=== PATIENT | male | born 1940 | race Caucasian/White ===

== ENCOUNTER → 2016-05-04 | Outpatient (CLI) | payer MEDICARE, BC ==
[2016-05-04 11:59] LABS: Appearance,Urine Clear (Clear); Bilirubin,Urine Negative (Negative); Glucose,Urine (UA) Negative (Negative); Ketones,Urine Negative (Negative); Leukocyte Esterase,Urine Trace (Negative); Mucus,Urine Few /hpf; Nitrite,Urine Negative (Negative); Particle Count 7877; Protein,Urine 1+ (Negative); RBC,Urine 4 /hpf (0-5); Specific Gravity,Urine 1.017 (1.001-1.035); Squamous Epithelial Cell,Urine 1 /hpf (0-4); UA Billing (MACRO vs. MICRO) MICRO; Urobilinogen,Urine <2.0 mg/dL (<2.0); WBC,Urine 1 /hpf (0-5)
[2016-05-04 12:09] LABS: Calcium 9.5 mg/dL (8.4-10.2); Magnesium 2.1 mg/dL (1.6-2.3); Phosphorous 2.4 mg/dL (2.5-4.5); Potassium 4.4 mmol/L (3.5-5.1); Uric Acid 6.4 mg/dL (3.5-8.5)
[2016-05-04 12:18] LABS: % Iron Saturation 46.9 % (20-50)
[2016-05-04 14:40] LABS: Anisocytosis Slight; CH 28.9; CHCM 34.1; HDW 3.13; HGB 16.1 gm/dL (13.0-17.5); MCH 28.5 pg (25.0-35.0); MCHC 33.5 g/dL (31.0-37.0); Mean Platelet Volume 7.8; RBC 5.64 m/uL (4.30-5.90); RDW 19.2 % (11.5-15.5); WBC 3.2 k/uL (3.8-10.6)
[2016-05-05 15:37] LABS: Mis test requested (Non-blood) 24hr Ur Tot Protein
== END | disposition home or self-care (01) ==
LOC: LABWHC1 11:12
PROVIDERS: ATTEND Nurse Practitioner Family
DX: N18.3 Chronic kidney disease, stage 3 (moderate) (principal); D64.9 Anemia, unspecified; E83.39 Other disorders of phosphorus metabolism; M10.9 Gout, unspecified; N39.0 Urinary tract infection, site not specified; R80.9 Proteinuria, unspecified
CPT/HCPCS: 36415; 80048; 81001; 81050; 82306; 82570; 82728; 83540; 83550; 83735; 83970; 84100; 84156; 84550; 85027

== ENCOUNTER → 2016-06-06 | Outpatient (CLI) | payer MEDICARE, BC ==
--- NOTE | 2016-06-07 09:31 | PE ---
EXAMINATION TYPE: PET CT fusion skull to thigh DATE OF EXAM: 06/06/2016 2:54 PM COMPARISON: PET/CT 02/29/2016 HISTORY: Renal cancer TECHNIQUE: Following the intravenous administration of 14.76 mCi of F-18 FDG, whole body images are performed from the skull base to the midthigh. Images are reviewed on the computer in the coronal, a xial, and sagittal planes. Reconstructed rotating images are created on independent workstation and reviewed on the computer. A localization and attenuation correction CT is performed in conjunction with the PET scan. DLP: 479.6 mGycm SCAN: Subsequent Scan Blood glucose: 68 mg/dL Average Mediastinum SUV: 1.9 Average Liver SUV: 2.3 FINDINGS: NECK: No abnormal uptake THORAX: No abnormal uptake ABDOMEN AND PELVIS: No abnormal uptake OSSEOUS STRUCTURES: No abnormal uptake LOCALIZATION CT: Gallstones are present. There is a cyst superior pole right kidney. This measures 5. 1 cm in transverse dimension with Hounsfield unit measurement of 20. No suspicious adenopathy is evid ent. Aortic region level of the renal arteries. No abnormal adenopathy is evident. Diverticulosis is present. Right hip prosthesis is present. Left kidney is resected. Ascending thoracic aorta measures 3.4 cm the global the main pulmonary artery. Pulmonary artery measures 2.2 cm at the bifurcation. Cor onary artery calcification is present. COMPARISON: Marked intensity surrounding the right hip prosthesis is not apparent on the current exam ination. There may be some minimal residual directly adjacent to an SUV value of 3.70 as a comparison . PET image 252 IMPRESSION: 1. Suspicious uptake not identified. 2. Some increased uptake adjacent to the right hip prosthesis prior surgery site is diminishing from comparison intensity an SUV value. Postsurgical changes and resolving neoplasm could be considered.
== END | disposition home or self-care (01) ==
LOC: RADPETMAIN 11:23
PROVIDERS: ATTEND Internal Medicine Hematology & Oncology
DX: C64.2 Malignant neoplasm of left kidney, except renal pelvis (principal)
CPT/HCPCS: 78815; A9552

== ENCOUNTER → 2016-06-24 | Outpatient (CLI) | payer MEDICARE, BC | END | disposition home or self-care (01) | LOC: LABWHC1 11:09 | PROVIDERS: ATTEND Family Medicine | DX: C79.51 Secondary malignant neoplasm of bone (principal); M84.451A Pathological fracture, right femur, initial encounter for fracture | CPT/HCPCS: 36415; 82565; 84520 ==

== ENCOUNTER → 2016-06-29 | Outpatient (CLI) | payer MEDICARE, BC ==
--- NOTE | 2016-06-29 15:44 | MR ---
EXAMINATION TYPE: MR knee RT wo/w con DATE OF EXAM: 06/29/2016 12:57 PM COMPARISON: NONE HISTORY: malignant neoplasm of bone, FDG avid lesion medial femoral condyle, h/o renal cell ca TECHNIQUE: Multiplanar, multisequence images of the right knee is performed with 17 mL intravenous Mu ltiHance gadolinium contrast. FINDINGS: MEDIAL MENISCUS: Anterior and posterior horns are intact without tear. LATERAL MENISCUS: Anterior and posterior horns are intact without tear. CRUCIATE LIGAMENTS: The anterior and posterior cruciate ligaments are intact and unremarkable. COLLATERAL LIGAMENTS: The medial collateral ligament and lateral collateral ligament complex are inta ct and unremarkable. EXTENSOR MECHANISM: Visualized quadriceps and patellar tendons are intact. EFFUSION: No significant suprapatellar joint effusion. POPLITEAL CYST: No popliteal/siduh cyst. TRICOMPARTMENT SPACES: Intact CARTILAGE: Intact BONE MARROW SIGNAL: No focal abnormal marrow signal is appreciated. OTHER: Small nonenhancing cystic lesion is seen within the medial femoral condyle subcortical locati on and measures approximately 6.5 mm. Additional nonenhancing cystic lesion is seen within the latera l aspect of the lateral tibial plateau and measures 6.8 mm. No destructive lesion identified within t he nhbyd-sy-lihw of this time. Intramedullary cesilia is partially imaged. IMPRESSION: 1. Small nonenhancing cystic lesions are nonspecific. Correlate with bone scan to exclude the possibi lity of metastatic disease.
== END ==
LOC: RADMRIMAIN 11:39
PROVIDERS: ATTEND Orthopaedic Surgery
DX: M89.8X6 Other specified disorders of bone, lower leg (principal); C79.51 Secondary malignant neoplasm of bone; M84.451A Pathological fracture, right femur, initial encounter for fracture
CPT/HCPCS: 73723; A9577

== ENCOUNTER → 2016-08-28 | Outpatient (CLI) | payer MEDICARE, BC ==
--- NOTE | 2016-08-28 10:23 | CT ---
EXAMINATION TYPE: CT ChestAbdPelvis wo con DATE OF EXAM: 08/28/2016 9:51 AM COMPARISON: PET/CT dated 06/06/[address] chest dated 04/07/2016. HISTORY: Renal cell CA, wt loss CT DLP: 611.4 mGycm Automated exposure control for dose reduction was used. FINDINGS: CHEST: The right middle lobe pulmonary nodule has decreased in size now measuring 1.1 cm and previous ly measuring 1.7 cm the previously seen left superior segment lower lobe pulmonary nodule has also de creased in size that abuts the major fissure measuring 2 mm and previously measuring 5 mm. Within the left upper lobe anteriorly on image 30 the previously seen pulmonary nodule has also decreased in si ze now measuring 5 mm additionally the left lower lobe pulmonary nodule on image 40 has also decrease d in size now measuring 3 mm. The previously seen second right pulmonary nodule, subcentimeter is no longer visualized on this examination.. Otherwise the lungs are clear without evidence of pleural eff usion, or pulmonary mass. Minimal right basilar subsegmental atelectasis is present. Three-vessel coronary artery calcifications are noted. A prominent subcarinal lymph node is seen john uring 9 mm in short axis but maintains a fatty hilum. No gross evidence of hilar or mediastinal adeno teresa. No evidence of axillary adenopathy or supraclavicular adenopathy. The thyroid gland is unremar kable. Heart size is within normal limits. ABDOMEN AND PELVIS: The unenhanced liver, spleen, pancreas, and adrenal glands are of normal morpholo gy. Gallstones are evident. The right kidney is also of normal morphology with a right renal sinus cy st again measuring approximately 4.7 cm. The left kidney is surgically absent although the left adrenal gland remains. No residual soft tissue is seen within the surgical bed. No lymphadenopathy is seen within the abdomen or pelvis. The bowel is normal caliber. Diverticula are seen throughout the colon most pronounced within the sig moid colon without pericolonic fat stranding. Abdominal aorta is of normal course and caliber with at heromatous changes. No suspicious osseous lesion is present. Mild degenerative changes are appreciate d of the thoracolumbar spine. Right hip arthroplasty is unchanged. IMPRESSION: 1. LEFT NEPHRECTOMY WITH NO SOFT TISSUE DENSITY WITHIN THE POSTSURGICAL BED OR LYMPHADENOPATHY TO IND ICATE RECURRENT OR RESIDUAL TUMOR AT THIS TIME. 2. DECREASING SIZE OF THE BILATERAL PULMONARY NODULES INDICATING RESPONSE TO TREATMENT OR INFLAMMATOR Y/INFECTIOUS ETIOLOGY. 3. RIGHT PARAPELVIC RENAL CYST, SIMPLE IN NATURE. 4. NO SUSPICIOUS OSSEOUS LESION.
== END | disposition home or self-care (01) ==
LOC: RADCTMAIN 09:32
PROVIDERS: ATTEND Internal Medicine Hematology & Oncology
DX: N28.1 Cyst of kidney, acquired (principal); R91.8 Other nonspecific abnormal finding of lung field; C64.2 Malignant neoplasm of left kidney, except renal pelvis; Z90.5 Acquired absence of kidney
CPT/HCPCS: 71250; 74176

== ENCOUNTER → 2016-10-21 | Outpatient (CLI) | payer MEDICARE, BC ==
[2016-10-21 10:14] LABS: CH 35.1; CHCM 34.4; HCT 40.3 % (39.0-53.0); HDW 3.32; HGB 14.5 gm/dL (13.0-17.5); MCH 36.8 pg (25.0-35.0); MCHC 35.8 g/dL (31.0-37.0); MCV 102.8 fL (80.0-100.0); Macrocytosis Slight; Mean Platelet Volume 7.1; RBC 3.92 m/uL (4.30-5.90); RDW 14.5 % (11.5-15.5); WBC 3.1 k/uL (3.8-10.6)
[2016-10-21 10:37] LABS: Appearance,Urine Clear (Clear); Bilirubin,Urine Negative (Negative); Glucose,Urine (UA) Negative (Negative); Ketones,Urine Negative (Negative); Leukocyte Esterase,Urine Negative (Negative); Nitrite,Urine Negative (Negative); PH, Urine 5.5 (5.0-8.0); Protein,Urine Trace (Negative); Specific Gravity,Urine 1.011 (1.001-1.035); UA Billing (MACRO vs. MICRO) CHEM; Urobilinogen,Urine <2.0 mg/dL (<2.0)
[2016-10-21 10:50] LABS: Anion Gap 12 mmol/L; Blood Urea Nitrogen 27 mg/dL (9-20); Calcium 9.2 mg/dL (8.4-10.2); Carbon Dioxide 20 mmol/L (22-30); Chloride 111 mmol/L (98-107); Glucose 82 mg/dL (74-99); Iron 93 ug/dL (49-181); Magnesium 1.8 mg/dL (1.6-2.3); Non-African American GFR(MDRD) 54 (>60 ml/min/1.73 sqM); Phosphorous 2.5 mg/dL (2.5-4.5); Potassium 4.9 mmol/L (3.5-5.1); Sodium 143 mmol/L (137-145)
[2016-10-21 10:59] LABS: % Iron Saturation 32.9 % (20-50); Total Iron Binding Capacity 283 ug/dL (261-462)
[2016-10-21 11:09] LABS: Creatinine,Urine Random 48.6 mg/dL
== END | disposition home or self-care (01) ==
LOC: LABWHC1 09:25
PROVIDERS: ATTEND Nurse Practitioner Family
DX: E55.9 Vitamin D deficiency, unspecified (principal); M10.9 Gout, unspecified; N39.0 Urinary tract infection, site not specified; N18.3 Chronic kidney disease, stage 3 (moderate)
CPT/HCPCS: 36415; 80048; 81003; 82306; 82570; 82728; 83540; 83550; 83735; 83970; 84100; 84156; 84550; 85027

== ENCOUNTER → 2016-12-25 | Outpatient (CLI) | payer MEDICARE, BC ==
--- NOTE | 2016-12-25 13:08 | CT ---
EXAMINATION TYPE: CT ChestAbdPelvis wo con DATE OF EXAM: 12/25/2016 COMPARISON: Most recent CT chest abdomen and pelvis study August 28, 2016. PET CT June 06, 2016. Prio r PET/CT November 23, 2015. HISTORY: Left-sided renal cancer on chemotherapy progress study. CT DLP: 469.8 mGycm. Automated Exposure Control for Dose Reduction was Utilized. TECHNIQUE: CT scan of the thorax, abdomen and pelvis is performed with oral but without IV contrast. FINDINGS: LUNGS: A 1 cm nodular opacity right middle lobe near axial image 39 is unchanged from recent CT. This is perhaps slightly less prominent versus PET/CT November 23, 2015. No new parenchymal nodule or mass is present. Previously described small under 5 mm nodules on most recent CT study are not clearly seen on current study. Lungs are grossly clear. There is no pleural effusion or pneumothorax seen. The tr acheobronchial tree is patent. MEDIASTINUM: There are no new greater than 1 cm hilar or mediastinal lymph nodes. No cardiomegaly o r pericardial effusion is seen. There is prominent coronary artery calcification and/or stent in the LAD. OTHER: No additional significant abnormality is seen. LIVER/GB: Numerous dependent gallstones and gallbladder are redemonstrated. PANCREAS: No significant abnormality is seen. SPLEEN: No significant abnormality is seen. ADRENALS: No significant abnormality is seen. KIDNEYS: Left kidney is surgically absent. No suspicious new soft tissue density at level of left ry al bed is identified. There is redemonstration of 5 cm exophytic simple appearing cyst upper pole lev el right kidney that is stable. BOWEL: Sigmoid colonic diverticulosis is present. There is no CT evidence for acute diverticulitis. T here is no suspicious bowel dilatation. GENITAL ORGANS: No gross abnormality seen. LYMPH NODES: No greater than 1cm abdominal or pelvic lymph nodes are appreciated. OSSEOUS STRUCTURES: Streak artifact from metallic hardware right hip level is noted limiting evaluati on of pelvic structures. Osseous structures are somewhat demineralized. There is multilevel spurring in the thoracic spine. There is disc calcification L3-L4 level redemonstrated. No new suspicious foca l lytic or sclerotic lesion is clearly seen. OTHER: No significant additional abnormality is seen. IMPRESSION: Stable nonspecific 1 cm nodule right middle lobe. No new masses or adenopathy are evident to suggest neoplastic recurrence.
== END | disposition home or self-care (01) ==
LOC: RADCTMAIN 12:12
PROVIDERS: ATTEND Internal Medicine Hematology & Oncology
DX: R91.1 Solitary pulmonary nodule (principal); C64.2 Malignant neoplasm of left kidney, except renal pelvis
CPT/HCPCS: 71250; 74176

== ENCOUNTER → 2017-05-05 | Outpatient (CLI) | payer MEDICARE, BC ==
[2017-05-05 11:41] LABS: Calcium 9.8 mg/dL (8.4-10.2); Magnesium 1.9 mg/dL (1.6-2.3); Phosphorus 3.1 mg/dL (2.5-4.5); Total Bilirubin 0.6 mg/dL (0.2-1.3); Total Protein 6.6 g/dL (6.3-8.2); Uric Acid 5.5 mg/dL (3.5-8.5)
[2017-05-05 12:13] LABS: Appearance,Urine Clear (Clear); Bilirubin,Urine Negative (Negative); Blood,Urine Trace (Negative); Color,Urine Light Yellow; Glucose,Urine (UA) Negative (Negative); Ketones,Urine Negative (Negative); Leukocyte Esterase,Urine Negative (Negative); Mucus,Urine Rare /hpf; Nitrite,Urine Negative (Negative); PH, Urine 5.5 (5.0-8.0); Protein,Urine Trace (Negative); Squamous Epithelial Cell,Urine <1 /hpf (0-4); Urobilinogen,Urine <2.0 mg/dL (<2.0); WBC,Urine <1 /hpf (0-5)
[2017-05-05 12:31] LABS: Basophils % (A) 1 %; Eosinophils # (A) 0.2 k/uL (0-0.7); Eosinophils % (A) 7 %; HCT 42.3 % (39.0-53.0); Lymphocytes # (A) 0.4 k/uL (1.0-4.8); Lymphocytes % (A) 12 %; MCH 33.3 pg (25.0-35.0); MCV 101.1 fL (80.0-100.0); Macrocytosis Slight; Monocytes # (A) 0.2 k/uL (0-1.0); Monocytes % (A) 7 %; Neutrophils # (A) 2.2 k/uL (1.3-7.7); Neutrophils % (A) 71 %; Platelet Count 124 k/uL (150-450); Poikilocytosis Slight; RBC 4.19 m/uL (4.30-5.90); RDW 14.5 % (11.5-15.5); WBC 3.2 k/uL (3.8-10.6)
[2017-05-05 15:57] LABS: Iron Saturation 24.32 (15.00-50.00)
[2017-05-05 16:05] LABS: Vitamin D 25 Hydroxy 33.3 ng/mL (30.0-100.0)
[2017-05-05 17:55] LABS: Parathyroid Hormone Intact 46.8 pg/mL (14.0-72.0)
[2017-05-05 19:42] LABS: Hemoglobin A1C 4.5 % (4.0-6.0)
== END | disposition home or self-care (01) ==
LOC: LABWHC1 10:41
PROVIDERS: ATTEND Internal Medicine Nephrology
DX: N25.81 Secondary hyperparathyroidism of renal origin (principal); N18.3 Chronic kidney disease, stage 3 (moderate); E55.9 Vitamin D deficiency, unspecified; M10.9 Gout, unspecified; D50.9 Iron deficiency anemia, unspecified; N39.0 Urinary tract infection, site not specified
CPT/HCPCS: 36415; 80053; 80061; 81001; 82306; 82728; 83036; 83540; 83550; 83735; 83970; 84100; 84443; 84550; 85025

== ENCOUNTER → 2017-06-01 | Outpatient (CLI) | payer MEDICARE, BC ==
--- NOTE | 2017-06-01 10:14 | US ---
EXAMINATION TYPE: US kidneys/renal and bladder DATE OF EXAM: 06/01/2017 COMPARISON: US & CT CLINICAL HISTORY: Renal Cyst N28.1. EXAM MEASUREMENTS: Right Kidney: 10.7 x 4.9 x 5.5 cm Left Kidney: Surgically absent cm Right Kidney: complex cyst upper pole measures 6.2 x 4.9 x 5.9 cm Left Kidney: surgically absent Bladder: wnl Bilateral Jets seen: Yes There is no evidence for hydronephrosis at this point in time. No nephrolithiasis is seen. No alix s are identified. The urinary bladder is anechoic. Bilateral ureteral jets are seen. IMPRESSION: Complex cyst upper pole right kidney with internal echoes and septations. Consider MRI correlation.
== END | disposition home or self-care (01) ==
LOC: RADUSWWP 09:41
PROVIDERS: ATTEND Internal Medicine Nephrology
DX: N28.1 Cyst of kidney, acquired (principal)
CPT/HCPCS: 76770

== ENCOUNTER → 2017-06-30 | Outpatient (CLI) | payer MEDICARE, BC | END | disposition home or self-care (01) | LOC: LABWHC1 13:11 | PROVIDERS: ATTEND Urology | DX: N28.1 Cyst of kidney, acquired (principal) | CPT/HCPCS: 36415; 82565 ==

== ENCOUNTER → 2017-07-02 | Outpatient (CLI) | payer MEDICARE, BC ==
--- NOTE | 2017-07-02 15:58 | MR ---
EXAMINATION TYPE: MR kidney wo/w con DATE OF EXAM: 07/02/2017 COMPARISON: MRI bilateral kidney January 18, 2014. CT chest abdomen and pelvis April 09, 2017. K idney ultrasound June 01, 2017. HISTORY: Right Kidney pain, Left Kidney Removed 2014 per patient. Right renal cyst per order. CONTRAST: Standard multiplanar, multisequence MRI departmental protocol utilizing 10 mL intravenous Gadavist ga dolinium contrast. FINDINGS: KIDNEYS: Left kidney is now surgically absent. 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 No suspicious recurrent tissue is seen. Right kidney redemonstrates thin-walled cystic lesion are slowly exophytic upper pole level, and is e nlarged in size versus 2014 MRI measuring roughly 5.7 cm craniocaudal dimension coronal image 27 seri es 30 1 x 5.0 cm x 5.0 cm AP and transverse dimensions axial image 29 series 501. Similar to prior st udy there is a nonenhancing round component that is slightly hyperintense relative to fluid on T1-nayla ghted images and slightly hypointense relative to fluid involving the right lateral aspect of the les ion also which has progressed in size from 2014 MRI where it was visualized coronal image 32 series 5 01. This area is slightly hyperdense on CT. Most importantly postcontrast images show persistent mild curvilinear rim type enhancement along posterior margin of this lesion. More medial curvilinear enha ncing component on prior MRI is not as well seen. Suspect proteinaceous cyst within cyst. Solid lesio n not excluded though lack of enhancement makes almost certainly benign. There is no suspicious new n odular enhancement in this lesion or the majority of remainder thin-walled cystic lesion. No suspicio us new thickened septa are identified. No new suspicious renal lesions are present. OTHER: Dependent gallstones are redemonstrated and gallbladder. Spleen size is stable and perhaps mil dly enlarged measuring 14.2 cm long axis coronal image 28. There is stable subcentimeter cyst or cyst ic lesion pancreatic body inferior to pancreatic duct coronal image 14. Left adrenal gland is not see n with certainty. Prominent vessels just superior to pancreatic tail are now identified at this level . There is no suspicious bowel dilatation. There is no abdominal ascites. Osseous structures are inta ct. IMPRESSION: Nonsimple partially exophytic cyst or cystic lesion upper pole level right kidney has enlarged in the interval from 2014 MRI as suspected on recent ultrasound. Still felt Bosniak type II or II F lesion. No new suspicious nodularity, thickened septa, or enhancement seen to suggest Bosniak type III or IV lesion
== END ==
LOC: RADMRIMAIN 14:32
PROVIDERS: ATTEND Urology
DX: N28.1 Cyst of kidney, acquired (principal)
CPT/HCPCS: 74183; A9581

== ENCOUNTER → 2017-08-05 | Outpatient (CLI) | payer MEDICARE, BC ==
--- NOTE | 2017-08-05 14:55 | CT ---
EXAMINATION TYPE: CT ChestAbdPelvis wo con DATE OF EXAM: 08/05/2017 COMPARISON: 04/09/2017 and 12/25/2016. MRI 07/02/2017. HISTORY: 76-year-old male renal cell CA. Patient status post left nephrectomy, radiation in 2016 and currently taking oral chemotherapy. TECHNIQUE: Contiguous axial scanning of the chest, abdomen, and pelvis without IV contrast. Coronal a nd sagittal reconstructions performed. CT DLP: 1581 mGycm Automated exposure control for dose reduction was used. FINDINGS: Chest: The heart is normal size without pericardial effusion. Extensive coronary vessel calcifications are p resent and there are marker for coronary artery disease. Ascending aorta ectatic at 3.7 cm. Conventional arch vessel branching anatomy. Scattered mild atheros clerotic calcifications. No thoracic lymphadenopathy identified by noncontrast CT. Probably strandy areas of atelectasis or scarring in the lung bases. New 4 mm pulmonary nodule peripheral right base, axial image 39. Tiny 3 mm nodularity along the superior aspect of the left major fissure axial image 16 is unchanged, likely pulmonary lymph node. No consolidation or pleural effusion. ABDOMEN: Small hiatal hernia. Lack of IV contrast limits assessment of the solid abdominal viscera, lymph nodes, and vascular struc tures. Noncontrast appearance of the liver shows no obvious liver lesion. Also, noncontrast appearance of the adrenal glands, spleen, pancreas without gross abnormality. Cholelithiasis without abnormal gallbladder distention. Diverticulum of the second portion of the duo denum. Redemonstrated 5.3 cm Bosniak category 2 or 2F cyst upper pole right kidney as described on the MRI o f 07/02/2017. Multiple surgical clips in the left renal fossa. No abnormal soft tissue density seen in the left ry al fossa. No dilated small bowel, free fluid, or free air. No mesenteric or retroperitoneal lymphadenopathy. Moderate stool burden with sigmoid diverticulosis but no evidence for acute diverticulitis. Suggestio n of some wall thickening along the midsigmoid, for example, axial image 113 but limitation in assess ment due to artifact from the patient's right hip total arthroplasty. No significant surrounding infl ammatory change seen. Pelvis: Metal hardware artifact relating to the patient's right hip hemiarthroplasty limits assessment. Prost ate gland prominent measuring 5.3 cm wide. No pelvic lymphadenopathy seen. Bones: Degenerative changes mid to lower lumbar spine. No osseous destructive process seen. Stable bony def ormity along the patient's femoral stem prosthesis on the right. IMPRESSION: 1. STATUS POST LEFT NEPHRECTOMY. NO CT EVIDENCE FOR LOCOREGIONAL RECURRENCE. 2. HOWEVER, A SMALL 4 MM RIGHT BASILAR PULMONARY NODULE IS NEW AND A METASTATIC PULMONARY NODULE IS N OT EXCLUDED AT THIS TIME. 3. STABLE 5.3 CM BOSNIAK CATEGORY 2 OR 2F CYST UPPER POLE RIGHT KIDNEY. 4. SIGMOID DIVERTICULOSIS WITHOUT ACUTE DIVERTICULITIS. HOWEVER, THERE IS SUGGESTION OF SOME WALL THI CKENING ALONG THE MID SIGMOID. THIS COULD RELATE TO CHRONIC DIVERTICULITIS. CONSIDER COLONOSCOPY TO E XCLUDE NEOPLASM. 5. CHOLELITHIASIS.
== END | disposition home or self-care (01) ==
LOC: RADCTMAIN 12:20
PROVIDERS: ATTEND Internal Medicine Hematology & Oncology
DX: C64.2 Malignant neoplasm of left kidney, except renal pelvis (principal); K57.30 Diverticulosis of large intestine without perforation or abscess without bleeding; K80.20 Calculus of gallbladder without cholecystitis without obstruction; R91.1 Solitary pulmonary nodule; Z90.5 Acquired absence of kidney
CPT/HCPCS: 71250; 74176

== ENCOUNTER → 2017-08-13 | Outpatient (CLI) | payer MEDICARE, BC ==
--- NOTE | 2017-08-13 13:01 | US ---
EXAMINATION TYPE: US venous doppler duplex LE DATE OF EXAM: 08/13/2017 12:42 PM COMPARISON: NONE CLINICAL HISTORY: R002.2 palpitations M79.662 Left pain and swelling. Pt states in treatment for fred l cell CA, dizziness, light headed SIDE PERFORMED: Bilateral TECHNIQUE: The lower extremity deep venous system is examined utilizing real time linear array sonog marc with graded compression, doppler sonography and color-flow sonography. VESSELS IMAGED: External Iliac Vein (EIV) Common Femoral Vein Deep Femoral Vein Greater Saphenous Vein * Femoral Vein Popliteal Vein Small Saphenous Vein * Proximal Calf Veins (* superficial vessels) Grayscale, color doppler, spectral doppler imaging performed of the deep veins of the lower extremiti es. There is normal flow, compressibility, vascular waveforms. Attempted to call office, closed for lunch IMPRESSION: Right Leg: Negative for DVT Left Leg: Negative for DVT
--- NOTE | 2017-08-13 14:02 | XR ---
EXAMINATION TYPE: XR chest 2V DATE OF EXAM: 08/13/2017 COMPARISON: 02/16/2014 HISTORY: Shortness of breath TECHNIQUE: Frontal and lateral views of the chest are obtained. FINDINGS: Scattered senescent parenchymal changes noted. No evidence for infiltrate. No evidence for atelectasis. Heart size is stable. Mediastinal structures are stable and grossly unremarkable. No evidence for hilar prominence. Degenerative changes dorsal spine. IMPRESSION: 1. No evidence for acute pulmonary disease.
--- NOTE | 2017-08-13 14:04 | NM ---
EXAMINATION TYPE: NM pul vent and perfuse DATE OF EXAM: 08/13/2017 COMPARISON: NONE HISTORY: R002.2 palpitations M79.662 Left pain and swelling TECHNIQUE: Utilizing inhalation of 35.9 mCi Tc 99m DTPA aerosol and intravenous injection of 5.47 mC i of Tc 99m MAA, ventilation and perfusion images are acquired post injection in multiple projections . FINDINGS: Normal radiotracer distribution is noted in the lungs. There is no evidence of mismatched defects. IMPRESSION: Low probability for pulmonary embolism.
== END ==
LOC: RADUSMAIN 11:56
PROVIDERS: ATTEND Internal Medicine Hematology & Oncology
DX: M79.662 Pain in left lower leg (principal); C64.2 Malignant neoplasm of left kidney, except renal pelvis; G89.3 Neoplasm related pain (acute) (chronic); D50.9 Iron deficiency anemia, unspecified; R00.2 Palpitations; K12.39 Other oral mucositis (ulcerative)
CPT/HCPCS: 71046; 93970; 78582; A9540; A9567

== ENCOUNTER → 2017-11-08 | Outpatient (CLI) | payer MEDICARE, BC ==
[2017-11-08 10:35] LABS: Basophils % (A) 0 %; Eosinophils # (A) 0.4 k/uL (0-0.7); Eosinophils % (A) 11 %; HCT 43.1 % (39.0-53.0); HGB 14.2 gm/dL (13.0-17.5); Lymphocytes # (A) 0.5 k/uL (1.0-4.8); Lymphocytes % (A) 12 %; MCV 96.9 fL (80.0-100.0); Mean Platelet Volume 6.9; Monocytes # (A) 0.4 k/uL (0-1.0); Monocytes % (A) 10 %; Neutrophils # (A) 2.3 k/uL (1.3-7.7); Neutrophils % (A) 63 %; Platelet Count 122 k/uL (150-450); RBC 4.45 m/uL (4.30-5.90); RDW 15.2 % (11.5-15.5); WBC 3.7 k/uL (3.8-10.6)
[2017-11-08 10:43] LABS: Calcium 9.9 mg/dL (8.4-10.2); Magnesium 1.8 mg/dL (1.6-2.3); Phosphorus 3.8 mg/dL (2.5-4.5); Potassium 5.1 mmol/L (3.5-5.1); Uric Acid 7.1 mg/dL (3.5-8.5)
[2017-11-08 11:10] LABS: Appearance,Urine Clear (Clear); Bilirubin,Urine Negative (Negative); Blood,Urine Negative (Negative); Color,Urine Light Yellow; Glucose,Urine (UA) Negative (Negative); Ketones,Urine Negative (Negative); Leukocyte Esterase,Urine Negative (Negative); Nitrite,Urine Negative (Negative); PH, Urine 5.5 (5.0-8.0); Protein,Urine Trace (Negative); Urobilinogen,Urine <2.0 mg/dL (<2.0)
[2017-11-08 16:20] LABS: Iron Saturation 24.86 (15.00-50.00)
[2017-11-08 16:28] LABS: Vitamin D 25 Hydroxy 35.6 ng/mL (30.0-100.0)
[2017-11-08 16:46] LABS: Parathyroid Hormone Intact 29.1 pg/mL (14.0-72.0)
== END | disposition home or self-care (01) ==
LOC: LABWHC1 09:41
PROVIDERS: ATTEND Internal Medicine Nephrology
DX: N18.3 Chronic kidney disease, stage 3 (moderate) (principal); D64.9 Anemia, unspecified; E55.9 Vitamin D deficiency, unspecified; E21.3 Hyperparathyroidism, unspecified; M10.9 Gout, unspecified; N39.0 Urinary tract infection, site not specified
CPT/HCPCS: 36415; 80048; 81003; 82306; 82728; 83540; 83550; 83735; 83970; 84100; 84550; 85025

== ENCOUNTER → 2017-12-03 | Outpatient (CLI) | payer MEDICARE, BC ==
--- NOTE | 2017-12-03 13:36 | CT ---
EXAMINATION TYPE: CT ChestAbdPelvis wo con DATE OF EXAM: 12/03/2017 COMPARISON: 08/05/2017 and 04/09/2017 HISTORY: 76-year-old male follow-up to renal CA, history of left nephrectomy. Pt complaining of low b ack pain. TECHNIQUE: Contiguous axial scanning of the chest, abdomen, and pelvis without IV contrast. Coronal a nd sagittal reconstructions performed. CT DLP: 823.8 mGycm Automated exposure control for dose reduction was used. FINDINGS: Chest: Heart normal size without pericardial effusion. Coronary vessel calcifications are present. Ectatic ascending aorta and 3.7 cm, unchanged. Conventional branching anatomy with mild atherosclerot ic arch calcifications. Ectatic lower descending thoracic aorta at 2.7 cm. No thoracic lymphadenopathy by CT size criteria. Strandy atelectasis or scarring at the lung bases, unchanged. -3 mm pulmonary nodule along the superior left major fissure is stable suggesting a benign etiology, possible intrapulmonary lymph node. -A 4 mm anterior left midlung pulmonary nodule is stable in retrospect, axial image 31, benign. -A 6 mm left lower lobe pulmonary nodule is stable in retrospect, axial image 38. -A 4 mm peripheral right basilar pulmonary nodule, while new from 04/09/2017, is stable for 4 months. Axial image 42. ABDOMEN: Lack of IV contrast limits assessment of the solid abdominal viscera, lymph nodes, and vascular struc tures. Tiny hernia. Noncontrast appearance of the liver, adrenal glands, spleen, and pancreas show no gross abnormality. Redemonstrated diverticulum of the second/third portion of the duodenum projecting into the pancreati c head region. 5.3 cm cyst redemonstrated upper pole right kidney shows intermediate attenuation and is stable. Patient is status post left nephrectomy. The nephrectomy bed remains clear Layering gallstones within the nondistended gallbladder measuring up to 1 cm. No mesenteric or retroperitoneal lymphadenopathy. No dilated small bowel, free fluid, or free air. Some surgical material at the right lower quadrant probably from prior appendectomy. [id number]-ln-[id number] stool with oral contrast progressed to the rectum. Sigmoid diverticulosis with similar wall thickeni ng along the mid sigmoid colon probably representing chronic diverticulitis. Pelvis: Artifact from the patient's right hip total arthroplasty limits visualization. Mild circumferential b ladder wall thickening is noted. No abnormal fluid collection the pelvis or pelvic lymphadenopathy. Bones: Stable bony deformity along the patient's femoral stem prosthesis on the right, possible hardware loo sening. The entire femoral stem component is not included in the [id number]. No osseous destructiv e process seen. IMPRESSION: 1. STATUS POST LEFT NEPHRECTOMY. NO EVIDENCE FOR LOCOREGIONAL RECURRENCE. 2. THE 4 MM RIGHT BASILAR PULMONARY NODULE IS STABLE FOR 4 MONTHS. THIS WAS NOTED TO BE NEW FROM 03/26. CONTINUED FOLLOW-UP INDICATED. 3. STABLE 5.3 CM BOSNIAK CATEGORY 2 VERSUS 2F CYST UPPER POLE RIGHT KIDNEY. 4. STABLE SIGMOID DIVERTICULOSIS AND MID SIGMOID WALL THICKENING PROBABLY DUE TO CHRONIC DIVERTICULIT IS. 5. CHOLELITHIASIS. 6. STABLE BONY DEFORMITY TO THE PROXIMAL RIGHT FEMUR AROUND THE FEMORAL STEM COMPONENT OF THE HIP REP LACEMENT, POSSIBLE HARDWARE LOOSENING.
== END | disposition home or self-care (01) ==
LOC: RADCTMAIN 10:47
PROVIDERS: ATTEND Internal Medicine Hematology & Oncology
DX: C64.2 Malignant neoplasm of left kidney, except renal pelvis (principal); K57.30 Diverticulosis of large intestine without perforation or abscess without bleeding; K80.20 Calculus of gallbladder without cholecystitis without obstruction; K63.89 Other specified diseases of intestine; R91.1 Solitary pulmonary nodule; Z90.5 Acquired absence of kidney
CPT/HCPCS: 71250; 74176

== ENCOUNTER → 2017-12-22 | Outpatient (CLI) | payer MEDICARE, BC ==
--- NOTE | 2017-12-22 17:12 | MR ---
Brain MR without contrast HISTORY: Headaches with renal cell carcinoma Multiplanar multisequence imaging obtained through the brain. No comparisons There is no restricted diffusion. There is no hemorrhage or hydrocephalus. There are normal vascular flow voids. Cerebellopontine angles, corpus callosum, pituitary, cervical medullary junction are norm al. Scattered white matter hyperintensities are present on inversion recovery T2-weighted sequences w ithin the periventricular, subcortical, juxtacortical white matter. Approximately 20-30 lesions are p resent. Largest is in the right frontal subcortical white matter on axial image 20 measures 5 to 6 mm . The orbits show symmetric appearance. Inflammatory changes present ethmoid air cells and maxillary si nus, is opacification of the right maxillary sinus. Sphenoid sinus also shows inflammatory change. So me inflammatory change also present in the mastoid air cells. IMPRESSION: Nonspecific white matter demyelination may be due to chronic small vessel ischemia. Sinus disease, inflammatory change mastoid air cells. Correlate for acute right maxillary sinusitis.
== END | disposition home or self-care (01) ==
LOC: RADMRIMAIN 16:12
PROVIDERS: ATTEND Internal Medicine Hematology & Oncology
DX: G37.9 Demyelinating disease of central nervous system, unspecified (principal); C64.2 Malignant neoplasm of left kidney, except renal pelvis
CPT/HCPCS: 70551

== ENCOUNTER → 2018-03-14 | Outpatient (CLI) | payer MEDICARE, BC ==
[2018-03-14 11:54] LABS: Basophils % (A) 0 %; Eosinophils # (A) 0.5 k/uL (0-0.7); Eosinophils % (A) 13 %; HCT 45.3 % (39.0-53.0); HGB 14.8 gm/dL (13.0-17.5); Lymphocytes # (A) 0.4 k/uL (1.0-4.8); Lymphocytes % (A) 13 %; MCH 32.1 pg (25.0-35.0); MCHC 32.7 g/dL (31.0-37.0); MCV 98.2 fL (80.0-100.0); Macrocytosis Slight; Mean Platelet Volume 6.7; Monocytes # (A) 0.3 k/uL (0-1.0); Monocytes % (A) 9 %; Neutrophils # (A) 2.2 k/uL (1.3-7.7); Neutrophils % (A) 62 %; Platelet Count 129 k/uL (150-450); RBC 4.61 m/uL (4.30-5.90); RDW 15.6 % (11.5-15.5); WBC 3.5 k/uL (3.8-10.6)
[2018-03-14 12:06] LABS: Appearance,Urine Clear (Clear); Bilirubin,Urine Negative (Negative); Blood,Urine Trace (Negative); Color,Urine Yellow; Glucose,Urine (UA) Negative (Negative); Hyaline Casts,Urine 1 /lpf (0-2); Ketones,Urine Negative (Negative); Leukocyte Esterase,Urine Negative (Negative); Nitrite,Urine Negative (Negative); PH, Urine 5.5 (5.0-8.0); Protein,Urine 1+ (Negative); Specific Gravity,Urine 1.014 (1.001-1.035); Squamous Epithelial Cell,Urine <1 /hpf (0-4); Urobilinogen,Urine <2.0 mg/dL (<2.0)
[2018-03-14 16:21] LABS: Vitamin D 25 Hydroxy 33.2 ng/mL (30.0-100.0)
[2018-03-14 16:28] LABS: Anion Gap 7.1 mmol/L (4.00-12.00); Calcium 9.9 mg/dL (8.7-10.3); Carbon Dioxide 20.9 mmol/L (21.6-31.8); Magnesium 1.9 mg/dL (1.5-2.4); Parathyroid Hormone Intact 27.4 pg/mL (14.0-72.0); Phosphorus 3.2 mg/dL (2.4-5.1); Potassium 4.9 mmol/L (3.5-5.5); Uric Acid 6.5 mg/dL (3.7-8.7)
[2018-03-14 17:01] LABS: DNA Double-Stranded NEGATIVE (NEGATIVE)
[2018-03-14 17:38] LABS: Iron Saturation 26.67 (15.00-50.00)
[2018-03-14 19:00] LABS: Total Protein,Urine Random 43.3 mg/dL (0.0-13.5)
[2018-03-15 13:32] LABS: C-ANCA <1:20 Titer (<1:20); P-ANCA <1:20 Titer (<1:20)
== END | disposition home or self-care (01) ==
LOC: LABWHC1 10:38
PROVIDERS: ATTEND Nurse Practitioner Family
DX: E78.2 Mixed hyperlipidemia (principal); N18.3 Chronic kidney disease, stage 3 (moderate); D63.1 Anemia in chronic kidney disease; R80.9 Proteinuria, unspecified; E55.9 Vitamin D deficiency, unspecified; E21.3 Hyperparathyroidism, unspecified; M10.9 Gout, unspecified; N39.0 Urinary tract infection, site not specified
CPT/HCPCS: 36415; 80048; 81001; 82306; 82570; 82728; 83516; 83540; 83550; 83735; 83883; 83970; 84100; 84156; 84166; 84550; 85025; 86038; 86160; 86162; 86225; 86255; 86334

== ENCOUNTER → 2018-04-01 | Outpatient (CLI) | payer MEDICARE, BC ==
--- NOTE | 2018-04-01 18:14 | CT ---
EXAMINATION TYPE: CT ChestAbdPelvis wo con DATE OF EXAM: 04/01/2018 INDICATION: Renal cell cancer. COMPARISON: 12/03/2017 CT DLP: 859.5 mGycm CONTRAST: Performed with Oral Contrast. No IV contrast. TECHNIQUE: Axial images at 5 mm thick sections. Reconstructed images in the coronal plane. Delayed images through the kidneys. FINDINGS: CT CHEST: Portion of the thyroid visualized is normal. There is a left infrahilar nodule measuring 0.6 cm. This is stable from comparison. A small 0.4 cm no dules in the left upper lobe. Series 4 image this is stable from comparison. Punctate nodule in the p eriphery of the right lung, series 4 image 42 is stable. Some scarring or atelectasis posterior right lung base present previously. No enlarged mediastinal or hilar adenopathy is evident. The ascending aorta diameter at the level of the main pulmonary artery is 3.7 cm. The main pulmonary artery diameter at the bifurcation is 2.4 cm. Moderate coronary artery calcifications present. CT ABDOMEN: Liver: Normal Spleen: Normal Pancreas: Normal Adrenal glands: The adrenal glands are normal. Gallbladder: Cholelithiasis. Right Kidney: No masses are evident. No hydronephrosis is present. There is a 5.1 cm cyst on the po sterior superior pole right kidney measuring 19 Hounsfield units. Left kidney is surgically absent. No suspicious renal stone is evident. Aorta: Vascular calcification is within the aorta. Inferior vena cava: Normal. CT PELVIS: Loops of bowel within the abdomen and pelvis are normal. There are loops of bowel which are incom pletely distended or lack oral contrast limiting their evaluation. Diverticular changes are within th e sigmoid colon. Appendix: Not identified. Urinary bladder: Normal. Genitourinary structures: Prostate is prominent. Osseous structures: No suspicious lytic or sclerotic lesions. There is a right hip prosthesis. Facet degenerative changes are within the lumbar spine. No suspicious expansile lesions are evident. IMPRESSIONS: 1. Sigmoid diverticulosis. 2. Superior pole right renal cysts, stable. 3. No recurrent masses within the left renal bed. 4. Stable nodules within the bilateral lung tristan discussed above.
== END | disposition home or self-care (01) ==
LOC: RADCTMAIN 10:37
PROVIDERS: ATTEND Internal Medicine Hematology & Oncology
DX: Z03.89 Encounter for observation for other suspected diseases and conditions ruled out (principal); K57.30 Diverticulosis of large intestine without perforation or abscess without bleeding; N28.1 Cyst of kidney, acquired; R91.8 Other nonspecific abnormal finding of lung field; C64.2 Malignant neoplasm of left kidney, except renal pelvis
CPT/HCPCS: 71250; 74176

== ENCOUNTER → 2018-04-14 | Outpatient (CLI) | payer MEDICARE, BC ==
--- NOTE | 2018-04-14 11:15 | US ---
EXAMINATION TYPE: US kidneys/renal and bladder DATE OF EXAM: 04/14/2018 COMPARISON: CT CLINICAL HISTORY: N18.3 CKD stage 3. EXAM MEASUREMENTS: Right Kidney: 10.8 x 5.8 x 4.7 cm Left Kidney: Surgically absent Post Void Residual Volume: mL Right Kidney: No hydronephrosis, cyst seen measuring 7.4 x 4.6 x 5.8cm Left Kidney: Surgically absent Bladder: wnl Right Jet seen ?splenule There is no evidence for hydronephrosis at this point in time. No nephrolithiasis is seen. No solid masses are identified. The urinary bladder is anechoic. IMPRESSION: Large cyst upper pole right kidney.
== END | disposition home or self-care (01) ==
LOC: RADUSWWP 10:33
PROVIDERS: ATTEND Internal Medicine Nephrology
DX: N28.1 Cyst of kidney, acquired (principal); N18.3 Chronic kidney disease, stage 3 (moderate)
CPT/HCPCS: 76770

== ENCOUNTER → 2018-05-10 | Outpatient (CLI) | payer MEDICARE, BC | END | disposition home or self-care (01) | LOC: LABWHC1 11:15 | PROVIDERS: ATTEND Internal Medicine Interventional Cardiology | DX: E78.2 Mixed hyperlipidemia (principal) | CPT/HCPCS: 36415; 80061; 82550; 84450; 84460 ==

== ENCOUNTER → 2018-07-08 | Outpatient (CLI) | payer MEDICARE, BC ==
[2018-07-08 11:04] LABS: Appearance,Urine Clear (Clear); Bilirubin,Urine Negative (Negative); Blood,Urine Negative (Negative); Color,Urine Yellow; Glucose,Urine (UA) Negative (Negative); Ketones,Urine Negative (Negative); Leukocyte Esterase,Urine Negative (Negative); Nitrite,Urine Negative (Negative); Protein,Urine Trace (Negative); Specific Gravity,Urine 1.011 (1.001-1.035); Urobilinogen,Urine <2.0 mg/dL (<2.0)
[2018-07-08 11:30] LABS: Basophils % (A) 1 %; Eosinophils # (A) 0.4 k/uL (0-0.7); Eosinophils % (A) 12 %; HCT 46.7 % (39.0-53.0); HGB 14.4 gm/dL (13.0-17.5); Lymphocytes # (A) 0.5 k/uL (1.0-4.8); Lymphocytes % (A) 13 %; MCH 31.2 pg (25.0-35.0); MCHC 30.8 g/dL (31.0-37.0); MCV 101.1 fL (80.0-100.0); Macrocytosis Slight; Mean Platelet Volume 7.4; Monocytes # (A) 0.3 k/uL (0-1.0); Monocytes % (A) 10 %; Neutrophils # (A) 2.1 k/uL (1.3-7.7); Neutrophils % (A) 61 %; Platelet Count 125 k/uL (150-450); RBC 4.62 m/uL (4.30-5.90); RDW 14.6 % (11.5-15.5); WBC 3.5 k/uL (3.8-10.6)
[2018-07-08 16:49] LABS: Anion Gap 4.8 mmol/L (4.00-12.00); Calcium 9.3 mg/dL (8.7-10.3); Carbon Dioxide 25.2 mmol/L (21.6-31.8); Magnesium 1.8 mg/dL (1.5-2.4); Phosphorus 3.1 mg/dL (2.4-5.1); Potassium 4.7 mmol/L (3.5-5.5); Uric Acid 6.5 mg/dL (3.7-8.7)
[2018-07-08 17:06] LABS: DNA Double-Stranded NEGATIVE (NEGATIVE)
[2018-07-08 17:46] LABS: Iron Saturation 31.38 (15.00-50.00)
[2018-07-08 17:57] LABS: Parathyroid Hormone Intact 85.9 pg/mL (14.0-72.0)
[2018-07-08 18:12] LABS: Creatinine,Urine Random 95.1 mg/dL
[2018-07-08 18:36] LABS: Total Protein,Urine Random 27.5 mg/dL (0.0-13.5)
[2018-07-11 14:41] LABS: C-ANCA <1:20 Titer (<1:20); P-ANCA <1:20 Titer (<1:20)
== END | disposition home or self-care (01) ==
LOC: LABWHC1 10:36
PROVIDERS: ATTEND Nurse Practitioner Family
DX: R80.9 Proteinuria, unspecified (principal); N18.3 Chronic kidney disease, stage 3 (moderate); D63.1 Anemia in chronic kidney disease; E21.3 Hyperparathyroidism, unspecified; M10.9 Gout, unspecified; N39.0 Urinary tract infection, site not specified
CPT/HCPCS: 36415; 80048; 81003; 82570; 82728; 83516; 83540; 83550; 83735; 83883; 83970; 84100; 84156; 84166; 84550; 85025; 86038; 86160; 86162; 86225; 86255; 86334

== ENCOUNTER → 2018-07-29 | Outpatient (CLI) | payer MEDICARE, BC ==
--- NOTE | 2018-07-31 17:45 | CT ---
EXAMINATION TYPE: CT ChestAbdPelvis wo con DATE OF EXAM: 07/29/2018 INDICATION: Follow up renal cancer. COMPARISON: 04/01/2018 CT DLP: 1524 mGycm CONTRAST: Performed with Oral Contrast TECHNIQUE: Axial images at 5 mm thick sections. Reconstructed images in the coronal plane. Delayed images through the kidneys. FINDINGS: CT CHEST: Portion of the thyroid visualized is normal. No suspicious lung nodules or focal infiltrates are present. There is some compressive atelectasis wi thin the posterior right lung base. No enlarged mediastinal or hilar adenopathy is evident. The ascending aorta diameter at the level of the main pulmonary artery is 3.7 cm. The main pulmonary artery diameter at the bifurcation is 2.7 cm. Moderate coronary artery calcification is present. CT ABDOMEN: Liver: Hepatomegaly is present. Spleen: Normal Pancreas: Normal Adrenal glands: The adrenal glands are normal. Gallbladder: Multiple gallstones are present. Kidneys: There is been a prior left nephrectomy surgical clips are in the renal bed. No recurrent mas ses within the renal bed are evident. There is a cyst at superior pole right kidney measuring 8 Hounsfield units and 5.4 cm in diameter. No discrete masses or hydronephrosis are identified. Aorta: Vascular calcification is within the aorta. Inferior vena cava: Normal. CT PELVIS: Loops of bowel within the abdomen and pelvis are normal. There are loops of bowel which are incom pletely distended or lack oral contrast limiting their evaluation. Multiple diverticuli without acute diverticulitis are within the sigmoid colon. Appendix: Not visualized. No suspicious tubular structures or inflammatory changes are evident. Urinary bladder: Some limitation due to beam hardening artifact from right hip prosthesis. Genitourinary structures: Prostate appears unremarkable Osseous structures: No suspicious lytic or sclerotic lesions. IMPRESSIONS: 1. No suspicious changes to suggest recurrent renal cell carcinoma. No suspicious areas for metastati c disease. 2. Diverticulosis. 3. Superior pole right renal cyst 4. Multiple gallstones
== END | disposition home or self-care (01) ==
LOC: RADCTMAIN 09:57
PROVIDERS: ATTEND Internal Medicine Hematology & Oncology
DX: N28.1 Cyst of kidney, acquired (principal); K80.20 Calculus of gallbladder without cholecystitis without obstruction; K57.30 Diverticulosis of large intestine without perforation or abscess without bleeding
CPT/HCPCS: 71250; 74176

== ENCOUNTER → 2018-11-25 | Outpatient (CLI) | payer MEDICARE, BC ==
--- NOTE | 2018-11-25 12:22 | CT ---
EXAMINATION TYPE: CT ChestAbdPelvis wo con DATE OF EXAM: 11/25/2018 COMPARISON: Prior CT 07/29/2018 ultrasound kidneys 04/14/2018 HISTORY: Follow up study for known renal CA. CT DLP: 1133 mGycm. Automated Exposure Control for Dose Reduction was Utilized. TECHNIQUE: CT scan of the thorax, abdomen and pelvis is performed without IV contrast. FINDINGS: Lack of contrast could compromise sensitivity. LUNGS: The lungs are grossly clear, there is no concerning parenchymal mass or nodule identified, the re is minimal dependent atelectatic change There is no pleural effusion or pneumothorax seen. The tr acheobronchial tree is patent. MEDIASTINUM: There are no greater than 1 cm hilar or mediastinal lymph nodes. No pericardial effusi on is seen. There are coronary artery calcifications. OTHER: No additional significant abnormality is seen. LIVER/GB: No significant abnormality is appreciated. PANCREAS: No significant abnormality is seen. SPLEEN: No significant abnormality is seen. ADRENALS: No significant abnormality is seen. KIDNEYS: Stable mass at the upper pole the right kidney now measures approximately 4.9 x.8 cm x 8.2 c m and increased slightly in the interval. Left kidney has been removed. BOWEL: Stable, there is extensive diverticular change in the sigmoid colon GENITAL ORGANS: No gross a bnormality seen. LYMPH NODES: No greater than 1cm abdominal or pelvic lymph nodes are appreciated. OSSEOUS STRUCTURES: Stable abnormal appearance of the right hip prosthesis as described on prior repo rt. OTHER: No significant additional abnormality is seen. IMPRESSION: Cystic mass right upper pole of the kidney has grown slightly in the interval. No other s ignificant interval change.
== END | disposition home or self-care (01) ==
LOC: RADCTMAIN 10:00
PROVIDERS: ATTEND Internal Medicine Hematology & Oncology
DX: N28.1 Cyst of kidney, acquired (principal); C64.2 Malignant neoplasm of left kidney, except renal pelvis; Z90.5 Acquired absence of kidney
CPT/HCPCS: 71250; 74176

== ENCOUNTER → 2019-01-09 | Outpatient (CLI) | payer MEDICARE, BC ==
[2019-01-09 12:12] LABS: Appearance,Urine Clear (Clear); Bilirubin,Urine Negative (Negative); Blood,Urine Trace (Negative); Color,Urine Light Yellow; Glucose,Urine (UA) Negative (Negative); Ketones,Urine Negative (Negative); Leukocyte Esterase,Urine Negative (Negative); Nitrite,Urine Negative (Negative); PH, Urine 5.5 (5.0-8.0); Protein,Urine Trace (Negative); RBC,Urine 1 /hpf (0-5); Specific Gravity,Urine 1.009 (1.001-1.035); Urobilinogen,Urine <2.0 mg/dL (<2.0); WBC,Urine <1 /hpf (0-5)
[2019-01-09 12:14] LABS: Anisocytosis Slight; Basophils % (A) 0 %; Eosinophils # (A) 0.4 k/uL (0-0.7); Eosinophils % (A) 10 %; HCT 42.7 % (39.0-53.0); HGB 14.2 gm/dL (13.0-17.5); Lymphocytes # (A) 0.5 k/uL (1.0-4.8); Lymphocytes % (A) 13 %; MCH 32.5 pg (25.0-35.0); MCHC 33.3 g/dL (31.0-37.0); MCV 97.5 fL (80.0-100.0); Mean Platelet Volume 7.2; Monocytes # (A) 0.3 k/uL (0-1.0); Monocytes % (A) 8 %; Neutrophils # (A) 2.6 k/uL (1.3-7.7); Neutrophils % (A) 65 %; Platelet Count 134 k/uL (150-450); RBC 4.38 m/uL (4.30-5.90); RDW 16.1 % (11.5-15.5)
[2019-01-09 16:30] LABS: Iron Saturation 33.03 (15.00-50.00)
[2019-01-09 16:32] LABS: African American GFR (CKD) 44.4 (60.0-200.0); Albumin 3.9 g/dL (3.80-4.90); Anion Gap 7.3 mmol/L (4.00-12.00); BUN/Creat Ratio 14.71 Ratio (12.00-20.00); Calcium 9.4 mg/dL (8.7-10.3); Carbon Dioxide 20.7 mmol/L (21.6-31.8); Magnesium 1.7 mg/dL (1.5-2.4); Phosphorus 3.5 mg/dL (2.4-5.1); Potassium 4.8 mmol/L (3.5-5.5); Uric Acid 6.9 mg/dL (3.7-8.7)
[2019-01-09 16:34] LABS: Vitamin D 25 Hydroxy 33.7 ng/mL (30.0-100.0)
[2019-01-09 18:57] LABS: Total Protein,Urine Random 23.9 mg/dL (0.0-13.5)
== END | disposition home or self-care (01) ==
LOC: LABWHC1 10:57
PROVIDERS: ATTEND Internal Medicine Nephrology
DX: N18.3 Chronic kidney disease, stage 3 (moderate) (principal); D63.1 Anemia in chronic kidney disease; E55.9 Vitamin D deficiency, unspecified; M10.9 Gout, unspecified; N39.0 Urinary tract infection, site not specified; R80.9 Proteinuria, unspecified
CPT/HCPCS: 36415; 80048; 81001; 82040; 82306; 82570; 82728; 83540; 83550; 83735; 83970; 84100; 84156; 84550; 85025

== ENCOUNTER → 2019-01-20 | Outpatient (CLI) | payer MEDICARE, BC ==
--- NOTE | 2019-01-20 13:29 | CT ---
EXAMINATION TYPE: CT ChestAbdPelvis wo con DATE OF EXAM: 01/20/2019 COMPARISON: Prior CT 11/25/2018, CT 04/01/2018, 04/09/2017, 04/07/[address] chest 04/07/2016 HISTORY: Follow up scan per patient. CT DLP: 983 mGycm. Automated Exposure Control for Dose Reduction was Utilized. TECHNIQUE: CT scan of the thorax, abdomen and pelvis is performed without IV contrast. FINDINGS: Lack of intravenous contrast could compromise sensitivity. LUNGS: The lungs are stable compared to most recent, there is stable left lower lobe pulmonary nodule subcentimeter size with smooth margins on axial image 36. Nodules in the right middle lobe and right upper lobe seen on previous exam are not identified. There is no pleural effusion or pneumothorax s een. The tracheobronchial tree is patent. Volume loss present in left hemithorax. MEDIASTINUM: There are no greater than 1 cm hilar or mediastinal lymph nodes. No pericardial effusi on is seen. OTHER: There is some coronary artery calcification. LIVER/GB: No significant interval change is appre ciated. Dependent high density foci within the gallbladder compatible with stones. PANCREAS: No significant abnormality is seen. SPLEEN: No significant abnormality is seen. ADRENALS: No significant abnormality is seen. KIDNEYS: No significant interval change is seen. Cystic focus at the upper pole in exophytic location the right kidney measures 6 x 7cm and extends to the renal collecting system level of the left kidne y is absent, surgical clips are noted. BOWEL: No significant abnormality is seen. There is a large duodenal diverticulum present posterior to the head of the pancreas. Extensive diverticular change noted in sigmoid colon. Patient is post ap pendectomy. GENITAL ORGANS: No gross abnormality seen. LYMPH NODES: No greater than 1cm abdominal or pelvic lymph nodes are appreciated. OSSEOUS STRUCTURES: No significant interval change is seen. There is lucency about the patient's righ t femoral stem of the prosthesis as on prior. A fragmented appearance seen on prior exam IMPRESSION: Postop and posttreatment changes. There is a left lower lobe pulmonary nodule which is harkins bcentimeter in size, improvement in the additional pulmonary nodules compared to multiple prior exams .
== END | disposition home or self-care (01) ==
LOC: RADCTMAIN 10:50
PROVIDERS: ATTEND Internal Medicine Hematology & Oncology
DX: R91.1 Solitary pulmonary nodule (principal); Z98.890 Other specified postprocedural states
CPT/HCPCS: 71250; 74176; Q9967

== ENCOUNTER → 2019-05-26 | Outpatient (CLI) | payer MEDICARE, BC ==
--- NOTE | 2019-05-26 13:43 | CT ---
EXAMINATION TYPE: CT ChestAbdPelvis wo con DATE OF EXAM: 05/26/2019 COMPARISON: 01/20/2019 HISTORY: follow up renal cancer CT DLP: 817.3mGycm Unenhanced CT of the Chest, Abdomen and Pelvis Unenhanced CT of the chest ,abdomen and pelvis is performed. The lack of intravenous contrast limits evaluation of the solid and hollow viscera. Oral contrast: Yes CT Chest: LUNGS: The lungs are clear and free of infiltrate or atelectasis. 7 mm left lower lobe pulmonary nodu le is unchanged in size. No new pulmonary nodules identified. No pleural effusion or CT evidence of i nterstitial lung disease. MEDIASTINUM: Thoracic aorta is of normal caliber. The heart is not enlarged. No evidence for media stinal mass or adenopathy. HILAR STRUCTURES: No evidence for mass. No hilar adenopathy is appreciated. OTHER: No significant abnormality. CONTRAST CT ABDOMEN AND PELVIS: LIVER/GB: No calcified gallstones. No space occupying hepatic lesion. Biliary tree is of normal ca liber. PANCREAS: No inflammation. No distinct mass. SPLEEN: No splenic enlargement. No lesion seen. ADRENALS: No nodule. No thickening. KIDNEYS/BLADDER: No hydronephrosis. No nephrolithiasis. Stable hypoattenuating lesion upper pole ri ght kidney could reflect a cyst although the lack of contrast limits evaluation. No additional right renal lesions are seen. There has been left-sided nephrectomy. No evidence for recurrent or residual mass. BOWEL: Normal appendix. Normal bowel caliber. No inflammation. GENITAL ORGANS: No gross abnormality. LYMPH NODES: No greater than 1cm abdominal or pelvic lymph nodes areappreciated. AORTA: No significant abnormality. OSSEOUS STRUCTURES: Right hip prosthesis with streak artifact limiting the evaluation of the pelvis. OTHER: No significant additional abnormality is seen. IMPRESSION: 1. Stable left lower lobe pulmonary nodule. No new nodules seen. 2. Left-sided nephrectomy changes without recurrent or residual mass.
== END | disposition home or self-care (01) ==
LOC: RADCTMAIN 09:54
PROVIDERS: ATTEND Internal Medicine Hematology & Oncology
DX: R91.1 Solitary pulmonary nodule (principal); Z90.5 Acquired absence of kidney
CPT/HCPCS: 71250; 74176

== ENCOUNTER → 2019-06-12 | Outpatient (CLI) | payer MEDICARE, BC ==
[2019-06-12 14:01] LABS: Basophils % (A) 0 %; Eosinophils # (A) 0.3 k/uL (0-0.7); Eosinophils % (A) 11 %; HCT 43.8 % (39.0-53.0); HGB 14.4 gm/dL (13.0-17.5); Lymphocytes # (A) 0.4 k/uL (1.0-4.8); Lymphocytes % (A) 14 %; MCH 32.2 pg (25.0-35.0); MCHC 32.9 g/dL (31.0-37.0); MCV 97.8 fL (80.0-100.0); Mean Platelet Volume 7.6; Monocytes # (A) 0.2 k/uL (0-1.0); Monocytes % (A) 6 %; Neutrophils # (A) 1.9 k/uL (1.3-7.7); Neutrophils % (A) 65 %; Platelet Count 118 k/uL (150-450); RBC 4.48 m/uL (4.30-5.90); RDW 14.3 % (11.5-15.5)
[2019-06-12 16:53] LABS: Amorphous Sediment,Urine Rare /hpf; Mucus,Urine Rare /hpf; RBC,Urine <1 /hpf (0-5); WBC,Urine <1 /hpf (0-5)
[2019-06-12 16:56] LABS: Appearance,Urine Clear (Clear); Bilirubin,Urine Negative (Negative); Color,Urine Yellow; Glucose,Urine (UA) Negative (Negative); Ketones,Urine Negative (Negative); Protein,Urine 1+ (Negative)
[2019-06-12 16:57] LABS: Blood,Urine Negative (Negative); Leukocyte Esterase,Urine Negative (Negative); Nitrite,Urine Negative (Negative); Urobilinogen,Urine 0.2 mg/dL (<2.0)
[2019-06-12 20:40] LABS: % Iron Saturation 25.96 (15.00-50.00); African American GFR (CKD) 44.4 (60.0-200.0); Anion Gap 7.5 mmol/L (4.00-12.00); BUN/Creat Ratio 14.71 Ratio (12.00-20.00); Calcium 8.3 mg/dL (8.7-10.3); Carbon Dioxide 20.5 mmol/L (21.6-31.8); Magnesium 2.1 mg/dL (1.5-2.4); Non-African American GFR(CKD) 38.3 (60.0-200.0); Phosphorus 2.6 mg/dL (2.4-5.1); Uric Acid 6.4 mg/dL (3.7-8.7)
[2019-06-12 20:48] LABS: Ferritin 113.8 ng/mL (22.0-322.0)
[2019-06-13 06:31] LABS: Creatinine,Urine Random 55.9 mg/dL
[2019-06-13 09:01] LABS: Total Protein,Urine Random 27.6 mg/dL (0.0-13.5)
== END | disposition home or self-care (01) ==
LOC: LABWHC1 12:28
PROVIDERS: ATTEND Nurse Practitioner Family
DX: N18.3 Chronic kidney disease, stage 3 (moderate) (principal); D63.1 Anemia in chronic kidney disease; E55.9 Vitamin D deficiency, unspecified; N25.81 Secondary hyperparathyroidism of renal origin; M10.9 Gout, unspecified; N39.0 Urinary tract infection, site not specified; Z80.9 Family history of malignant neoplasm, unspecified
CPT/HCPCS: 36415; 80048; 81001; 82040; 82306; 82570; 82728; 83540; 83550; 83735; 83970; 84100; 84156; 84550; 85025

== ENCOUNTER → 2019-09-21 | Outpatient (CLI) | payer MEDICARE, BC ==
--- NOTE | 2019-09-21 12:12 | CT ---
EXAMINATION TYPE: CT ChestAbdPelvis wo con DATE OF EXAM: 09/21/2019 COMPARISON: 05/26/2019, 01/20/2019, 11/25/2018, 04/01/2018 HISTORY: 78-year-old male C64.2, Malignant neoplasm of left kidney except renal pelvis TECHNIQUE: Contiguous axial scanning of the chest, abdomen, and pelvis without IV contrast. Coronal a nd sagittal reconstructions performed. CT DLP: 1420 mGycm Automated exposure control for dose reduction was used. FINDINGS: CHEST: Heart normal size without pericardial effusion. Coronary artery calcifications are present. Scattered mild atherosclerotic calcifications within the thoracic aorta with bovine configuration to the aortic arch. No thoracic lymphadenopathy. Stable patchy and nodular scarring at the right base. 5 mm left upper lobe pulmonary nodule, axial image 16, not clearly seen previously. 4 mm pulmonary nodule along the superior aspect of the left major fissure, axial image 17 is unchange d. 4 mm anterior left midlung pulmonary nodule, axial image 27 is unchanged. A 1.2 cm left lower lobe pulmonary nodule previously measured 1.1 cm on 05/26/2019, 10 mm on 01/20/2019 , and 8 mm on 04/01/2018. No consolidation or pleural effusion. ABDOMEN: Limited noncontrast assessment of the liver, adrenal glands, spleen, and pancreas shows no gross abdo men body. 3.5 cm diverticulum of the third portion of the duodenum projecting into the pancreatic hea d region. Approximately 3 layering gallstones measuring up to 1.0 cm. A cystic lesion involving the posterior upper pole of the right kidney measures 6.0 cm versus 5.9 cm on 05/26/2019 and 5.5 cm on 04/01/2018. Status post left nephrectomy. No suspicious soft tissue within the nephrectomy bed. No mesenteric or retroperitoneal lymphadenopathy. No dilated small bowel, free fluid, or free air. Surgical clips noted along the bilateral flanks. Sigmoid diverticulosis. No significant stool burden. No pericolonic inflammatory change. PELVIS: Prostate gland is enlarged at 5.0 cm wide. Bladder appears distended. No abnormal fluid collection in the pelvis and pelvic lymphadenopathy seen. Limitations assessment due to streak and beam hardening artifact related to the patient's right total arthroplasty. BONES: There is similar fragmentation and some separation along the bone prosthesis interface along the prox imal femur. No osseous destructive process seen. IMPRESSION: 1. STATUS POST LEFT NEPHRECTOMY. NO FINDINGS TO SUGGEST LOCAL RECURRENCE. 2. HOWEVER, A 5 MM LEFT UPPER LOBE PULMONARY NODULE IS NEW. CLOSE FOLLOW-UP RECOMMENDED TO EXCLUDE A METASTATIC PULMONARY NODULE. 3. INDOLENT BEHAVIOR OF THE LEFT LOWER LOBE PULMONARY NODULE CURRENTLY MEASURING 1.2 CM. IT MEASURED 8 MM BACK ON 04/01/2018 AND 1.1 CM ON THE PATIENT'S RECENT PRIOR 05/26/2019 EXAM. ONGOING FOLLOW-UP REC OMMENDED. 4. CHOLELITHIASIS. CAD. STABLE PATCHY SCARRING AT THE RIGHT BASE.
== END | disposition home or self-care (01) ==
LOC: RADCTMAIN 10:37
PROVIDERS: ATTEND Internal Medicine Hematology & Oncology
DX: Z90.5 Acquired absence of kidney (principal); R91.1 Solitary pulmonary nodule; K80.20 Calculus of gallbladder without cholecystitis without obstruction; I25.10 Atherosclerotic heart disease of native coronary artery without angina pectoris; C64.2 Malignant neoplasm of left kidney, except renal pelvis
CPT/HCPCS: 71250; 74176

== ENCOUNTER → 2019-11-06 | Outpatient (CLI) | payer MEDICARE, BC ==
[2019-11-06 11:24] LABS: Appearance,Urine Clear (Clear); Bilirubin,Urine Negative (Negative); Blood,Urine Trace (Negative); Color,Urine Light Yellow; Glucose,Urine (UA) Negative (Negative); Ketones,Urine Negative (Negative); Leukocyte Esterase,Urine Negative (Negative); Mucus,Urine Rare /hpf; Nitrite,Urine Negative (Negative); PH, Urine 5.5 (5.0-8.0); Protein,Urine Trace (Negative); RBC,Urine 1 /hpf (0-5); Specific Gravity,Urine 1.008 (1.001-1.035); Urobilinogen,Urine <2.0 mg/dL (<2.0); WBC,Urine <1 /hpf (0-5)
[2019-11-06 11:26] LABS: Basophils % (A) 1 %; Eosinophils # (A) 0.4 k/uL (0-0.7); Eosinophils % (A) 8 %; HCT 45.7 % (39.0-53.0); HGB 14.7 gm/dL (13.0-17.5); Lymphocytes # (A) 0.5 k/uL (1.0-4.8); Lymphocytes % (A) 11 %; MCH 31.7 pg (25.0-35.0); MCHC 32.2 g/dL (31.0-37.0); MCV 98.6 fL (80.0-100.0); Macrocytosis Slight; Mean Platelet Volume 7.3; Monocytes # (A) 0.4 k/uL (0-1.0); Monocytes % (A) 8 %; Neutrophils # (A) 3.1 k/uL (1.3-7.7); Neutrophils % (A) 70 %; Platelet Count 121 k/uL (150-450); RBC 4.64 m/uL (4.30-5.90); WBC 4.5 k/uL (3.8-10.6)
[2019-11-06 11:44] LABS: Protein/Creatinine Ratio,Urine 0.789
[2019-11-06 15:35] LABS: % Iron Saturation 25.47 (15.00-50.00); African American GFR (CKD) 41.4 (60.0-200.0); Albumin 4.2 g/dL (3.80-4.90); Anion Gap 6.5 mmol/L (4.00-12.00); BUN/Creat Ratio 19.44 Ratio (12.00-20.00); Calcium 9.6 mg/dL (8.7-10.3); Carbon Dioxide 21.5 mmol/L (21.6-31.8); Non-African American GFR(CKD) 35.8 (60.0-200.0); Phosphorus 3.3 mg/dL (2.4-5.1); Potassium 5.1 mmol/L (3.5-5.5); Uric Acid 6.6 mg/dL (3.7-8.7)
[2019-11-06 15:43] LABS: Ferritin 84.4 ng/mL (22.0-322.0)
== END | disposition home or self-care (01) ==
LOC: LABWHC1 10:33
PROVIDERS: ATTEND Nurse Practitioner Family
DX: E55.9 Vitamin D deficiency, unspecified (principal); M10.9 Gout, unspecified; N39.0 Urinary tract infection, site not specified; R80.9 Proteinuria, unspecified; N25.81 Secondary hyperparathyroidism of renal origin; N18.3 Chronic kidney disease, stage 3 (moderate); D63.1 Anemia in chronic kidney disease
CPT/HCPCS: 36415; 80048; 81001; 82040; 82306; 82570; 82728; 83540; 83550; 83735; 83970; 84100; 84156; 84550; 85025

== ENCOUNTER → 2019-12-21 | Outpatient (CLI) | payer MEDICARE, BC ==
--- NOTE | 2019-12-21 12:52 | CT ---
EXAMINATION TYPE: CT ChestAbdPelvis wo con DATE OF EXAM: 12/21/2019 COMPARISON: Most recent CT of September 21, 2019 and older studies. HISTORY: Follow up renal cancer. CT DLP: 904.2 mGycm. Automated Exposure Control for Dose Reduction was Utilized. TECHNIQUE: CT scan of the thorax, abdomen and pelvis is performed with oral but without IV contrast. FINDINGS: LUNGS: Stable 4 mm superior left lower lobe nodule abutting fissure axial image [address] The 5 mm nodular opacity left upper lobe just superior to this shows minimal residual groundgla ss opacity cord study axial image 17 consistent with resolving inflammation. Stable 5 mm anterior lef t mid lung nodule axial image 28. The left lower lobe nodule now measures 13 x 9 mm image 40 and cont inues to show slight interval growth from older studies. No new greater than 5 mm pulmonary nodules o r masses bilaterally. Some left-sided volume loss remains present. Mild upward in the right bibasilar linear scarring is again seen. There is no new pleural effusion or pneumothorax seen. Slightly eleva essie left hemidiaphragm remains present. MEDIASTINUM: There are no greater than 1 cm hilar or mediastinal lymph nodes. No cardiomegaly or pe ricardial effusion is seen. Redemonstration of coronary artery calcifications. LIVER/GB: Dependent calcified gallstones again seen. PANCREAS: No significant abnormality is seen. SPLEEN: No significant abnormality is seen. ADRENALS: Stable slight thickening to the remnant left adrenal gland consistent with benign hyperplas ia. KIDNEYS: Left kidney is once again shown surgically absent. No suspicious new soft tissue at the left nephrectomy bed. A roughly 6.2 x 5.8 cm exophytic thin-walled cyst upper pole of the left kidney con tinues to show slight interval growth from prior studies. BOWEL: Oral contrast reaches level of the hepatic flexure. No suspicious small large bowel dilatation . Diverticula involving the left and sigmoid colon redemonstrated. GENITAL ORGANS: Persistent enlarged prostate gland consistent with BPH. LYMPH NODES: No greater than 1cm abdominal or pelvic lymph nodes are appreciated. OSSEOUS STRUCTURES: Metallic artifact from right hip and proximal femur surgery redemonstrated causin g streak artifact limiting evaluation of pelvic structures. Persistent fragmentation and separation a long the bone prosthesis interface visualized portion of the right proximal femur. This was at site o f prior metastatic deposit. No new suspicious osseous lesions clearly seen. OTHER: No significant additional abnormality is seen. IMPRESSION: Continued slight interval increase in size of the 1.3 cm left lower lobe nodule from mult iple prior studies. Interval near complete resolution of the 5 mm new left upper lobe nodule or nodu lar consolidation. No additional new or enlarging nodules.
== END | disposition home or self-care (01) ==
LOC: RADCTMAIN 11:04
PROVIDERS: ATTEND Internal Medicine Hematology & Oncology
DX: R91.1 Solitary pulmonary nodule (principal); C64.2 Malignant neoplasm of left kidney, except renal pelvis
CPT/HCPCS: 71250; 74176

== ENCOUNTER → 2020-03-19 | Outpatient (CLI) | payer MEDICARE, BC ==
--- NOTE | 2020-03-19 14:05 | CT ---
EXAMINATION TYPE: CT ChestAbdPelvis wo con DATE OF EXAM: 03/19/2020 COMPARISON: December 21, 2019 HISTORY: follow up to renal cell CA CT DLP: 948.4mGycm Unenhanced CT of the Chest, Abdomen and Pelvis Unenhanced CT of the chest ,abdomen and pelvis is performed. The lack of intravenous contrast limits evaluation of the solid and hollow viscera. Oral contrast: Yes CT Chest: LUNGS: The lungs are clear and free of infiltrate or atelectasis. Left lower lobe pulmonary nodule me asures 1.2 cm versus 1.3 cm previously. There is parenchymal scarring right lower lobe posteriorly un changed from prior study. Additional nodule at the lateral sulcus right lower lobe is stable at 7 mm versus 7 mm previously. No pleural effusion or CT evidence of interstitial lung disease. MEDIASTINUM: Thoracic aorta is of normal caliber. The heart is not enlarged. No evidence for media stinal mass or adenopathy. HILAR STRUCTURES: No evidence for mass. No hilar adenopathy is appreciated. OTHER: No significant abnormality. CONTRAST CT ABDOMEN AND PELVIS: LIVER/GB: Calcified gallstones noted. No space occupying hepatic lesion. Biliary tree is of normal ca liber. PANCREAS: No inflammation. No distinct mass. SPLEEN: No splenic enlargement. No lesion seen. ADRENALS: No nodule. No thickening. KIDNEYS/BLADDER: Left-sided nephrectomy changes identified. No evidence for recurrent or residual ma ss. No hydronephrosis. No nephrolithiasis. Large exophytic hypoattenuating lesion upper pole right k idney may reflect a cyst. BOWEL: Normal appendix. Normal bowel caliber. No inflammation. Moderate sigmoid diverticulosis wit hout diverticulitis. GENITAL ORGANS: No gross abnormality. LYMPH NODES: No greater than 1cm abdominal or pelvic lymph nodes are appreciated. AORTA: No significant abnormality. OSSEOUS STRUCTURES: No significant abnormality is seen. OTHER: No significant additional abnormality is seen. IMPRESSION: 1. Left-sided nephrectomy change without evidence for recurrent or residual mass. 2. Stable probable large cyst upper pole right kidney. 3 stable pulmonary nodularity.
== END | disposition home or self-care (01) ==
LOC: RADCTMAIN 11:47
PROVIDERS: ATTEND Internal Medicine Hematology & Oncology
DX: C64.2 Malignant neoplasm of left kidney, except renal pelvis (principal); R91.1 Solitary pulmonary nodule; Z90.5 Acquired absence of kidney
CPT/HCPCS: 71250; 74176

== ENCOUNTER → 2020-04-22 | Outpatient (CLI) | payer MEDICARE, BC ==
--- NOTE | 2020-04-22 20:10 | MR ---
EXAMINATION TYPE: MR lumbar spine wo/w con DATE OF EXAM: 04/22/2020 COMPARISON: CT 03/19/2020 PET/CT 06/06/2016, CT 12/24/2014 HISTORY: Chronic low back pain, observation for suspected mets. TECHNIQUE: Multiplanar, multisequence images of the lumbar spine were acquired utilizing 9.5 mL intravenous Gada vist gadolinium contrast. L1-L2: Normal disc appearance without desiccation. No herniation, protrusion or disc bulging. No ca nal stenosis is present. Foramina are patent bilaterally. L2-L3: Mild spinal stenosis. Facet arthropathy with hypertrophy of the ligamentum flavum causes poste rior lateral mass effect on the thecal sac, mild to moderate spinal stenosis. No definite foraminal e ncroachment. L3-L4: Facet arthropathy with hypertrophy of the ligamentum flavum contributes to cause posterior lat eral mass effect on the thecal sac, circumferential posterior disc bulge and short pedicles contribut e to cause spinal stenosis. Foraminal encroachment is greater on the right contributed by circumferen tial extension endplate disc complex. L4-L5: Posterior disc bulge is present, circumferential extension causes bilateral foraminal encroach ment greater on the right than left. There is facet arthropathy with hypertrophy ligamentum flavum, m oderate spinal stenosis. L5-S1: Posterior disc bulge is mild. There is facet arthropathy with hypertrophy ligamentum flavum. S hort pedicles contribute to cause foraminal encroachment circumferential extension endplate disc comp geraldo. L2 vertebral body shows a focus of mixed signal on T1, T2-weighted sequences with some enhancement fo llowing contrast administration, the lesion measures 18 mm in cephalad to caudal dimension by 19 mm i n anterior posterior dimension by 18 mm in transverse dimension. No paraspinal masses are identified . Conus medullaris has a normal appearance. Lumbar vertebral bodies show preserved height. Near-shakira omic alignment. Calcification present intervertebral disc space L3-4. Large cystic focus is associate d with the upper pole the right kidney. Left kidney is not seen. IMPRESSION: Metastatic focus to L2 is suspected. Degenerative disc disease, multilevel spinal stenosis, foraminal encroachment. Postop change.
== END | disposition home or self-care (01) ==
LOC: RADMRIMAIN 17:02
PROVIDERS: ATTEND Internal Medicine Hematology & Oncology
DX: M48.061 Spinal stenosis, lumbar region without neurogenic claudication (principal); M51.36 Other intervertebral disc degeneration, lumbar region; G89.29 Other chronic pain; Z98.890 Other specified postprocedural states
CPT/HCPCS: 72158; A9585

== ENCOUNTER → 2020-05-20 | Outpatient (CLI) | payer MEDICARE, BC ==
[2020-05-20 12:46] LABS: Appearance,Urine Clear (Clear); Bilirubin,Urine Negative (Negative); Blood,Urine Trace (Negative); Color,Urine Yellow; Glucose,Urine (UA) Negative (Negative); Ketones,Urine Negative (Negative); Leukocyte Esterase,Urine Negative (Negative); Mucus,Urine Rare /hpf; Nitrite,Urine Negative (Negative); PH, Urine 5.5 (5.0-8.0); Protein,Urine 1+ (Negative); RBC,Urine <1 /hpf (0-5); Specific Gravity,Urine 1.022 (1.001-1.035); Squamous Epithelial Cell,Urine <1 /hpf (0-4); Urobilinogen,Urine <2.0 mg/dL (<2.0); WBC,Urine 1 /hpf (0-5)
[2020-05-20 12:58] LABS: Basophils % (A) 0 %; Eosinophils # (A) 0.3 k/uL (0-0.7); Eosinophils % (A) 7 %; HCT 39.9 % (39.0-53.0); HGB 12.6 gm/dL (13.0-17.5); Hypochromasia Slight; Lymphocytes # (A) 0.6 k/uL (1.0-4.8); Lymphocytes % (A) 16 %; MCH 31.9 pg (25.0-35.0); MCHC 31.7 g/dL (31.0-37.0); MCV 100.7 fL (80.0-100.0); Macrocytosis Slight; Mean Platelet Volume 7.9; Monocytes # (A) 0.3 k/uL (0-1.0); Monocytes % (A) 7 %; Neutrophils # (A) 2.6 k/uL (1.3-7.7); Neutrophils % (A) 66 %; Platelet Count 113 k/uL (150-450); RBC 3.96 m/uL (4.30-5.90); RDW 15.8 % (11.5-15.5); WBC 3.9 k/uL (3.8-10.6)
[2020-05-20 13:00] LABS: Creatinine,Urine Random 148.1 mg/dL; Protein/Creatinine Ratio,Urine 0.236
[2020-05-20 20:59] LABS: % Iron Saturation 24.54 (15.00-50.00); African American GFR (CKD) 38.6 (60.0-200.0); Albumin 3.9 g/dL (3.80-4.90); Anion Gap 3.9 mmol/L (4.00-12.00); Calcium 8.5 mg/dL (8.7-10.3); Carbon Dioxide 22.1 mmol/L (21.6-31.8); Magnesium 1.9 mg/dL (1.5-2.4); Non-African American GFR(CKD) 33.3 (60.0-200.0); Potassium 4.9 mmol/L (3.5-5.5); Uric Acid 5.9 mg/dL (3.7-8.7)
[2020-05-20 21:11] LABS: Ferritin 26.4 ng/mL (22.0-322.0)
== END | disposition home or self-care (01) ==
LOC: LABWHC1 10:46
PROVIDERS: ATTEND Nurse Practitioner Family
DX: N39.0 Urinary tract infection, site not specified (principal); N18.30 Chronic kidney disease, stage 3 unspecified; D63.1 Anemia in chronic kidney disease; M10.9 Gout, unspecified; N25.81 Secondary hyperparathyroidism of renal origin; E55.9 Vitamin D deficiency, unspecified; R80.9 Proteinuria, unspecified
CPT/HCPCS: 36415; 80048; 81001; 82040; 82306; 82570; 82728; 83540; 83550; 83735; 83970; 84100; 84156; 84550; 85025

== ENCOUNTER → 2020-06-14 | Outpatient (CLI) | payer MEDICARE, BC ==
--- NOTE | 2020-06-18 06:36 | PE ---
EXAMINATION TYPE: PET CT fusion skull to thigh DATE OF EXAM: 06/14/2020 COMPARISON: Most recent CT March 19, 2020 and older CTs. MRI lumbar spine April 22, 2020 HISTORY: Left-sided renal neoplasm originally diagnosed 2013 , recent abnormal CT February 2020 TECHNIQUE: Following the intravenous administration of 11.06 mCi of F-18 FDG, whole body images are performed from the skull base to the midthigh. Images are reviewed on the computer in the coronal, a xial, and sagittal planes. Reconstructed rotating images are created on independent workstation and reviewed on the computer. A localization and attenuation correction CT is performed in conjunction with the PET scan. Blood glucose level equals 69. SCAN: Subsequent Scan FINDINGS: SKULL BASE AND NECK: No new areas of abnormal hypermetabolic uptake. CHEST, MEDIASTINUM, AND HILAR REGION: Fairly stable 10 x 6 mm left lower lobe nodule axial image 123 is ametabolic. No new areas of abnormal hypermetabolic uptake. ABDOMEN AND PELVIS: Left kidney surgically absent. Normal excretion right kidney. Nonspecific bowel u ptake most prominent in the right colon appears to correspond to fecal debris. Additional involvement proximal sigmoid colon axial image 230 should be correlated with most recent colonoscopy if it has b een performed in last 3 years. Additional more prominent focus in small bowel loop lower abdomen just right of midline axial image 203. Consider enterography or small bowel follow-up. OSSEOUS STRUCTURES: Subtle sclerotic lesion posterior lateral left fourth rib axial image 90 has hype rmetabolic uptake, max SUV is 4.19. Suspicious lytic lesion upper sternum axial image 81 extending le ft of midline, Max SUV is 3.49. No definitive abnormal hypermetabolic uptake L2 vertebra. There is however subtle lytic lesion left u pper sacrum axial image 212 with abnormal hypermetabolic uptake, max SUV is 3.01. OTHER CT: [id number] calcified plaque bilateral carotid bulb level. Completely opacified right maxillary sinus. Persistent cardiomegaly. Persistent moderate to severe three-vessel coronary artery calcification. Dependent calcified gallstones redemonstrated. Exophytic thin-walled cyst with thin septa posteriorly upper pole right kidney redemonstrated. Prominent duodenal diverticulum redemonstrated. Diverticula in left and sigmoid colon again seen. Enlarged prostate redemonstrated. Metallic hardware right hip level causes streak artifact limiting evaluation. Persistent bony fragmen tation and separation along bone prosthesis interface. Prominent facet arthropathy lumbar spine. IMPRESSION: Osseous metastatic disease is confirmed as detailed above.
== END | disposition home or self-care (01) ==
LOC: RADPETMAIN 12:27
PROVIDERS: ATTEND Radiology Radiation Oncology
DX: C64.2 Malignant neoplasm of left kidney, except renal pelvis (principal); C79.51 Secondary malignant neoplasm of bone; Z92.3 Personal history of irradiation
CPT/HCPCS: 78815; A9552

== ENCOUNTER → 2020-08-26 | Outpatient (CLI) | payer MEDICARE, BC ==
--- NOTE | 2020-08-26 14:20 | CT ---
EXAMINATION TYPE: CT ChestAbdPelvis wo con DATE OF EXAM: 08/26/2020 COMPARISON: Prior PET/CT of June 14, 2020 and older studies HISTORY: Renal cell cancer left kidney CT DLP: 976.8 mGycm. Automated Exposure Control for Dose Reduction was Utilized. TECHNIQUE: CT scan of the thorax, abdomen and pelvis is performed with oral but without IV contrast. FINDINGS: FINDINGS: LUNGS: Punctate 2 mm superior left lower lobe nodule axial image 19 less likely stable from most rece nt CT CT. Stable or slightly less prominent 5 x 2 mm anterior left mid lung nodule axial image 29. Th e left lower lobe nodule now measures 10 x 7 mm image 41 and is slightly less prominent from most rec ent older studies. No new greater than 5 mm pulmonary nodules or masses bilaterally. Some left-sided volume loss remains present. Mild anterior right bibasilar linear scarring is again seen. There is no new pleural effusion or pneumothorax seen. MEDIASTINUM: There are no new greater than 1 cm hilar or mediastinal lymph nodes. No cardiomegaly o r pericardial effusion is seen. Coronary artery calcifications are redemonstrated. Slight ectasia to ascending aorta at 3.6 cm. Lipomatous hypertrophy of the interarterial septum. LIVER/GB: Dependent calcified gallstones again seen. PANCREAS: No significant abnormality is seen. SPLEEN: No significant abnormality is seen. ADRENALS: Stable slight thickening to the remnant left adrenal gland consistent with benign hyperplas ia. KIDNEYS: Left kidney is once again shown surgically absent. No suspicious new soft tissue at the left nephrectomy bed. A roughly 6. 6.0 8 cm exophytic thin-walled cyst upper pole of the left kidney cont inues to show slight interval growth from prior studies. BOWEL: Oral contrast reaches level of the hepatic flexure. No suspicious small or large bowel dilatat ion. Appendix is surgically absent. Diverticula involving the left and sigmoid colon redemonstrated. No CT evidence for acute diverticulitis. GENITAL ORGANS: Persistent enlarged prostate gland consistent with BPH. LYMPH NODES: No greater than 1cm abdominal or pelvic lymph nodes are appreciated. OSSEOUS STRUCTURES: Metallic artifact from right hip and proximal femur surgery redemonstrated causin g streak artifact limiting evaluation of pelvic structures. Persistent fragmentation and separation a long the bone prosthesis interface visualized portion of the right proximal femur. This was at site o f prior metastatic deposit. Persistent lytic lesion with sclerotic margins involving superior sternum coronal image 37 corresponds to the hypermetabolic lesion. Vague sclerotic left posterior lateral fo urth rib lesion near image 22 is stable. No definitive lesion in left upper sacrum at area of hyperme tabolic uptake PET CT fusion image 214. OTHER: No significant additional abnormality is seen. IMPRESSION: Scattered left-sided nodules stable or less prominent. Known osseous metastatic disease o n recent PET/CT less well-seen on this CT study. No new or enlarging masses or nodules.
--- NOTE | 2020-08-27 05:09 | NM ---
EXAMINATION TYPE: NM bone scan whole body DATE OF EXAM: 08/26/2020 COMPARISON: Same day CT and older studies. PET/CT June 14, 2020 HISTORY: Renal cell cancer. Delayed whole-body scanning was performed following the injection of 24.1 mCi Tc 99m MDP. Images acq uired 3 hours post injection. FINDINGS: Focus of increased radiotracer uptake superior sternum corresponds to hypermetabolic lytic lesion wit h sclerotic margins on PET/CT and CT. No suspicious increased radiotracer uptake in the posterolateral left fourth rib at site of prior hyp ermetabolic lytic lesion. Mild increased radiotracer uptake left sacrum corresponds to the hypermetabolic lesion on PET/CT. No new areas of abnormal hypermetabolic uptake. Lucency from prosthesis noted at level of the right hip IMPRESSION: Known osseous metastatic disease. No new increased radiotracer uptake lesions identified.
== END | disposition home or self-care (01) ==
LOC: RADNMMAIN 11:19
PROVIDERS: ATTEND Internal Medicine Hematology & Oncology
DX: C64.9 Malignant neoplasm of unspecified kidney, except renal pelvis (principal); C79.51 Secondary malignant neoplasm of bone
CPT/HCPCS: 71250; 74176; 78306; A9503

== ENCOUNTER → 2020-09-13 | Outpatient (CLI) | payer MEDICARE, BC ==
[2020-09-13 13:53] LABS: Appearance,Urine Clear (Clear); Bilirubin,Urine Negative (Negative); Blood,Urine Trace (Negative); Color,Urine Light Yellow; Glucose,Urine (UA) Negative (Negative); Ketones,Urine Negative (Negative); Leukocyte Esterase,Urine Negative (Negative); Nitrite,Urine Negative (Negative); PH, Urine 5.5 (5.0-8.0); Protein,Urine Trace (Negative); RBC,Urine <1 /hpf (0-5); Specific Gravity,Urine 1.013 (1.001-1.035); Urobilinogen,Urine <2.0 mg/dL (<2.0); WBC,Urine 1 /hpf (0-5)
[2020-09-13 14:32] LABS: Creatinine,Urine Random 78.6 mg/dL; Protein/Creatinine Ratio,Urine 0.331
[2020-09-13 14:59] LABS: Basophils # (A) 0.01 X 10*3/uL (0.00-0.10); Basophils % (A) 0.3 %; Eosinophils # (A) 0.35 X 10*3/uL (0.04-0.35); HCT 39.5 % (39.6-50.0); HGB 12.4 g/dL (13.0-17.0); Lymphocytes # (A) 0.45 X 10*3/uL (0.90-5.00); Lymphocytes % (A) 12.8 %; MCH 32.4 pg (27.0-32.0); MCHC 31.4 g/dL (32.0-37.0); MCV 103.1 fL (80.0-97.0); Mean Platelet Volume 10.1 fL (9.5-12.2); Monocytes # (A) 0.41 X 10*3/uL (0.20-1.00); Monocytes % (A) 11.7 %; Neutrophils # (A) 2.28 X 10*3/uL (1.80-7.70); Neutrophils % (A) 64.9 %; Platelet Count 124 X 10*3/uL (140-440); RBC 3.83 X 10*6/uL (4.40-5.60); RDW 15.9 % (11.5-14.5); WBC 3.51 X 10*3/uL (4.50-10.00)
[2020-09-13 15:39] LABS: Albumin 3.9 g/dL (3.80-4.90); Magnesium 1.9 mg/dL (1.5-2.4); Phosphorus 3.5 mg/dL (2.4-5.1); Uric Acid 6.2 mg/dL (3.7-8.7)
[2020-09-13 15:40] LABS: % Iron Saturation 25.78 (15.00-50.00); African American GFR (CKD) 38.6 (60.0-200.0); Anion Gap 6.3 mmol/L (4.00-12.00); BUN/Creat Ratio 21.05 Ratio (12.00-20.00); Calcium 9.2 mg/dL (8.7-10.3); Carbon Dioxide 21.7 mmol/L (21.6-31.8); Non-African American GFR(CKD) 33.3 (60.0-200.0); Potassium 4.9 mmol/L (3.5-5.5)
[2020-09-13 15:48] LABS: Ferritin 33.1 ng/mL (22.0-322.0)
== END | disposition home or self-care (01) ==
LOC: LABWHC1 10:42
PROVIDERS: ATTEND Internal Medicine Nephrology
DX: N18.32 Chronic kidney disease, stage 3b (principal); E21.3 Hyperparathyroidism, unspecified; M10.9 Gout, unspecified; N39.0 Urinary tract infection, site not specified; D64.9 Anemia, unspecified; R80.9 Proteinuria, unspecified
CPT/HCPCS: 36415; 80048; 81001; 82040; 82306; 82570; 82728; 83540; 83550; 83735; 83970; 84100; 84156; 84550; 85025

== ENCOUNTER → 2020-10-24 | Outpatient (CLI) | payer MEDICARE, BC ==
--- NOTE | 2020-10-24 12:49 | US ---
EXAMINATION TYPE: US venous doppler duplex LE DATE OF EXAM: 10/24/2020 12:33 PM COMPARISON: US 08/13/2017 CLINICAL HISTORY: M79.89 SWELLING LOWER EXTREMITIES. Right ankle swelling x 1 month. Patient stated h ad left renal cancer 2013; right femur cancerous lesion that was removed 2015. SIDE PERFORMED: Bilateral TECHNIQUE: The lower extremity deep venous system is examined utilizing real time linear array sonog marc with graded compression, doppler sonography and color-flow sonography. VESSELS IMAGED: Common Femoral Vein Deep Femoral Vein Greater Saphenous Vein * Femoral Vein Popliteal Vein Small Saphenous Vein * Proximal Calf Veins (* superficial vessels) Right Leg: This study is positive for non occluding DVT in one of 2 Femoral Veins. Tech findings nevaeh led to Dr Rasmussen at exam's end. Right ankle edema channels are also seen. Left Leg: Negative for DVT IMPRESSION: 1. Nonocclusive thrombus within the 2 femoral veins of the right lower extremity. These are consisten t with deep venous thrombosis. 2. No evidence of left lower extremity deep venous thrombosis.
== END | disposition home or self-care (01) ==
LOC: RADUSWWP 11:42
PROVIDERS: ATTEND Internal Medicine Hematology & Oncology
DX: I82.411 Acute embolism and thrombosis of right femoral vein (principal); Z85.53 Personal history of malignant neoplasm of renal pelvis; Z85.830 Personal history of malignant neoplasm of bone
CPT/HCPCS: 93970

== ENCOUNTER → 2020-11-27 | Outpatient (CLI) | payer MEDICARE, BC ==
--- NOTE | 2020-11-27 14:15 | CT ---
EXAMINATION TYPE: CT ChestAbdPelvis wo con DATE OF EXAM: 11/27/2020 COMPARISON: 08/26/2020, 06/14/2020, 03/19/2020 HISTORY: 79-year-old male Renal Cell CA TECHNIQUE: Contiguous axial scanning of the chest, abdomen, and pelvis without IV contrast. Coronal a nd sagittal reconstructions performed. CT DLP: 1262 mGycm Automated exposure control for dose reduction was used. FINDINGS: CHEST: Heart upper limits of normal in size without pericardial effusion. Scattered three-vessel coronary ar evangelina calcifications are present. Ectatic ascending aorta 3.7 cm. Mild atherosclerotic arch calcifications. Conventional vessel branchi ng anatomy. Borderline to mildly enlarged caliber to the main right and left pulmonary arteries measuring up to 2 .7 and 2.5 cm, respectively, suggesting underlying pulmonary hypertension. No thoracic lymphadenopathy by CT size criteria. 1.1 cm left lower lobe pulmonary nodule, axial and 41 measuring 9 mm, previously. Stable strandy and patchy bibasilar opacities, probably atelectasis or scarring. ABDOMEN: Lack of IV contrast limits assessment of the solid abdominal viscera, lymph nodes, vascular structure s. Allowing for this limitation, noncontrast appearance of the liver, right adrenal gland, spleen, pancr eas within normal limits. Mild thickening of the left adrenal gland is unchanged. Status post left nephrectomy. No abnormal mas s within the nephrectomy bed. Mild fluid along the left lateral perirenal fascia appears needle, axial image 73. Complex cystic lesion of the right kidney measuring 6.7 x 5.7 cm, versus 6.2 x 5.8 cm on 03/19/2020, not significantly changed. There may be some underlying mural based nodularity over the medial calcif ied septation, axial image 63 which we note did not show any hypermetabolism on the 06/14/2020 PET/CT. 3.9 cm diverticulum of the second portion of the duodenum projecting into the pancreatic head region. No dilated small bowel, free fluid, free air. Trace interloop ascites. No mesenteric or retroperitone al lymphadenopathy. Oral contrast progressed into the cecum. No significant stool burden. Left-sided colonic diverticulos is, greatest in the sigmoid colon. No pericolonic inflammatory change. Mild wall thickening at the mi d sigmoid colon is unchanged, possible area of chronic diverticulitis. PELVIS: Bladder urine distended. Prostate gland mildly enlarged at 5.2 cm wide. There appears to be a small amount of ascites fluid along the left inguinal canal. No pelvic lymphadenopathy seen. BONES: Redemonstrated right hip total arthroplasty with fragmentation and widening of the middle bone interf love along the proximal stent Vague sclerosis superior left iliac wing, mixed sclerosis and lucency sternal manubrium, and subtle l ucency left posterolateral fourth rib are all relatively similar. No new osseous destructive process identified. IMPRESSION: 1. The previous osseous involvement of the sternal manubrium, left posterior rib, and superior left i liac wing identified by PET scan remains largely occult by CT. No progressive osseous disease identif ied by CT. 2. Status post left nephrectomy. Left lower lobe pulmonary nodule currently measures 1.1 cm versus 9 mm, previously. This is minimal change that may not be significant. Continued follow-up recommended. 3. Otherwise, no evidence for disease progression. 4. Minimal scattered ascites fluid appears new. Etiology unclear. Correlate for any signs/symptoms of fluid overload state. 5. Relatively stable 6.7 cm complex cyst of the right kidney. 6. Stable right hip arthroplasty changes and chronic bony fragmentation along the proximal stem compo nent. 7. Left-sided colonic diverticulosis greatest in the sigmoid colon.
== END | disposition home or self-care (01) ==
LOC: RADCTMAIN 09:57
PROVIDERS: ATTEND Internal Medicine Hematology & Oncology
DX: R18.8 Other ascites (principal); N28.1 Cyst of kidney, acquired; K57.30 Diverticulosis of large intestine without perforation or abscess without bleeding; Z85.528 Personal history of other malignant neoplasm of kidney
CPT/HCPCS: 71250; 74176; Q9967

== ENCOUNTER → 2021-01-21 | Outpatient (CLI) | payer MEDICARE, BC ==
[2021-01-21 11:46] LABS: Appearance,Urine Clear (Clear); Bilirubin,Urine Negative (Negative); Blood,Urine Negative (Negative); Color,Urine Yellow; Glucose,Urine (UA) Negative (Negative); Ketones,Urine Negative (Negative); Leukocyte Esterase,Urine Negative (Negative); Mucus,Urine Occasional /hpf; Nitrite,Urine Negative (Negative); PH, Urine 5.5 (5.0-8.0); Protein,Urine 1+ (Negative); RBC,Urine 1 /hpf (0-5); Specific Gravity,Urine 1.026 (1.001-1.035); Squamous Epithelial Cell,Urine <1 /hpf (0-4); Urobilinogen,Urine <2.0 mg/dL (<2.0); WBC,Urine <1 /hpf (0-5)
[2021-01-21 16:40] LABS: HCT 27.7 % (39.6-50.0); HGB 8.2 g/dL (13.0-17.0); MCH 33.6 pg (27.0-32.0); MCHC 29.6 g/dL (32.0-37.0); MCV 113.5 fL (80.0-97.0); Mean Platelet Volume 10.5 fL (9.5-12.2); Platelet Count 132 X 10*3/uL (140-440); RBC 2.44 X 10*6/uL (4.40-5.60); WBC 3.19 X 10*3/uL (4.50-10.00)
[2021-01-21 17:40] LABS: Basophils # (A) 0.01 X 10*3/uL (0.00-0.10); Basophils % (A) 0.3 %; Eosinophils # (A) 0.24 X 10*3/uL (0.04-0.35); Eosinophils % (A) 7.5 %; Lymphocytes # (A) 0.45 X 10*3/uL (0.90-5.00); Lymphocytes % (A) 14.1 %; Monocytes # (A) 0.33 X 10*3/uL (0.20-1.00); Monocytes % (A) 10.3 %; Neutrophils # (A) 2.15 X 10*3/uL (1.80-7.70); Neutrophils % (A) 67.5 %
[2021-01-23 00:35] LABS: Ferritin 75.7 ng/mL (22.0-322.0)
[2021-01-23 02:26] LABS: Total Protein,Urine Random 48.5 mg/dL (0.0-13.5)
[2021-01-23 03:45] LABS: % Iron Saturation 81.5 (15.00-50.00); Magnesium 2.1 mg/dL (1.5-2.4); Phosphorus 2.9 mg/dL (2.4-5.1); Uric Acid 6.2 mg/dL (3.7-8.7)
[2021-01-23 05:27] LABS: African American GFR (CKD) 43.2 (60.0-200.0); Albumin 3.4 g/dL (3.8-4.9); BUN/Creat Ratio 22.15 Ratio (12.00-20.00); Blood Urea Nitrogen 38.1 mg/dL (9.0-27.0); Calcium 8.6 mg/dL (8.7-10.3); Carbon Dioxide 15.2 mmol/L (21.6-31.8); Non-African American GFR(CKD) 37.3 (60.0-200.0); Potassium 4.3 mmol/L (3.5-5.5)
== END | disposition home or self-care (01) ==
LOC: LABWHC1 10:24
PROVIDERS: ATTEND Nurse Practitioner Family
DX: D64.9 Anemia, unspecified (principal); M10.9 Gout, unspecified; N39.0 Urinary tract infection, site not specified; R80.9 Proteinuria, unspecified
CPT/HCPCS: 36415; 80048; 81001; 82040; 82306; 82570; 82728; 83540; 83550; 83735; 83970; 84100; 84156; 84550; 85025

== ENCOUNTER → 2021-03-12 | Outpatient (CLI) | payer MEDICARE, BC ==
--- NOTE | 2021-03-12 16:34 | US ---
EXAMINATION TYPE: US venous doppler duplex LE RT DATE OF EXAM: 03/12/2021 2:36 PM COMPARISON: 10/24/20 CLINICAL HISTORY: 80-year-old male R22.41 Swelling of rt lower limb. Blood thinners on and off SIDE PERFORMED: Right TECHNIQUE: The lower extremity deep venous system is examined utilizing real time linear array sonog marc with graded compression, doppler sonography and color-flow sonography. FINDINGS: VESSELS IMAGED: Common Femoral Vein Deep Femoral Vein Greater Saphenous Vein * Femoral Vein Popliteal Vein Small Saphenous Vein * Proximal Calf Veins (* superficial vessels) FV splits at the mid thigh Right Leg: Negative for DVT IMPRESSION: No evidence for DVT within the right lower extremity imaged from the groin to the upper calf.
== END | disposition home or self-care (01) ==
LOC: RADUSWWP 14:07
PROVIDERS: ATTEND Internal Medicine Hematology & Oncology
DX: R22.41 Localized swelling, mass and lump, right lower limb (principal)

== ENCOUNTER → 2021-04-11 | Outpatient (CLI) | payer MEDICARE, BC ==
--- NOTE | 2021-04-11 14:58 | NM ---
EXAMINATION TYPE: NM bone scan whole body DATE OF EXAM: 04/11/2021 COMPARISON: Prior bone scan August 26, 2020. Prior whole body CT scan November 27, 2020 HISTORY: Renal cancer. Delayed whole-body scanning was performed following the injection of 24.5 mCi Tc 99m MDP. Images acq uired 4 hours post injection. Whole body images in the anterior and posterior projection. Additional spot images of the lower thorax abdomen and pelvis are acquired. FINDINGS: No suspicious hypermetabolic uptake in the superior sternal lytic lesion current study. No suspicious hypermetabolic uptake in the left upper to mid rib on current study. No new areas of abnormal radiot racer uptake to suggest new metastatic disease to the bone. Lucency from prosthesis in the right hip and proximal femur are redemonstrated. Absent left kidney redemonstrated. IMPRESSION: As above.
== END | disposition home or self-care (01) ==
LOC: RADNMMAIN 10:06
PROVIDERS: ATTEND Internal Medicine Hematology & Oncology
DX: Z85.528 Personal history of other malignant neoplasm of kidney (principal)
CPT/HCPCS: 78306; A9503

== ENCOUNTER 2021-04-23 07:19 | Day surgery (SDC) | payer MEDICARE, BC ==
[2021-04-17 10:55] VITALS: BMI 26.8
[~2021-04-23 07:19] MED LIST: LACTATED RINGERS 1,000 ML IV SCH; LIDOCAINE 1% (10MG/ML) FOR IV START INTRADERMA PRN
[2021-04-23 07:50] VITALS: RESP 16; TEMP 96.2
[2021-04-23] MEDS ORDERED: GLYCOPYRROLATE 0.2 MG/ML 2 ML VIAL ONE (08:52)
[2021-04-23] MEDS ORDERED: PROPOFOL 10 MG/ML 20 ML VIAL IV ONE (08:52)
[2021-04-23] MEDS ORDERED: LIDOCAINE 1% INJ 10MG/ML (20 ML MDV) ONE (08:52)
--- NOTE | 2021-04-23 09:17 | P.PCN ---
Date of Procedure: 04/23/21 Procedure(s) Performed: Brief history: Patient is a pleasant 80-year-old white male scheduled for an elective upper endoscopy as well as colonoscopy as a part of evaluation of I deficiency anemia. He has history of renal cell carcinoma diagnosed in 2016 and presently on chemotherapy. He has history of DVT the past has been Eliquis which has been on hold since November of this year because of severe iron deficiency anemia Procedure performed: Esophagogastroduodenoscopy with biopsy and argon plasma coagulation Colonoscopy Preoperative diagnosis: Iron deficiency anemia Anesthesia: MAC Procedure: After informed consent was obtained from the patient was brought into the endoscopy unit and IV sedation was administered by anesthesia under continuous monitoring. Initially upper endoscopy was done. The Olympus GF 160 video endoscope was inserted inserted into the mouth and esophagus intubated without any difficulty and was gradually advanced into the stomach and duodenum and carefully examined. The bulb and second part of the duodenum appeared normal biopsies were done from the duodenum to rule out celiac disease.. The scope was then withdrawn into the stomach adequately insufflated with air and upon careful examination the antrum there were multiple linear telangiectasia as consistent with gastric antral vascular ectasia and argon plasma coagulation was performed and complete obliteration. No active bleeding noted. The and body, cardia and fundus appeared normal. The scope was then withdrawn into the esophagus. The GE junction was located at 40 cm to the incisors. Moderate sliding type hiatal hernia noted. It appeared regular with no erythema erosions or ulcerations. Re st of the esophagus appeared normal. Patient tolerated the procedure well. At this time the patient continued to remain sedation. Initial digital rectal examination was normal. Olympus CF 160 video colonoscope was then inserted into the rectum and gradually advanced to the cecum without any difficulty. Careful examination was performed as the scope was gradually being withdrawn. The prep was excellent. The cecum, ascending colon, transverse colon, descending colon, sigmoid colon and rectum appeared normal. Scattered sigmoid diverticulosis. Retroflexion was performed in the rectum and internal hemorrhoids were noted. Patient tolerated the procedure well. Impression: 1. 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 Colonoscopy revealed scattered sigmoid diverticulosis and small internal hemorrhoids Recommendations: Findings of this examination were discussed with the patient as well as his family. He was advised to follow with the biopsy results. Continue iron supplements. Monitor CBC closely. Follow-up in the office as needed.
[2021-04-23 09:39] VITALS: BP 111/69; PULSE 70
== END 2021-04-23 10:11 | disposition home or self-care (01) ==
LOC: ORWHC2ENDO 07:19
PROVIDERS: ATTEND Internal Medicine Gastroenterology
DX: K31.819 Angiodysplasia of stomach and duodenum without bleeding (principal); K44.9 Diaphragmatic hernia without obstruction or gangrene; K57.30 Diverticulosis of large intestine without perforation or abscess without bleeding; K64.8 Other hemorrhoids; Z86.010 Personal history of colon polyps
CPT/HCPCS: 45378; 43239; 43255; J2001; J2704; 88305

== ENCOUNTER → 2021-04-28 | Outpatient (CLI) | payer MEDICARE, BC ==
--- NOTE | 2021-04-28 13:45 | CT ---
EXAMINATION TYPE: CT ChestAbdPelvis wo con DATE OF EXAM: 04/28/2021 COMPARISON: 11/27/2020, 08/26/2020 HISTORY: 80-year-old male C64.2, Renal Cancer TECHNIQUE: Contiguous axial scanning of the chest, abdomen, and pelvis without IV contrast. Coronal a nd sagittal reconstructions performed. CT DLP: 1142 mGycm Automated exposure control for dose reduction was used. FINDINGS: CHEST: Heart normal size without pericardial effusion. Three-vessel coronary artery calcifications are prese nt. Borderline ectasia ascending aorta 3.5 cm. Mild atherosclerotic arch calcifications with conventional vessel branching anatomy. No thoracic lymphadenopathy by CT size criteria. Left basilar pulmonary nodule measures 8 mm versus 1.1 cm, previously. No enlarging nodule is seen. S trandy bibasilar areas of atelectasis. No pleural effusion. ABDOMEN: Noncontrast appearance of the liver, right adrenal gland, spleen, and pancreas show no gross abnormal body. 3.9 cm diverticulum of the second portion of the duodenum projecting into the pancreatic head region. History no gallstones measuring up to 1.1 cm. No abnormal gallbladder distention. Redemonstrated complex cyst of the medial upper pole right kidney measuring up to 6.9 x 6.0 cm versus 6.7 x 5.7 cm, previously, not significant changed. Calcified internal septation is again noted. Poss ible new or increasing 1.2 cm intralesional nodularity along the septation, axial image 65. Unchanged thickening left adrenal gland up to 1.1 cm thick. Surgical clips again noted along the left nephrectomy bed. The previous fluid along the left pararenal fascia has resolved. No dilated small bowel, free fluid, or free air. No mesenteric or retroperitoneal lymphadenopathy. Some surgical material along the right flank. Mild stool burden. Left-sided clonic diverticulosis. Si gmoid diverticulosis. No pericolonic inflammatory change. PELVIS: Similar postsurgical change right hip total arthroplasty with fragmented bone along the proximal femu r. Prostate gland enlargement 5.1 cm wide. Bladder not distended. Limited visualization due to promin ent metal artifact from the patient's right hip arthroplasty. No abnormal fluid collection identified in the pelvis or pelvic lymphadenopathy seen. BONES: Right hip total arthroplasty. Fragmented proximal right femur similar back to 08/26/2020 at least. Newly apparent lytic lesion left sacral ala measuring up to 3.4 cm with some destruction of the adjac ent articular surface of the SI joint, axial image 100. Subtle lucency also now noted medial left iliac bone, axial image 97. Subtle rounded lucency sternal manubrium measuring 1.4 cm now more apparent, axial image 12. IMPRESSION: 1. STATUS POST LEFT NEPHRECTOMY. STABLE THICKENING OF 1.1 CM INVOLVING THE ADJACENT LEFT ADRENAL GLAN D. 2. COMPARED TO 11/27/2020, FINDINGS SUGGEST PROGRESSION IN OSSEOUS METASTATIC DISEASE. THERE IS A NE W 3.4 CM LYTIC LESION OF THE LEFT SACRAL ALA. A SUBTLE LYTIC LESION OF THE POSTERIOR LEFT ILIAC BONE IS NOW VISUALIZED. STERNAL MANUBRIAL LESION IS NOW APPARENT ON CT. 3. KNOWN COMPLEX CYST OF THE UPPER POLE RIGHT KIDNEY RELATIVELY STABLE SIZE AT 6.9 CM. HOWEVER, UNABL E TO EXCLUDE AN ENLARGING INTRALESIONAL NODULE MEASURING 1.2 CM. IF THE PATIENT CANNOT RECEIVE CT CON TRAST, CONSIDER KIDNEY MRI TO BETTER ASSESS THE DEGREE OF INTERNAL COMPLEXITY. 4. LEFT BASILAR PULMONARY NODULE IS SLIGHTLY SMALLER AT 8 MM VERSUS 1.1 CM, PREVIOUSLY. 5. INCIDENTAL: CHOLELITHIASIS AND LEFT-SIDED COLONIC DIVERTICULOSIS.
== END | disposition home or self-care (01) ==
LOC: RADCTMAIN 10:00
PROVIDERS: ATTEND Internal Medicine Hematology & Oncology
DX: C64.2 Malignant neoplasm of left kidney, except renal pelvis (principal); N28.1 Cyst of kidney, acquired; E27.8 Other specified disorders of adrenal gland; M89.8X0 Other specified disorders of bone, multiple sites
CPT/HCPCS: 36415; 71250; 74176; 82565; 84520

== ENCOUNTER → 2021-05-21 | Outpatient (CLI) | payer MEDICARE, BC ==
[2021-05-21 14:18] LABS: Appearance,Urine Clear (Clear); Bilirubin,Urine Negative (Negative); Blood,Urine Trace (Negative); Color,Urine Yellow; Glucose,Urine (UA) Negative (Negative); Ketones,Urine Negative (Negative); Leukocyte Esterase,Urine Negative (Negative); Mucus,Urine Rare /hpf; Nitrite,Urine Negative (Negative); Protein,Urine 1+ (Negative); RBC,Urine <1 /hpf (0-5); Specific Gravity,Urine 1.023 (1.001-1.035); Squamous Epithelial Cell,Urine 1 /hpf (0-4); Urobilinogen,Urine <2.0 mg/dL (<2.0); WBC,Urine 1 /hpf (0-5)
[2021-05-21 14:45] LABS: Creatinine,Urine Random 148.8 mg/dL; Protein/Creatinine Ratio,Urine 0.383
[2021-05-21 18:33] LABS: Basophils # (A) 0.02 X 10*3/uL (0.00-0.10); Basophils % (A) 0.6 %; Eosinophils # (A) 0.34 X 10*3/uL (0.04-0.35); Eosinophils % (A) 9.5 %; HCT 39.9 % (39.6-50.0); HGB 12.5 g/dL (13.0-17.0); Lymphocytes # (A) 0.44 X 10*3/uL (0.90-5.00); Lymphocytes % (A) 12.3 %; MCH 33.3 pg (27.0-32.0); MCHC 31.3 g/dL (32.0-37.0); MCV 106.4 fL (80.0-97.0); Mean Platelet Volume 10.1 fL (9.5-12.2); Monocytes # (A) 0.43 X 10*3/uL (0.20-1.00); Neutrophils # (A) 2.35 X 10*3/uL (1.80-7.70); Neutrophils % (A) 65.3 %; Platelet Count 108 X 10*3/uL (140-440); RBC 3.75 X 10*6/uL (4.40-5.60); RDW 14.7 % (11.5-14.5); WBC 3.59 X 10*3/uL (4.50-10.00)
[2021-05-21 18:43] LABS: % Iron Saturation 26.59 (15.00-50.00); African American GFR (CKD) 38.5 (60.0-200.0); Anion Gap 9.8 mmol/L (10.00-18.00); BUN/Creat Ratio 16.4 Ratio (12.00-20.00); Calcium 9.3 mg/dL (8.7-10.3); Carbon Dioxide 18.7 mmol/L (20.0-27.5); Magnesium 1.9 mg/dL (1.5-2.4); Non-African American GFR(CKD) 33.2 (60.0-200.0); Phosphorus 3.5 mg/dL (2.4-5.1); Potassium 4.7 mmol/L (3.5-5.5); Uric Acid 5.4 mg/dL (3.7-8.7)
[2021-05-21 19:31] LABS: Albumin 3.6 g/dL (3.8-4.9)
== END | disposition home or self-care (01) ==
LOC: LABWHC1 12:08
PROVIDERS: ATTEND Nurse Practitioner Family
DX: E55.9 Vitamin D deficiency, unspecified (principal); E21.3 Hyperparathyroidism, unspecified; D64.9 Anemia, unspecified; M10.9 Gout, unspecified; N25.81 Secondary hyperparathyroidism of renal origin; N39.0 Urinary tract infection, site not specified; N18.32 Chronic kidney disease, stage 3b; R80.9 Proteinuria, unspecified
CPT/HCPCS: 36415; 80048; 81001; 82040; 82306; 82570; 82728; 83540; 83550; 83735; 83970; 84100; 84156; 84550; 85025

== ENCOUNTER → 2021-06-20 | Outpatient (CLI) | payer MEDICARE, BC ==
--- NOTE | 2021-06-24 13:53 | PE ---
Nuclear medicine PET/CT HISTORY: Left Kidney cancer, subsequent, C 64.2 Patient received 9.7 mCi F-18 FDG intravenously and delayed scanning was performed from the skull bas e to the mid thighs. Localization and attenuation correction CT scan was performed. Correlation to prior chest abdomen pelvis CT dated 04/28/2021 Average mediastinal uptake SUV 1.4, average uptake within the liver 2.5 Chest and neck: Inflammatory change present within the right maxillary sinus. There is no cervical or supraclavicular adenopathy. No mediastinal, axillary, or hilar adenopathy. Coronary artery calcifica tion is present, the heart is enlarged. No suspicious uptake. Patchy density at the right lung base l ikely reflects atelectasis or scarring. No pleural pericardial effusion. No evident lung mass. ABDOMEN: There is a large exophytic cyst at the upper pole the right kidney with some linear calcific ation and probable septation, no suspicious uptake. Patient is status post left nephrectomy. Mild pro minence of the adrenal gland noted on the left greater than right. There is cholelithiasis noted with in the gallbladder. No retroperitoneal adenopathy or suspicious uptake. Uptake along the bowel is fel t likely to be physiologic. There is extensive diverticular change, uptake along the sigmoid colon is noted. There is abnormal uptake corresponding to a lytic lesion involving the left sacrum SUV 3.0, left iliu m SUV 3.9. Degenerative changes, facet arthropathy noted in the lower lumbar spine. There is some upt amanda associated with posterior left fourth rib, SUV 3.5, 4.2. IMPRESSION: Findings suggest metastatic disease to the skeleton.
== END | disposition home or self-care (01) ==
LOC: RADPETMAIN 10:53
PROVIDERS: ATTEND Internal Medicine Hematology & Oncology
DX: C64.2 Malignant neoplasm of left kidney, except renal pelvis (principal)
CPT/HCPCS: 78815; A9552

== ENCOUNTER → 2021-09-01 | Outpatient (CLI) | payer MEDICARE, BC ==
--- NOTE | 2021-09-01 20:50 | CT ---
EXAMINATION TYPE: CT ChestAbdPelvis wo con DATE OF EXAM: 09/01/2021 COMPARISON: CT dated 04/28/2021 and 06/20/2021 HISTORY: Follow up for left renal cell cancer. CT DLP: 960.7 mGycm Automated exposure control for dose reduction was used. CONTRAST: CT scan of the chest, abdomen and pelvis is performed with Oral Contrast and without IV contrast admi nistration. FINDINGS: LUNGS: More prominent left lower lobe nodule measuring 9 mm compared to 8mm previously. Stable 9 mm r ight-sided lateral basal pulmonary nodule. Persistent bilateral lower lung zone atelectasis. No other definite new or progressive lung lesion. MEDIASTINUM: There are no greater than 1 cm hilar or mediastinal lymph nodes. No gross cardiomegaly. Coronary and arterial atherosclerotic calcifications. No pericardial effusion is seen. OTHER: Known osseous metastasis, not significantly changed compared to the previous CT scan. LIVER/GB: No definite hepatic focal lesion by this nonenhanced CT scan. Cholelithiasis without eviden ce of acute cholecystitis. PANCREAS: No significant abnormality is seen. SPLEEN: No significant abnormality is seen. ADRENALS: Stable focal thickening of the adrenal glands measuring up to 15 mm on the left side. KIDNEYS: Previous left nephrectomy. Fibrotic changes/scarring seen at the nephrectomy bed. Persistent complex cyst at the upper pole of right kidney measuring up to 6.9 cm with partially calcified inter nal septation within. BOWEL: Grossly unremarkable stomach. Duodenal diverticulum. No evidence of bowel obstruction. Divert iculosis most evident involving the descending colon and sigmoid colon. REPRODUCTIVE ORGANS: Grossly unremarkable prostate and seminal vesicles. The urinary bladder is not d istended. LYMPH NODES: No greater than 1 cm abdominal or pelvic lymph nodes are appreciated. OSSEOUS STRUCTURES: known osseous metastasis, not significantly changed compared to the previous CT s can. Right hip arthroplasty with surrounding exuberant soft tissue calcification/myositis ossificans as well as stable fragmentation/remodeling of the right proximal femur. OTHER: Arterial atherosclerotic calcification. Suspected minimal free pelvic fluid. Fluid seen along the spermatic cords IMPRESSION: Slightly more prominent left lower lung lobe nodule measuring 9 mm compared to 8mm previously, attent ion on follow-up. Alternatively, PET scan assessment can be considered. Grossly stable known osseous metastasis, please correlate with bone scan results. Unchanged thickened adrenal glands. Grossly stable complex right renal cyst. Other incidental findings as described abojaydon e.
== END | disposition home or self-care (01) ==
LOC: RADCTMAIN 12:48
PROVIDERS: ATTEND Internal Medicine Hematology & Oncology
DX: C64.2 Malignant neoplasm of left kidney, except renal pelvis (principal); C79.51 Secondary malignant neoplasm of bone; N28.1 Cyst of kidney, acquired; R91.1 Solitary pulmonary nodule
CPT/HCPCS: 71250; 74176

== ENCOUNTER → 2021-09-19 | Outpatient (CLI) | payer MEDICARE, BC ==
[2021-09-19 12:55] LABS: Creatinine,Urine Random 176.2 mg/dL; Protein/Creatinine Ratio,Urine 0.573
[2021-09-19 18:39] LABS: HCT 39.3 % (39.6-50.0); MCH 32.6 pg (27.0-32.0); MCHC 30.5 g/dL (32.0-37.0); MCV 106.8 fL (80.0-97.0); Mean Platelet Volume 10.3 fL (9.5-12.2); NRBC Per 100 WBC 0 /100 WBCS (0.0-0.0); Platelet Count 122 X 10*3/uL (140-440); RBC 3.68 X 10*6/uL (4.40-5.60); RDW 14.3 % (11.5-14.5); WBC 3.18 X 10*3/uL (4.50-10.00)
[2021-09-19 19:14] LABS: % Iron Saturation 15.17 (15.00-50.00); African American GFR (CKD) 40.9 (60.0-200.0); Anion Gap 10.1 mmol/L (10.00-18.00); BUN/Creat Ratio 17.67 Ratio (12.00-20.00); Blood Urea Nitrogen 31.8 mg/dL (9.0-27.0); Calcium 9.2 mg/dL (8.7-10.3); Carbon Dioxide 17.9 mmol/L (20.0-27.5); Magnesium 2.1 mg/dL (1.5-2.4); Non-African American GFR(CKD) 35.3 (60.0-200.0); Phosphorus 3.5 mg/dL (2.4-5.1); Potassium 4.7 mmol/L (3.5-5.5); Uric Acid 5.6 mg/dL (3.7-8.7)
[2021-09-19 19:35] LABS: Albumin 3.9 g/dL (3.8-4.9)
[2021-09-19 20:16] LABS: Basophils # (A) 0.01 X 10*3/uL (0.00-0.10); Basophils % (A) 0.3 %; Eosinophils # (A) 0.34 X 10*3/uL (0.04-0.35); Eosinophils % (A) 10.7 %; Immature Grans, Automated 0.3 %; Lymphocytes # (A) 0.35 X 10*3/uL (0.90-5.00); Monocytes # (A) 0.33 X 10*3/uL (0.20-1.00); Monocytes % (A) 10.4 %; Neutrophils # (A) 2.14 X 10*3/uL (1.80-7.70); Neutrophils % (A) 67.3 %
[2021-09-19 20:35] LABS: Appearance,Urine Clear (Clear); Bilirubin,Urine Negative (Negative); Blood,Urine Negative (Negative); Color,Urine Yellow (Yellow); Ketones,Urine Negative (Negative); Nitrite,Urine Negative (Negative); PH, Urine 5.5 (5.0-8.0); Specific Gravity,Urine 1.025 (1.001-1.030); Urobilinogen,Urine 0.2 (0.2,1.0)
[2021-09-19 20:47] LABS: Bacteria,Urine None Seen /HPF (None Seen)
== END | disposition home or self-care (01) ==
LOC: LABWHC1 11:51
PROVIDERS: ATTEND Internal Medicine Nephrology
DX: N18.32 Chronic kidney disease, stage 3b (principal)
CPT/HCPCS: 36415; 80048; 81001; 82040; 82306; 82570; 82728; 83540; 83550; 83735; 83970; 84100; 84156; 84550; 85025

== ENCOUNTER → 2021-10-23 | Outpatient (CLI) | payer MEDICARE, BC ==
--- NOTE | 2021-10-24 03:24 | MR ---
EXAMINATION TYPE: MR lumbar spine wo con DATE OF EXAM: 10/23/2021 COMPARISON: 04/22/2020 HISTORY: Mohamud cell cancer, low back pain. Multiplanar multiecho imaging of the lumbar spine with no contrast. There is abnormal decreased signal on the T1 images in the L3 and L4 vertebral bodies in a patchy dis tribution. There are similar changes at L1 and T12. There is large area of abnormal decreased signal in the left side body of the sacrum and the sacral S1 and S2 vertebral bodies. There is a 3.5 cm low signal lesion in the left iliac bone next to the sacroiliac joint. There is hypertrophic facet arthropathy with lateral recess stenosis at L4-5 and L3-4. No paraspinal mass. IMPRESSION: Multiple areas of abnormal decreased signal on the T1 images in the lumbar spine and the left side of the sacrum and the left iliac bone consistent with metastatic disease and appear new compared to old exam. There is L3-4 and L4-5 spinal stenosis and lateral recess stenosis.
== END | disposition home or self-care (01) ==
LOC: RADMRIMAIN 13:59
PROVIDERS: ATTEND Internal Medicine Hematology & Oncology
DX: C64.2 Malignant neoplasm of left kidney, except renal pelvis (principal); M48.061 Spinal stenosis, lumbar region without neurogenic claudication; M99.73 Connective tissue and disc stenosis of intervertebral foramina of lumbar region
CPT/HCPCS: 72148

== ENCOUNTER → 2021-11-20 | Outpatient (CLI) | payer MEDICARE, BC ==
--- NOTE | 2021-11-20 18:05 | CT ---
EXAMINATION TYPE: CT ChestAbdPelvis wo con DATE OF EXAM: 11/20/2021 INDICATION: f/u renal ca COMPARISON: 09/01/2021 CT DLP: 700.4 mGycm CONTRAST: Performed with Oral Contrast TECHNIQUE: Axial images at 5 mm thick sections. Reconstructed images in the coronal plane. Delayed images through the kidneys. FINDINGS: CT CHEST: Portion of the thyroid visualized is normal. There is a 0.8 cm nodule in the lateral right costophrenic angle. This is present previously and stab le. A posterior 0.8 cm nodule at the left lung base is again evident. This is stable No enlarged mediastinal or hilar adenopathy is evident. The ascending aorta diameter at the level of the main pulmonary artery is 4.3 cm. The main pulmonary artery diameter at the bifurcation is 2.5 cm. Mild coronary artery calcification is present. CT ABDOMEN: Liver: Normal Spleen: Normal Pancreas: Normal Adrenal glands: There is thickening of the left adrenal gland measuring 1.4 cm. Gallbladder: Cholelithiasis is present. Kidneys: Left kidney not identified. Right kidney: No masses are evident. No hydronephrosis is presen t. There is a calcified septum within a 5.8 cm cyst within the superior pole right kidney. No fred l stones are identified. Aorta: Vascular calcification is within the aorta. Inferior vena cava: Normal. CT PELVIS: Loops of bowel within the abdomen and pelvis are normal. There are a number of loops of bowel lac rupa oral contrast limiting their evaluation. Diverticulosis without acute diverticulitis is within t he sigmoid colon. Appendix: Not identified. No dilated tubular structure or inflammatory changes evident. Urinary bladder: Normal. Genitourinary structures: Prostate is prominent. Small amount of fluid is within the pelvis which is abnormal in a male. Osseous structures: There is a right hip prosthesis. Hypertrophy is present within the lumbar spine. IMPRESSIONS: 1. No suspicious changes to suggest new metastatic disease. 2. Small nodules remain stable within the lung bases. No new osseous changes are evident.
== END | disposition home or self-care (01) ==
LOC: RADCTMAIN 11:48
PROVIDERS: ATTEND Internal Medicine Hematology & Oncology
DX: C64.2 Malignant neoplasm of left kidney, except renal pelvis (principal); R91.8 Other nonspecific abnormal finding of lung field
CPT/HCPCS: 71250; 74176

== ENCOUNTER → 2022-01-05 | Outpatient (CLI) | payer MEDICARE, BC ==
[2022-01-05 14:29] LABS: Appearance,Urine Clear (Clear); Bilirubin,Urine Negative (Negative); Blood,Urine Negative (Negative); Color,Urine Yellow (Yellow); Ketones,Urine Negative (Negative); Nitrite,Urine Negative (Negative); PH, Urine 5.5 (5.0-8.0); Specific Gravity,Urine 1.016 (1.001-1.030); Urobilinogen,Urine 0.2 (0.2,1.0)
[2022-01-05 14:46] LABS: Basophils # (A) 0.01 X 10*3/uL (0.00-0.10); Basophils % (A) 0.3 %; Eosinophils # (A) 0.25 X 10*3/uL (0.04-0.35); Eosinophils % (A) 8.4 %; HCT 38.6 % (39.6-50.0); HGB 12.5 g/dL (13.0-17.0); Immature Grans, Automated 0.3 %; Lymphocytes # (A) 0.36 X 10*3/uL (0.90-5.00); Lymphocytes % (A) 12.2 %; MCH 34.2 pg (27.0-32.0); MCHC 32.4 g/dL (32.0-37.0); MCV 105.5 fL (80.0-97.0); Mean Platelet Volume 9.8 fL (9.5-12.2); Monocytes # (A) 0.25 X 10*3/uL (0.20-1.00); Monocytes % (A) 8.4 %; NRBC Per 100 WBC 0 /100 WBCS (0.0-0.0); Neutrophils # (A) 2.08 X 10*3/uL (1.80-7.70); Neutrophils % (A) 70.4 %; Platelet Count 103 X 10*3/uL (140-440); RBC 3.66 X 10*6/uL (4.40-5.60); RDW 15.4 % (11.5-14.5); WBC 2.96 X 10*3/uL (4.50-10.00)
[2022-01-05 14:50] LABS: % Iron Saturation 50.67 (15.00-50.00); African American GFR (CKD) 45.8 (60.0-200.0); BUN/Creat Ratio 17.24 Ratio (12.00-20.00); Blood Urea Nitrogen 28.1 mg/dL (9.0-27.0); Calcium 9.3 mg/dL (8.7-10.3); Carbon Dioxide 20.7 mmol/L (20.0-27.5); Non-African American GFR(CKD) 39.5 (60.0-200.0); Potassium 4.5 mmol/L (3.5-5.5); Uric Acid 5.3 mg/dL (3.7-8.7)
[2022-01-05 15:08] LABS: Albumin 3.7 g/dL (3.8-4.9)
== END | disposition home or self-care (01) ==
LOC: LABWHC1 08:28
PROVIDERS: ATTEND Nurse Practitioner Family
DX: N25.81 Secondary hyperparathyroidism of renal origin (principal); E55.9 Vitamin D deficiency, unspecified; N18.32 Chronic kidney disease, stage 3b; M10.9 Gout, unspecified; N39.0 Urinary tract infection, site not specified; R80.9 Proteinuria, unspecified; D63.1 Anemia in chronic kidney disease
CPT/HCPCS: 36415; 80048; 81001; 82040; 82043; 82306; 82570; 82728; 83540; 83550; 83735; 83970; 84100; 84550; 85025

== ENCOUNTER → 2022-02-12 | Outpatient (CLI) | payer MEDICARE, BC ==
--- NOTE | 2022-02-12 11:41 | CT ---
EXAMINATION TYPE: CT ChestAbdPelvis wo con CT DLP: 700.8 mGycm, Automated exposure control for dose reduction was used. DATE OF EXAM: 02/12/2022 10:52 AM COMPARISON: CT chest abdomen and pelvis 11/20/2021. CLINICAL INDICATION:Male, 81 years old with history of C64.2 MALIGNANT NEOPLASM OF LEFT KIDNEY, Technique: Multiple axial images of the chest, abdomen, and pelvis was obtained without the administr ation of intravenous contrast. Oral contrast was administered. Two-dimensional coronal and sagittal r econstructions were obtained. Findings: Evaluation is limited due to lack of intravenous contrast. CHEST: LUNGS/ PLEURA: No pneumothorax, pleural effusion, focal consolidation. Bilateral lower lobe atelectas is. Stable 8 mm right lower lobe lateral nodular density of (series 5, image 44). Stable 8 mm left lo wer lobe nodular density (series 5, image 35). No new or enlarging pulmonary nodules. AIRWAY: Patent and unremarkable.. HEART: Mildly enlarged heart. No pericardial effusion. Coronary arterial calcifications. MEDIASTINUM: No gross evidence of adenopathy. VASCULATURE: No aortic aneurysm. Atherosclerotic calcification of the aorta and its branches. SOFT TISSUES/LYMPH NODES: Unremarkable. LOWER NECK: No significant findings. ABDOMEN: ABDOMEN LIVER: Unremarkable noncontrast appearance. GALLBLADDER AND BILE DUCTS: Cholelithiasis present. No biliary duct dilatation. PANCREAS: Unremarkable noncontrast appearance. SPLEEN: Unremarkable noncontrast appearance ADRENAL GLANDS: Stable thickening of the bilateral adrenal glands with left greater than right. The l eft adrenal gland measures up to 1.7 cm in thickness. KIDNEYS AND URETERS: Left kidney surgically absent. No suspicious mass within the left nephrectomy be d. Right kidney demonstrates no hydronephrosis. Similar cyst within the superior pole measuring up t o 6.1 cm with calcified thin septum. PELVIS BLADDER: Limited evaluation due to streak artifact from right hip prosthesis. No gross abnormal. REPRODUCTIVE: Prostate is enlarged in size measuring 5.2 cm in transverse dimension. ABDOMEN & PELVIS STOMACH AND BOWEL: Small hiatal hernia. Diverticulum containing contrast involving the second/third p ortion the duodenum. Distal colonic diverticulosis without definitive evidence for acute diverticulit is. No evidence of bowel obstruction. Enteric contrast reaches the distal small bowel. PERITONEUM: No evidence of pneumoperitoneum. Trace perisplenic and pelvic ascites. No definitive jeri toneal nodularity. VASCULATURE: Mild atherosclerotic calcifications are present throughout the abdominal aorta and its b ranches. No abdominal aneurysm. MUSCULOSKELETAL: No acute osseous abnormalities. No significant change in known osseous metastasis. P ostsurgical changes from right total hip arthroplasty with surrounding heterotopic ossification. Dege nerative changes of visualized spine. LYMPH NODES: No gross evidence for lymphadenopathy. SOFT TISSUE/ABDOMINAL WALL: Bilateral inguinal hernias with left greater the right containing ascites . IMPRESSION: 1. Stable pulmonary nodules from prior examination. No new or enlarging pulmonary nodules. 2. Postsurgical changes from left nephrectomy without definitive evidence for local recurrence. 3. Stable right superior renal pole septated cyst. 4. Slight increase in small volume ascites in the pelvis and perisplenic locations. 5. Bilateral inguinal hernias containing ascites. 6. Colon diverticulosis without evidence for acute diverticulitis. 7. Cholelithiasis.
== END | disposition home or self-care (01) ==
LOC: RADCTMAIN 09:09
PROVIDERS: ATTEND Internal Medicine Hematology & Oncology
DX: C64.2 Malignant neoplasm of left kidney, except renal pelvis (principal); K40.20 Bilateral inguinal hernia, without obstruction or gangrene, not specified as recurrent; K57.30 Diverticulosis of large intestine without perforation or abscess without bleeding; K80.20 Calculus of gallbladder without cholecystitis without obstruction; R18.8 Other ascites; R91.8 Other nonspecific abnormal finding of lung field; Z90.5 Acquired absence of kidney
CPT/HCPCS: 71250; 74176

== ENCOUNTER → 2022-04-28 | Outpatient (CLI) | payer MEDICARE, BC | END | disposition home or self-care (01) | LOC: LABWHC1 10:58 | PROVIDERS: ATTEND Nurse Practitioner Family | DX: Z53.9 Procedure and treatment not carried out, unspecified reason (principal) ==

== ENCOUNTER → 2022-04-28 | Outpatient (CLI) | payer MEDICARE, BC ==
[2022-04-28 13:13] LABS: Creatinine,Urine Random 74.8 mg/dL; Protein/Creatinine Ratio,Urine 0.521
[2022-04-28 15:56] LABS: ALT 39 U/L (10-49); AST 32 U/L (14-35); African American GFR (CKD) 47.2 (60.0-200.0); Albumin 3.6 g/dL (3.8-4.9); Albumin/Globulin Ratio 2.11 (1.60-3.17); Alkaline Phosphatase 78 U/L (41-126); BUN/Creat Ratio 19.25 Ratio (12.00-20.00); Blood Urea Nitrogen 30.6 mg/dL (9.0-27.0); Calcium 9.2 mg/dL (8.7-10.3); Carbon Dioxide 18.3 mmol/L (20.0-27.5); Chloride 110 mmol/L (96-109); Globulin 1.7 g/dL (1.6-3.3); Glucose 88 mg/dL (70-110); Iron 61 ug/dL (65-175); Magnesium 1.8 mg/dL (1.5-2.4); Non-African American GFR(CKD) 40.7 (60.0-200.0); Phosphorus 3.6 mg/dL (2.4-5.1); Potassium 4.5 mmol/L (3.5-5.5); Sodium 140 mmol/L (135-145); Total Iron Binding Capacity 284 ug/dL (228-460); Total Protein 5.3 g/dL (6.2-8.2); Uric Acid 4.8 mg/dL (3.7-8.7)
[2022-04-28 16:16] LABS: Chol/HDL Ratio 2.74 Ratio; LDL Cholesterol,Calculated 44.6 mg/dL (0.0-131.0)
[2022-04-28 17:10] LABS: Basophils # (A) 0.01 X 10*3/uL (0.00-0.10); Basophils % (A) 0.4 %; Eosinophils # (A) 0.21 X 10*3/uL (0.04-0.35); Eosinophils % (A) 8.9 %; HCT 39.7 % (39.6-50.0); HGB 12.9 g/dL (13.0-17.0); Immature Grans, Automated 0.4 %; Lymphocytes # (A) 0.36 X 10*3/uL (0.90-5.00); Lymphocytes % (A) 15.3 %; MCH 34.3 pg (27.0-32.0); MCHC 32.5 g/dL (32.0-37.0); MCV 105.6 fL (80.0-97.0); Mean Platelet Volume 9.9 fL (9.5-12.2); Monocytes # (A) 0.23 X 10*3/uL (0.20-1.00); Monocytes % (A) 9.7 %; NRBC Per 100 WBC 0 /100 WBCS (0.0-0.0); Neutrophils # (A) 1.54 X 10*3/uL (1.80-7.70); Neutrophils % (A) 65.3 %; Platelet Count 95 X 10*3/uL (140-440); RBC 3.76 X 10*6/uL (4.40-5.60); RDW 14.4 % (11.5-14.5); WBC 2.36 X 10*3/uL (4.50-10.00)
[2022-04-28 19:49] LABS: Appearance,Urine Clear (Clear); Bilirubin,Urine Negative (Negative); Blood,Urine Negative (Negative); Color,Urine Yellow (Yellow); Ketones,Urine Negative (Negative); Nitrite,Urine Negative (Negative); PH, Urine 5.5 (5.0-8.0); Specific Gravity,Urine 1.015 (1.001-1.030); Urobilinogen,Urine 0.2 (0.2,1.0)
== END | disposition home or self-care (01) ==
LOC: LABWHC1 11:00
PROVIDERS: ATTEND Family Medicine
DX: Z00.00 Encounter for general adult medical examination without abnormal findings (principal); Z12.5 Encounter for screening for malignant neoplasm of prostate; C79.00 Secondary malignant neoplasm of unspecified kidney and renal pelvis; I12.9 Hypertensive chronic kidney disease with stage 1 through stage 4 chronic kidney disease, or unspecified chronic kidney disease; I48.20 Chronic atrial fibrillation, unspecified; N18.30 Chronic kidney disease, stage 3 unspecified
CPT/HCPCS: 36415; 80053; 80061; 81001; 82306; 82570; 82728; 83036; 83540; 83550; 83735; 83970; 84100; 84153; 84156; 84443; 84550; 85025

== ENCOUNTER → 2022-05-04 | Outpatient (CLI) | payer MEDICARE, BC ==
--- NOTE | 2022-05-04 12:00 | CT ---
EXAMINATION TYPE: CT ChestAbdPelvis wo con CT DLP: 654 mGycm, Automated exposure control for dose reduction was used. DATE OF EXAM: 05/04/2022 11:50 AM COMPARISON: Multiple CTs most recent 02/12/2022 CLINICAL INDICATION:Male, 81 years old with history of C64.2 Left kidney cancer; LT kidney ca. Routin e follow-up. Oral contrast only Technique: Multiple axial images of the chest, abdomen, and pelvis were obtained. Two-dimensional cor onal and sagittal reconstructions were obtained. Contrast used: No contrast Oral contrast used: with Oral Contrast Findings: Evaluation is limited due to lack of intravenous contrast. CHEST: LUNGS/ PLEURA: No pneumothorax, pleural effusion, focal consolidation. Bilateral lower lobe atelectas is. * Stable 8 mm right lower lobe lateral nodular density of (series 4, image 49). * Stable 8 mm left lower lobe nodular density (series 4, image 42). * No new or enlarging pulmonary nodules. AIRWAY: Patent and unremarkable.. HEART: Mildly enlarged heart. No pericardial effusion. Coronary arterial calcifications which are at least moderate in severity MEDIASTINUM: No gross evidence of adenopathy. VASCULATURE: No aortic aneurysm. Atherosclerotic calcification of the aorta and its branches. SOFT TISSUES/LYMPH NODES: Unremarkable. LOWER NECK: No significant findings. ABDOMEN: ABDOMEN LIVER: Unremarkable noncontrast appearance. GALLBLADDER AND BILE DUCTS: Cholelithiasis present. No biliary duct dilatation. PANCREAS: Unremarkable noncontrast appearance. SPLEEN: Unremarkable noncontrast appearance ADRENAL GLANDS: Similar thickening of the bilateral adrenal glands with left greater than right. The left adrenal gland measures up to 1.7 cm in thickness. KIDNEYS AND URETERS: Left kidney surgically absent. No suspicious mass within the left nephrectomy be d. Similar right kidney demonstrates no hydronephrosis. Similar cyst within the superior pole measuri ng up to 6.1 cm with calcified thin septum. PELVIS BLADDER: Limited evaluation due to streak artifact from right hip prosthesis. No gross abnormal. REPRODUCTIVE: Prostate remains enlarged in size measuring 5.2 cm in transverse dimension. ABDOMEN & PELVIS STOMACH AND BOWEL: Small hiatal hernia. Diverticulum containing contrast involving the second/third p ortion the duodenum. Distal colonic diverticulosis without definitive evidence for acute diverticulit is. No evidence of bowel obstruction. Enteric contrast reaches the distal small bowel. PERITONEUM: No evidence of pneumoperitoneum. Trace perisplenic and pelvic ascites. No definitive jeri toneal nodularity. VASCULATURE: Mild atherosclerotic calcifications are present throughout the abdominal aorta and its b ranches. No abdominal aneurysm. MUSCULOSKELETAL: No acute osseous abnormalities. No significant change in known osseous metastasis. P ostsurgical changes from right total hip arthroplasty with surrounding heterotopic ossification. Dege nerative changes of visualized spine. LYMPH NODES: No gross evidence for lymphadenopathy. SOFT TISSUE/ABDOMINAL WALL: Bilateral inguinal hernias with left greater the right containing ascites . IMPRESSION: 1. Similar pulmonary nodules from prior examination. No new or enlarging pulmonary nodules. 2. Postsurgical changes from left nephrectomy without definitive evidence for local recurrence. 3. Similar right superior renal pole septated cyst. 4. Colon diverticulosis without evidence for acute diverticulitis. 5. Cholelithiasis.
== END | disposition home or self-care (01) ==
LOC: RADCTMAIN 09:16
PROVIDERS: ATTEND Internal Medicine Hematology & Oncology
DX: C64.2 Malignant neoplasm of left kidney, except renal pelvis (principal); K57.30 Diverticulosis of large intestine without perforation or abscess without bleeding; K80.20 Calculus of gallbladder without cholecystitis without obstruction; R91.8 Other nonspecific abnormal finding of lung field; Z90.5 Acquired absence of kidney; Z98.890 Other specified postprocedural states
CPT/HCPCS: 71250; 74176; Q9967

== ENCOUNTER → 2022-08-05 | Outpatient (CLI) | payer MEDICARE, BC ==
--- NOTE | 2022-08-06 07:56 | CT ---
EXAMINATION TYPE: CT ChestAbdPelvis wo con CT DLP: 1215 mGycm, Automated exposure control for dose reduction was used. DATE OF EXAM: 08/05/2022 11:04 AM COMPARISON: 05/04/2022, 02/12/2022, PET/CT 06/20/2021 CLINICAL INDICATION:Male, 81 years old with history of C64.2, Kidney cancer Technique: Multiple axial images of the chest, abdomen, and pelvis were obtained. Two-dimensional cor onal and sagittal reconstructions were obtained. Contrast used: None Oral contrast used: with Oral Contrast Findings: Evaluation is limited due to lack of intravenous contrast. CHEST: LUNGS/ PLEURA: No pneumothorax, pleural effusion, focal consolidation. Bilateral lower lobe atelectas is. Stable nodular densities predominantly involving the right lower lobe near the diaphragm. Finding s could represent atelectasis changes. Stable left lower lobe pulmonary nodule series 3 image 42 AIRWAY: Patent and unremarkable.. HEART: Mildly enlarged heart. No pericardial effusion. Coronary arterial calcifications which are at least moderate in severity MEDIASTINUM: No gross evidence of adenopathy. VASCULATURE: No aortic aneurysm. Atherosclerotic calcification of the aorta and its branches. SOFT TISSUES/LYMPH NODES: Unremarkable. LOWER NECK: No significant findings. ABDOMEN: ABDOMEN LIVER: Unremarkable noncontrast appearance. GALLBLADDER AND BILE DUCTS: Cholelithiasis present. No biliary duct dilatation. PANCREAS: Unremarkable noncontrast appearance. SPLEEN: Unremarkable noncontrast appearance ADRENAL GLANDS: Mild increase in left adrenal thickening measuring up to 3.7 x 2.0 cm, previously 3.1 x 1.9 cm on 05/04/2022 and on 02/12/2022. KIDNEYS AND URETERS: * Left kidney is surgically absent. No suspicious mass within the left nephrectomy bed. * Similar right kidney demonstrates no hydronephrosis. Similar cyst within the superior pole measuri ng up to 6.1 cm with calcified thin septum. PELVIS BLADDER: Limited evaluation due to streak artifact from right hip prosthesis. No gross abnormal. REPRODUCTIVE: Prostate remains enlarged in size measuring 5.2 cm in transverse dimension. ABDOMEN & PELVIS STOMACH AND BOWEL: Small hiatal hernia. Duodenal diverticulum involving the second/third portion the duodenum. Distal colonic diverticulosis without definitive evidence for acute diverticulitis. No evid ence of bowel obstruction. PERITONEUM: No evidence of pneumoperitoneum. Trace perisplenic and pelvic ascites. No definitive jeri toneal nodularity. VASCULATURE: Mild atherosclerotic calcifications are present throughout the abdominal aorta and its b ranches. No abdominal aneurysm. MUSCULOSKELETAL: * No acute osseous abnormalities. No significant change in known osseous metastasis. * Postsurgical changes from right total hip arthroplasty with surrounding heterotopic ossification. * Degenerative changes of the visualized spine. LYMPH NODES: No gross evidence for lymphadenopathy. SOFT TISSUE/ABDOMINAL WALL: Bilateral inguinal hernias with left greater the right containing ascites . IMPRESSION: 1. Postsurgical changes from left nephrectomy without evidence for local recurrence. 2. Mildly increased left adrenal thickening compared to multiple priors. 3. Stable pulmonary nodules from prior examination. 4. Similar right superior renal pole septated cyst. 5. Colon diverticulosis. 6. Cholelithiasis.
== END | disposition home or self-care (01) ==
LOC: RADCTMAIN 09:09
PROVIDERS: ATTEND Internal Medicine Hematology & Oncology
DX: C64.2 Malignant neoplasm of left kidney, except renal pelvis (principal); K80.20 Calculus of gallbladder without cholecystitis without obstruction; G89.3 Neoplasm related pain (acute) (chronic); D50.9 Iron deficiency anemia, unspecified; K12.39 Other oral mucositis (ulcerative); K57.30 Diverticulosis of large intestine without perforation or abscess without bleeding; E27.8 Other specified disorders of adrenal gland; R91.8 Other nonspecific abnormal finding of lung field; Z90.5 Acquired absence of kidney
CPT/HCPCS: 71250; 74176

== ENCOUNTER → 2022-08-11 | Outpatient (CLI) | payer MEDICARE, BC ==
[2022-08-11 16:09] LABS: Basophils # (A) 0.02 X 10*3/uL (0.00-0.10); Basophils % (A) 0.6 %; Eosinophils # (A) 0.25 X 10*3/uL (0.04-0.35); Eosinophils % (A) 7.9 %; HCT 40.7 % (39.6-50.0); Immature Grans, Automated 0 %; Lymphocytes # (A) 0.36 X 10*3/uL (0.90-5.00); Lymphocytes % (A) 11.3 %; MCH 34.4 pg (27.0-32.0); MCHC 31.9 g/dL (32.0-37.0); MCV 107.7 fL (80.0-97.0); Mean Platelet Volume 9.7 fL (9.5-12.2); Monocytes # (A) 0.25 X 10*3/uL (0.20-1.00); Monocytes % (A) 7.9 %; NRBC Per 100 WBC 0 /100 WBCS (0.0-0.0); Neutrophils % (A) 72.3 %; Platelet Count 129 X 10*3/uL (140-440); RBC 3.78 X 10*6/uL (4.40-5.60); RDW 14.3 % (11.5-14.5); WBC 3.18 X 10*3/uL (4.50-10.00)
[2022-08-11 16:28] LABS: % Iron Saturation 62.01 (15.00-50.00); African American GFR (CKD) 50.6 (60.0-200.0); BUN/Creat Ratio 22.67 Ratio (12.00-20.00); Calcium 8.7 mg/dL (8.7-10.3); Magnesium 1.9 mg/dL (1.5-2.4); Non-African American GFR(CKD) 43.7 (60.0-200.0); Phosphorus 2.5 mg/dL (2.4-5.1); Potassium 4.6 mmol/L (3.5-5.5); Uric Acid 4.6 mg/dL (3.7-8.7)
[2022-08-11 18:26] LABS: Albumin 3.4 g/dL (3.8-4.9)
[2022-08-11 23:19] LABS: Appearance,Urine Clear (Clear); Bilirubin,Urine Negative (Negative); Blood,Urine Negative (Negative); Color,Urine Yellow (Yellow); Ketones,Urine Trace mg/dL (Negative); Nitrite,Urine Negative (Negative); Specific Gravity,Urine 1.028 (1.001-1.030)
[2022-08-11 23:40] LABS: Bacteria,Urine None Seen /HPF (None Seen)
== END | disposition home or self-care (01) ==
LOC: LABWHC1 11:32
PROVIDERS: ATTEND Internal Medicine Nephrology
DX: E55.9 Vitamin D deficiency, unspecified (principal); E21.3 Hyperparathyroidism, unspecified; M10.9 Gout, unspecified; N39.0 Urinary tract infection, site not specified; D64.9 Anemia, unspecified; N18.32 Chronic kidney disease, stage 3b
CPT/HCPCS: 36415; 80048; 81001; 82040; 82043; 82306; 82570; 82728; 83540; 83550; 83735; 83970; 84100; 84550; 85025

== ENCOUNTER → 2022-10-28 | Outpatient (CLI) | payer MEDICARE, BC ==
--- NOTE | 2022-10-28 13:34 | CT ---
EXAMINATION TYPE: CT ChestAbdPelvis wo con CT DLP: 717.2 mGycm, Automated exposure control for dose reduction was used. DATE OF EXAM: 10/28/2022 1:23 PM COMPARISON: . Chest radiograph from same day. Multiple CTs of the chest with most recent on . CLINICAL INDICATION:Male, 81 years old with history of C64.2, G89.3,D50.9,K12.39; PHH, f/u renal ca Technique: Multiple axial images of the chest, abdomen, and pelvis were obtained. Two-dimensional cor onal and sagittal reconstructions were obtained. Contrast used: None Oral contrast used: with Oral Contrast Findings: Evaluation is limited due to lack of intravenous contrast. CHEST: LUNGS/ PLEURA: No pneumothorax, pleural effusion, focal consolidation. Bilateral lower lobe atelectas is. Stable nodular densities predominantly involving the right lower lobe near the diaphragm. . Stabl e left lower lobe pulmonary nodule series 3 image 40. AIRWAY: Patent and unremarkable.. HEART: Mildly enlarged heart. No pericardial effusion. Coronary arterial calcifications which are at least moderate in severity MEDIASTINUM: No gross evidence of adenopathy. VASCULATURE: No aortic aneurysm. Atherosclerotic calcification of the aorta and its branches. SOFT TISSUES/LYMPH NODES: Unremarkable. LOWER NECK: No significant findings. ABDOMEN: ABDOMEN LIVER: Unremarkable noncontrast appearance. GALLBLADDER AND BILE DUCTS: Cholelithiasis present. No biliary duct dilatation. PANCREAS: Unremarkable noncontrast appearance. SPLEEN: Unremarkable noncontrast appearance ADRENAL GLANDS: Stable left adrenal thickening measuring 3.9 x 2.1 cm when measuring with similar te chnique. KIDNEYS AND URETERS: * Left kidney is surgically absent. No suspicious mass within the left nephrectomy bed. * Similar right kidney demonstrates no hydronephrosis. Similar cyst within the superior pole measuri ng up to 6.1 cm with calcified thin septum. PELVIS BLADDER: Limited evaluation due to streak artifact from right hip prosthesis. No gross abnormal. REPRODUCTIVE: Prostate remains enlarged in size measuring 5.3 cm in transverse dimension. ABDOMEN & PELVIS STOMACH AND BOWEL: Small hiatal hernia. Duodenal diverticulum involving the second portion of the duo denum. Distal colonic diverticulosis without definitive evidence for acute diverticulitis. No evidenc e of bowel obstruction. Enteric contrast reaches the mid small bowel. PERITONEUM: No evidence of pneumoperitoneum. Trace perisplenic and pelvic ascites. No definitive jeri toneal nodularity. Surgical clips in the right mid abdomen. VASCULATURE: Mild atherosclerotic calcifications are present throughout the abdominal aorta and its b ranches. No abdominal aneurysm. MUSCULOSKELETAL: * No acute osseous abnormalities. No significant change in known osseous metastasis. * Postsurgical changes from right total hip arthroplasty with surrounding heterotopic ossification. * Degenerative changes of the visualized spine. LYMPH NODES: No gross evidence for lymphadenopathy. SOFT TISSUE/ABDOMINAL WALL: Bilateral inguinal hernias with left greater the right containing ascites . Mild anasarca. IMPRESSION: 1. Postsurgical changes from left nephrectomy without evidence for local recurrence. 2. Stable left adrenal thickening compared to most recent prior. 3. Stable pulmonary nodules from prior examination. 4. Similar right superior renal pole septated cyst. 5. Colon diverticulosis. 6. Cholelithiasis.
== END | disposition home or self-care (01) ==
LOC: RADCTMAIN 11:21
PROVIDERS: ATTEND Internal Medicine Hematology & Oncology
DX: C64.2 Malignant neoplasm of left kidney, except renal pelvis (principal); G89.3 Neoplasm related pain (acute) (chronic); D50.9 Iron deficiency anemia, unspecified; R91.8 Other nonspecific abnormal finding of lung field; K57.30 Diverticulosis of large intestine without perforation or abscess without bleeding; K80.20 Calculus of gallbladder without cholecystitis without obstruction; N28.1 Cyst of kidney, acquired; E27.8 Other specified disorders of adrenal gland; Z90.5 Acquired absence of kidney
CPT/HCPCS: 71250; 74176

== ENCOUNTER → 2022-12-08 | Outpatient (CLI) | payer MEDICARE, BC ==
[2022-12-08 20:14] LABS: Appearance,Urine Clear (Clear); Bilirubin,Urine Negative (Negative); Blood,Urine Negative (Negative); Color,Urine Yellow (Yellow); Ketones,Urine Trace (Negative); Nitrite,Urine Negative (Negative); PH, Urine 5.5; Specific Gravity,Urine 1.022 (1.001-1.030)
[2022-12-08 21:24] LABS: HCT 39.7 % (39.6-50.0); HGB 12.5 d/dL (13.0-17.0); MCH 34.3 pg (27.0-32.0); MCHC 31.5 d/dL (32.0-37.0); MCV 109.1 FL (80.0-97.0); Mean Platelet Volume 9.8 FL (9.5-12.2); NRBC Per 100 WBC 0 X 10*3/uL (0.00-0.01); Platelet Count 127 X 10*3/uL (140-440); RBC 3.64 X 10*6/uL (4.40-5.60); RDW 14.1 % (11.5-14.5)
[2022-12-08 21:40] LABS: % Iron Saturation 58.98 (15.00-50.00); Albumin 3.6 d/dL (3.8-4.9); BUN/Creat Ratio 18.35 Ratio (12.00-20.00); Blood Urea Nitrogen 31.2 mg/dL (9.0-27.0); Calcium 8.8 mg/dL (8.7-10.3); Carbon Dioxide 20.8 mmol/L (21.6-31.8); Chloride 111 mmol/L (96-109); Glucose 78 mg/dL (70-110); Iron 174 UG/DL (65-175); Phosphorus 3.2 mg/dL (2.4-5.1); Potassium 5.1 mmol/L (3.5-5.5); Sodium 141 mmol/L (135-145); Total Iron Binding Capacity 295 UG/DL (228-460)
[2022-12-08 21:55] LABS: Basophils # (A) 0.01 X 10*3/uL (0.00-0.10); Basophils % (A) 0.3 %; Eosinophils # (A) 0.26 X 10*3/uL (0.04-0.35); Eosinophils % (A) 7.9 %; Lymphocytes # (A) 0.44 X 10*3/uL (0.90-5.00); Lymphocytes % (A) 13.3 %; Monocytes # (A) 0.31 X 10*3/uL (0.20-1.00); Monocytes % (A) 9.4 %; Neutrophils # (A) 2.27 X 10*3/uL (1.80-7.70); Neutrophils % (A) 68.8 %; RBC Morphology Normal (Normal)
== END | disposition home or self-care (01) ==
LOC: LABWHC1 11:24
PROVIDERS: ATTEND Internal Medicine Nephrology
DX: E55.9 Vitamin D deficiency, unspecified (principal); D63.1 Anemia in chronic kidney disease; N25.81 Secondary hyperparathyroidism of renal origin; M10.9 Gout, unspecified; N39.0 Urinary tract infection, site not specified; N18.32 Chronic kidney disease, stage 3b; R80.9 Proteinuria, unspecified
CPT/HCPCS: 36415; 80048; 81001; 82040; 82043; 82306; 82570; 82728; 83540; 83550; 83735; 83970; 84100; 84550; 85025

== ENCOUNTER → 2023-03-11 | Outpatient (CLI) | payer MEDICARE, BC ==
[2023-03-11 16:23] LABS: Appearance,Urine Clear (Clear); Bilirubin,Urine Negative (Negative); Blood,Urine Negative (Negative); Color,Urine Yellow (Yellow); Ketones,Urine Negative (Negative); Nitrite,Urine Negative (Negative); PH, Urine 5.5; Specific Gravity,Urine 1.025 (1.001-1.030)
[2023-03-11 16:36] LABS: HCT 39.1 % (39.6-50.0); HGB 12.5 g/dL (13.0-17.0); MCH 33.4 pg (27.0-32.0); MCV 104.5 FL (80.0-97.0); Mean Platelet Volume 9.3 FL (9.5-12.2); NRBC Per 100 WBC 0 X 10*3/uL (0.00-0.01); Platelet Count 150 X 10*3/uL (140-440); RBC 3.74 X 10*6/uL (4.40-5.60); RDW 14.8 % (11.5-14.5)
[2023-03-11 16:37] LABS: Basophils # (A) 0.01 X 10*3/uL (0.00-0.10); Basophils % (A) 0.3 %; Eosinophils # (A) 0.26 X 10*3/uL (0.04-0.35); Eosinophils % (A) 6.7 %; Lymphocytes # (A) 0.47 X 10*3/uL (0.90-5.00); Lymphocytes % (A) 12.1 %; Monocytes # (A) 0.32 X 10*3/uL (0.20-1.00); Monocytes % (A) 8.2 %; Neutrophils # (A) 2.83 X 10*3/uL (1.80-7.70); Neutrophils % (A) 72.4 %
[2023-03-11 16:46] LABS: % Iron Saturation 17.53 (15.00-50.00); Albumin 3.6 g/dL (3.8-4.9); Blood Urea Nitrogen 35.7 mg/dL (9.0-27.0); Calcium 9.3 mg/dL (8.7-10.3); Carbon Dioxide 21.1 mmol/L (21.6-31.8); Chloride 112 mmol/L (96-109); Glucose 87 mg/dL (70-110); Iron 51 UG/DL (65-175); Phosphorus 3.5 mg/dL (2.4-5.1); Potassium 4.6 mmol/L (3.5-5.5); Sodium 143 mmol/L (135-145); Total Iron Binding Capacity 291 UG/DL (228-460); Uric Acid 5.5 mg/dL (3.7-8.7)
== END | disposition home or self-care (01) ==
LOC: LABWHC1 11:33
PROVIDERS: ATTEND Nurse Practitioner Family
DX: N18.32 Chronic kidney disease, stage 3b (principal); D63.1 Anemia in chronic kidney disease; E55.9 Vitamin D deficiency, unspecified; N25.81 Secondary hyperparathyroidism of renal origin; M10.9 Gout, unspecified; N39.0 Urinary tract infection, site not specified; R80.9 Proteinuria, unspecified
CPT/HCPCS: 36415; 80048; 81003; 82040; 82043; 82306; 82570; 82728; 83540; 83550; 83735; 83970; 84100; 84550; 85025

== ENCOUNTER → 2023-04-08 | Outpatient (CLI) | payer MEDICARE, BC ==
--- NOTE | 2023-04-08 15:04 | CT ---
EXAMINATION TYPE: CT abdomen pelvis wo con CT DLP: 550.10 mGycm, Automated exposure control for dose reduction was used. DATE OF EXAM: 04/08/2023 1:31 PM COMPARISON: 01/20/2023. CLINICAL INDICATION:Male, 82 years old with history of Z03.89 suspected mets, C64.2 renal cancer; hx of renal cell ca. obs for mets. oral only TECHNIQUE: Axial CT of the ;CT abdomen pelvis wo con;Sagittal and coronal reformats were created on a separate workstation. Contrast used: mL of , (none if empty) Oral contrast used: without Oral Contrast (none if empty) FINDINGS: LOWER CHEST: Unremarkable ABDOMEN LIVER: Unremarkable GALLBLADDER AND BILE DUCTS: Unremarkable. PANCREAS: Unremarkable. SPLEEN: Unremarkable. ADRENAL GLANDS: Thickening of the left adrenal gland possibly related to postsurgical changes measuri ng 4.1 x 2.4 cm 4.1 x 1.8 cm on 01/20/2023. KIDNEYS AND URETERS: No evidence for right hydronephrosis. Right renal cyst with thin constipation. L eft kidney is surgically absent. PELVIS BLADDER: Unremarkable REPRODUCTIVE: Small bilateral hydroceles. ABDOMEN & PELVIS STOMACH AND BOWEL: No evidence of bowel obstruction. Scattered colonic diverticula. PERITONEUM/RETROPERITONEUM: No evidence of pneumoperitoneum. Small free fluid in the abdomen and pelv is.. VASCULATURE: No evidence of aortic aneurysm. MUSCULOSKELETAL: No acute osseous abnormalities. Right hip arthroplasty with hardware with streak art ifact. There are scattered colonic diverticula. LYMPH NODES: No gross evidence for lymphadenopathy. SOFT TISSUE/ABDOMINAL WALL: Unremarkable IMPRESSION: 1. Stable thickening of the left adrenal gland no additional evidence for recurrence. 2. Small ascites and small bilateral hydrocele.
== END | disposition home or self-care (01) ==
LOC: RADCTMAIN 11:30
PROVIDERS: ATTEND Internal Medicine Hematology & Oncology
DX: Z03.89 Encounter for observation for other suspected diseases and conditions ruled out (principal); C64.2 Malignant neoplasm of left kidney, except renal pelvis; N43.3 Hydrocele, unspecified; K12.39 Other oral mucositis (ulcerative); G89.3 Neoplasm related pain (acute) (chronic); D50.9 Iron deficiency anemia, unspecified; R18.8 Other ascites
CPT/HCPCS: 74176

== ENCOUNTER → 2023-07-09 | Outpatient (CLI) | payer MEDICARE, BC ==
--- NOTE | 2023-07-09 12:26 | CT ---
EXAMINATION TYPE: CT ChestAbdPelvis wo con DATE OF EXAM: 07/09/2023 COMPARISON: 01/20/2023. CT abdomen and pelvis on 04/08/2023. HISTORY: Renal cell carcinoma follow-up. CT DLP: 648.60 mGycm. Automated Exposure Control for Dose Reduction was Utilized. TECHNIQUE: CT scan of the thorax, abdomen and pelvis is performed without IV contrast. FINDINGS: Chest: There is an unchanged 3 mm left upper lobe pulmonary nodule on series 4 image 23. No new or en larging nodules are seen. There is mild vascular calcification within the thoracic aorta without evid ence of aneurysmal dilation. Moderate diffuse coronary calcifications are seen. The pulmonary arterie s are normal in size.. MEDIASTINUM: There are no greater than 1 cm hilar or mediastinal lymph nodes. No pericardial effusi on is seen. OTHER: No additional significant abnormality is seen. LIVER/GB: No focal liver lesions are see on this limited noncontrast evaluation. Multiple calcified g allstones are seen within the gallbladder PANCREAS: No significant abnormality is seen. SPLEEN: No significant abnormality is seen. ADRENALS: Left adrenal nodule measuring 4.1 x 2.0 cm is not significantly changed. Right adrenal nodu le measures up to 2.3 cm and is not significantly changed. KIDNEYS: Cystic structure with calcific internal septation in the upper pole of the right kidney is u nchanged. Prior left nephrectomy appears unchanged. BOWEL: Unchanged diverticulosis without evidence of diverticulitis. There is a large duodenal diverti culum. LYMPH NODES: No greater than 1cm abdominal or pelvic lymph nodes are appreciated. OSSEOUS STRUCTURES: There is a right total hip arthroplasty. There are no osseous destructive lesions . OTHER: Unchanged fluid within the right inguinal canal. Left hydrocele is noted in the increase in si ze, however not entirely included on the previous examination. Small amount of ascites around the spl een. IMPRESSION: 1. Unchanged bilateral adrenal nodules. 2. Prior left nephrectomy with otherwise no significant change and no clear additional evidence of me tastatic disease. 3. Cholelithiasis. 4. Diverticulosis without evidence of diverticulitis. 5. Additional findings as above.
== END | disposition home or self-care (01) ==
LOC: RADCTMAIN 10:02
PROVIDERS: ATTEND Internal Medicine Hematology & Oncology
DX: C64.2 Malignant neoplasm of left kidney, except renal pelvis (principal); K80.20 Calculus of gallbladder without cholecystitis without obstruction; K57.90 Diverticulosis of intestine, part unspecified, without perforation or abscess without bleeding; Z90.5 Acquired absence of kidney; G89.3 Neoplasm related pain (acute) (chronic); D50.9 Iron deficiency anemia, unspecified; K12.39 Other oral mucositis (ulcerative)
CPT/HCPCS: 71250; 74176

== ENCOUNTER → 2023-09-30 | Outpatient (CLI) | payer MEDICARE, BC ==
--- NOTE | 2023-10-01 08:52 | CT ---
EXAMINATION TYPE: CT ChestAbdPelvis wo con DATE OF EXAM: 09/30/2023 COMPARISON: EXAMINATION TYPE: CT ChestAbdPelvis wo con DATE OF EXAM: 09/30/2023 COMPARISON: 07/09/2023 HISTORY: f/u renal CA CT DLP: 1190 mGycm Automated exposure control for dose reduction was used. CONTRAST: CT scan of the chest, abdomen and pelvis is performed without the use of IV contrast. FINDINGS: CT chest: The left upper lobe pulmonary nodule is stable measuring approximately 6 mm. No new or suspicious sherry g mass or nodule is seen. There is no abnormal airspace/consolidative density or abnormal interstitial density. There is no pleural effusion, pleural thickening or pneumothorax. The great vessels and chest are normal there is no mediastinal, hilar or axillary adenopathy. There are multiple bone metastasis including the lytic lesion involving T10 with mild pathologic comp ression fracture but no retropulsion, a lytic lesion involving the sternum, and a questionable small lytic lesion involving the left fourth rib. CT abdomen and pelvis: There are stable multiple gallstones. There is stable moderate hepatomegaly. The pancreas and spleen are unremarkable. The bilateral adrenal masses have increased in the interval. The right adrenal mass is increased from 2.3 cm to approximately 3 cm and the left adrenal mass is increased from 4 cm to approximate 4.5 cm. These masses are suspicious for metastatic disease. There has been a left nephrectomy. There are no right renal calcifications or hydronephrosis. There is a stable large right renal cyst w ith septation. There is no retroperitoneal adenopathy or hemorrhage in the caliber of the abdominal aorta is normal. The bowel loops are normal in caliber and there is no dilatation or obstruction. No inflammatory al ges identified in the bowel wall and mesentery. There is a small amount of free intraperitoneal fluid but no free intraperitoneal air. There is no pelvic mass or adenopathy. There is no free fluid within the pelvis. There is mild/moder ate prostatic hypertrophy. There is a stable small right hydrocele and a stable large left hydrocele. There are multiple lytic metastasis including bilateral lytic lesions within the sacrum, left greater than right, bilateral lytic lesions in the iliac wings, left greater than, and lytic lesions in the left femoral head without pathologic fracture. There is a right hip prosthesis but the proximal shaft of the right femur is markedly fragmented and sclerotic consistent with metastatic destruction. The possibility of prosthetic loosening of the shaf t is not excluded. IMPRESSION: 1. Stable 6 mm left upper lobe pulmonary nodule with no suspicious lung masses or nodules. 2. 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 3. Bilateral enlarging adrenal masses suspicious for metastatic disease. 4. 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 Bone scan susan ht be useful for further evaluation given the presence of the scattered lytic lesions in the bony tho rax, pelvis and hips. 5. Stable marked cholelithiasis. 6. Stable moderate hepatomegaly. 7. Mild ascites. 8. Stable bilateral hydroceles, left much greater than right.
== END | disposition home or self-care (01) ==
LOC: RADCTMAIN 10:15
PROVIDERS: ATTEND Internal Medicine Hematology & Oncology
DX: K80.20 Calculus of gallbladder without cholecystitis without obstruction (principal); C79.51 Secondary malignant neoplasm of bone; C64.2 Malignant neoplasm of left kidney, except renal pelvis; E27.8 Other specified disorders of adrenal gland; G89.3 Neoplasm related pain (acute) (chronic); D50.9 Iron deficiency anemia, unspecified; M48.54XA Collapsed vertebra, not elsewhere classified, thoracic region, initial encounter for fracture; K12.39 Other oral mucositis (ulcerative); R91.1 Solitary pulmonary nodule; R16.0 Hepatomegaly, not elsewhere classified; R18.8 Other ascites; N43.3 Hydrocele, unspecified
CPT/HCPCS: 71250; 74176

== ENCOUNTER 2023-10-26 10:31 | Emergency (ER) | payer MEDICARE, BC ==
[2023-10-26 10:48] VITALS: RESP 18; TEMP 97.4
--- NOTE | 2023-10-26 10:51 | ED ---
Recheck HPI - General Chief Complaint: Recheck/Abnormal Lab/Rx Stated Complaint: not able to poop Time Seen by Provider: 10/26/23 10:50 Source: patient, RN notes reviewed Mode of arrival: wheelchair Limitations: no limitations - History of Present Illness Initial Comments: This is an 82-year-old male with a past medical history of renal cell carcinoma on oral chemotherapy and a left inguinal hernia who presents emergency department chief complaint of aminal pain and constipation for 1 day. Patient states that over the past day he notes the inguinal hernia has been more expressed than previous and he has been experiencing pain in this area as well. States that his last bowel movement was yesterday morning. Patient had an appointment with Dr. Aguilar, believed to be in the beginning of August, and evaluation of the hernia. Patient states that he has been putting off knee surgery due to potential complications. He denies hematochezia, dark or tarry stools, nausea, vomiting, fevers. - Related Data Home Medications Medication Instructions Recorded Confirmed Omeprazole 20 mg PO BID 02/19/14 10/26/23 allopurinoL [Allopurinol] 100 mg PO DAILY 02/19/14 10/26/23 Acetaminophen [Tylenol Arthritis] 650 mg PO Q8H PRN 04/17/21 10/26/23 Acetaminophen [Tylenol Extra 500 mg PO Q6H PRN 04/17/21 10/26/23 Strength] Atorvastatin [Lipitor] 20 mg PO HS 04/17/21 10/26/23 Fexofenadine HCl [Geneav Allergy] 180 mg PO DAILY PRN 04/17/21 10/26/23 Folic Acid 0.4 mg PO DAILY 04/17/21 10/26/23 Furosemide [Lasix] 20 mg PO DIRECTED 04/17/21 10/26/23 Iprat[address] [place] 0.06%Nasal 1 - 2 spray EA NOSTRIL DAILY PRN 04/17/21 10/26/23 [Atrovent Nasal 0.06%] Levothyroxine Sodium 25 mcg PO SUMOTUTHFRSA 04/17/21 10/26/23 Loperamide [Imodium] 2 mg PO QID PRN 04/17/21 10/26/23 Tamsulosin HCl [Flomax] 0.8 mg PO HS 04/17/21 10/26/23 Apixaban [Eliquis] 2.5 mg PO BID 10/26/23 10/26/23 Aspirin EC [Ecotrin Low Dose] 81 mg PO DAILY 10/26/23 10/26/23 Chlorhexidine Gluconate [Peridex] 15 ml PO BID 10/26/23 10/26/23 Cholecalciferol (Vitamin D3) 50 mcg PO DAILY 10/26/23 10/26/23 [Vitamin D3 (50 Mcg = 2000 Iu)] Diclofenac Sodium [Voltaren 1 applic TOPICAL DAILY PRN 10/26/23 10/26/23 Arthritis Pain 1% Gel] Diphenoxylate HCl/Atropine 2 tab PO QID PRN 10/26/23 10/26/23 [Lomotil 2.5-0.025 mg Tablet] Ferrous Sulfate [Feosol] 325 mg PO Q48H 10/26/23 10/26/23 Lenvatinib Mesylate [Lenvima] 20 mg PO DAILY 10/26/23 10/26/23 Levothyroxine Sodium 50 mcg PO WE 10/26/23 10/26/23 Lidocaine 5% Patch [Lidoderm] 1 patch TOPICAL DAILY PRN 10/26/23 10/26/23 Oxybutynin Chloride [oxyBUTYnin 15 mg PO DAILY 10/26/23 10/26/23 chloride ER] Pembrolizumab [Keytruda] 200 mg IV DIRECTED 10/26/23 10/26/23 Triamcinolone Acetonide [Nasacort] 1 spray EA NOSTRIL DAILY PRN 10/26/23 10/26/23 Xgeva Injection 1 dose SQ Q56D 10/26/23 10/26/23 Allergies Allergy/AdvReac Type Severity Reaction Status Date / Time weed pollen Allergy runny Verified 10/26/23 13:21 nose, red eyes dust mites Allergy rash, Uncoded 10/26/23 13:21 swelling MOLD Allergy RASH, Uncoded 10/26/23 13:21 SWELLING. Review of Systems ROS Statement: Those systems with pertinent positive or pertinent negative responses have been documented in the HPI. ROS Other: All systems not noted in ROS Statement are negative. Past Medical History Past Medical History: GERD/Reflux, GI Bleed, Hyperlipidemia, Hypertension, Renal Disease, Sleep Apnea/CPAP/BIPAP Additional Past Medical History / Comment(s): HTN & GI BLEED RESOVLED. RECENT DX OF MASS ON LT KIDNEY. HX OF DIVERTICULITIS History of Any Multi-Drug Resistant Organisms: None Reported Past Surgical History: Appendectomy Additional Past Surgical History / Comment(s): EGD. COLONOSCOPY. ESOPHAGEAL OBSTRUCTION REMOVED. HEMORRHOIDECTOMY. SURGERY FOR BLEEDING ULCER. SEVERAL PROCEDURES FOR PERITONITIS R/T RUPTURED APPENDIX Past Anesthesia/Blood Transfusion Reactions: No Reported Reaction Past Psychological History: No Psychological Hx Reported Past Alcohol Use History: Rare - Past Family History Mother Family Medical History: Diabetes Mellitus, Hypertension Additional Family Medical History / Comment(s): ANEURYSM Father Family Medical History: Cancer, Coronary Artery Disease (CAD), CVA/TIA, Hyperlipidemia Additional Family Medical History / Comment(s): Ca: bladder; cabg General Exam Limitations: no limitations General appearance: alert, in no apparent distress Head exam: Present: atraumatic, normocephalic, normal inspection Eye exam: Present: normal appearance, PERRL, EOMI. Absent: scleral icterus, conjunctival injection, periorbital swelling ENT exam: Present: normal exam, mucous membranes moist Neck exam: Present: normal inspection. Absent: tenderness, meningismus, lymphadenopathy Respiratory exam: Present: normal lung sounds bilaterally. Absent: respiratory distress, wheezes, rales, rhonchi, stridor Cardiovascular Exam: Present: regular rate, normal rhythm, normal heart sounds. Absent: systolic murmur, diastolic murmur, rubs, gallop, clicks GI/Abdominal exam: Present: soft, tenderness (left lower), hernia (left inguinal, no erythema or). Absent: guarding, rebound Extremities exam: Present: normal inspection, full ROM, normal capillary refill. Absent: tenderness, pedal edema, joint swelling, calf tenderness Back exam: Present: normal inspection Neurological exam: Present: alert, oriented X3, CN II-XII intact Course Vital Signs 10/26/23 10/26/23 10/26/23 10:42 10:47 13:22 Temperature 97.4 F L Pulse Rate 49 L 48 L 59 L Respiratory 18 18 18 Rate Blood Pressure 153/76 170/87 166/85 O2 Sat by Pulse 99 98 97 Oximetry Medical Decision Making - Medical Decision Making was pt. sent in by a medical professional or institution (, PA, DIGESTION OPERATOR, urgent care, hospital, or residential...) When possible be specific @ -No Did you speak to anyone other than the patient for history (EMS, parent, family, police, friend...)? What history was obtained from this source @ -To the patient's at bedside states that the patient has followed with Dr. Aguilar previously was evaluated the inguinal hernia. Did you review nursing and triage notes (agree or disagree)? Why? @ -I reviewed and agree with nursing and triage notes Were old charts reviewed (outside hosp., previous admission, EMS record, old EKG, old radiological studies, urgent care reports/EKG's, residential records)? Report findings @ -No old charts were reviewed Differential Diagnosis (chest pain, altered mental status, abdominal pain women, abdominal pain men, vaginal bleeding, weakness, fever, dyspnea, syncope, headache, dizziness, GI bleed, back pain, seizure, CVA, palpatations, mental health, musculoskeletal)? @ -Differential Abdominal Pain Men: Appendicitis, cholecystitis, diverticulosis, ischemic bowel, pancreatitis, hepatitis, UTI, gastroenteritis, AAA, incarcerated hernia, bowel obstruction, constipation, inflammatory bowel, hepatitis, peptic ulcer disease, splenic infarction, perforated viscus, testicular torsion, this is not meant to be an all-inclusive list EKG interpreted by me (3pts min.). @ -None X-rays interpreted by me (1pt min.). @ -None done CT interpreted by me (1pt min.). @ -CT of the abdomen pelvis without contrast reveals bilateral inguinal hernias containing small bowel on the left and fluid bilaterally that extends into the scrotum, left surgically absent kidney with persistent soft tissue in the surgical bed, distended stomach fluid within the chest and contents. U/S interpreted by me (1pt. min.). @ -US of the groin revelas peristalsing bowel with extension to a left scrotal hydrocele, bowel demonstrates good blood flow. What testing was considered but not performed or refused? (CT, X-rays, U/S, labs)? Why? @ -None What meds were considered but not given or refused? Why? @ -None Did you discuss the management of the patient with other professionals (professionals i.e. , PA, DIGESTION OPERATOR, lab, RT, psych nurse, psychosocial rehabilitation counselor, pediatric sports medicine specialist, teacher, geological technical officer, caseworker intake)? Give summary @ -To my attending, Dr. Wright, in regard to the patient's case and he recommends the patient receive a CT of the abdomen for further evaluation to rule out acute intra-abdominal process due to patient complaining of abdominal pain. Was smoking cessation discussed for >3mins.? @ -No Was critical care preformed (if so, how long)? @ -No Were there social determinants of health that impacted care today? How? (Homelessness, low income, unemployed, alcoholism, drug addiction, transportation, low edu. Level, literacy, decrease access to med. care, senior care, rehab)? @ -No Was there de-escalation of care discussed even if they declined (Discuss DNR or withdrawal of care, Hospice)? DNR status @ -No What co-morbidities impacted this encounter? (DM, HTN, Smoking, COPD, CAD, Cancer, CVA, ARF, Chemo, Hep., AIDS, mental health diagnosis, sleep apnea, morbid obesity)? @ -None Was patient admitted / discharged? Hospital course, mention meds given and route, prescriptions, significant lab abnormalities, going to OR and other pertinent info. @ -82 year-old male with worsening left inguinal abdominal pain. On examination area of the left groin has a palpable mass that is reducible with pressure, no signs of erythema or discoloration overlying the skin. Patient is nontoxic- appearing and vitals are within normal limits. He will be evaluated via laboratory studies in addition to ultrasound. Ultrasound no acute findings, hernia represents good blood flow. CBC and coagulation profile unremarkable. CMP reveals elevated BUN and creatinine improved as compared to previous, consistent with diagnosis of renal cell carcinoma. Lactate 1.0. Evaluation, patient states that he is experiencing diffuse abdominal pain which he did not note on initial discussion. Patient will be evaluated for a CT of the abdomen and pelvis for further evaluation to ensure there is no acute intra-abdominal process occurring. Patient was also provided with a additional dose of pain medication. He unremarkable for acute findings. At bedside I have requested patient leave a urinalysis, he states that he is unable to urinate and would like to follow-up outpatient with Dr. Horta tomorrow as scheduled. He states that the urologist completes a urine sample when he visits for his appointments. Additionally minimal clinical concern for urinary tract infection due to patient not experiencing symptoms of dysuria, hematuria, increased frequency or urgency. All questions answered at bedside and strict return parameters discussed with the patient which she has verbalized understanding. Patient was provided with a starter pack of Tylenol 3 to aid in pain and recommends that he takes alongside to limit chance of constipation. Case discussed with Dr. Wright. Undiagnosed new problem with uncertain prognosis? @ -No Drug Therapy requiring intensive monitoring for toxicity (Heparin, Nitro, Insulin, Cardizem)? @ -No Were any procedures done? @ -No Diagnosis/symptom? @ -inguinal hernia, abdominal pain, metastatic renal cell carcinoma Acute, or Chronic, or Acute on Chronic? @ -acute Uncomplicated (without systemic symptoms) or Complicated (systemic symptoms)? @ -uncomplicated Side effects of treatment? @ -No Exacerbation, Progression, or Severe Exacerbation? @ -No Poses a threat to life or bodily function? How? (Chest pain, [place], [place], pneumonia, PE, COPD, DKA, ARF, appy, cholecystitis, CVA, Diverticulitis, Homicidal, Suicidal, threat to staff... and all critical care pts) @ -No - Lab Data Result diagrams: 10/26/23 11:19 10/26/23 11:19 Lab Results 10/26/23 10/26/23 10/26/23 Range/Units 11:19 11:19 11:19 WBC 3.4 L (3.8-10.6) k/uL RBC 3.55 L (4.30-5.90) m/uL Hgb 12.2 L (13.0-17.5) gm/dL Hct 38.1 L (39.0-53.0) % MCV 107.4 H (80.0-100.0) fL MCH 34.5 (25.0-35.0) pg MCHC 32.1 (31.0-37.0) g/dL RDW 14.1 (11.5-15.5) % Plt Count 108 L (150-450) k/uL MPV 8.0 Neutrophils % 82 % Lymphocytes % 8 % Monocytes % 6 % Eosinophils % 2 % Basophils % 0 % Neutrophils # 2.8 (1.3-7.7) k/uL Lymphocytes # 0.3 L (1.0-4.8) k/uL Monocytes # 0.2 (0-1.0) k/uL Eosinophils # 0.1 (0-0.7) k/uL Basophils # 0.0 (0-0.2) k/uL Macrocytosis Moderate PT 10.5 (10.0-12.5) sec INR 0.9 (<1.2) APTT 22.1 (22.0-30.0) sec Sodium 140 (137-145) mmol/L Potassium 4.0 (3.5-5.1) mmol/L Chloride 114 H (98-107) mmol/L Carbon Dioxide 19 L (22-30) mmol/L Anion Gap 7 mmol/L BUN 36 H (9-20) mg/dL Creatinine 1.33 H (0.66-1.25) mg/dL Est GFR (CKD-EPI)AfAm 58 (>60 ml/min/1.73 sqM) Est GFR (CKD-EPI)NonAf 50 (>60 ml/min/1.73 sqM) Glucose 110 H (74-99) mg/dL Plasma Lactic Acid Sean (0.7-2.0) mmol/L Calcium 9.5 (8.4-10.2) mg/dL Total Bilirubin 0.7 (0.2-1.3) mg/dL ALT 27 (4-49) U/L Alkaline Phosphatase 104 (38-126) U/L Total Protein 5.6 L (6.3-8.2) g/dL Albumin 3.5 (3.5-5.0) g/dL 10/26/23 Range/Units 11:19 WBC (3.8-10.6) k/uL RBC (4.30-5.90) m/uL Hgb (13.0-17.5) gm/dL Hct (39.0-53.0) % MCV (80.0-100.0) fL MCH (25.0-35.0) pg MCHC (31.0-37.0) g/dL RDW (11.5-15.5) % Plt Count (150-450) k/uL MPV Neutrophils % % Lymphocytes % % Monocytes % % Eosinophils % % Basophils % % Neutrophils # (1.3-7.7) k/uL Lymphocytes # (1.0-4.8) k/uL Monocytes # (0-1.0) k/uL Eosinophils # (0-0.7) k/uL Basophils # (0-0.2) k/uL Macrocytosis PT (10.0-12.5) sec INR (<1.2) APTT (22.0-30.0) sec Sodium (137-145) mmol/L Potassium (3.5-5.1) mmol/L Chloride (98-107) mmol/L Carbon Dioxide (22-30) mmol/L Anion Gap mmol/L BUN (9-20) mg/dL Creatinine (0.66-1.25) mg/dL Est GFR (CKD-EPI)AfAm (>60 ml/min/1.73 sqM) Est GFR (CKD-EPI)NonAf (>60 ml/min/1.73 sqM) Glucose (74-99) mg/dL Plasma Lactic Acid Sean 1.0 (0.7-2.0) mmol/L Calcium (8.4-10.2) mg/dL Total Bilirubin (0.2-1.3) mg/dL ALT (4-49) U/L Alkaline Phosphatase (38-126) U/L Total Protein (6.3-8.2) g/dL Albumin (3.5-5.0) g/dL Disposition Clinical Impression: Inguinal hernia, Abdominal pain Disposition: HOME SELF-CARE Condition: Good Instructions (If sedation given, give patient instructions): Inguinal Hernia (ED) Additional Instructions: Return to the emergency department if symptoms worsen improved. Recommend a follow-up tomorrow with Dr. Todd as scheduled. Take pain medication as needed. Is patient prescribed a controlled substance at d/c from ED?: No Referrals: Ritu Kramer MD [Primary Care Provider] - 1-2 days Time of Disposition: 13:43
[2023-10-26] MEDS: HYDROmorphone 0.5 MG/0.5 ML SYRINGE IVP STA (11:21)
[2023-10-26 11:24] LABS: Basophils % (A) 0 %; Eosinophils # (A) 0.1 k/uL (0-0.7); Eosinophils % (A) 2 %; HCT 38.1 % (39.0-53.0); HGB 12.2 gm/dL (13.0-17.5); Lymphocytes # (A) 0.3 k/uL (1.0-4.8); Lymphocytes % (A) 8 %; MCH 34.5 pg (25.0-35.0); MCHC 32.1 g/dL (31.0-37.0); MCV 107.4 fL (80.0-100.0); Macrocytosis Moderate; Monocytes # (A) 0.2 k/uL (0-1.0); Monocytes % (A) 6 %; Neutrophils # (A) 2.8 k/uL (1.3-7.7); Neutrophils % (A) 82 %; Platelet Count 108 k/uL (150-450); RBC 3.55 m/uL (4.30-5.90); RDW 14.1 % (11.5-15.5); WBC 3.4 k/uL (3.8-10.6)
[2023-10-26 11:32] LABS: INR 0.9 (<1.2); Partial Thromboplastin Time 22.1 sec (22.0-30.0); Prothrombin Time 10.5 sec (10.0-12.5)
[2023-10-26 11:38] LABS: ALT 27 U/L (4-49); African American GFR (CKD) 58 (>60 ml/min/1.73 sqM); Albumin 3.5 g/dL (3.5-5.0); Alkaline Phosphatase 104 U/L (38-126); Anion Gap 7 mmol/L; Blood Urea Nitrogen 36 mg/dL (9-20); Calcium 9.5 mg/dL (8.4-10.2); Carbon Dioxide 19 mmol/L (22-30); Chloride 114 mmol/L (98-107); Glucose 110 mg/dL (74-99); Non-African American GFR(CKD) 50 (>60 ml/min/1.73 sqM); Sodium 140 mmol/L (137-145); Total Bilirubin 0.7 mg/dL (0.2-1.3); Total Protein 5.6 g/dL (6.3-8.2)
--- NOTE | 2023-10-26 12:00 | US ---
EXAMINATION TYPE: US groin LT DATE OF EXAM: 10/26/2023 COMPARISON: CT chest abdomen and pelvis 09/30/2023 CLINICAL INDICATION: Male, 82 years old with history of L inguinal hernia pain, increase size, const. X1 D; Pt states palpable lump left groin that has increased in size and pain since CT last month, pt has known left inguinal hernia and large left hydrocele TECHNIQUE: Left groin was evaluated with multiple grayscale and color Doppler ultrasound images. FINDINGS/IMPRESSION: Within the left groin area of patient's abnormality demonstrates peristalsing raghavendra wel with extension to a left scrotal hydrocele. The bowel demonstrates blood flow. The scrotal hydroc veronica measures 12.9 x 4.9 x 5.8 cm. Findings are most consistent with large left inguinal hernia contai del bowel and a large scrotal hydrocele.
--- NOTE | 2023-10-26 13:17 | CT ---
EXAMINATION TYPE: CT abdomen pelvis wo con CT DLP: 520 mGycm, Automated exposure control for dose reduction was used. DATE OF EXAM: 10/26/2023 1:00 PM COMPARISON: Multiple CTs most recent 09/30/2023. And 07/09/2023. CLINICAL INDICATION:Male, 82 years old with history of ab and inguinal pain; TECHNIQUE: Axial CT abdomen pelvis wo con;Sagittal and coronal reformats were created on a separate workstation. Contrast used: mL of , (none if empty) Oral contrast used: (none if empty) FINDINGS: LOWER CHEST: Unremarkable ABDOMEN LIVER: Unremarkable GALLBLADDER AND BILE DUCTS: Multiple gallstones in the gallbladder lumen. PANCREAS: Unremarkable. SPLEEN: Unremarkable. ADRENAL GLANDS: Nodular thickening of the right adrenal gland similar to 07/09/2023. KIDNEYS AND URETERS: Mild dilation of the right renal collecting system new from prior. Findings could be physiologic due to distended urinary bladder. Complex right renal cyst with wall calcifications and possibly adjacent cysts and/or septation measur ing 65 x 54 cm. Not significantly changed from prior. Left kidney is surgically absent. Fecal bed soft tissue measuring 41 x 21 as described below PELVIS BLADDER: Distended. REPRODUCTIVE: Prostate is enlarged in size measuring 4.9 cm in transverse dimension. ABDOMEN & PELVIS STOMACH AND BOWEL: No evidence of bowel obstruction. Gastric lumen with high density material. Scatte red colonic diverticula. PERITONEUM/RETROPERITONEUM: No pneumoperitoneum. Trace free fluid in the abdomen. Left fossa soft tis frank redemonstrated measuring 41 x 21 mm which is similar in size given differences in technique to . VASCULATURE: Mild atherosclerotic calcifications are present throughout the abdominal aorta and its b ranches. No evidence of aortic aneurysm. MUSCULOSKELETAL: No acute osseous abnormalities, right hip arthroplasty changes with revision. Stable appearance of the sacrum from immediate prior and dating back to at least 01/20/2023 underlying patho logic fracture in this region not excluded. T10 vertebral body possible pathologic compression fractu re similar to 09/30/2023 and 07/09/2023 LYMPH NODES: No gross evidence for lymphadenopathy. SOFT TISSUE/ABDOMINAL WALL: Bilateral inguinal hernias containing small bowel on the left and there i s fluid tracking scrotum bilaterally. IMPRESSION: 1. Bilateral inguinal hernias containing small bowel on the left and fluid bilaterally that extends into the scrotum. Mildly dilated right renal collecting system possibly due to overdistention of the urinary bladder. 2. Distention of the right renal collecting system new from prior no obvious obstructing stone. Devonte elate with urinalysis for other signs and symptoms of obstructive uropathy. Possibly due to overdiste ntion the urinary bladder. Consider Olvera catheter placement and follow-up ultrasound scan. 3. Pathologic fracture of the left sacrum. Findings present for multiple priors dating back to at [facility] 04/08/2023. 4. Left surgically absent kidney with persistent soft tissue in the surgical bed. 5. Thickened right adrenal gland similar to prior. 6. Cholelithiasis. 7. Distended stomach lumen with ingested contents 8. Complex right renal cyst with calcification and thin septation similar to prior. 9. Colonic diverticulosis. 10. Prostatomegaly correlate with serum PSA.
[2023-10-26] MEDS: MORPHINE SULFATE 4 MG/ML SYRINGE IVP STA (13:19)
[2023-10-26] MEDS: ACET/COD 300 MG/30 MG STARTER PACK 6 TAB BTL PO STA (14:08)
[2023-10-26 14:14] VITALS: BP 172/87; PULSE 82
[2023-10-26 17:16] LABS: AST 35 U/L (17-59)
== END 2023-10-26 14:22 | disposition home or self-care (01) ==
LOC: EC 10:31
DX: K40.20 Bilateral inguinal hernia, without obstruction or gangrene, not specified as recurrent (principal); K57.30 Diverticulosis of large intestine without perforation or abscess without bleeding; Z88.8 Allergy status to other drugs, medicaments and biological substances
CPT/HCPCS: 36415; 80053; 83605; 85025; 85610; 85730; 76882; 74176; 99284; 96374; 96375; J2270; J1170

== ENCOUNTER 2023-10-31 17:16 | Inpatient (IN) | payer MEDICARE, BC ==
--- NOTE | 2023-10-31 17:44 | ED ---
Recheck HPI - General Chief Complaint: Abdominal Pain Stated Complaint: Abd Pain, Pneumonia Time Seen by Provider: 10/31/23 17:39 Source: patient, EMS, RN notes reviewed, old records reviewed Mode of arrival: EMS Limitations: no limitations - History of Present Illness Initial Comments: This is an 82-year-old male to ER for evaluation as excepted in transfer for evaluation of pneumonia patient also has small bowel obstruction secondary to hernia MD Complaint: abnormal lab ( need for treatment of hernia with small bowel obstr uction), needs IV antibiotics (For treatment of pneumonia) -: days(s) Returns Today for: needs IV antibiotics, persistent/worsening pain related to in itial visit Symptoms Since Prior Visit: worsening pain Context: planned re-check Associated Symptoms: chills, abdominal pain Treatments Prior to Arrival: Given Antibiotics on, Given Pain Meds on - Related Data Home Medications Medication Instructions Recorded Confirmed Omeprazole 20 mg PO BID 02/19/14 11/04/23 allopurinoL [Allopurinol] 100 mg PO DAILY 02/19/14 11/04/23 Acetaminophen [Tylenol Arthritis] 650 mg PO Q8H PRN 04/17/21 11/04/23 Acetaminophen [Tylenol Extra 500 mg PO Q6H PRN 04/17/21 11/04/23 Strength] Atorvastatin [Lipitor] 20 mg PO HS 04/17/21 11/04/23 Fexofenadine HCl [[place] Allergy] 180 mg PO DAILY PRN 04/17/21 11/04/23 Folic Acid 0.4 mg PO DAILY 04/17/21 11/04/23 Furosemide [Lasix] 20 mg PO DIRECTED 04/17/21 11/04/23 Ipratropium [place] 0.06%Nasal 1 - 2 spray EA NOSTRIL DAILY PRN 04/17/21 11/04/23 [Atrovent Nasal 0.06%] Levothyroxine Sodium 25 mcg PO SUMOTUTHFRSA 04/17/21 11/04/23 Loperamide [Imodium] 2 mg PO QID PRN 04/17/21 11/04/23 Tamsulosin HCl [Flomax] 0.8 mg PO HS 04/17/21 11/04/23 Apixaban [Eliquis] 2.5 mg PO BID 10/26/23 11/04/23 Aspirin EC [Ecotrin Low Dose] 81 mg PO DAILY 10/26/23 11/04/23 Chlorhexidine Gluconate [Peridex] 15 ml PO BID 10/26/23 11/04/23 Cholecalciferol (Vitamin D3) 50 mcg PO DAILY 10/26/23 11/04/23 [Vitamin D3 (50 Mcg = 2000 Iu)] Diclofenac Sodium [Voltaren 1 applic TOPICAL DAILY PRN 10/26/23 11/04/23 Arthritis Pain 1% Gel] Diphenoxylate HCl/Atropine 2 tab PO QID PRN 10/26/23 11/04/23 [Lomotil 2.5-0.025 mg Tablet] Levothyroxine Sodium 50 mcg PO WE 10/26/23 11/04/23 Lidocaine 5% Patch [Lidoderm 5% 1 patch TOPICAL DAILY PRN 10/26/23 11/04/23 Patch] Oxybutynin Chloride [oxyBUTYnin 15 mg PO DAILY 10/26/23 11/04/23 chloride ER] Pembrolizumab [Keytruda] 200 mg IV DIRECTED 10/26/23 11/04/23 Triamcinolone Acetonide [Nasacort] 1 spray EA NOSTRIL DAILY PRN 10/26/23 11/04/23 Xgeva Injection 1 dose SQ Q56D 10/26/23 11/04/23 Previous Rx's Medication Instructions Recorded Amoxic-Pot Clav 875-125Mg 1 tab PO Q12HR 7 Days #14 tab 11/09/23 [Augmentin 875-125] Allergies Allergy/AdvReac Type Severity Reaction Status Date / Time weed pollen Allergy runny Verified 10/31/23 18:20 nose, red eyes dust mites Allergy rash, Uncoded 10/31/23 18:20 swelling MOLD Allergy RASH, Uncoded 10/31/23 18:20 SWELLING. Review of Systems ROS Statement: Those systems with pertinent positive or pertinent negative responses have been documented in the HPI. ROS Other: All systems not noted in ROS Statement are negative. Past Medical History Past Medical History: GERD/Reflux, GI Bleed, Hyperlipidemia, Hypertension, Renal Disease, Sleep Apnea/CPAP/BIPAP Additional Past Medical History / Comment(s): HTN & GI BLEED RESOVLED. RECENT DX OF MASS ON LT KIDNEY. HX OF DIVERTICULITIS History of Any Multi-Drug Resistant Organisms: None Reported Past Surgical History: Appendectomy Additional Past Surgical History / Comment(s): EGD. COLONOSCOPY. ESOPHAGEAL OBSTRUCTION REMOVED. HEMORRHOIDECTOMY. SURGERY FOR BLEEDING ULCER. SEVERAL PROCEDURES FOR PERITONITIS R/T RUPTURED APPENDIX Past Anesthesia/Blood Transfusion Reactions: No Reported Reaction Past Psychological History: No Psychological Hx Reported Past Alcohol Use History: Rare - Past Family History Mother Family Medical History: Diabetes Mellitus, Hypertension Additional Family Medical History / Comment(s): ANEURYSM Father Family Medical History: Cancer, Coronary Artery Disease (CAD), CVA/TIA, Hyperlipidemia Additional Family Medical History / Comment(s): Ca: bladder; cabg General Exam General appearance: alert, in no apparent distress Head exam: Present: atraumatic, normocephalic, normal inspection Eye exam: Present: normal appearance, PERRL, EOMI. Absent: scleral icterus, conjunctival injection, periorbital swelling ENT exam: Present: normal exam, mucous membranes moist Neck exam: Present: normal inspection. Absent: tenderness, meningismus, lymphadenopathy Respiratory exam: Present: normal lung sounds bilaterally. Absent: respiratory distress, wheezes, rales, rhonchi, stridor Cardiovascular Exam: Present: regular rate, normal rhythm, normal heart sounds. Absent: systolic murmur, diastolic murmur, rubs, gallop, clicks GI/Abdominal exam: Present: soft, normal bowel sounds. Absent: distended, tenderness, guarding, rebound, rigid Extremities exam: Present: normal inspection, full ROM, normal capillary refill. Absent: tenderness, pedal edema, joint swelling, calf tenderness Back exam: Present: normal inspection Neurological exam: Present: alert, oriented X3, CN II-XII intact Psychiatric exam: Present: normal affect, normal mood Skin exam: Present: warm, dry, intact, normal color. Absent: rash Course Vital Signs 10/31/23 10/31/23 10/31/23 17:24 18:42 19:56 Temperature 97.6 F 97.4 F L Pulse Rate 70 69 72 Respiratory 16 16 16 Rate Blood Pressure 124/73 107/71 113/71 O2 Sat by Pulse 99 98 98 Oximetry 10/31/23 10/31/23 10/31/23 21:41 22:00 23:00 Temperature 97.9 F Pulse Rate 71 75 64 Respiratory 19 16 16 Rate Blood Pressure 126/65 111/67 128/72 O2 Sat by Pulse 98 94 L 93 L Oximetry 11/01/23 11/01/23 11/01/23 00:00 01:00 02:00 Temperature Pulse Rate 69 76 70 Respiratory 16 16 16 Rate Blood Pressure 124/75 121/75 134/78 O2 Sat by Pulse 94 L 95 94 L Oximetry 11/01/23 11/01/23 11/01/23 03:00 04:00 05:00 Temperature Pulse Rate 69 71 71 Respiratory 16 16 16 Rate Blood Pressure 113/76 134/76 122/72 O2 Sat by Pulse 96 97 97 Oximetry 11/01/23 11/01/23 11/01/23 06:00 07:00 08:05 Temperature 97.7 F Pulse Rate 70 68 66 Respiratory 16 16 18 Rate Blood Pressure 121/66 111/72 149/80 O2 Sat by Pulse 97 96 96 Oximetry 11/01/23 11/01/23 11/01/23 08:34 09:03 10:05 Temperature 97.8 F Pulse Rate 70 67 Respiratory 17 16 Rate Blood Pressure 110/65 133/73 O2 Sat by Pulse 96 99 100 Oximetry 11/01/23 11/01/23 11/01/23 11:03 12:00 13:03 Temperature 98.4 F Pulse Rate 70 68 69 Respiratory 17 17 16 Rate Blood Pressure 123/69 122/74 109/72 O2 Sat by Pulse 98 98 97 Oximetry 11/01/23 11/01/23 11/01/23 14:21 15:20 16:06 Temperature Pulse Rate 71 71 68 Respiratory 18 16 17 Rate Blood Pressure 120/76 117/73 126/78 O2 Sat by Pulse 98 99 98 Oximetry 11/01/23 11/01/23 11/01/23 17:17 18:05 19:03 Temperature 97.9 F 97.6 F Pulse Rate 72 69 75 Respiratory 18 20 18 Rate Blood Pressure 124/79 112/69 118/70 O2 Sat by Pulse 96 95 95 Oximetry 11/01/23 20:03 Temperature Pulse Rate 72 Respiratory 16 Rate Blood Pressure 123/73 O2 Sat by Pulse 97 Oximetry - Reevaluation(s) Reevaluation #1: 10/31/23 20:07 Medical records reviewed Reevaluation #2: 10/31/23 20:07 Patient symptoms improved Reevaluation #3: 10/31/23 20:07 Patient informed of results and questions answered Reevaluation #4: Was pt. sent in by a medical professional or institution (MARY Coles, PHOTO CARTOGRAPHER, urgent care, hospital, or group home...) When possible be specific @ -no Did you speak to anyone other than the patient for history (EMS, parent, family, police, friend...)? What history was obtained from this source @ -no Did you review nursing and triage notes (agree or disagree)? Why? @ -agree Are old charts reviewed (outside hosp., previous admission, EMS record, old EKG, old radiological studies, urgent care reports/EKG's, group home records)? Report findings @ -yes Differential Diagnosis (chest pain, altered mental status, abdominal pain women, abdominal pain men, vaginal bleeding, weakness, fever, dyspnea, syncope, headache, dizziness, GI bleed, back pain, seizure, CVA, palpatations, mental health, musculoskeletal)? @ -prior EKG interpreted by me (3pts min.). @ -no X-rays interpreted by me (1pt min.). @ -no CT interpreted by me (1pt min.). @ -no U/S interpreted by me (1pt. min.). @ -no What testing was considered but not performed or refused? (CT, X-rays, U/S, labs)? Why? @ -none What meds were considered but not given or refused? Why? @ -none Did you discuss the management of the patient with other professionals (professionals i.e. MARY Coles, PHOTO CARTOGRAPHER, lab, RT, psych nurse, oncology social work, coal trimmer, teacher, commanding officer garage, major case detective)? Give summary @ -no Was smoking cessation discussed for >3mins.? @ -no Was critical care preformed (if so, how long)? @ -no Were there social determinants of health that impacted care today? How? (Homelessness, low income, unemployed, alcoholism, drug addiction, transportation, low edu. Level, literacy, decrease access to med. care, half-way, rehab)? @ -none Was there de-escalation of care discussed even if they declined (Discuss DNR or withdrawal of care, Hospice)? DNR status @ -no What co-morbidities impacted this encounter? (DM, HTN, Smoking, COPD, CAD, Cancer, CVA, ARF, Chemo, Hep., AIDS, mental health diagnosis, sleep apnea, morbid obesity)? @ -none Was patient admitted / discharged? Hospital course, mention meds given and route, prescriptions, significant lab abnormalities, going to OR and other per tinent info. @ - 82 male will be admitted for pneumonia small bowel obstruction need for surgical consultation and IV antibiotics Admitted Undiagnosed new problem with uncertain prognosis? @ -no Drug Therapy requiring intensive monitoring for toxicity (Heparin, Nitro, Insulin, Cardizem)? @ -no Were any procedures done? @ -no Diagnosis/symptom? @ -Weakness small bowel obstruction Acute, or Chronic, or Acute on Chronic? @ -Acute Uncomplicated (without systemic symptoms) or Complicated (systemic symptoms)? @ -Complicated Side effects of treatment? @ -no Exacerbation, Progression, or Severe Exacerbation? @ -exacerbation Poses a threat to life or bodily function? How? (Chest pain, [place], PR, pneumonia, PE, COPD, DKA, ARF, appy, cholecystitis, CVA, Diverticulitis, Homicidal, Suicidal, threat to staff... and all critical care pts) @ -yes extremes of age weakness small bowel obstruction Reevaluation #5: Differential Abdominal Pain Men: Appendicitis, cholecystitis, diverticulosis, ischemic bowel, pancreatitis, hepatitis, UTI, gastroenteritis, AAA, incarcerated hernia, bowel obstruction, constipation, inflammatory bowel, hepatitis, peptic ulcer disease, splenic infarction, perforated viscus, testicular torsion, this is not meant to be an all-inclusive list - Consultations Consultation #1: PMH who agrees to admit this patient Medical Decision Making - Medical Decision Making 82 male will be admitted for pneumonia small bowel obstruction need for surgical consultation and IV antibiotics - Lab Data Result diagrams: 11/07/23 05:36 11/08/23 02:25 Disposition Clinical Impression: Abdominal pain, Inguinal hernia, Small bowel obstruction Disposition: ADMITTED IP TO THIS [facility] Condition: Stable Is patient prescribed a controlled substance at d/c from ED?: No Time of Disposition: 20:00
[2023-10-31] MEDS: HYDROmorphone 0.5 MG/0.5 ML SYRINGE IVP STA (19:53)
[2023-10-31] MEDS ORDERED: PNEUMONIA PROTOCOL UTILIZED 1 EACH MISC PO PRN (20:03)
[2023-10-31] MEDS ORDERED: NALOXONE 0.4 MG/ML 1 ML VIAL IV PRN (20:03)
[2023-10-31] MEDS: SODIUM CHLORIDE 0.9% 1,000 ML IV SCH (21:39)
[2023-10-31] MEDS: HYDROmorphone 1 MG/ML 1 ML SYRINGE IVP STA (21:43)
[2023-10-31] MEDS: AZITHROMYCIN 500 MG in SODIUM CHLORIDE 0.9% 250 ML IVPB STA (23:06)
[2023-11-01] MEDS: HYDROmorphone 1 MG/ML 1 ML SYRINGE IVP PRN (06:53)
[2023-11-01] MEDS: AZITHROMYCIN 500 MG TAB PO SCH (08:08)
[2023-11-01 10:46] LABS: Basophils # (A) 0.01 X 10*3/uL (0.00-0.10); Basophils % (A) 0.2 %; Eosinophils # (A) 0.02 X 10*3/uL (0.04-0.35); Eosinophils % (A) 0.4 %; HCT 40.4 % (39.6-50.0); HGB 13.3 g/dL (13.0-17.0); Lymphocytes # (A) 0.28 X 10*3/uL (0.90-5.00); MCH 34.2 pg (27.0-32.0); MCHC 32.9 g/dL (32.0-37.0); MCV 103.9 FL (80.0-97.0); Monocytes % (A) 8.9 %; NRBC Per 100 WBC 0 X 10*3/uL (0.00-0.01); Neutrophils # (A) 4.77 X 10*3/uL (1.80-7.70); Neutrophils % (A) 85.1 %; Platelet Count 131 X 10*3/uL (140-440); RBC 3.89 X 10*6/uL (4.40-5.60); RDW 13.8 % (11.5-14.5)
--- NOTE | 2023-11-01 10:53 | XR ---
EXAMINATION TYPE: XR chest 1V portable DATE OF EXAM: 11/01/2023 COMPARISON: 08/13/2017 INDICATION: Pneumonia TECHNIQUE: Single frontal view of the chest is obtained. FINDINGS: The heart size is normal. The pulmonary vasculature is normal. Minimal left lower lobe infiltrate may be present. Nasogastric tube is been placed with the tip in the distal esophagus just above the gastroesophageal junction. This could be advanced approximately 12 cm for better positioning. IMPRESSION: 1. Minimal left lower lobe infiltrate is not entirely excluded. 2. Nasogastric tube with tip in the distal esophagus, consider advancement 12 cm for better positioni ng.
[2023-11-01 10:55] LABS: Magnesium 2.5 mg/dL (1.5-2.4)
[2023-11-01 11:23] LABS: ALT 28 U/L (10-49); AST 40 U/L (14-35); Albumin 3.7 g/dL (3.8-4.9); Albumin/Globulin Ratio 2.06 Ratio (1.60-3.17); Alkaline Phosphatase 91 U/L (41-126); BUN/Creat Ratio 45.65 Ratio (12.00-20.00); Calcium 8.8 mg/dL (8.7-10.3); Carbon Dioxide 21.3 mmol/L (21.6-31.8); Chloride 107 mmol/L (96-109); Globulin 1.8 g/dL (1.6-3.3); Glucose 98 mg/dL (70-110); Potassium 4.2 mmol/L (3.5-5.5); Sodium 144 mmol/L (135-145); Total Bilirubin 0.5 mg/dL (0.3-1.2); Total Protein 5.5 g/dL (6.2-8.2)
--- NOTE | 2023-11-01 12:15 | P.HPIM ---
History of Present Illness H&P Date: 11/01/23 Isidoro Prado, is an 82-year-old male who presented to [facility] emergency room with a chief complaint of Abdominal pain and hernia. Patient was a transfer from [facility]. Per patient he was started on a new medication for treatment of renal cell carcinomaPer oncology services and reports that he started having issues after second dose with abdominal pain nausea and vomiting He was evaluated in the emergency room vital examination on presentation revealedTemp 97.8, heart rate 67, respiratory rate 16, blood pressure 123/69 with pulse ox 90% on room air Laboratory data revealsCreatinine 2.3 bun 105, white blood cell 5.6, hemoglobin 13.3, AST 40, ALT 28 and alkaline phosphatase 91 Testing in the emergency room revealed Imaging in paper chart [facility]. Chest x-ray completed showing minimal left lower lobe infiltrate Patient was admitted to medical floor for further evaluation and treatment. At this time NG tube was placed, Surgical service is consulted. Patient started on treatment for pneumonia with IV antibiotics Rocephin and Zithromax repeat 2 view chest x-ray ordered. Nephrology service is consulted for acute kidney injury patient maintained normal saline at 100 and oncology service is consulted Past medical history is significant for Renal cell carcinoma follows with oncology, Diverticulitis, previous GI bleed, hyperlipidemia, hypertension, sleep apnea On review of systemsPatient is resting comfortably in bed. Patient reports imp rovement with abdominal pain. Patient denies any chest pain or shortness of breath. At this time patient denies nausea vomiting or diarrhea.Patient denies any urinary burning or frequency Review of Systems Please refer to HPI otherwise unremarkable Past Medical History Past Medical History: GERD/Reflux, GI Bleed, Hyperlipidemia, Hypertension, Renal Disease, Sleep Apnea/CPAP/BIPAP Additional Past Medical History / Comment(s): HTN & GI BLEED RESOVLED. RECENT DX OF MASS ON LT KIDNEY. HX OF DIVERTICULITIS History of Any Multi-Drug Resistant Organisms: None Reported Past Surgical History: Appendectomy Additional Past Surgical History / Comment(s): EGD. COLONOSCOPY. ESOPHAGEAL OBSTRUCTION REMOVED. HEMORRHOIDECTOMY. SURGERY FOR BLEEDING ULCER. SEVERAL PROCEDURES FOR PERITONITIS R/T RUPTURED APPENDIX Past Anesthesia/Blood Transfusion Reactions: No Reported Reaction Past Psychological History: No Psychological Hx Reported Past Alcohol Use History: Rare - Past Family History Mother Family Medical History: Diabetes Mellitus, Hypertension Additional Family Medical History / Comment(s): ANEURYSM Father Family Medical History: Cancer, Coronary Artery Disease (CAD), CVA/TIA, Hyperlipidemia Additional Family Medical History / Comment(s): Ca: bladder; cabg Medications and Allergies Home Medications Medication Instructions Recorded Confirmed Type Omeprazole 20 mg PO BID 02/19/14 10/26/23 History allopurinoL [Allopurinol] 100 mg PO DAILY 02/19/14 10/26/23 History Acetaminophen [Tylenol Arthritis] 650 mg PO Q8H PRN 04/17/21 10/26/23 History Acetaminophen [Tylenol Extra 500 mg PO Q6H PRN 04/17/21 10/26/23 History Strength] Atorvastatin [Lipitor] 20 mg PO HS 04/17/21 10/26/23 History Fexofenadine HCl [[place] Allergy] 180 mg PO DAILY PRN 04/17/21 10/26/23 History Folic Acid 0.4 mg PO DAILY 04/17/21 10/26/23 History Furosemide [Lasix] 20 mg PO DIRECTED 04/17/21 10/26/23 History Ipratropium [place] 0.06%Nasal 1 - 2 spray EA NOSTRIL DAILY PRN 04/17/21 10/26/23 History [Atrovent Nasal 0.06%] Levothyroxine Sodium 25 mcg PO SUMOTUTHFRSA 04/17/21 10/26/23 History Loperamide [Imodium] 2 mg PO QID PRN 04/17/21 10/26/23 History Tamsulosin HCl [Flomax] 0.8 mg PO HS 04/17/21 10/26/23 History Apixaban [Eliquis] 2.5 mg PO BID 10/26/23 10/26/23 History Aspirin EC [Ecotrin Low Dose] 81 mg PO DAILY 10/26/23 10/26/23 History Chlorhexidine Gluconate [Peridex] 15 ml PO BID 10/26/23 10/26/23 History Cholecalciferol (Vitamin D3) 50 mcg PO DAILY 10/26/23 10/26/23 History [Vitamin D3 (50 Mcg = 2000 Iu)] Diclofenac Sodium [Voltaren 1 applic TOPICAL DAILY PRN 10/26/23 10/26/23 History Arthritis Pain 1% Gel] Diphenoxylate HCl/Atropine 2 tab PO QID PRN 10/26/23 10/26/23 History [Lomotil 2.5-0.025 mg Tablet] Ferrous Sulfate [Feosol] 325 mg PO Q48H 10/26/23 10/26/23 History Levothyroxine Sodium 50 mcg PO WE 10/26/23 10/26/23 History Lidocaine 5% Patch [Lidoderm] 1 patch TOPICAL DAILY PRN 10/26/23 10/26/23 History Oxybutynin Chloride [oxyBUTYnin 15 mg PO DAILY 10/26/23 10/26/23 History chloride ER] Pembrolizumab [Keytruda] 200 mg IV DIRECTED 10/26/23 10/26/23 History Triamcinolone Acetonide [Nasacort] 1 spray EA NOSTRIL DAILY PRN 10/26/23 10/26/23 History Xgeva Injection 1 dose SQ Q56D 10/26/23 10/26/23 History Allergies Allergy/AdvReac Type Severity Reaction Status Date / Time weed pollen Allergy runny Verified 10/31/23 18:20 nose, red eyes dust mites Allergy rash, Uncoded 10/31/23 18:20 swelling MOLD Allergy RASH, Uncoded 10/31/23 18:20 SWELLING. Physical Exam Vitals: Vital Signs Temp Pulse Resp BP Pulse Ox 11/01/23 08:34 96 11/01/23 08:05 97.7 F 66 18 149/80 96 11/01/23 07:00 68 16 111/72 96 11/01/23 06:00 70 16 121/66 97 11/01/23 05:00 71 16 122/72 97 11/01/23 04:00 71 16 134/76 97 11/01/23 03:00 69 16 113/76 96 11/01/23 02:00 70 16 134/78 94 L 11/01/23 01:00 76 16 121/75 95 11/01/23 00:00 69 16 124/75 94 L 10/31/23 23:00 64 16 128/72 93 L 10/31/23 22:00 97.9 F 75 16 111/67 94 L 10/31/23 21:41 71 19 126/65 98 10/31/23 19:56 97.4 F L 72 16 113/71 98 10/31/23 18:42 69 16 107/71 98 10/31/23 17:24 97.6 F 70 16 124/73 99 Intake and Output 10/31/23 11/01/23 11/01/23 22:59 06:59 14:59 Other: Weight 68.946 kg In general patient is alert and oriented x 3 in no distress HEENT head normocephalic and atraumatic Neck is supple no JVD no goiter no lymphadenopathy no carotid bruit Chest examination is clear to auscultation no crackles no wheezing Cardiac exam reveals regular heart sounds S1 and S2 no gallops no murmurs Abdomen is soft nontender no organomegaly with normal bowel sounds Extremity exam reveals no edema no cyanosis or clubbing Neurological examination reveals no gross focal deficits Results CBC & Chem 7: 11/01/23 06:45 11/01/23 06:45 Assessment and Plan Assessment: 1.Abdominal pain secondary to hernia and small bowel obstruction. NG tube placed surgical service is consulted 2. Pneumonia. Patient started on IV antibiotics repeat two-view chest x-ray ordered 3. Acute kidney injury patient started normal saline at 100. Nephrology services consulted 4. Recent diagnosis of renal cell carcinoma. Oncology service is consulted 5. History of diverticulitis with GI bleed 6. History of essential hypertension 7. History of hyperlipidemia DVT prophylaxis Lovenox. GI prophylaxis Protonix Surgical services, oncology and nephrology service is consulted Patient started on IV antibiotics Continue normal saline NG tube in place Repeat labs ordered Repeat chest x-ray ordered Time with Patient: Greater than 30 (Greater than 60% of the total time spent in counseling and coordination of care)
[2023-11-01] MEDS: LEVOTHYROXINE 25 MCG TAB PO SCH (12:24)
--- NOTE | 2023-11-01 12:56 | XR ---
EXAMINATION TYPE: XR chest 2V DATE OF EXAM: 11/01/2023 COMPARISON: Earlier today HISTORY: 82-year-old male follow-up pneumonia, cough TECHNIQUE: AP and lateral views FINDINGS: Heart upper limits of normal in size. NG tube tip not well seen. NG tube courses at least to the diap hragm. Patchy retrocardiac opacity similar. There no pleural effusion. IMPRESSION: Similar patchy retrocardiac opacity.
--- NOTE | 2023-11-01 13:57 | P.GSCN ---
History of Present Illness Consult date: 11/01/23 Reason for Consult: hernia History of present illness: 82-year-old male known to our service. He was seen last in the office in June. At the time it was thought he had a communicating hydrocele. Recently the patient has had a change in his chemotherapy for metastatic renal cancer. He thought his new medication was causing abdominal nausea and vomiting. A CAT scan was obtained here on 10/25 which showed small bowel within a left inguinal hernia. Mild small bowel distention proximal to that is seen without definite obstruction observed. He was discharged and went back to his local hospital yesterday and was subsequently transferred here. Nasogastric tube was placed with 2 L output. Patient says over the last 1 to 2 weeks he has had significant problems with nausea and intermittent vomiting. [place] he was getting more dehydrated. CAT scan reportedly showed obstruction and pneumonia. Films are being loaded onto the system for me to visualize currently. Patient is comfortable now. The abdominal pressure he had went away after the gastric decompression. Nasogastric tube remains in place. Last bowel movement Wednesday. Some flatus. Mild soreness left groin. Patient with history of ascites in the past. Patient also has a history of numerous abdominal surgeries including peritonitis. Review of Systems The patient denies any acute changes in vision or hearing, no dysphagia or odynophagia, no chest pain, no dysuria or hematuria, no headache, no runny nose, no rectal bleeding or melena, no unexplained weight loss Past Medical History Past Medical History: GERD/Reflux, GI Bleed, Hyperlipidemia, Hypertension, Renal Disease, Sleep Apnea/CPAP/BIPAP Additional Past Medical History / Comment(s): HTN & GI BLEED RESOVLED. RECENT DX OF MASS ON LT KIDNEY. HX OF DIVERTICULITIS History of Any Multi-Drug Resistant Organisms: None Reported Past Surgical History: Appendectomy Additional Past Surgical History / Comment(s): EGD. COLONOSCOPY. ESOPHAGEAL OBSTRUCTION REMOVED. HEMORRHOIDECTOMY. SURGERY FOR BLEEDING ULCER. SEVERAL PROCEDURES FOR PERITONITIS R/T RUPTURED APPENDIX Past Anesthesia/Blood Transfusion Reactions: No Reported Reaction Past Psychological History: No Psychological Hx Reported Past Alcohol Use History: Rare - Past Family History Mother Family Medical History: Diabetes Mellitus, Hypertension Additional Family Medical History / Comment(s): ANEURYSM Father Family Medical History: Cancer, Coronary Artery Disease (CAD), CVA/TIA, Hyperlipidemia Additional Family Medical History / Comment(s): Ca: bladder; cabg Medications and Allergies Home Medications Medication Instructions Recorded Confirmed Type Omeprazole 20 mg PO BID 02/19/14 10/26/23 History allopurinoL [Allopurinol] 100 mg PO DAILY 02/19/14 10/26/23 History Acetaminophen [Tylenol Arthritis] 650 mg PO Q8H PRN 04/17/21 10/26/23 History Acetaminophen [Tylenol Extra 500 mg PO Q6H PRN 04/17/21 10/26/23 History Strength] Atorvastatin [Lipitor] 20 mg PO HS 04/17/21 10/26/23 History Fexofenadine HCl [[place] Allergy] 180 mg PO DAILY PRN 04/17/21 10/26/23 History Folic Acid 0.4 mg PO DAILY 04/17/21 10/26/23 History Furosemide [Lasix] 20 mg PO DIRECTED 04/17/21 10/26/23 History Ipratropium [place] 0.06%Nasal 1 - 2 spray EA NOSTRIL DAILY PRN 04/17/21 10/26/23 History [Atrovent Nasal 0.06%] Levothyroxine Sodium 25 mcg PO SUMOTUTHFRSA 04/17/21 10/26/23 History Loperamide [Imodium] 2 mg PO QID PRN 04/17/21 10/26/23 History Tamsulosin HCl [Flomax] 0.8 mg PO HS 04/17/21 10/26/23 History Apixaban [Eliquis] 2.5 mg PO BID 10/26/23 10/26/23 History Aspirin EC [Ecotrin Low Dose] 81 mg PO DAILY 10/26/23 10/26/23 History Chlorhexidine Gluconate [Peridex] 15 ml PO BID 10/26/23 10/26/23 History Cholecalciferol (Vitamin D3) 50 mcg PO DAILY 10/26/23 10/26/23 History [Vitamin D3 (50 Mcg = 2000 Iu)] Diclofenac Sodium [Voltaren 1 applic TOPICAL DAILY PRN 10/26/23 10/26/23 History Arthritis Pain 1% Gel] Diphenoxylate HCl/Atropine 2 tab PO QID PRN 10/26/23 10/26/23 History [Lomotil 2.5-0.025 mg Tablet] Ferrous Sulfate [Feosol] 325 mg PO Q48H 10/26/23 10/26/23 History Levothyroxine Sodium 50 mcg PO WE 10/26/23 10/26/23 History Lidocaine 5% Patch [Lidoderm] 1 patch TOPICAL DAILY PRN 10/26/23 10/26/23 History Oxybutynin Chloride [oxyBUTYnin 15 mg PO DAILY 10/26/23 10/26/23 History chloride ER] Pembrolizumab [Keytruda] 200 mg IV DIRECTED 10/26/23 10/26/23 History Triamcinolone Acetonide [Nasacort] 1 spray EA NOSTRIL DAILY PRN 10/26/23 10/26/23 History Xgeva Injection 1 dose SQ Q56D 10/26/23 10/26/23 History Allergies Allergy/AdvReac Type Severity Reaction Status Date / Time weed pollen Allergy runny Verified 10/31/23 18:20 nose, red eyes dust mites Allergy rash, Uncoded 10/31/23 18:20 swelling MOLD Allergy RASH, Uncoded 10/31/23 18:20 SWELLING. Surgical - Exam Vital Signs Temp Pulse Resp BP Pulse Ox 97.6 F 70 16 124/73 99 10/31/23 17:24 10/31/23 17:24 10/31/23 17:24 10/31/23 17:24 10/31/23 17:24 Physical exam: General: Well-developed, malnourished appearing elderly male in no distress HEENT: Normocephalic, sclerae nonicteric Abdomen: Incarcerated left inguinal hernia, hydrocele still present left hemiscrotum, no visible hydrocele on right, mild tenderness at hernia site without overlying skin changes, nondistended Extremities: No edema Neuro: Alert and oriented Results - Labs 11/01/23 06:45 11/01/23 06:45 Abnormal Lab Results - Last 24 Hours (Table) 11/01/23 11/01/23 Range/Units 06:45 06:45 RBC 3.89 L (4.40-5.60) X 10*6/uL MCV 103.9 H (80.0-97.0) FL MCH 34.2 H (27.0-32.0) pg Plt Count 131 L (140-440) X 10*3/uL Lymphocytes # 0.28 L (0.90-5.00) X 10*3/uL Eosinophils # 0.02 L (0.04-0.35) X 10*3/uL Carbon Dioxide 21.3 L (21.6-31.8) mmol/L Anion Gap 15.70 H (4.00-12.00) mmol/L BUN 105.0 A* (9.0-27.0) mg/dL Creatinine 2.3 H (0.6-1.5) mg/dL Est GFR (CKD-EPI) 28 L (>=60) BUN/Creatinine Ratio 45.65 H (12.00-20.00) Ratio Magnesium 2.5 H (1.5-2.4) mg/dL AST 40 H (14-35) U/L Total Protein 5.5 L (6.2-8.2) g/dL Albumin 3.7 L (3.8-4.9) g/dL Diabetes panel 11/01/23 Range/Units 06:45 Sodium 144 (135-145) mmol/L Potassium 4.2 (3.5-5.5) mmol/L Chloride 107 (96-109) mmol/L Carbon Dioxide 21.3 L (21.6-31.8) mmol/L BUN 105.0 A* (9.0-27.0) mg/dL Creatinine 2.3 H (0.6-1.5) mg/dL Glucose 98 (70-110) mg/dL Calcium 8.8 (8.7-10.3) mg/dL AST 40 H (14-35) U/L ALT 28 (10-49) U/L Alkaline Phosphatase 91 (41-126) U/L Total Protein 5.5 L (6.2-8.2) g/dL Albumin 3.7 L (3.8-4.9) g/dL Calcium panel 11/01/23 Range/Units 06:45 Calcium 8.8 (8.7-10.3) mg/dL Phosphorus 5.0 (2.4-5.1) mg/dL Albumin 3.7 L (3.8-4.9) g/dL Pituitary panel 11/01/23 Range/Units 06:45 Sodium 144 (135-145) mmol/L Potassium 4.2 (3.5-5.5) mmol/L Chloride 107 (96-109) mmol/L Carbon Dioxide 21.3 L (21.6-31.8) mmol/L BUN 105.0 A* (9.0-27.0) mg/dL Creatinine 2.3 H (0.6-1.5) mg/dL Glucose 98 (70-110) mg/dL Calcium 8.8 (8.7-10.3) mg/dL Adrenal panel 11/01/23 Range/Units 06:45 Sodium 144 (135-145) mmol/L Potassium 4.2 (3.5-5.5) mmol/L Chloride 107 (96-109) mmol/L Carbon Dioxide 21.3 L (21.6-31.8) mmol/L BUN 105.0 A* (9.0-27.0) mg/dL Creatinine 2.3 H (0.6-1.5) mg/dL Glucose 98 (70-110) mg/dL Calcium 8.8 (8.7-10.3) mg/dL Total Bilirubin 0.5 (0.3-1.2) mg/dL AST 40 H (14-35) U/L ALT 28 (10-49) U/L Alkaline Phosphatase 91 (41-126) U/L Total Protein 5.5 L (6.2-8.2) g/dL Albumin 3.7 L (3.8-4.9) g/dL Assessment and Plan (1) Small bowel obstruction Narrative/Plan: 82-year-old male with suspected small bowel obstruction related to left inguinal hernia. Films are being loaded onto the system. This does not appear to be strangulated currently. Patient high risk for surgery however do not believe that we have any other option given the patient's presentation and physical exam findings. Options reviewed with patient and his family in detail. Will schedule for open repair incarcerated left inguinal hernia with mesh. Discussed case with the OR staff. Likely would not be able to begin the surgery until late this evening because of numerous add-on surgeries. This will be scheduled to be performed tomorrow. Timing unknown at this time. Will review the patient's films in the meanwhile. Risks of bleeding, infection, possible need for laparotomy and/or bowel resection, possible orchiectomy/hydrocelectomy, numbness, nerve injury, chronic pain, persistent nausea and vomiting, respiratory and cardiac complications all reviewed. He understands and wishes to proceed. Current Visit: Yes Status: Acute Code(s): K56.609 - UNSP INTESTNL OBST, UNSP TO PARTIAL VERSUS COMPLETE OBST SNOMED Code(s): 110779501
[2023-11-01 19:15] LABS: Glucose,Whole Blood 70 mg/dL (70-110)
[2023-11-01 20:47] LABS: Glucose,Whole Blood 63 mg/dL (70-110)
[2023-11-02 00:23] LABS: Glucose,Whole Blood 76 mg/dL (70-110)
[2023-11-02] MEDS ORDERED: ZINC OXIDE PASTE (Z-GUARD) 1 APPLIC TOPICAL PRN (02:55)
[2023-11-02 06:27] LABS: Glucose,Whole Blood 75 mg/dL (70-110)
[2023-11-02 07:13] LABS: Glucose,Whole Blood 67 mg/dL (70-110)
[2023-11-02] MEDS: DEXTROSE 50% SYRINGE 50 ML IVP STA (07:35)
--- NOTE | 2023-11-02 08:08 | P.CONS ---
History of Present Illness - Reason for Consult Consult date: 11/01/23 hx RCC Requesting physician: Horacio Gray - Chief Complaint n/v, abdominal pain - History of Present Illness Patient is a 82 year old male with a significant history of renal cell carcinoma. He is a patient of Dr. Rasmussen. He initially presented with lower back and left sided LE pain in early 2015. Initial imaging indicated degenerative disease, causing radiculopathy. He was being treated for the same with some improvement. Since mid 09/08, he developed pain in the right buttock area, radiating down the RLE, which was progressive. This was worsened by weight be aring. It progressed to where he started needing crutches to ambulate. XR of the rt hip on 11/18/15 revealed a 6.7 cm lytic lesion in the subtrochanteric proximal rt femur. He has a h/o left nephrectomy for cancer in late 02/06. He is not sure of the exact type of malignancy. He was seen by Orthopedic Oncology, Dr Goyal , at [facility], and admitted due to severity of his symptoms. He had excision with partial hip replacement in 12/09, with pathology showing renal cell cancer. He then started RT, completing that on 02/03/16. His PET in 11/08 had shown no other sites of disease. Repeat in 03/11 showed recurrence in the RML, CHRISTO, distal femur, and possibly the surgical site. He was started on Votrient and Xgeva in 04/10 and has contnued on the same until recently. His CT scans appeared to show progression, with new osseous lesions noted, including a T10, and in the pelvic bones. There appears to be some destruction at T10 although the patient does not have any specific symptoms. There also appears to be progression of bilateral adrenal masses. He was recommended to start Lenvima and keytruda. He began Lenvima on 10/25/23, and only took two doses, at which time he began to have n/v and progressing abdominal pain and stopped medication. He has not started Keytruda yet Patient presented to the emergency room at [facility] for progressive abdominal pain and nausea vomiting. Patient was then transferred to [facility] due to concerns for small bowel obstruction noted on imaging as well as possible pneumonia. General surgery has been consulted and NG tube has been placed. Patient is reporting improvement in nausea vomiting and abdominal pain/distention since admission. Labs reviewed, WBC 5.6, WBC hemoglobin 13.3, platelets 131,000. Creatinine 2.3, GFR 28. Patient is afebrile, hemodynamically stable. Chest x-ray today showed minimal left lower lobe infiltrate. IV abx have been started. Review of Systems 10 point ROS is negative except as stated in the HPI Past Medical History Past Medical History: GERD/Reflux, GI Bleed, Hyperlipidemia, Hypertension, Renal Disease, Sleep Apnea/CPAP/BIPAP Additional Past Medical History / Comment(s): HTN & GI BLEED RESOVLED. RECENT DX OF MASS ON LT KIDNEY. HX OF DIVERTICULITIS History of Any Multi-Drug Resistant Organisms: None Reported Past Surgical History: Appendectomy Additional Past Surgical History / Comment(s): EGD. COLONOSCOPY. ESOPHAGEAL OBSTRUCTION REMOVED. HEMORRHOIDECTOMY. SURGERY FOR BLEEDING ULCER. SEVERAL PROCEDURES FOR PERITONITIS R/T RUPTURED APPENDIX Past Anesthesia/Blood Transfusion Reactions: No Reported Reaction Past Psychological History: No Psychological Hx Reported Past Alcohol Use History: Rare - Past Family History Mother Family Medical History: Diabetes Mellitus, Hypertension Additional Family Medical History / Comment(s): ANEURYSM Father Family Medical History: Cancer, Coronary Artery Disease (CAD), CVA/TIA, Hyperlipidemia Additional Family Medical History / Comment(s): Ca: bladder; cabg Medications and Allergies Home Medications Medication Instructions Recorded Confirmed Type Omeprazole 20 mg PO BID 02/19/14 10/26/23 History allopurinoL [Allopurinol] 100 mg PO DAILY 02/19/14 10/26/23 History Acetaminophen [Tylenol Arthritis] 650 mg PO Q8H PRN 04/17/21 10/26/23 History Acetaminophen [Tylenol Extra 500 mg PO Q6H PRN 04/17/21 10/26/23 History Strength] Atorvastatin [Lipitor] 20 mg PO HS 04/17/21 10/26/23 History Fexofenadine HCl [[place] Allergy] 180 mg PO DAILY PRN 04/17/21 10/26/23 History Folic Acid 0.4 mg PO DAILY 04/17/21 10/26/23 History Furosemide [Lasix] 20 mg PO DIRECTED 04/17/21 10/26/23 History Ipratropium [place] 0.06%Nasal 1 - 2 spray EA NOSTRIL DAILY PRN 04/17/21 10/26/23 History [Atrovent Nasal 0.06%] Levothyroxine Sodium 25 mcg PO SUMOTUTHFRSA 04/17/21 10/26/23 History Loperamide [Imodium] 2 mg PO QID PRN 04/17/21 10/26/23 History Tamsulosin HCl [Flomax] 0.8 mg PO HS 04/17/21 10/26/23 History Apixaban [Eliquis] 2.5 mg PO BID 10/26/23 10/26/23 History Aspirin EC [Ecotrin Low Dose] 81 mg PO DAILY 10/26/23 10/26/23 History Chlorhexidine Gluconate [Peridex] 15 ml PO BID 10/26/23 10/26/23 History Cholecalciferol (Vitamin D3) 50 mcg PO DAILY 10/26/23 10/26/23 History [Vitamin D3 (50 Mcg = 2000 Iu)] Diclofenac Sodium [Voltaren 1 applic TOPICAL DAILY PRN 10/26/23 10/26/23 History Arthritis Pain 1% Gel] Diphenoxylate HCl/Atropine 2 tab PO QID PRN 10/26/23 10/26/23 History [Lomotil 2.5-0.025 mg Tablet] Ferrous Sulfate [Feosol] 325 mg PO Q48H 10/26/23 10/26/23 History Levothyroxine Sodium 50 mcg PO WE 10/26/23 10/26/23 History Lidocaine 5% Patch [Lidoderm] 1 patch TOPICAL DAILY PRN 10/26/23 10/26/23 History Oxybutynin Chloride [oxyBUTYnin 15 mg PO DAILY 10/26/23 10/26/23 History chloride ER] Pembrolizumab [Keytruda] 200 mg IV DIRECTED 10/26/23 10/26/23 History Triamcinolone Acetonide [Nasacort] 1 spray EA NOSTRIL DAILY PRN 10/26/23 10/26/23 History Xgeva Injection 1 dose SQ Q56D 10/26/23 10/26/23 History Allergies Allergy/AdvReac Type Severity Reaction Status Date / Time weed pollen Allergy runny Verified 10/31/23 18:20 nose, red eyes dust mites Allergy rash, Uncoded 10/31/23 18:20 swelling MOLD Allergy RASH, Uncoded 10/31/23 18:20 SWELLING. Physical Exam Vitals: Vital Signs Temp Pulse Resp BP Pulse Ox 11/01/23 15:20 71 16 117/73 99 11/01/23 14:21 71 18 120/76 98 11/01/23 13:03 69 16 109/72 97 11/01/23 12:00 98.4 F 68 17 122/74 98 11/01/23 11:03 70 17 123/69 98 11/01/23 10:05 97.8 F 67 16 133/73 100 11/01/23 09:03 70 17 110/65 99 11/01/23 08:34 96 11/01/23 08:05 97.7 F 66 18 149/80 96 11/01/23 07:00 68 16 111/72 96 11/01/23 06:00 70 16 121/66 97 11/01/23 05:00 71 16 122/72 97 11/01/23 04:00 71 16 134/76 97 11/01/23 03:00 69 16 113/76 96 11/01/23 02:00 70 16 134/78 94 L 11/01/23 01:00 76 16 121/75 95 11/01/23 00:00 69 16 124/75 94 L 10/31/23 23:00 64 16 128/72 93 L 10/31/23 22:00 97.9 F 75 16 111/67 94 L 10/31/23 21:41 71 19 126/65 98 10/31/23 19:56 97.4 F L 72 16 113/71 98 10/31/23 18:42 69 16 107/71 98 10/31/23 17:24 97.6 F 70 16 124/73 99 - Constitutional General appearance: average body habitus, no acute distress - EENT Eyes: anicteric sclerae, EOMI ENT: hearing grossly normal - Respiratory Respiratory: bilateral: CTA - Cardiovascular Rhythm: regular - Gastrointestinal mild distention, hyperactive BS. Palpable left inguinal hernia with mild tenderness to palpation - Integumentary Integumentary: no cyanotic, no jaundiced - Musculoskeletal Musculoskeletal: strength equal bilaterally - Psychiatric Psychiatric: A&O x's 3 Results CBC & Chem 7: 11/01/23 06:45 11/01/23 06:45 Labs: Abnormal Lab Results - Last 24 Hours (Table) 11/01/23 11/01/23 Range/Units 06:45 06:45 RBC 3.89 L (4.40-5.60) X 10*6/uL MCV 103.9 H (80.0-97.0) FL MCH 34.2 H (27.0-32.0) pg Plt Count 131 L (140-440) X 10*3/uL Lymphocytes # 0.28 L (0.90-5.00) X 10*3/uL Eosinophils # 0.02 L (0.04-0.35) X 10*3/uL Carbon Dioxide 21.3 L (21.6-31.8) mmol/L Anion Gap 15.70 H (4.00-12.00) mmol/L BUN 105.0 A* (9.0-27.0) mg/dL Creatinine 2.3 H (0.6-1.5) mg/dL Est GFR (CKD-EPI) 28 L (>=60) BUN/Creatinine Ratio 45.65 H (12.00-20.00) Ratio Magnesium 2.5 H (1.5-2.4) mg/dL AST 40 H (14-35) U/L Total Protein 5.5 L (6.2-8.2) g/dL Albumin 3.7 L (3.8-4.9) g/dL Chest x-ray: report reviewed Assessment and Plan (1) Renal cell carcinoma Current Visit: Yes Status: Acute Priority: Medium Code(s): C64.9 - MALIGNANT NEOPLASM OF UNSP KIDNEY, EXCEPT RENAL PELVIS SNOMED Code(s): 675359412 (2) Abdominal pain Current Visit: Yes Status: Acute Priority: High Code(s): R10.9 - UNSPECIFIED ABDOMINAL PAIN SNOMED Code(s): 65714164 (3) Inguinal hernia Current Visit: Yes Status: Acute Priority: High Code(s): K40.90 - UNIL INGUINAL HERNIA, W/O OBST OR GANGR, NOT SPCF RECUR SNOMED Code(s): 922858147 (4) Small bowel obstruction Current Visit: Yes Status: Acute Priority: High Code(s): K56.609 - UNSP INTESTNL OBST, UNSP TO PARTIAL VERSUS COMPLETE OBST SNOMED Code(s): 629411570 Plan: SBO, inguinal hernia: -Presented c/o progressive abdominal pain and nausea vomiting. He was transferred from [facility] due to concerns for small bowel obstruction noted on imaging as well as possible pneumonia. -General surgery has been consulted and NG tube has been placed. -Patient is reporting improvement in nausea vomiting and abdominal pain/distention -Plan is for surgery tomorrow with Dr. Aguilar Metastatic renal cell carcinoma: -Full oncological history in HPI -Recent CT scans appeared to show progression, with new osseous lesions noted, including a T10, and in the pelvic bones. There appears to be some destruction at T10 although the patient does not have any specific symptoms. There also appears to be progression of bilateral adrenal masses. -He was recommended to start Lenvima and keytruda. He began Lenvima on 10/25/23, and only took two doses, at which time he began to have n/v and progressing abdominal pain and stopped medication. He has not yet started Keytruda -Will hold Lenvima. Treatment will be on hold until patient recovers from surg nida -May need to consider dose reduction of Lenvima due to GI side effects -Will schedule clinic f/u upon discharge Dr attests: I have performed H&P and developed impression and plan of care for p atient, discussed with dictator. I agree with dictated note, documented as a scribe
[2023-11-02] MEDS: ENOXAPARIN 30 MG/0.3 ML SYRINGE SQ SCH (08:34)
[2023-11-02] MEDS: PANTOPRAZOLE 40 MG TABLET PO SCH (08:35)
[2023-11-02 08:43] LABS: Glucose,Whole Blood 119 mg/dL (70-110)
--- NOTE | 2023-11-02 10:22 | P.PN ---
Subjective Progress Note Date: 11/02/23 Isidoro Prado, is an 82-year-old male who presented to [facility] emergency room with a chief complaint of Abdominal pain and hernia. Patient was a transfer from [facility]. Per patient he was started on a new medication for treatment of renal cell carcinomaPer oncology services and reports that he started having issues after second dose with abdominal pain nausea and vomiting He was evaluated in the emergency room vital examination on presentation revealedTemp 97.8, heart rate 67, respiratory rate 16, blood pressure 123/69 with pulse ox 90% on room air Laboratory data revealsCreatinine 2.3 bun 105, white blood cell 5.6, hemoglobin 13.3, AST 40, ALT 28 and alkaline phosphatase 91 Testing in the emergency room revealed Imaging in [facility]. Chest x-ray completed showing minimal left lower lobe infiltrate Patient was admitted to medical floor for further evaluation and treatment. At this time NG tube was placed, Surgical service is consulted. Patient started on treatment for pneumonia with IV antibiotics Rocephin and Zithromax repeat 2 view chest x-ray ordered. Nephrology service is consulted for acute kidney injury patient maintained normal saline at 100 and oncology service is consulted Past medical history is significant for Renal cell carcinoma follows with oncology, Diverticulitis, previous GI bleed, hyperlipidemia, hypertension, sleep apnea On review of systems : Patient is resting comfortably in bed. Patient reports improvement with abdominal pain. Patient denies any chest pain or shortness of breath. At this time patient denies nausea vomiting or diarrhea.Patient denies any urinary burning or frequency On 11/02/2023 patient's alert and oriented 3. Patient was evaluated by surgical services recommending surgical intervention for hernia small bowel obstruction. Patient remains with NG tube reports improvement. Hematology services also following for metastatic renal cell carcinoma. At this time patient denies chest pain or shortness of breath. Patient denies nausea vomiting or diarrhea. Patient denies any urinary burning or frequency. Current vital signs temp 97.7, heart rate 73, respiratory rate 16, blood pressure 119/69 with pulse ox 97% Objective - Vital Signs Vital signs: Vital Signs Temp 97.7 F 11/02/23 07:08 Pulse 73 11/02/23 07:08 Resp 16 11/02/23 07:08 BP 119/69 11/02/23 07:08 Pulse Ox 97 11/02/23 07:08 FiO2 Intake & Output 11/01/23 11/02/23 11/02/23 18:59 06:59 18:59 Output Total 600 600 Balance -600 -600 Weight 68.946 kg Output: Drainage 400 Face 400 Urine 600 200 Other: Voiding Method Bedside Commode Urinal Incontinent # Voids 1 # Bowel Movements 1 - Exam In general patient is alert and oriented x 3 in no distress HEENT head normocephalic and atraumatic Neck is supple no JVD no goiter no lymphadenopathy no carotid bruit Chest examination is clear to auscultation no crackles no wheezing Cardiac exam reveals regular heart sounds S1 and S2 no gallops no murmurs Abdomen is soft nontender no organomegaly with normal bowel sounds Extremity exam reveals no edema no cyanosis or clubbing Neurological examination reveals no gross focal deficits - Labs CBC & Chem 7: 11/01/23 06:45 11/01/23 06:45 Labs: Abnormal Lab Results - Last 24 Hours (Table) 11/01/23 11/01/23 11/01/23 Range/Units 06:45 06:45 20:46 RBC 3.89 L (4.40-5.60) X 10*6/uL MCV 103.9 H (80.0-97.0) FL MCH 34.2 H (27.0-32.0) pg Plt Count 131 L (140-440) X 10*3/uL Lymphocytes # 0.28 L (0.90-5.00) X 10*3/uL Eosinophils # 0.02 L (0.04-0.35) X 10*3/uL Carbon Dioxide 21.3 L (21.6-31.8) mmol/L Anion Gap 15.70 H (4.00-12.00) mmol/L BUN 105.0 A* (9.0-27.0) mg/dL Creatinine 2.3 H (0.6-1.5) mg/dL Est GFR (CKD-EPI) 28 L (>=60) BUN/Creatinine Ratio 45.65 H (12.00-20.00) Ratio POC Glucose (mg/dL) 63 L (70-110) mg/dL Magnesium 2.5 H (1.5-2.4) mg/dL AST 40 H (14-35) U/L Total Protein 5.5 L (6.2-8.2) g/dL Albumin 3.7 L (3.8-4.9) g/dL 11/02/23 11/02/23 Range/Units 07:11 08:41 RBC (4.40-5.60) X 10*6/uL MCV (80.0-97.0) FL MCH (27.0-32.0) pg Plt Count (140-440) X 10*3/uL Lymphocytes # (0.90-5.00) X 10*3/uL Eosinophils # (0.04-0.35) X 10*3/uL Carbon Dioxide (21.6-31.8) mmol/L Anion Gap (4.00-12.00) mmol/L BUN (9.0-27.0) mg/dL Creatinine (0.6-1.5) mg/dL Est GFR (CKD-EPI) (>=60) BUN/Creatinine Ratio (12.00-20.00) Ratio POC Glucose (mg/dL) 67 L 119 H (70-110) mg/dL Magnesium (1.5-2.4) mg/dL AST (14-35) U/L Total Protein (6.2-8.2) g/dL Albumin (3.8-4.9) g/dL Assessment and Plan Assessment: 1.Abdominal pain secondary to hernia and small bowel obstruction. NG tube placed surgical service is consulted 2. Pneumonia. Patient started on IV antibiotics repeat two-view chest x-ray ordered 3. Acute kidney injury patient started normal saline at 100. Nephrology services consulted 4. Recent diagnosis of metastic renal cell carcinoma. Oncology service is consulted 5. History of diverticulitis with GI bleed 6. History of essential hypertension 7. History of hyperlipidemia DVT prophylaxis Lovenox. GI prophylaxis Protonix Surgical services, oncology and nephrology service is consulted Patient started on IV antibiotics Continue normal saline NG tube in place Repeat labs ordered Repeat chest x-ray ordered
[2023-11-02 10:34] LABS: Basophils # (A) 0.01 X 10*3/uL (0.00-0.10); Basophils % (A) 0.2 %; Eosinophils % (A) 1.9 %; HCT 39.5 % (39.6-50.0); HGB 12.7 g/dL (13.0-17.0); Lymphocytes # (A) 0.34 X 10*3/uL (0.90-5.00); Lymphocytes % (A) 6.5 %; MCHC 32.2 g/dL (32.0-37.0); MCV 105.6 FL (80.0-97.0); Mean Platelet Volume 10.7 FL (9.5-12.2); Monocytes # (A) 0.51 X 10*3/uL (0.20-1.00); Monocytes % (A) 9.7 %; NRBC Per 100 WBC 0 X 10*3/uL (0.00-0.01); Neutrophils # (A) 4.28 X 10*3/uL (1.80-7.70); Neutrophils % (A) 81.1 %; Platelet Count 132 X 10*3/uL (140-440); RBC 3.74 X 10*6/uL (4.40-5.60); RDW 13.7 % (11.5-14.5); WBC 5.27 X 10*3/uL (4.50-10.00)
[2023-11-02 10:50] LABS: ALT 31 U/L (10-49); AST 54 U/L (14-35); Albumin 3.4 g/dL (3.8-4.9); Alkaline Phosphatase 87 U/L (41-126); BUN/Creat Ratio 46.68 Ratio (12.00-20.00); Blood Urea Nitrogen 88.7 mg/dL (9.0-27.0); Calcium 8.8 mg/dL (8.7-10.3); Carbon Dioxide 19.6 mmol/L (21.6-31.8); Chloride 111 mmol/L (96-109); Globulin 1.7 g/dL (1.6-3.3); Glucose 68 mg/dL (70-110); Potassium 3.7 mmol/L (3.5-5.5); Sodium 149 mmol/L (135-145); Total Bilirubin 0.3 mg/dL (0.3-1.2); Total Protein 5.1 g/dL (6.2-8.2)
[2023-11-02 12:21] LABS: Glucose,Whole Blood 75 mg/dL (70-110)
--- NOTE | 2023-11-02 12:42 | P.NPCON ---
History of Present Illness - Reason for Consult Consult date: 11/02/23 - History of Present Illness Patient is an 82-year-old male who is being consulted for increasing creatinine and BUN during his stay. On admission, his creatinine was 2.3 yesterday, today it is 1.9. During his last stay on 06/29/2023, his creatinine was 1.5. His BUN on admission was 105.0, today it is 88.7. During his last stay on 06/29/2023, his BUN was 38.8. His past medical history significant for chronic kidney disease and Stage III with baseline creatinine around 1.5 to 1.7 mg/dL. Underlying history of renal cell carcinoma and left nephrectomy with bony metastasisfollowing with oncology, diverticulitis, previous GI bleed, hyperlipidemia, hypertension. He states that he has been dehydrated more than normal, urine is very dark and stools are dark and hard. He is hemodynamically stable. He is able to make urine. Currently maintained on IV fluids. Blood pressure has not been significantly low. Patient is admitted with complaint of abdominal pain and is found to have small bowel obstruction. He is being followed by general surgery and has an NG tube in place. Vital signs are stable. General: No acute distress. Heart: Regular rate and rhythm present. Lungs: Bilateral breath sounds are heard; no rhonchi, wheezes, or rales audible. Abdomen: Bladder not distended; abdomen is tender and distended. Extremities: No edema present. Review of Systems As per HPI. Past Medical History Past Medical History: GERD/Reflux, GI Bleed, Hyperlipidemia, Hypertension, Renal Disease, Sleep Apnea/CPAP/BIPAP Additional Past Medical History / Comment(s): HTN & GI BLEED RESOVLED. RECENT DX OF MASS ON LT KIDNEY. HX OF DIVERTICULITIS History of Any Multi-Drug Resistant Organisms: None Reported Past Surgical History: Appendectomy Additional Past Surgical History / Comment(s): EGD. COLONOSCOPY. ESOPHAGEAL OBSTRUCTION REMOVED. HEMORRHOIDECTOMY. SURGERY FOR BLEEDING ULCER. SEVERAL PROCEDURES FOR PERITONITIS R/T RUPTURED APPENDIX Past Anesthesia/Blood Transfusion Reactions: No Reported Reaction Past Psychological History: No Psychological Hx Reported Past Alcohol Use History: Rare - Past Family History Mother Family Medical History: Diabetes Mellitus, Hypertension Additional Family Medical History / Comment(s): ANEURYSM Father Family Medical History: Cancer, Coronary Artery Disease (CAD), CVA/TIA, Hyperlipidemia Additional Family Medical History / Comment(s): Ca: bladder; cabg Medications and Allergies Home Medications Medication Instructions Recorded Confirmed Type Omeprazole 20 mg PO BID 02/19/14 10/26/23 History allopurinoL [Allopurinol] 100 mg PO DAILY 02/19/14 10/26/23 History Acetaminophen [Tylenol Arthritis] 650 mg PO Q8H PRN 04/17/21 10/26/23 History Acetaminophen [Tylenol Extra 500 mg PO Q6H PRN 04/17/21 10/26/23 History Strength] Atorvastatin [Lipitor] 20 mg PO HS 04/17/21 10/26/23 History Fexofenadine HCl [[place] Allergy] 180 mg PO DAILY PRN 04/17/21 10/26/23 History Folic Acid 0.4 mg PO DAILY 04/17/21 10/26/23 History Furosemide [Lasix] 20 mg PO DIRECTED 04/17/21 10/26/23 History Ipratropium [place] 0.06%Nasal 1 - 2 spray EA NOSTRIL DAILY PRN 04/17/21 10/26/23 History [Atrovent Nasal 0.06%] Levothyroxine Sodium 25 mcg PO SUMOTUTHFRSA 04/17/21 10/26/23 History Loperamide [Imodium] 2 mg PO QID PRN 04/17/21 10/26/23 History Tamsulosin HCl [Flomax] 0.8 mg PO HS 04/17/21 10/26/23 History Apixaban [Eliquis] 2.5 mg PO BID 10/26/23 10/26/23 History Aspirin EC [Ecotrin Low Dose] 81 mg PO DAILY 10/26/23 10/26/23 History Chlorhexidine Gluconate [Peridex] 15 ml PO BID 10/26/23 10/26/23 History Cholecalciferol (Vitamin D3) 50 mcg PO DAILY 10/26/23 10/26/23 History [Vitamin D3 (50 Mcg = 2000 Iu)] Diclofenac Sodium [Voltaren 1 applic TOPICAL DAILY PRN 10/26/23 10/26/23 History Arthritis Pain 1% Gel] Diphenoxylate HCl/Atropine 2 tab PO QID PRN 10/26/23 10/26/23 History [Lomotil 2.5-0.025 mg Tablet] Ferrous Sulfate [Feosol] 325 mg PO Q48H 10/26/23 10/26/23 History Levothyroxine Sodium 50 mcg PO WE 10/26/23 10/26/23 History Lidocaine 5% Patch [Lidoderm] 1 patch TOPICAL DAILY PRN 10/26/23 10/26/23 History Oxybutynin Chloride [oxyBUTYnin 15 mg PO DAILY 10/26/23 10/26/23 History chloride ER] Pembrolizumab [Keytruda] 200 mg IV DIRECTED 10/26/23 10/26/23 History Triamcinolone Acetonide [Nasacort] 1 spray EA NOSTRIL DAILY PRN 10/26/23 10/26/23 History Xgeva Injection 1 dose SQ Q56D 10/26/23 10/26/23 History Allergies Allergy/AdvReac Type Severity Reaction Status Date / Time weed pollen Allergy runny Verified 10/31/23 18:20 nose, red eyes dust mites Allergy rash, Uncoded 10/31/23 18:20 swelling MOLD Allergy RASH, Uncoded 10/31/23 18:20 SWELLING. Physical Exam Vitals: Vital Signs Temp Pulse Pulse Resp BP BP Pulse Ox 11/02/23 07:08 97.7 F 73 16 119/69 97 11/02/23 02:22 72 16 11/02/23 01:27 97.8 F 72 16 121/71 96 11/01/23 20:40 97.4 F L 71 16 137/80 94 L 11/01/23 20:03 72 16 123/73 97 11/01/23 19:03 75 18 118/70 95 11/01/23 18:05 97.6 F 69 20 112/69 95 11/01/23 17:17 97.9 F 72 18 124/79 96 11/01/23 16:06 68 17 126/78 98 11/01/23 15:20 71 16 117/73 99 11/01/23 14:21 71 18 120/76 98 11/01/23 13:03 69 16 109/72 97 11/01/23 12:00 98.4 F 68 17 122/74 98 11/01/23 11:03 70 17 123/69 98 Intake and Output 11/01/23 11/02/23 11/02/23 22:59 06:59 14:59 Output Total 800 400 Balance -800 -400 Output: Drainage 400 Face 400 Urine 800 Other: Voiding Method Bedside Commode Urinal Incontinent # Voids 1 # Bowel Movements 1 Weight 68.946 kg Results - Lab Results Most recent lab results Calcium 8.8 mg/dL (8.7-10.3) 11/01/23 06:45 Phosphorus 5.0 mg/dL (2.4-5.1) 11/01/23 06:45 Magnesium 2.5 mg/dL (1.5-2.4) H 11/01/23 06:45 11/02/23 06:16 11/02/23 06:16 Assessment and Plan Assessment: 1. Acute kidney injury on chronic kidney disease stage III. Acute kidney injury, prerenal from decreased oral intake and borderline low blood pressure, improving with IV hydration. 2. Left nephrectomy for renal cell cancer. 3. 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 Baseline creatinine 1.5-1.7. Etiology: nephroscerloris and solitary kidney. 4. Hypertension with chronic kidney disease stage III 5. Hypernatremia associated with free water deficit. 6. Small bowel obstruction-being followed by surgery, currently with NG tube. 7. History of BPH-maintained on Flomax. 8. 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 9. Left lower lobe pneumonia-maintained on antibiotics. 10. Anion gap metabolic acidosis associated with acute kidney injury and saline. Plan: Continue with IV hydration. Switch to half-normal saline due to hypernatremia. Continue on IV antibiotics, as per primary. Avoid nephrotoxic agents. Repeat labs in the morning. Check UA. Thank you for the consultation. We will continue to monitor him during his hospital stay. Patient is seen and examined with the resident. Agree with findings along with assessment and plan.
[2023-11-02] MEDS: SODIUM CHLORIDE 0.45% 1,000 ML IV SCH (13:37)
[2023-11-02] MEDS: ONDANSETRON 4 MG/2 ML VIAL IVP PRN (13:37)
[2023-11-02] MEDS: IV FLUID CONTINUATION 1,000 ML IV ONE (15:02)
[2023-11-02 15:10] LABS: Glucose,Whole Blood 79 mg/dL (70-110)
[2023-11-02] MEDS: HEPARIN SODIUM,PORCINE 5,000 UNIT/ML 1 ML VIAL SQ STA (16:15)
[2023-11-02] MEDS ORDERED: ePHEDrine 50 MG/ML 1 ML VIAL ONE (16:41)
[2023-11-02] MEDS ORDERED: PROPOFOL 10 MG/ML 20 ML VIAL IV ONE (16:41)
[2023-11-02] MEDS ORDERED: KETAMINE HCL IN 0.9 % NACL 50 MG/5 ML SYRINGE ONE (16:41)
[2023-11-02] MEDS ORDERED: LIDOCAINE 1% INJ 10MG/ML (20 ML MDV) ONE (16:41)
[2023-11-02] MEDS ORDERED: SUCCINYLCHOLINE CHLORIDE 200 MG/10 ML VIAL IV ONE (16:41)
[2023-11-02] MEDS ORDERED: PHENYLEPHRINE 10 MG/ML VIAL ONE (16:41)
[2023-11-02] MEDS ORDERED: GLYCOPYRROLATE 0.2 MG/ML 2 ML VIAL ONE (16:41)
[2023-11-02] MEDS ORDERED: ROCURONIUM 10 MG/ML (5 ML VIAL) IV ONE (16:41)
[2023-11-02] MEDS ORDERED: PHENYLEPHRINE-0.9% NACL SYG 1,000 MCG/10 ML SYRINGE ONE (16:41)
[2023-11-02] MEDS ORDERED: NEOSTIGMINE 1 MG/ML 10 ML VIAL ONE (16:41)
--- NOTE | 2023-11-02 17:09 | P.PN ---
Subjective Progress Note Date: 11/02/23 Principal diagnosis: Metastatic RCC, intolerance to oral therapy. Admit for intractable N,V, dehydration In follow-up today patient has an NG tube, n.p.o., pending plans for hernia repair. He has been off the oral oncologic agent for a week now, he did not receive any immunotherapy. His symptoms persist despite cessation of treatment. No documented fevers, he is reporting left groin pain. Objective - Vital Signs Vital signs: Vital Signs Temp 97 F L 11/02/23 15:03 Pulse 53 L 11/02/23 15:03 Resp 16 11/02/23 15:03 BP 138/65 11/02/23 15:03 Pulse Ox 97 11/02/23 15:03 FiO2 Intake & Output 11/01/23 11/02/23 11/02/23 18:59 06:59 18:59 Intake Total 100 Output Total 600 600 300 Balance -600 -600 -200 Weight 68.946 kg Intake: IV 100 Output: Drainage 400 Face 400 Urine 600 200 300 Other: Voiding Method Bedside Commode Urinal Incontinent # Voids 1 # Bowel Movements 1 1 - Constitutional General appearance: Present: cooperative, mild distress, thin - EENT Eyes: Present: anicteric sclerae, EOMI ENT: Present: hearing grossly normal - Respiratory Details: resp even and unlabored - Gastrointestinal General gastrointestinal: Present: soft - Integumentary Integumentary: Present: pale - Neurologic Neurologic: Present: CNII-XII intact - Musculoskeletal Musculoskeletal: Present: generalized weakness - Psychiatric Psychiatric: Present: A&O x's 3, appropriate affect, intact judgment & insight - Labs CBC & Chem 7: 11/02/23 06:16 11/02/23 06:16 Labs: Abnormal Lab Results - Last 24 Hours (Table) 11/01/23 11/02/23 11/02/23 Range/Units 20:46 06:16 06:16 RBC 3.74 L (4.40-5.60) X 10*6/uL Hgb 12.7 L (13.0-17.0) g/dL Hct 39.5 L (39.6-50.0) % MCV 105.6 H (80.0-97.0) FL MCH 34.0 H (27.0-32.0) pg Plt Count 132 L (140-440) X 10*3/uL Lymphocytes # 0.34 L (0.90-5.00) X 10*3/uL Sodium 149 H (135-145) mmol/L Chloride 111 H (96-109) mmol/L Carbon Dioxide 19.6 L (21.6-31.8) mmol/L Anion Gap 18.40 H (4.00-12.00) mmol/L BUN 88.7 H (9.0-27.0) mg/dL Creatinine 1.9 H (0.6-1.5) mg/dL Est GFR (CKD-EPI) 35 L (>=60) BUN/Creatinine Ratio 46.68 H (12.00-20.00) Ratio Glucose 68 L (70-110) mg/dL POC Glucose (mg/dL) 63 L (70-110) mg/dL AST 54 H (14-35) U/L Total Protein 5.1 L (6.2-8.2) g/dL Albumin 3.4 L (3.8-4.9) g/dL 11/02/23 11/02/23 Range/Units 07:11 08:41 RBC (4.40-5.60) X 10*6/uL Hgb (13.0-17.0) g/dL Hct (39.6-50.0) % MCV (80.0-97.0) FL MCH (27.0-32.0) pg Plt Count (140-440) X 10*3/uL Lymphocytes # (0.90-5.00) X 10*3/uL Sodium (135-145) mmol/L Chloride (96-109) mmol/L Carbon Dioxide (21.6-31.8) mmol/L Anion Gap (4.00-12.00) mmol/L BUN (9.0-27.0) mg/dL Creatinine (0.6-1.5) mg/dL Est GFR (CKD-EPI) (>=60) BUN/Creatinine Ratio (12.00-20.00) Ratio Glucose (70-110) mg/dL POC Glucose (mg/dL) 67 L 119 H (70-110) mg/dL AST (14-35) U/L Total Protein (6.2-8.2) g/dL Albumin (3.8-4.9) g/dL Assessment and Plan (1) Abdominal pain Current Visit: Yes Status: Acute Priority: High Code(s): R10.9 - UNSPECIFIED ABDOMINAL PAIN SNOMED Code(s): 14941552 (2) Inguinal hernia Current Visit: Yes Status: Acute Priority: High Code(s): K40.90 - UNIL INGUINAL HERNIA, W/O OBST OR GANGR, NOT SPCF RECUR SNOMED Code(s): 664712203 (3) Renal cell carcinoma Current Visit: Yes Status: Acute Priority: High Code(s): C64.9 - MALIGNANT NEOPLASM OF UNSP KIDNEY, EXCEPT RENAL PELVIS SNOMED Code(s): 845869163 Plan: SBO, inguinal hernia -abdominal pain, nausea and vomiting. Transferred from [facility] due to concerns for small bowel obstruction as well as possible pneumonia. -General surgery has been consulted and NG tube has been placed. Pt reports some improvement in nausea. Abdominal pain/distention stable. Lt inguinal pain persists. -Hernia repain planned Metastatic renal cell carcinoma -CT 10/01/23 showed disease progression, with new osseous lesions, thankfully, pt does not have any specific symptoms. 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 -Recommended to start oral Lenvima and keytruda. He started Lenvima 10/25/23, took two doses when he experienced intractable N,V, "nothing would stay down". Subsequently he became dehydrated, now inpt. Has not yet had a dose of Keytruda -Hold Lenvima. Treatment will be on hold until patient recovers -Will require dose reduction of Lenvima due to GI side effects -Will schedule clinic f/u upon discharge to reevaluate pt to see if he is ready to resume any treatment
[2023-11-02] MEDS: SODIUM CHLORIDE 0.9% 100 ML with ceFAZolin 2,000 MG IV ONE (17:12)
[2023-11-02] MEDS: SODIUM CHLORIDE 0.9% 1,000 ML IV ONE (17:12)
[2023-11-02] MEDS: BUPIVACAINE (PF) 0.25% 30 ML VIAL SQ ONE (17:19)
--- NOTE | 2023-11-02 18:52 | P.OP ---
Date of Procedure: 11/02/23 Procedure(s) Performed: PREOPERATIVE DIAGNOSIS: Incarcerated left inguinal hernia, small bowel obstruction, ascites POSTOPERATIVE DIAGNOSIS: Same, abdominal adhesions PROCEDURE: Open repair incarcerated left inguinal hernia, culture of cloudy ascitic fluid, left orchiectomy, laparotomy with lysis of adhesions, small bowel resection SURGEON: Dr. Aguilar ANESTHESIA: General OPERATIVE PROCEDURE DETAILS: Patient placed on the operating table in the supine position per the patient was placed under general anesthesia. Abdomen prepped and draped sterilely. Oblique incision made in the left groin. Dissection through the subcutaneous tissues took place using electrocautery. Small vessel ligated using 3-0 silk tie. External oblique opened sharply. Hernia sac encircled with a Caney drain. Hernia contents able to be reduced fairly easily. Testicle was still swollen with hydrocele. Per discussion with patient preoperatively we decided to proceed with orchiectomy. Hernia sac was incised prior to ligation. Cloudy fluid was encountered. Cultures taken. Hernia sac ligated at the internal inguinal ring using 0 silk stick ties and suture x 3. Spermatic cord structures ligated using 0 silk stick tie sutures as well. Area irrigated with saline. External bleak reapproximated with 2-0 Vicryl suture. Subcutaneous tissues closed using with 3-0 Vicryl sutures. Skin with christopher. Given the cloudy fluid and the inability to visualize the bowel through our internal inguinal ring I decided to create a small laparotomy incision at the umbilical region. A small incision was made extending above and below the umbilical region using scalpel. The subcutaneous tissues and fascia were then divided using electrocautery. Additional cloudy ascitic fluid was identified. The proximal small bowel was dilated. As I was running the bowel we surprisingly encountered a very tight adhesive band between the mesentery and the pericolonic fat. This was creating a high-grade obstruction. This was able to be lysed sharply. The bowel was then run from that point distally. The bowel distal to the obstruction site was free of abnormalities. The bowel at the adhesion site however had a circumferential area of ischemic change. I decided to resect at this time. The bowel was divided proximal and distal using a linear 75 stapler. The mesentery was divided using LigaSure. The antimesenteric portion of the staple line was excised. The linear 75 stapler was fired along the antimesenteric staple line. The remaining defect was closed using a TX 60 device. The TX 60 staple line was imbricated using interrupted 3- 0 GI silk Lembert sutures. The mesenteric defect was closed using a 3-0 Vicryl running stitch. The bowel was reduced. The stomach was surprisingly still quite distended. The previous gastric tube was changed to a appropriately sized gastric tube. 1.2 L of additional succus was evacuated. The left lobe of the liver had a large mass. The abdomen was irrigated thoroughly with saline. No additional cloudiness to the fluid was encountered. The midline fascia was then reapproximated using a double-stranded #1 PDS suture. The skin was closed using christopher. Sterile dressings applied. DISPOSITION: Stable to recovery room
[2023-11-02] MEDS: HYDROmorphone 0.5 MG/0.5 ML SYRINGE IVP PRN (20:14)
[2023-11-02 20:20] LABS: Glucose,Whole Blood 67 mg/dL (70-110)
[2023-11-02] MEDS: ACETAMINOPHEN IV (For NPO) 1,000 MG in EMPTY BAG 1 BAG IVPB SCH (21:10)
[2023-11-03 01:43] LABS: Glucose,Whole Blood 76 mg/dL (70-110)
[2023-11-03 06:31] LABS: Amorphous Sediment,Urine Rare /hpf; Appearance,Urine Clear (Clear); Bacteria,Urine Rare /hpf; Bilirubin,Urine Negative (Negative); Blood,Urine Moderate (Negative); Color,Urine Yellow; Glucose,Urine (UA) Negative (Negative); Hyaline Casts,Urine 8 /lpf (0-2); Ketones,Urine 2+ (Negative); Leukocyte Esterase,Urine Trace (Negative); Mucus,Urine Rare /hpf; Nitrite,Urine Negative (Negative); PH, Urine 5.5 (5.0-8.0); Protein,Urine 1+ (Negative); RBC,Urine 23 /hpf (0-5); Specific Gravity,Urine 1.031 (1.001-1.035); Squamous Epithelial Cell,Urine 2 /hpf (0-4); Urobilinogen,Urine <2.0 mg/dL (<2.0); WBC,Urine 34 /hpf (0-5)
[2023-11-03] MEDS: LEVOTHYROXINE 50 MCG TAB PO SCH (06:31)
[2023-11-03 07:34] LABS: Glucose,Whole Blood 76 mg/dL (70-110)
[2023-11-03 08:48] LABS: ALT 19 U/L (4-49); AST 32 U/L (17-59); African American GFR (CKD) 47 (>60 ml/min/1.73 sqM); Albumin 2.5 g/dL (3.5-5.0); Albumin/Globulin Ratio 1.3; Alkaline Phosphatase 64 U/L (38-126); Anion Gap 8 mmol/L; Blood Urea Nitrogen 73 mg/dL (9-20); Calcium 8.5 mg/dL (8.4-10.2); Carbon Dioxide 19 mmol/L (22-30); Chloride 118 mmol/L (98-107); Globulin 1.9 g/dL; Glucose 67 mg/dL (74-99); Non-African American GFR(CKD) 40 (>60 ml/min/1.73 sqM); Potassium 3.8 mmol/L (3.5-5.1); Sodium 145 mmol/L (137-145); Total Bilirubin 0.5 mg/dL (0.2-1.3); Total Protein 4.4 g/dL (6.3-8.2)
--- NOTE | 2023-11-03 09:09 | P.PN ---
Subjective Progress Note Date: 11/03/23 Isidoro Prado, is an 82-year-old male who presented to [facility] emergency room with a chief complaint of Abdominal pain and hernia. Patient was a transfer from [facility]. Per patient he was started on a new medication for treatment of renal cell carcinomaPer oncology services and reports that he started having issues after second dose with abdominal pain nausea and vomiting He was evaluated in the emergency room vital examination on presentation revealedTemp 97.8, heart rate 67, respiratory rate 16, blood pressure 123/69 with pulse ox 90% on room air Laboratory data revealsCreatinine 2.3 bun 105, white blood cell 5.6, hemoglobin 13.3, AST 40, ALT 28 and alkaline phosphatase 91 Testing in the emergency room revealed Imaging in [facility]. Chest x-ray completed showing minimal left lower lobe infiltrate Patient was admitted to medical floor for further evaluation and treatment. At this time NG tube was placed, Surgical service is consulted. Patient started on treatment for pneumonia with IV antibiotics Rocephin and Zithromax repeat 2 view chest x-ray ordered. Nephrology service is consulted for acute kidney injury patient maintained normal saline at 100 and oncology service is consulted Past medical history is significant for Renal cell carcinoma follows with oncology, Diverticulitis, previous GI bleed, hyperlipidemia, hypertension, sleep apnea On review of systems : Patient is resting comfortably in bed. Patient reports improvement with abdominal pain. Patient denies any chest pain or shortness of breath. At this time patient denies nausea vomiting or diarrhea.Patient denies any urinary burning or frequency On 11/02/2023 patient's alert and oriented 3. Patient was evaluated by surgical services recommending surgical intervention for hernia small bowel obstruction. Patient remains with NG tube reports improvement. Hematology services also following for metastatic renal cell carcinoma. At this time patient denies chest pain or shortness of breath. Patient denies nausea vomiting or diarrhea. Patient denies any urinary burning or frequency. Current vital signs temp 97.7, heart rate 73, respiratory rate 16, blood pressure 119/69 with pulse ox 97% 11/03/2023 patient is alert and oriented 3. Patient is status post open repair incarcerated left inguinal hernia with left orchiectomy with lysis of adhesions and small bowel resection. Patient reports he feels well. Patient denies any chest pain or shortness of breath. Patient denies nausea vomiting or diarrhea. Patient denies any urinary burning or frequency patient remains nothing by mouth at this time. Current vital signs temp 98.0, heart rate 78, respiratory rate 17, blood pressure 94/60 with a pulse ox 96% Objective - Vital Signs Vital signs: Vital Signs Temp 98.0 F 11/03/23 07:29 Pulse 78 11/03/23 07:29 Resp 17 11/03/23 07:29 BP 94/60 11/03/23 07:29 Pulse Ox 96 11/03/23 07:29 FiO2 Intake & Output 11/02/23 11/03/23 11/03/23 18:59 06:59 18:59 Intake Total 800 Output Total 520 700 Balance 280 -700 Intake: IV 800 Output: Drainage 400 Face 400 Urine 500 300 Stool 0 Estimated Blood Loss 20 Other: Voiding Method Bedside Commode Indwelling Catheter # Voids 0 # Bowel Movements 1 1 - Exam In general patient is alert and oriented x 3 in no distress HEENT head normocephalic and atraumatic Neck is supple no JVD no goiter no lymphadenopathy no carotid bruit Chest examination is clear to auscultation no crackles no wheezing Cardiac exam reveals regular heart sounds S1 and S2 no gallops no murmurs Abdomen is soft nontender no organomegaly with normal bowel sounds Extremity exam reveals no edema no cyanosis or clubbing Neurological examination reveals no gross focal deficits - Labs CBC & Chem 7: 11/02/23 06:16 11/03/23 07:19 Labs: Abnormal Lab Results - Last 24 Hours (Table) 11/02/23 11/02/23 11/02/23 Range/Units 06:16 06:16 20:18 RBC 3.74 L (4.40-5.60) X 10*6/uL Hgb 12.7 L (13.0-17.0) g/dL Hct 39.5 L (39.6-50.0) % MCV 105.6 H (80.0-97.0) FL MCH 34.0 H (27.0-32.0) pg Plt Count 132 L (140-440) X 10*3/uL Lymphocytes # 0.34 L (0.90-5.00) X 10*3/uL Sodium 149 H (135-145) mmol/L Chloride 111 H (96-109) mmol/L Carbon Dioxide 19.6 L (21.6-31.8) mmol/L Anion Gap 18.40 H (4.00-12.00) mmol/L BUN 88.7 H (9.0-27.0) mg/dL Creatinine 1.9 H (0.6-1.5) mg/dL Est GFR (CKD-EPI) 35 L (>=60) BUN/Creatinine Ratio 46.68 H (12.00-20.00) Ratio Glucose 68 L (70-110) mg/dL POC Glucose (mg/dL) 67 L (70-110) mg/dL AST 54 H (14-35) U/L Total Protein 5.1 L (6.2-8.2) g/dL Albumin 3.4 L (3.8-4.9) g/dL Urine Protein (Negative) Urine Ketones (Negative) Urine Blood (Negative) Ur Leukocyte Esterase (Negative) Urine RBC (0-5) /hpf Urine WBC (0-5) /hpf Amorphous Sediment (None) /hpf Urine Bacteria (None) /hpf Hyaline Casts (0-2) /lpf Urine Mucus (None) /hpf 11/03/23 11/03/23 Range/Units 05:15 07:19 RBC (4.40-5.60) X 10*6/uL Hgb (13.0-17.0) g/dL Hct (39.6-50.0) % MCV (80.0-97.0) FL MCH (27.0-32.0) pg Plt Count (140-440) X 10*3/uL Lymphocytes # (0.90-5.00) X 10*3/uL Sodium (135-145) mmol/L Chloride 118 H (96-109) mmol/L Carbon Dioxide 19 L (21.6-31.8) mmol/L Anion Gap (4.00-12.00) mmol/L BUN 73 H (9.0-27.0) mg/dL Creatinine 1.60 H (0.6-1.5) mg/dL Est GFR (CKD-EPI) (>=60) BUN/Creatinine Ratio (12.00-20.00) Ratio Glucose 67 L (70-110) mg/dL POC Glucose (mg/dL) (70-110) mg/dL AST (14-35) U/L Total Protein 4.4 L (6.2-8.2) g/dL Albumin 2.5 L (3.8-4.9) g/dL Urine Protein 1+ H (Negative) Urine Ketones 2+ H (Negative) Urine Blood Moderate H (Negative) Ur Leukocyte Esterase Trace H (Negative) Urine RBC 23 H (0-5) /hpf Urine WBC 34 H (0-5) /hpf Amorphous Sediment Rare H (None) /hpf Urine Bacteria Rare H (None) /hpf Hyaline Casts 8 H (0-2) /lpf Urine Mucus Rare H (None) /hpf Microbiology - Last 24 Hours (Table) 11/02/23 18:20 Gram Stain - Preliminary Other - Other Assessment and Plan Assessment: 1.Abdominal pain secondary to hernia and small bowel obstruction. Status post open repair of incarcerated left inguinal hernia with culture cloudy ascitic fluid left orchiectomy with lysis of adhesions and small bowel resection on 11/02/2023 2. Pneumonia. Patient started on IV antibiotics repeat two-view chest x-ray ordered 3. Acute kidney injury patient started normal saline at 100. Nephrology services consulted 4. Recent diagnosis of metastic renal cell carcinoma. Oncology service is consulted 5. History of diverticulitis with GI bleed 6. History of essential hypertension 7. History of hyperlipidemia DVT prophylaxis Lovenox. GI prophylaxis Protonix Surgical services, oncology and nephrology service is consulted Patient started on IV antibiotics Continue normal saline NG tube in place
[2023-11-03 12:20] LABS: HCT 38.3 % (39.6-50.0); HGB 12.1 g/dL (13.0-17.0); MCH 33.5 pg (27.0-32.0); MCHC 31.6 g/dL (32.0-37.0); MCV 106.1 FL (80.0-97.0); Mean Platelet Volume 10.6 FL (9.5-12.2); Monocytes % (A) 6.2 %; NRBC Per 100 WBC 0 X 10*3/uL (0.00-0.01); Neutrophils % (A) 88.4 %; Platelet Count 116 X 10*3/uL (140-440); RBC 3.61 X 10*6/uL (4.40-5.60); RDW 13.6 % (11.5-14.5); WBC 4.21 X 10*3/uL (4.50-10.00)
[2023-11-03 12:21] LABS: Basophils # (A) 0 X 10*3/uL (0.00-0.10); Basophils % (A) 0 %; Eosinophils # (A) 0.01 X 10*3/uL (0.04-0.35); Eosinophils % (A) 0.2 %; Lymphocytes # (A) 0.21 X 10*3/uL (0.90-5.00); Monocytes # (A) 0.26 X 10*3/uL (0.20-1.00); Neutrophils # (A) 3.72 X 10*3/uL (1.80-7.70)
--- NOTE | 2023-11-03 12:26 | P.PN ---
Subjective Progress Note Date: 11/03/23 Principal diagnosis: Small bowel obstruction Patient states his pain that he was having preoperatively is improved. No nausea or vomiting. No flatus. Patient complaining of discomfort at the nasogastric tube site. He is afebrile. Labs noted. Objective - Vital Signs Vital signs: Vital Signs Temp 98.0 F 11/03/23 07:29 Pulse 78 11/03/23 07:29 Resp 17 11/03/23 07:29 BP 94/60 11/03/23 07:29 Pulse Ox 96 11/03/23 07:29 FiO2 Intake & Output 11/02/23 11/03/23 11/03/23 18:59 06:59 18:59 Intake Total 800 Output Total 520 700 Balance 280 -700 Intake: IV 800 Output: Drainage 400 Face 400 Urine 500 300 Stool 0 Estimated Blood Loss 20 Other: Voiding Method Bedside Commode Indwelling Catheter Indwelling Catheter # Voids 0 # Bowel Movements 1 1 - Exam Abdomen: Soft, minimal distention, incisions clean and dry, mild tenderness there - Labs CBC & Chem 7: 11/03/23 07:19 11/03/23 07:19 Labs: Abnormal Lab Results - Last 24 Hours (Table) 11/02/23 11/03/23 11/03/23 Range/Units 20:18 05:15 07:19 WBC (4.50-10.00) X 10*3/uL RBC (4.40-5.60) X 10*6/uL Hgb (13.0-17.0) g/dL Hct (39.6-50.0) % MCV (80.0-97.0) FL MCH (27.0-32.0) pg MCHC (32.0-37.0) g/dL Plt Count (140-440) X 10*3/uL Lymphocytes # (0.90-5.00) X 10*3/uL Eosinophils # (0.04-0.35) X 10*3/uL Chloride 118 H (98-107) mmol/L Carbon Dioxide 19 L (22-30) mmol/L BUN 73 H (9-20) mg/dL Creatinine 1.60 H (0.66-1.25) mg/dL Glucose 67 L (74-99) mg/dL POC Glucose (mg/dL) 67 L (70-110) mg/dL Total Protein 4.4 L (6.3-8.2) g/dL Albumin 2.5 L (3.5-5.0) g/dL Urine Protein 1+ H (Negative) Urine Ketones 2+ H (Negative) Urine Blood Moderate H (Negative) Ur Leukocyte Esterase Trace H (Negative) Urine RBC 23 H (0-5) /hpf Urine WBC 34 H (0-5) /hpf Amorphous Sediment Rare H (None) /hpf Urine Bacteria Rare H (None) /hpf Hyaline Casts 8 H (0-2) /lpf Urine Mucus Rare H (None) /hpf 11/03/23 Range/Units 07:19 WBC 4.21 L (4.50-10.00) X 10*3/uL RBC 3.61 L (4.40-5.60) X 10*6/uL Hgb 12.1 L (13.0-17.0) g/dL Hct 38.3 L (39.6-50.0) % MCV 106.1 H (80.0-97.0) FL MCH 33.5 H (27.0-32.0) pg MCHC 31.6 L (32.0-37.0) g/dL Plt Count 116 L (140-440) X 10*3/uL Lymphocytes # 0.21 L (0.90-5.00) X 10*3/uL Eosinophils # 0.01 L (0.04-0.35) X 10*3/uL Chloride (98-107) mmol/L Carbon Dioxide (22-30) mmol/L BUN (9-20) mg/dL Creatinine (0.66-1.25) mg/dL Glucose (74-99) mg/dL POC Glucose (mg/dL) (70-110) mg/dL Total Protein (6.3-8.2) g/dL Albumin (3.5-5.0) g/dL Urine Protein (Negative) Urine Ketones (Negative) Urine Blood (Negative) Ur Leukocyte Esterase (Negative) Urine RBC (0-5) /hpf Urine WBC (0-5) /hpf Amorphous Sediment (None) /hpf Urine Bacteria (None) /hpf Hyaline Casts (0-2) /lpf Urine Mucus (None) /hpf Microbiology - Last 24 Hours (Table) 11/02/23 18:20 Gram Stain - Preliminary Other - Other Assessment and Plan (1) Small bowel obstruction Narrative/Plan: 82-year-old male status post left incarcerated inguinal hernia repair with orchiectomy, laparotomy with small bowel resection for obstruction. Doing well today. Increase activity. Patient does not want Olvrea catheter removed today and would prefer to be removed tomorrow. Keep nasogastric tube as well until bowel function improved. Continue antibiotics. Await cultures. Continue analgesics. Current Visit: Yes Status: Acute Priority: High Code(s): K56.609 - UNSP INTESTNL OBST, UNSP TO PARTIAL VERSUS COMPLETE OBST SNOMED Code(s): 997612569
[2023-11-03 12:34] LABS: Glucose,Whole Blood 78 mg/dL (70-110)
[2023-11-03] MEDS: PIPERACILLIN-TAZOBACTAM 3.375 GM in SODIUM CHLORIDE 0.9% 100 ML IVPB SCH (13:13)
--- NOTE | 2023-11-03 13:48 | P.PN ---
Subjective patient is seen for follow-up for acute kidney injury. Underlying history of chronic kidney disease. serum creatinine improved to 1.6. Patient remains with NG tube. Abdominal pain is slightly better. Objective - Vital Signs Vital signs: Vital Signs Temp 97.4 F L 11/03/23 12:29 Pulse 100 11/03/23 12:29 Resp 17 11/03/23 12:29 BP 119/65 11/03/23 12:29 Pulse Ox 99 11/03/23 12:29 FiO2 Intake & Output 11/02/23 11/03/23 11/03/23 18:59 06:59 18:59 Intake Total 800 Output Total 520 700 Balance 280 -700 Intake: IV 800 Output: Drainage 400 Face 400 Urine 500 300 Stool 0 Estimated Blood Loss 20 Other: Voiding Method Bedside Commode Indwelling Catheter Indwelling Catheter # Voids 0 # Bowel Movements 1 1 - Exam patient is awake, comfortable, no acute distress. NG tube in place Examination of the heart S1 and S2 Examination the lungs bilateral breath sounds are heard Abdomen is soft Examination lower extremity shows no edema [employer] exam grossly intact - Labs CBC & Chem 7: 11/03/23 07:19 11/03/23 07:19 Labs: Abnormal Lab Results - Last 24 Hours (Table) 11/02/23 11/03/23 11/03/23 Range/Units 20:18 05:15 07:19 WBC (4.50-10.00) X 10*3/uL RBC (4.40-5.60) X 10*6/uL Hgb (13.0-17.0) g/dL Hct (39.6-50.0) % MCV (80.0-97.0) FL MCH (27.0-32.0) pg MCHC (32.0-37.0) g/dL Plt Count (140-440) X 10*3/uL Lymphocytes # (0.90-5.00) X 10*3/uL Eosinophils # (0.04-0.35) X 10*3/uL Chloride 118 H (98-107) mmol/L Carbon Dioxide 19 L (22-30) mmol/L BUN 73 H (9-20) mg/dL Creatinine 1.60 H (0.66-1.25) mg/dL Glucose 67 L (74-99) mg/dL POC Glucose (mg/dL) 67 L (70-110) mg/dL Total Protein 4.4 L (6.3-8.2) g/dL Albumin 2.5 L (3.5-5.0) g/dL Urine Protein 1+ H (Negative) Urine Ketones 2+ H (Negative) Urine Blood Moderate H (Negative) Ur Leukocyte Esterase Trace H (Negative) Urine RBC 23 H (0-5) /hpf Urine WBC 34 H (0-5) /hpf Amorphous Sediment Rare H (None) /hpf Urine Bacteria Rare H (None) /hpf Hyaline Casts 8 H (0-2) /lpf Urine Mucus Rare H (None) /hpf 11/03/23 Range/Units 07:19 WBC 4.21 L (4.50-10.00) X 10*3/uL RBC 3.61 L (4.40-5.60) X 10*6/uL Hgb 12.1 L (13.0-17.0) g/dL Hct 38.3 L (39.6-50.0) % MCV 106.1 H (80.0-97.0) FL MCH 33.5 H (27.0-32.0) pg MCHC 31.6 L (32.0-37.0) g/dL Plt Count 116 L (140-440) X 10*3/uL Lymphocytes # 0.21 L (0.90-5.00) X 10*3/uL Eosinophils # 0.01 L (0.04-0.35) X 10*3/uL Chloride (98-107) mmol/L Carbon Dioxide (22-30) mmol/L BUN (9-20) mg/dL Creatinine (0.66-1.25) mg/dL Glucose (74-99) mg/dL POC Glucose (mg/dL) (70-110) mg/dL Total Protein (6.3-8.2) g/dL Albumin (3.5-5.0) g/dL Urine Protein (Negative) Urine Ketones (Negative) Urine Blood (Negative) Ur Leukocyte Esterase (Negative) Urine RBC (0-5) /hpf Urine WBC (0-5) /hpf Amorphous Sediment (None) /hpf Urine Bacteria (None) /hpf Hyaline Casts (0-2) /lpf Urine Mucus (None) /hpf Microbiology - Last 24 Hours (Table) 11/02/23 18:20 Gram Stain - Preliminary Other - Other Assessment and Plan Assessment: 1. Acute kidney injury on chronic kidney disease stage III. Acute kidney injury, prerenal from decreased oral intake and borderline low blood pressure, improving with IV hydration. 2. Left nephrectomy for renal cell cancer. 3. 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 Baseline creatinine 1.5-1.7. Etiology: nephroscerloris and solitary kidney. 4. Hypertension with chronic kidney disease stage III 5. Hypernatremia associated with free water deficit. 6. Small bowel obstruction-being followed by surgery, currently with NG tube. 7. History of BPH-maintained on Flomax. 8. 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 9. Left lower lobe pneumonia-maintained on antibiotics. 10. Anion gap metabolic acidosis associated with acute kidney injury and saline. Plan: Continue with IV hydration. Continue on IV antibiotics, as per primary. Avoid nephrotoxic agents. Repeat labs in the morning.
[2023-11-03 17:14] LABS: Glucose,Whole Blood 65 mg/dL (70-110)
[2023-11-03] MEDS: DEXTROSE 50% SYRINGE 50 ML IVP ONE (17:17)
[2023-11-03 17:52] LABS: Glucose,Whole Blood 129 mg/dL (70-110)
[2023-11-03 20:37] LABS: Glucose,Whole Blood 77 mg/dL (70-110)
[2023-11-04 01:47] LABS: Glucose,Whole Blood 77 mg/dL (70-110)
[2023-11-04 07:06] LABS: Glucose,Whole Blood 77 mg/dL (70-110)
[2023-11-04] MEDS: IPRATROPIUM-ALBUTEROL 3 ML NEB INHALATION PRN (08:12)
[2023-11-04] MEDS: PANTOPRAZOLE 40 MG/10 ML VIAL IVP SCH (08:44)
[2023-11-04 08:53] LABS: Basophils # (A) 0.01 X 10*3/uL (0.00-0.10); Basophils % (A) 0.2 %; Eosinophils # (A) 0.08 X 10*3/uL (0.04-0.35); Eosinophils % (A) 1.5 %; HCT 38.7 % (39.6-50.0); HGB 12.2 g/dL (13.0-17.0); Lymphocytes # (A) 0.31 X 10*3/uL (0.90-5.00); Lymphocytes % (A) 5.9 %; MCH 33.1 pg (27.0-32.0); MCHC 31.5 g/dL (32.0-37.0); MCV 104.9 FL (80.0-97.0); Mean Platelet Volume 10.4 FL (9.5-12.2); Monocytes # (A) 0.28 X 10*3/uL (0.20-1.00); Monocytes % (A) 5.3 %; NRBC Per 100 WBC 0 X 10*3/uL (0.00-0.01); Neutrophils # (A) 4.54 X 10*3/uL (1.80-7.70); Neutrophils % (A) 86.7 %; Platelet Count 122 X 10*3/uL (140-440); RBC 3.69 X 10*6/uL (4.40-5.60); RDW 13.7 % (11.5-14.5); WBC 5.24 X 10*3/uL (4.50-10.00)
[2023-11-04 09:04] LABS: ALT 17 U/L (10-49); AST 27 U/L (14-35); Albumin 2.8 g/dL (3.8-4.9); Albumin/Globulin Ratio 1.65 Ratio (1.60-3.17); Alkaline Phosphatase 71 U/L (41-126); BUN/Creat Ratio 36.33 Ratio (12.00-20.00); Blood Urea Nitrogen 65.4 mg/dL (9.0-27.0); Calcium 8.3 mg/dL (8.7-10.3); Carbon Dioxide 21.6 mmol/L (21.6-31.8); Chloride 114 mmol/L (96-109); Globulin 1.7 g/dL (1.6-3.3); Glucose 87 mg/dL (70-110); Potassium 3.7 mmol/L (3.5-5.5); Sodium 146 mmol/L (135-145); Total Bilirubin 0.3 mg/dL (0.3-1.2); Total Protein 4.5 g/dL (6.2-8.2)
--- NOTE | 2023-11-04 11:20 | P.CONS ---
History of Present Illness - Reason for Consult Consult date: 11/03/23 Cloudy ascitic fluid, pneumonia Requesting physician: Ruperto Reese - Chief Complaint Abdominal pain vomiting x few days - History of Present Illness Patient is a 82-year-old male with a past medical history significant for hypertension hyperlipidemia GI bleed reflux sleep apnea, renal carcinoma, presented to the hospital 3 days ago and this patient apparently initially presented to [facility] with abdominal pain with the patient was also complaining of nausea and vomiting chest x-ray at that facility shows left lower lobe infiltrate patient subsequently has been evaluated by general surgery and the patient be diagnosed with incarcerated left inguinal hernia small bowel obstruction ascites status post open repair of the incarcerated left inguinal hernia culture of the cloudy ascitic fluid left orchiectomy laparotomy with lysis of additions small bowel obstruction concerning for possible peritonitis with a cloudy fluid infectious disease was consulted for further management. At the time my evaluation patient denies having any fever or any chills and no fever have been recorded during this hospital stay patient denies having any headache or URI symptoms no chest pain or shortness with he did have occasional cough not bring up any sputum patient did have some nausea but no vomiting recommend Abdominal pain moderate to severe intensity without radiation and no bowel movement patient did have white count of 4.21 creatinine 1.60 liver isms are normal urine is mildly positive urine for degenerative changes negative chest x-ray this admission small patchy retrocardiac opacity Review of Systems Positive point and negatives has been mentioned in the HPI, complete review of systems was performed and all other systems are negative Past Medical History Past Medical History: GERD/Reflux, GI Bleed, Hyperlipidemia, Hypertension, Renal Disease, Sleep Apnea/CPAP/BIPAP Additional Past Medical History / Comment(s): HTN & GI BLEED RESOVLED. RECENT D X OF MASS ON LT KIDNEY. HX OF DIVERTICULITIS History of Any Multi-Drug Resistant Organisms: None Reported Past Surgical History: Appendectomy Additional Past Surgical History / Comment(s): EGD. COLONOSCOPY. ESOPHAGEAL OBSTRUCTION REMOVED. HEMORRHOIDECTOMY. SURGERY FOR BLEEDING ULCER. SEVERAL PROCEDURES FOR PERITONITIS R/T RUPTURED APPENDIX Past Anesthesia/Blood Transfusion Reactions: No Reported Reaction Past Psychological History: No Psychological Hx Reported Past Alcohol Use History: Rare - Past Family History Mother Family Medical History: Diabetes Mellitus, Hypertension Additional Family Medical History / Comment(s): ANEURYSM Father Family Medical History: Cancer, Coronary Artery Disease (CAD), CVA/TIA, Hyperlipidemia Additional Family Medical History / Comment(s): Ca: bladder; cabg Medications and Allergies Home Medications Medication Instructions Recorded Confirmed Type Omeprazole 20 mg PO BID 02/19/14 10/26/23 History allopurinoL [Allopurinol] 100 mg PO DAILY 02/19/14 10/26/23 History Acetaminophen [Tylenol Arthritis] 650 mg PO Q8H PRN 04/17/21 10/26/23 History Acetaminophen [Tylenol Extra 500 mg PO Q6H PRN 04/17/21 10/26/23 History Strength] Atorvastatin [Lipitor] 20 mg PO HS 04/17/21 10/26/23 History Fexofenadine HCl [[place] Allergy] 180 mg PO DAILY PRN 04/17/21 10/26/23 History Folic Acid 0.4 mg PO DAILY 04/17/21 10/26/23 History Furosemide [Lasix] 20 mg PO DIRECTED 04/17/21 10/26/23 History Ipratropium [place] 0.06%Nasal 1 - 2 spray EA NOSTRIL DAILY PRN 04/17/21 10/26/23 History [Atrovent Nasal 0.06%] Levothyroxine Sodium 25 mcg PO SUMOTUTHFRSA 04/17/21 10/26/23 History Loperamide [Imodium] 2 mg PO QID PRN 04/17/21 10/26/23 History Tamsulosin HCl [Flomax] 0.8 mg PO HS 04/17/21 10/26/23 History Apixaban [Eliquis] 2.5 mg PO BID 10/26/23 10/26/23 History Aspirin EC [Ecotrin Low Dose] 81 mg PO DAILY 10/26/23 10/26/23 History Chlorhexidine Gluconate [Peridex] 15 ml PO BID 10/26/23 10/26/23 History Cholecalciferol (Vitamin D3) 50 mcg PO DAILY 10/26/23 10/26/23 History [Vitamin D3 (50 Mcg = 2000 Iu)] Diclofenac Sodium [Voltaren 1 applic TOPICAL DAILY PRN 10/26/23 10/26/23 History Arthritis Pain 1% Gel] Diphenoxylate HCl/Atropine 2 tab PO QID PRN 10/26/23 10/26/23 History [Lomotil 2.5-0.025 mg Tablet] Ferrous Sulfate [Feosol] 325 mg PO Q48H 10/26/23 10/26/23 History Levothyroxine Sodium 50 mcg PO WE 10/26/23 10/26/23 History Lidocaine 5% Patch [Lidoderm] 1 patch TOPICAL DAILY PRN 10/26/23 10/26/23 History Oxybutynin Chloride [oxyBUTYnin 15 mg PO DAILY 10/26/23 10/26/23 History chloride ER] Pembrolizumab [Keytruda] 200 mg IV DIRECTED 10/26/23 10/26/23 History Triamcinolone Acetonide [Nasacort] 1 spray EA NOSTRIL DAILY PRN 10/26/23 10/26/23 History Xgeva Injection 1 dose SQ Q56D 10/26/23 10/26/23 History Allergies Allergy/AdvReac Type Severity Reaction Status Date / Time weed pollen Allergy runny Verified 10/31/23 18:20 nose, red eyes dust mites Allergy rash, Uncoded 10/31/23 18:20 swelling MOLD Allergy RASH, Uncoded 10/31/23 18:20 SWELLING. Physical Exam Vitals: Vital Signs Temp Pulse Resp BP BP Pulse Ox 11/03/23 07:29 98.0 F 78 17 94/60 96 11/03/23 01:06 98.3 F 65 16 101/61 95 11/02/23 22:40 59 L 112/66 96 11/02/23 21:10 90 118/69 96 11/02/23 20:25 51 L 118/65 95 11/02/23 20:10 89 122/73 98 11/02/23 20:00 16 11/02/23 19:55 56 L 118/66 97 11/02/23 19:40 97.6 F 77 16 128/68 96 11/02/23 19:15 92 17 171/75 128/63 100 11/02/23 19:00 85 17 150/67 99 11/02/23 18:42 97.5 F L 107 H 14 146/74 99 11/02/23 15:03 97 F L 53 L 16 138/65 97 11/02/23 12:20 98.1 F 69 16 145/78 96 Intake and Output 11/02/23 11/03/23 11/03/23 22:59 06:59 14:59 Intake Total 800 Output Total 220 700 Balance 580 -700 Intake: IV 800 Output: Drainage 400 Face 400 Urine 200 300 Stool 0 Estimated Blood Loss 20 Other: Voiding Method Bedside Commode Indwelling Catheter # Voids 0 # Bowel Movements 1 GENERAL DESCRIPTION: Elderly male up in the chair, no distress. No tachypnea or accessory muscle of respiration use. HEENT: Shows Pallor , no scleral icterus. Oral mucous membrane is dry. No pharyngeal erythema or thrush NECK: Trachea central, no thyromegaly. LUNGS: Unlabored breathing. Decreased breath sound the base. No wheeze or crackle. HEART: S1, S2, regular rate and rhythm. No loud murmur ABDOMEN: Soft, mild distention and tenderness EXTREMITIES: No edema of feet. SKIN: No rash, no masses palpable. NEUROLOGICAL: The patient is awake, alert, oriented x3, mood and affect normal. Results CBC & Chem 7: 11/04/23 05:18 11/04/23 05:18 Labs: Abnormal Lab Results - Last 24 Hours (Table) 11/02/23 11/02/23 11/02/23 Range/Units 06:16 06:16 20:18 RBC 3.74 L (4.40-5.60) X 10*6/uL Hgb 12.7 L (13.0-17.0) g/dL Hct 39.5 L (39.6-50.0) % MCV 105.6 H (80.0-97.0) FL MCH 34.0 H (27.0-32.0) pg Plt Count 132 L (140-440) X 10*3/uL Lymphocytes # 0.34 L (0.90-5.00) X 10*3/uL Sodium 149 H (135-145) mmol/L Chloride 111 H (96-109) mmol/L Carbon Dioxide 19.6 L (21.6-31.8) mmol/L Anion Gap 18.40 H (4.00-12.00) mmol/L BUN 88.7 H (9.0-27.0) mg/dL Creatinine 1.9 H (0.6-1.5) mg/dL Est GFR (CKD-EPI) 35 L (>=60) BUN/Creatinine Ratio 46.68 H (12.00-20.00) Ratio Glucose 68 L (70-110) mg/dL POC Glucose (mg/dL) 67 L (70-110) mg/dL AST 54 H (14-35) U/L Total Protein 5.1 L (6.2-8.2) g/dL Albumin 3.4 L (3.8-4.9) g/dL Urine Protein (Negative) Urine Ketones (Negative) Urine Blood (Negative) Ur Leukocyte Esterase (Negative) Urine RBC (0-5) /hpf Urine WBC (0-5) /hpf Amorphous Sediment (None) /hpf Urine Bacteria (None) /hpf Hyaline Casts (0-2) /lpf Urine Mucus (None) /hpf 11/03/23 11/03/23 Range/Units 05:15 07:19 RBC (4.40-5.60) X 10*6/uL Hgb (13.0-17.0) g/dL Hct (39.6-50.0) % MCV (80.0-97.0) FL MCH (27.0-32.0) pg Plt Count (140-440) X 10*3/uL Lymphocytes # (0.90-5.00) X 10*3/uL Sodium (135-145) mmol/L Chloride 118 H (96-109) mmol/L Carbon Dioxide 19 L (21.6-31.8) mmol/L Anion Gap (4.00-12.00) mmol/L BUN 73 H (9.0-27.0) mg/dL Creatinine 1.60 H (0.6-1.5) mg/dL Est GFR (CKD-EPI) (>=60) BUN/Creatinine Ratio (12.00-20.00) Ratio Glucose 67 L (70-110) mg/dL POC Glucose (mg/dL) (70-110) mg/dL AST (14-35) U/L Total Protein 4.4 L (6.2-8.2) g/dL Albumin 2.5 L (3.8-4.9) g/dL Urine Protein 1+ H (Negative) Urine Ketones 2+ H (Negative) Urine Blood Moderate H (Negative) Ur Leukocyte Esterase Trace H (Negative) Urine RBC 23 H (0-5) /hpf Urine WBC 34 H (0-5) /hpf Amorphous Sediment Rare H (None) /hpf Urine Bacteria Rare H (None) /hpf Hyaline Casts 8 H (0-2) /lpf Urine Mucus Rare H (None) /hpf Microbiology - Last 24 Hours (Table) 11/02/23 18:20 Gram Stain - Preliminary Other - Other Assessment and Plan (1) Incarcerated inguinal hernia, unilateral Current Visit: Yes Status: Acute Code(s): K40.30 - UNIL INGUINAL HERNIA, W OBST, W/O GANGR, NOT SPCF RECUR SNOMED Code(s): 480103048 (2) Peritonitis Current Visit: Yes Status: Acute Code(s): K65.9 - PERITONITIS, UNSPECIFIED SNOMED Code(s): 40109899 (3) Aspiration pneumonia Current Visit: Yes Status: Acute Code(s): J69.0 - PNEUMONITIS DUE TO INHALATION OF FOOD AND VOMIT SNOMED Code(s): 836898796 Plan: 1patient presented to hospital with nausea vomiting abdominal pain and this patient has been diagnosed with incarcerated left inguinal hernia status post open repair of the incarcerated left inguinal hernia culture of the cloudy ascitic fluid left orchiectomy laparotomy with lysis of additions with a cloudy peritoneal fluid suspicious for leakage of the gut remi from incarcerated hernia and we need to cover for the enteric gram-negative both aerobes and anaerobes 2patient also have left lower lobe infiltrate/pneumonia concern for possible aspiration pneumonitis 3discontinue Rocephin and Flagyl 4we will start the patient on Zosyn 3.375 g every 8 hours waiting for the culture to finalize We will follow on clinical condition and cultures to further adjust medication if needed Thank you for this consultation we will follow the patient along with you Dictation was produced using M[employer] dictation software. please excuse any grammatical, word or spelling errors. Time with Patient: Greater than 30
[2023-11-04 11:56] LABS: Glucose,Whole Blood 80 mg/dL (70-110)
--- NOTE | 2023-11-04 13:26 | P.PN ---
Subjective Progress Note Date: 11/04/23 Patient is being seen for follow-up for acute kidney injury. Creatinine today is 1.8, up from yesterday 1.6. Patient remains with NG tube. Abdominal pain is slightly better. No significant complaints today. Objective - Vital Signs Vital signs: Vital Signs Temp 98.1 F 11/04/23 06:55 Pulse 67 11/04/23 06:55 Resp 16 11/04/23 06:55 BP 112/68 11/04/23 06:55 Pulse Ox 97 11/04/23 06:55 FiO2 Intake & Output 11/03/23 11/04/23 11/04/23 18:59 06:59 18:59 Output Total 550 Balance -550 Output: Drainage 300 Face 300 Urine 250 Other: Voiding Method Indwelling Catheter Indwelling Catheter - Exam Vital signs are stable. General: No acute distress; NG tube in place. Heart: Regular rate and rhythm present. Lungs: Bilateral breath sounds present; no rhonchi, wheezes, or rales. Abdomen: Soft, nontender, nondistended. Extremities: No edema present. - Labs CBC & Chem 7: 11/04/23 05:18 11/04/23 05:18 Labs: Abnormal Lab Results - Last 24 Hours (Table) 11/03/23 11/03/23 11/03/23 Range/Units 07:19 07:19 17:12 WBC 4.21 L (4.50-10.00) X 10*3/uL RBC 3.61 L (4.40-5.60) X 10*6/uL Hgb 12.1 L (13.0-17.0) g/dL Hct 38.3 L (39.6-50.0) % MCV 106.1 H (80.0-97.0) FL MCH 33.5 H (27.0-32.0) pg MCHC 31.6 L (32.0-37.0) g/dL Plt Count 116 L (140-440) X 10*3/uL Lymphocytes # 0.21 L (0.90-5.00) X 10*3/uL Eosinophils # 0.01 L (0.04-0.35) X 10*3/uL Chloride 118 H (98-107) mmol/L Carbon Dioxide 19 L (22-30) mmol/L BUN 73 H (9-20) mg/dL Creatinine 1.60 H (0.66-1.25) mg/dL Glucose 67 L (74-99) mg/dL POC Glucose (mg/dL) 65 L (70-110) mg/dL Total Protein 4.4 L (6.3-8.2) g/dL Albumin 2.5 L (3.5-5.0) g/dL 11/03/23 Range/Units 17:50 WBC (4.50-10.00) X 10*3/uL RBC (4.40-5.60) X 10*6/uL Hgb (13.0-17.0) g/dL Hct (39.6-50.0) % MCV (80.0-97.0) FL MCH (27.0-32.0) pg MCHC (32.0-37.0) g/dL Plt Count (140-440) X 10*3/uL Lymphocytes # (0.90-5.00) X 10*3/uL Eosinophils # (0.04-0.35) X 10*3/uL Chloride (98-107) mmol/L Carbon Dioxide (22-30) mmol/L BUN (9-20) mg/dL Creatinine (0.66-1.25) mg/dL Glucose (74-99) mg/dL POC Glucose (mg/dL) 129 H (70-110) mg/dL Total Protein (6.3-8.2) g/dL Albumin (3.5-5.0) g/dL Microbiology - Last 24 Hours (Table) 11/02/23 18:20 Gram Stain - Preliminary Other - Other Assessment and Plan Assessment: 1. Acute kidney injury on chronic kidney disease stage III. Acute kidney injury, prerenal from decreased oral intake and borderline low blood pressure, improving with IV hydration. 2. Left nephrectomy for renal cell cancer. 3. 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 Baseline creatinine 1.5-1.7. Etiology: nephroscerloris and solitary kidney. 4. Hypertension with chronic kidney disease stage III 5. Hypernatremia associated with free water deficit. 6. Small bowel obstruction-being followed by surgery, currently with NG tube. 7. History of BPH-maintained on Flomax. 8. 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 9. Left lower lobe pneumonia-maintained on antibiotics. 10. Anion gap metabolic acidosis associated with acute kidney injury and saline. Plan: Continue with IV hydration. Continue on IV antibiotics, as per primary. Avoid nephrotoxic agents. Repeat labs in the morning. Patient seen and examined with the resident. Agree with findings, assessment and plan.
--- NOTE | 2023-11-04 16:08 | P.PN ---
Subjective Progress Note Date: 11/04/23 CHIEF COMPLAINT: Incarcerated left inguinal hernia, small bowel obstruction and ascites HISTORY OF PRESENT ILLNESS: Patient is postop day #2 status post open repair incarcerated left inguinal hernia, culture of cloudy ascitic fluid, left orchiectomy, laparotomy with lysis of adhesions, small bowel resection. Patient has NG tube in place with 300 mL output. He reports his pain is controlled. Denies any nausea. Denies any bowel activity. Afebrile. WBC 5.24 fluid culture pending PHYSICAL EXAM: VITAL SIGNS: Reviewed. GENERAL: Well-developed in no acute distress. ABDOMEN: Soft. Nondistended. Incisional dressings clean dry and intact NEUROLOGIC: Alert and oriented. Cranial nerves II through XII grossly intact. ASSESSMENT: 1. Incarcerated left inguinal hernia, small bowel obstruction, ascites PLAN: -Continue NG tube for decompression -Keep patient n.p.o. -Continue antibiotics per infectious disease -Continue pain management -Increase activity level -Encourage patient to use incentive spirometer -DVT prophylaxis Lovenox GI prophylaxis Protonix Physician Packing And Final Assembly Supervisor note has been reviewed by physician. Signing provider agrees with the documented findings, assessment, and plan of care. I have personally seen and examined the patient, reviewed the ONCOLOGY TECHNICIAN /PAs history, exam and MDM and agree with the assessment and plan as written. Based on total visit time, I have performed more than 50% of the visit. As above: Patient doing well today. Mild discomfort. Gastric output bilious. No flatus. Keep NG tube today. Reassess in a.m. Objective - Vital Signs Vital signs: Vital Signs Temp 97.5 F L 11/04/23 12:22 Pulse 71 11/04/23 12:22 Resp 16 11/04/23 12:22 BP 113/72 11/04/23 12:22 Pulse Ox 98 11/04/23 12:22 FiO2 Intake & Output 11/03/23 11/04/23 11/04/23 18:59 06:59 18:59 Output Total 550 Balance -550 Output: Drainage 300 Face 300 Urine 250 Other: Voiding Method Indwelling Catheter Indwelling Catheter Indwelling Catheter - Labs CBC & Chem 7: 11/04/23 05:18 11/04/23 05:18 Labs: Abnormal Lab Results - Last 24 Hours (Table) 11/03/23 11/03/23 11/04/23 Range/Units 17:12 17:50 05:18 RBC 3.69 L (4.40-5.60) X 10*6/uL Hgb 12.2 L (13.0-17.0) g/dL Hct 38.7 L (39.6-50.0) % MCV 104.9 H (80.0-97.0) FL MCH 33.1 H (27.0-32.0) pg MCHC 31.5 L (32.0-37.0) g/dL Plt Count 122 L (140-440) X 10*3/uL Lymphocytes # 0.31 L (0.90-5.00) X 10*3/uL Sodium (135-145) mmol/L Chloride (96-109) mmol/L BUN (9.0-27.0) mg/dL Creatinine (0.6-1.5) mg/dL Est GFR (CKD-EPI) (>=60) BUN/Creatinine Ratio (12.00-20.00) Ratio POC Glucose (mg/dL) 65 L 129 H (70-110) mg/dL Calcium (8.7-10.3) mg/dL Total Protein (6.2-8.2) g/dL Albumin (3.8-4.9) g/dL 11/04/23 Range/Units 05:18 RBC (4.40-5.60) X 10*6/uL Hgb (13.0-17.0) g/dL Hct (39.6-50.0) % MCV (80.0-97.0) FL MCH (27.0-32.0) pg MCHC (32.0-37.0) g/dL Plt Count (140-440) X 10*3/uL Lymphocytes # (0.90-5.00) X 10*3/uL Sodium 146 H (135-145) mmol/L Chloride 114 H (96-109) mmol/L BUN 65.4 H (9.0-27.0) mg/dL Creatinine 1.8 H (0.6-1.5) mg/dL Est GFR (CKD-EPI) 38 L (>=60) BUN/Creatinine Ratio 36.33 H (12.00-20.00) Ratio POC Glucose (mg/dL) (70-110) mg/dL Calcium 8.3 L (8.7-10.3) mg/dL Total Protein 4.5 L (6.2-8.2) g/dL Albumin 2.8 L (3.8-4.9) g/dL Microbiology - Last 24 Hours (Table) 11/02/23 18:20 Gram Stain - Preliminary Other - Other Wound Culture - Preliminary
--- NOTE | 2023-11-04 16:13 | P.PN ---
Subjective Progress Note Date: 11/04/23 Principal diagnosis: Reason for follow-up is incarcerated left inguinal hernia concerning for peritonitis and pneumonia Patient is a 82-year-old male with a past medical history significant for hypertension hyperlipidemia GI bleed reflux sleep apnea, renal carcinoma, p resented to the hospital with abdominal pain constipation has been diagnosed with incarcerated left groin hernia s/p extensive surgery and evidence of cloudy peritoneal fluid. On today's evaluation that is 11/04/2023, the patient continues to be afebrile, the patient is on room air and breathing comfortably, the Pt denies having any chest pain or any worsening cough, the patient abdominal pain has slightly decreased in intensity no nausea no vomiting no bowel movement. Patient white count is 5.24, creatinine is 1.8 abdominal cultures currently pending Objective - Vital Signs Vital signs: Vital Signs Temp 98.1 F 11/04/23 06:55 Pulse 70 11/04/23 08:23 Resp 16 11/04/23 06:55 BP 112/68 11/04/23 06:55 Pulse Ox 97 11/04/23 06:55 FiO2 Intake & Output 11/03/23 11/04/23 11/04/23 18:59 06:59 18:59 Output Total 550 Balance -550 Output: Drainage 300 Face 300 Urine 250 Other: Voiding Method Indwelling Catheter Indwelling Catheter Indwelling Catheter - Exam GENERAL DESCRIPTION: An elderly male lying in bed in no distress RESPIRATORY SYSTEM: Unlabored breathing , decreased breath sounds at bases HEART: S1 S2 regular rate and rhythm , ABDOMEN: Soft , abdominal incision intact no tenderness EXTREMITIES: No edema feet - Labs CBC & Chem 7: 11/04/23 05:18 11/04/23 05:18 Labs: Abnormal Lab Results - Last 24 Hours (Table) 11/03/23 11/03/23 11/03/23 Range/Units 07:19 17:12 17:50 WBC 4.21 L (4.50-10.00) X 10*3/uL RBC 3.61 L (4.40-5.60) X 10*6/uL Hgb 12.1 L (13.0-17.0) g/dL Hct 38.3 L (39.6-50.0) % MCV 106.1 H (80.0-97.0) FL MCH 33.5 H (27.0-32.0) pg MCHC 31.6 L (32.0-37.0) g/dL Plt Count 116 L (140-440) X 10*3/uL Lymphocytes # 0.21 L (0.90-5.00) X 10*3/uL Eosinophils # 0.01 L (0.04-0.35) X 10*3/uL Sodium (135-145) mmol/L Chloride (96-109) mmol/L BUN (9.0-27.0) mg/dL Creatinine (0.6-1.5) mg/dL Est GFR (CKD-EPI) (>=60) BUN/Creatinine Ratio (12.00-20.00) Ratio POC Glucose (mg/dL) 65 L 129 H (70-110) mg/dL Calcium (8.7-10.3) mg/dL Total Protein (6.2-8.2) g/dL Albumin (3.8-4.9) g/dL 11/04/23 11/04/23 Range/Units 05:18 05:18 WBC (4.50-10.00) X 10*3/uL RBC 3.69 L (4.40-5.60) X 10*6/uL Hgb 12.2 L (13.0-17.0) g/dL Hct 38.7 L (39.6-50.0) % MCV 104.9 H (80.0-97.0) FL MCH 33.1 H (27.0-32.0) pg MCHC 31.5 L (32.0-37.0) g/dL Plt Count 122 L (140-440) X 10*3/uL Lymphocytes # 0.31 L (0.90-5.00) X 10*3/uL Eosinophils # (0.04-0.35) X 10*3/uL Sodium 146 H (135-145) mmol/L Chloride 114 H (96-109) mmol/L BUN 65.4 H (9.0-27.0) mg/dL Creatinine 1.8 H (0.6-1.5) mg/dL Est GFR (CKD-EPI) 38 L (>=60) BUN/Creatinine Ratio 36.33 H (12.00-20.00) Ratio POC Glucose (mg/dL) (70-110) mg/dL Calcium 8.3 L (8.7-10.3) mg/dL Total Protein 4.5 L (6.2-8.2) g/dL Albumin 2.8 L (3.8-4.9) g/dL Microbiology - Last 24 Hours (Table) 11/02/23 18:20 Gram Stain - Preliminary Other - Other Assessment and Plan (1) Incarcerated inguinal hernia, unilateral Current Visit: Yes Status: Acute Code(s): K40.30 - UNIL INGUINAL HERNIA, W OBST, W/O GANGR, NOT SPCF RECUR SNOMED Code(s): 717488117 (2) Peritonitis Current Visit: Yes Status: Acute Code(s): K65.9 - PERITONITIS, UNSPECIFIED SNOMED Code(s): 01908391 (3) Aspiration pneumonia Current Visit: Yes Status: Acute Code(s): J69.0 - PNEUMONITIS DUE TO INHALATION OF FOOD AND VOMIT SNOMED Code(s): 069265592 Plan: 1patient presented to hospital with nausea vomiting abdominal pain and this patient has been diagnosed with incarcerated left inguinal hernia status post open repair of the incarcerated left inguinal hernia culture of the cloudy ascitic fluid left orchiectomy laparotomy with lysis of additions with a cloudy peritoneal fluid suspicious for leakage of the gut remi from incarcerated hernia and we need to cover for the enteric gram-negative both aerobes and anaerobes 2patient also have left lower lobe infiltrate/pneumonia concern for possible aspiration pneumonitis 3patient to continue with Zosyn 3.375 g every 8 hours waiting for the culture to finalize Family the bedside questions were answered Dictation was produced using [employer] dictation software. please excuse any grammatical, word or spelling errors. Time with Patient: Less than 30
--- NOTE | 2023-11-04 16:52 | P.PN ---
Subjective Progress Note Date: 11/04/23 Principal diagnosis: Metastatic RCC, intolerance to oral therapy. Admit for intractable N,V, dehydration In follow-up today patient is reporting that he does feel better, less pain, he is ready for the NG tube to come out, he is reporting thirst. Objective - Vital Signs Vital signs: Vital Signs Temp 97.5 F L 11/04/23 12:22 Pulse 71 11/04/23 12:22 Resp 16 11/04/23 12:22 BP 113/72 11/04/23 12:22 Pulse Ox 98 11/04/23 12:22 FiO2 Intake & Output 11/03/23 11/04/23 11/04/23 18:59 06:59 18:59 Output Total 550 Balance -550 Output: Drainage 300 Face 300 Urine 250 Other: Voiding Method Indwelling Catheter Indwelling Catheter Indwelling Catheter - Constitutional General appearance: Present: cooperative, no acute distress, thin - EENT Eyes: Present: anicteric sclerae, EOMI ENT: Present: hearing grossly normal - Respiratory Respiratory: bilateral: CTA - Cardiovascular Rhythm: regular - Peripheral edema leg Peripheral Edema: bilateral: None - Gastrointestinal Gastrointestinal Comment(s): 1 bowel sound at 2 minutes General gastrointestinal: Present: soft - Integumentary Integumentary: Present: pale - Neurologic Neurologic: Present: CNII-XII intact - Musculoskeletal Musculoskeletal: Present: generalized weakness - Psychiatric Psychiatric: Present: A&O x's 3, appropriate affect, intact judgment & insight - Labs CBC & Chem 7: 11/04/23 05:18 11/04/23 05:18 Labs: Abnormal Lab Results - Last 24 Hours (Table) 11/03/23 11/03/23 11/04/23 Range/Units 17:12 17:50 05:18 RBC 3.69 L (4.40-5.60) X 10*6/uL Hgb 12.2 L (13.0-17.0) g/dL Hct 38.7 L (39.6-50.0) % MCV 104.9 H (80.0-97.0) FL MCH 33.1 H (27.0-32.0) pg MCHC 31.5 L (32.0-37.0) g/dL Plt Count 122 L (140-440) X 10*3/uL Lymphocytes # 0.31 L (0.90-5.00) X 10*3/uL Sodium (135-145) mmol/L Chloride (96-109) mmol/L BUN (9.0-27.0) mg/dL Creatinine (0.6-1.5) mg/dL Est GFR (CKD-EPI) (>=60) BUN/Creatinine Ratio (12.00-20.00) Ratio POC Glucose (mg/dL) 65 L 129 H (70-110) mg/dL Calcium (8.7-10.3) mg/dL Total Protein (6.2-8.2) g/dL Albumin (3.8-4.9) g/dL 11/04/23 Range/Units 05:18 RBC (4.40-5.60) X 10*6/uL Hgb (13.0-17.0) g/dL Hct (39.6-50.0) % MCV (80.0-97.0) FL MCH (27.0-32.0) pg MCHC (32.0-37.0) g/dL Plt Count (140-440) X 10*3/uL Lymphocytes # (0.90-5.00) X 10*3/uL Sodium 146 H (135-145) mmol/L Chloride 114 H (96-109) mmol/L BUN 65.4 H (9.0-27.0) mg/dL Creatinine 1.8 H (0.6-1.5) mg/dL Est GFR (CKD-EPI) 38 L (>=60) BUN/Creatinine Ratio 36.33 H (12.00-20.00) Ratio POC Glucose (mg/dL) (70-110) mg/dL Calcium 8.3 L (8.7-10.3) mg/dL Total Protein 4.5 L (6.2-8.2) g/dL Albumin 2.8 L (3.8-4.9) g/dL Microbiology - Last 24 Hours (Table) 11/02/23 18:20 Gram Stain - Preliminary Other - Other Wound Culture - Preliminary Assessment and Plan (1) Abdominal pain Current Visit: Yes Status: Acute Priority: High Code(s): R10.9 - UNSPECIFIED ABDOMINAL PAIN SNOMED Code(s): 74289712 (2) Inguinal hernia Current Visit: Yes Status: Acute Priority: High Code(s): K40.90 - UNIL INGUINAL HERNIA, W/O OBST OR GANGR, NOT SPCF RECUR SNOMED Code(s): 980751969 (3) Renal cell carcinoma Current Visit: Yes Status: Acute Priority: High Code(s): C64.9 - MALIGNANT NEOPLASM OF UNSP KIDNEY, EXCEPT RENAL PELVIS SNOMED Code(s): 974870703 Plan: SBO, inguinal hernia -abdominal pain, nausea and vomiting. Transferred from [facility] due to concerns for small bowel obstruction as well as possible pneumonia. -General surgery has performed hernia repair and pt reports decreased pain. NG tube still in place, pending BS, flatus. Surgery will determine when this can be removed Metastatic renal cell carcinoma -CT 10/01/23 showed disease progression, with new osseous lesions. Thankfully, pt does not have any specific symptoms from these lesion. 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 -Recommended to start oral Lenvima and keytruda. He started Lenvima 10/25/23, he had not yet received keytruda. Took two doses of lenvima when he experienced intractable N,V, "nothing would stay down". [place] that maybe hernia exacerbated by N,V, and that N,V may have been in part due to SBO, not just lenvima. Pt and family agree. -Hold Lenvima for now and until healed from surgery. -May consider re-challenge of lenvima at same dose. Pt will be assessed prior to resuming any treatment. -Clinic f/u in DC plan.
[2023-11-04 17:12] LABS: Glucose,Whole Blood 68 mg/dL (70-110)
--- NOTE | 2023-11-04 17:25 | P.PN ---
Subjective Progress Note Date: 11/04/23 Isidoro Prado, is an 82-year-old male who presented to [facility] emergency room with a chief complaint of Abdominal pain and hernia. Patient was a transfer from [facility]. Per patient he was started on a new medication for treatment of renal cell carcinomaPer oncology services and reports that he started having issues after second dose with abdominal pain nausea and vomiting He was evaluated in the emergency room vital examination on presentation revealedTemp 97.8, heart rate 67, respiratory rate 16, blood pressure 123/69 with pulse ox 90% on room air Laboratory data revealsCreatinine 2.3 bun 105, white blood cell 5.6, hemoglobin 13.3, AST 40, ALT 28 and alkaline phosphatase 91 Testing in the emergency room revealed Imaging in [facility]. Chest x-ray completed showing minimal left lower lobe infiltrate Patient was admitted to medical floor for further evaluation and treatment. At this time NG tube was placed, Surgical service is consulted. Patient started on treatment for pneumonia with IV antibiotics Rocephin and Zithromax repeat 2 view chest x-ray ordered. Nephrology service is consulted for acute kidney injury patient maintained normal saline at 100 and oncology service is consulted Past medical history is significant for Renal cell carcinoma follows with oncology, Diverticulitis, previous GI bleed, hyperlipidemia, hypertension, sleep apnea On review of systems : Patient is resting comfortably in bed. Patient reports improvement with abdominal pain. Patient denies any chest pain or shortness of breath. At this time patient denies nausea vomiting or diarrhea.Patient denies any urinary burning or frequency On 11/02/2023 patient's alert and oriented 3. Patient was evaluated by surgical services recommending surgical intervention for hernia small bowel obstruction. Patient remains with NG tube reports improvement. Hematology services also following for metastatic renal cell carcinoma. At this time patient denies chest pain or shortness of breath. Patient denies nausea vomiting or diarrhea. Patient denies any urinary burning or frequency. Current vital signs temp 97.7, heart rate 73, respiratory rate 16, blood pressure 119/69 with pulse ox 97% 11/03/2023 patient is alert and oriented 3. Patient is status post open repair incarcerated left inguinal hernia with left orchiectomy with lysis of adhesions and small bowel resection. Patient reports he feels well. Patient denies any chest pain or shortness of breath. Patient denies nausea vomiting or diarrhea. Patient denies any urinary burning or frequency patient remains nothing by mouth at this time. Current vital signs temp 98.0, heart rate 78, respiratory rate 17, blood pressure 94/60 with a pulse ox 96% On 11/04/2023 patient was seen and examined on the medical floor he is alert and oriented x 3 in no apparent distress, he is still having NG tube in, he is complaining of mild abdominal pain and discomfort, otherwise he denies any complaints there is no fever or chills no headache or dizziness no chest pain no shortness of breath no cough no nausea or vomiting no diarrhea no blood in the stools and no urinary symptoms. Vital examination today reveals a temperature of 97.5 pulse 71 respiration 16 blood pressure 113/72 pulse ox 98% on room air his white blood count is 5.24 hemoglobin 12.2 platelet count 122 BUN 65 creatini ne 1.8 Objective - Vital Signs Vital signs: Vital Signs Temp 97.5 F L 11/04/23 12:22 Pulse 71 11/04/23 12:22 Resp 16 11/04/23 12:22 BP 113/72 11/04/23 12:22 Pulse Ox 98 11/04/23 12:22 FiO2 Intake & Output 11/03/23 11/04/23 11/04/23 18:59 06:59 18:59 Output Total 550 Balance -550 Output: Drainage 300 Face 300 Urine 250 Other: Voiding Method Indwelling Catheter Indwelling Catheter Indwelling Catheter - Exam In general patient is alert and oriented x 3 in no distress HEENT head normocephalic and atraumatic Neck is supple no JVD no goiter no lymphadenopathy no carotid bruit Chest examination is clear to auscultation no crackles no wheezing Cardiac exam reveals regular heart sounds S1 and S2 no gallops no murmurs Abdomen is soft nontender no organomegaly with normal bowel sounds Extremity exam reveals no edema no cyanosis or clubbing Neurological examination reveals no gross focal deficits - Labs CBC & Chem 7: 11/04/23 05:18 11/04/23 05:18 Labs: Abnormal Lab Results - Last 24 Hours (Table) 11/03/23 11/04/23 11/04/23 Range/Units 17:50 05:18 05:18 RBC 3.69 L (4.40-5.60) X 10*6/uL Hgb 12.2 L (13.0-17.0) g/dL Hct 38.7 L (39.6-50.0) % MCV 104.9 H (80.0-97.0) FL MCH 33.1 H (27.0-32.0) pg MCHC 31.5 L (32.0-37.0) g/dL Plt Count 122 L (140-440) X 10*3/uL Lymphocytes # 0.31 L (0.90-5.00) X 10*3/uL Sodium 146 H (135-145) mmol/L Chloride 114 H (96-109) mmol/L BUN 65.4 H (9.0-27.0) mg/dL Creatinine 1.8 H (0.6-1.5) mg/dL Est GFR (CKD-EPI) 38 L (>=60) BUN/Creatinine Ratio 36.33 H (12.00-20.00) Ratio POC Glucose (mg/dL) 129 H (70-110) mg/dL Calcium 8.3 L (8.7-10.3) mg/dL Total Protein 4.5 L (6.2-8.2) g/dL Albumin 2.8 L (3.8-4.9) g/dL 11/04/23 Range/Units 17:10 RBC (4.40-5.60) X 10*6/uL Hgb (13.0-17.0) g/dL Hct (39.6-50.0) % MCV (80.0-97.0) FL MCH (27.0-32.0) pg MCHC (32.0-37.0) g/dL Plt Count (140-440) X 10*3/uL Lymphocytes # (0.90-5.00) X 10*3/uL Sodium (135-145) mmol/L Chloride (96-109) mmol/L BUN (9.0-27.0) mg/dL Creatinine (0.6-1.5) mg/dL Est GFR (CKD-EPI) (>=60) BUN/Creatinine Ratio (12.00-20.00) Ratio POC Glucose (mg/dL) 68 L (70-110) mg/dL Calcium (8.7-10.3) mg/dL Total Protein (6.2-8.2) g/dL Albumin (3.8-4.9) g/dL Microbiology - Last 24 Hours (Table) 11/02/23 18:20 Gram Stain - Preliminary Other - Other Wound Culture - Preliminary Assessment and Plan Assessment: 1.Abdominal pain secondary to hernia and small bowel obstruction. Status post open repair of incarcerated left inguinal hernia with culture cloudy ascitic fluid left orchiectomy with lysis of adhesions and small bowel resection on 12/2023 2. Pneumonia. Patient started on IV antibiotics repeat two-view chest x-ray ordered 3. Acute kidney injury patient started normal saline at 100. Nephrology services consulted 4. Recent diagnosis of metastic renal cell carcinoma. Oncology service is consulted 5. History of diverticulitis with GI bleed 6. History of essential hypertension 7. History of hyperlipidemia DVT prophylaxis Lovenox. GI prophylaxis Protonix Surgical services, oncology and nephrology service is consulted Patient started on IV antibiotics Continue normal saline NG tube in place
[2023-11-04] MEDS: DEXTROSE 5%-0.45% NACL 1,000 ML IV SCH (18:10)
[2023-11-04 20:39] LABS: Glucose,Whole Blood 90 mg/dL (70-110)
[2023-11-05 07:03] LABS: Glucose,Whole Blood 96 mg/dL (70-110)
--- NOTE | 2023-11-05 10:15 | P.PN ---
Subjective Progress Note Date: 11/05/23 Isidoro Prado, is an 82-year-old male who presented to [facility] emergency room with a chief complaint of Abdominal pain and hernia. Patient was a transfer from [facility]. Per patient he was started on a new medication for treatment of renal cell carcinomaPer oncology services and reports that he started having issues after second dose with abdominal pain nausea and vomiting He was evaluated in the emergency room vital examination on presentation revealedTemp 97.8, heart rate 67, respiratory rate 16, blood pressure 123/69 with pulse ox 90% on room air Laboratory data revealsCreatinine 2.3 bun 105, white blood cell 5.6, hemoglobin 13.3, AST 40, ALT 28 and alkaline phosphatase 91 Testing in the emergency room revealed Imaging in [facility]. Chest x-ray completed showing minimal left lower lobe infiltrate Patient was admitted to medical floor for further evaluation and treatment. At this time NG tube was placed, Surgical service is consulted. Patient started on treatment for pneumonia with IV antibiotics Rocephin and Zithromax repeat 2 view chest x-ray ordered. Nephrology service is consulted for acute kidney injury patient maintained normal saline at 100 and oncology service is consulted Past medical history is significant for Renal cell carcinoma follows with oncology, Diverticulitis, previous GI bleed, hyperlipidemia, hypertension, sleep apnea On review of systems : Patient is resting comfortably in bed. Patient reports improvement with abdominal pain. Patient denies any chest pain or shortness of breath. At this time patient denies nausea vomiting or diarrhea.Patient denies any urinary burning or frequency On 11/02/2023 patient's alert and oriented 3. Patient was evaluated by surgical services recommending surgical intervention for hernia small bowel obstruction. Patient remains with NG tube reports improvement. Hematology services also following for metastatic renal cell carcinoma. At this time patient denies chest pain or shortness of breath. Patient denies nausea vomiting or diarrhea. Patient denies any urinary burning or frequency. Current vital signs temp 97.7, heart rate 73, respiratory rate 16, blood pressure 119/69 with pulse ox 97% 11/03/2023 patient is alert and oriented 3. Patient is status post open repair incarcerated left inguinal hernia with left orchiectomy with lysis of adhesions and small bowel resection. Patient reports he feels well. Patient denies any chest pain or shortness of breath. Patient denies nausea vomiting or diarrhea. Patient denies any urinary burning or frequency patient remains nothing by mouth at this time. Current vital signs temp 98.0, heart rate 78, respiratory rate 17, blood pressure 94/60 with a pulse ox 96% On 11/04/2023 patient was seen and examined on the medical floor he is alert and oriented x 3 in no apparent distress, he is still having NG tube in, he is complaining of mild abdominal pain and discomfort, otherwise he denies any complaints there is no fever or chills no headache or dizziness no chest pain no shortness of breath no cough no nausea or vomiting no diarrhea no blood in the stools and no urinary symptoms. Vital examination today reveals a temperature of 97.5 pulse 71 respiration 16 blood pressure 113/72 pulse ox 98% on room air his white blood count is 5.24 hemoglobin 12.2 platelet count 122 BUN 65 creatini ne 1.8 On 11/05/2023 patient is alert and oriented x 3 patient currently sitting up in chair. Patient still requiring NG tube at this time per surgical services. Patient reports mild abdominal pain. Patient denies any nausea or vomiting. Antibiotics adjusted to IV Zosyn per infectious disease awaiting final cultures. Current vital signs Temp 97.9, heart rate 60, respiratory rate 16, blood pre ssure 120/74 with a pulse ox of 99% Objective - Vital Signs Vital signs: Vital Signs Temp 97.9 F 11/05/23 07:00 Pulse 72 11/05/23 08:45 Resp 16 11/05/23 07:00 BP 120/74 11/05/23 07:00 Pulse Ox 99 11/05/23 07:00 FiO2 Intake & Output 11/04/23 11/05/23 11/05/23 18:59 06:59 18:59 Output Total 850 700 Balance -850 -700 Output: Gastric Drainage 400 Drainage 300 Face 300 Urine 450 400 Other: Voiding Method Indwelling Catheter Indwelling Catheter Indwelling Catheter - Exam In general patient is alert and oriented x 3 in no distress HEENT head normocephalic and atraumatic Neck is supple no JVD no goiter no lymphadenopathy no carotid bruit Chest examination is clear to auscultation no crackles no wheezing Cardiac exam reveals regular heart sounds S1 and S2 no gallops no murmurs Abdomen is soft nontender no organomegaly with normal bowel sounds Extremity exam reveals no edema no cyanosis or clubbing Neurological examination reveals no gross focal deficits - Labs CBC & Chem 7: 11/04/23 05:18 11/04/23 05:18 Labs: Abnormal Lab Results - Last 24 Hours (Table) 11/04/23 Range/Units 17:10 POC Glucose (mg/dL) 68 L (70-110) mg/dL Microbiology - Last 24 Hours (Table) 11/02/23 18:20 Anaerobic Culture - Preliminary Peritoneal Fluid 11/02/23 18:20 Gram Stain - Preliminary Other - Other Wound Culture - Preliminary Assessment and Plan Assessment: 1.Abdominal pain secondary to hernia and small bowel obstruction. Status post open repair of incarcerated left inguinal hernia with culture cloudy ascitic fluid left orchiectomy with lysis of adhesions and small bowel resection on 11/02/2023 2. Pneumonia. Patient started on IV antibiotics repeat two-view chest x-ray ordered 3. Acute kidney injury patient started normal saline at 100. Nephrology services consulted 4. Recent diagnosis of metastic renal cell carcinoma. Oncology service is consulted 5. History of diverticulitis with GI bleed 6. History of essential hypertension 7. History of hyperlipidemia DVT prophylaxis Lovenox. GI prophylaxis Protonix Surgical services, oncology and nephrology service is consulted Patient started on IV antibiotics Continue normal saline NG tube in place
[2023-11-05 10:19] LABS: Basophils # (A) 0.01 X 10*3/uL (0.00-0.10); Basophils % (A) 0.2 %; Eosinophils # (A) 0.25 X 10*3/uL (0.04-0.35); Eosinophils % (A) 4.3 %; HCT 37.4 % (39.6-50.0); HGB 11.7 g/dL (13.0-17.0); Lymphocytes # (A) 0.29 X 10*3/uL (0.90-5.00); MCH 34.2 pg (27.0-32.0); MCHC 31.3 g/dL (32.0-37.0); MCV 109.4 FL (80.0-97.0); Mean Platelet Volume 11.1 FL (9.5-12.2); Monocytes # (A) 0.27 X 10*3/uL (0.20-1.00); Monocytes % (A) 4.6 %; NRBC Per 100 WBC 0 X 10*3/uL (0.00-0.01); Neutrophils # (A) 4.99 X 10*3/uL (1.80-7.70); Neutrophils % (A) 85.4 %; Platelet Count 111 X 10*3/uL (140-440); RBC 3.42 X 10*6/uL (4.40-5.60); RDW 13.9 % (11.5-14.5); WBC 5.84 X 10*3/uL (4.50-10.00)
[2023-11-05 10:30] LABS: BUN/Creat Ratio 32.78 Ratio (12.00-20.00); Glucose 101 mg/dL (70-110)
[2023-11-05 10:31] LABS: ALT 15 U/L (10-49); AST 25 U/L (14-35); Albumin 2.8 g/dL (3.8-4.9); Albumin/Globulin Ratio 1.75 Ratio (1.60-3.17); Alkaline Phosphatase 66 U/L (41-126); Calcium 7.9 mg/dL (8.7-10.3); Carbon Dioxide 20.9 mmol/L (21.6-31.8); Chloride 114 mmol/L (96-109); Globulin 1.6 g/dL (1.6-3.3); Sodium 146 mmol/L (135-145); Total Bilirubin 0.3 mg/dL (0.3-1.2); Total Protein 4.4 g/dL (6.2-8.2)
--- NOTE | 2023-11-05 11:42 | P.PN ---
Subjective Progress Note Date: 11/05/23 CHIEF COMPLAINT: Incarcerated left inguinal hernia, small bowel obstruction and ascites HISTORY OF PRESENT ILLNESS: Patient is postop day #3 status post open repair incarcerated left inguinal hernia, culture of cloudy ascitic fluid, left orchiectomy, laparotomy with lysis of adhesions, small bowel resection. Patient has NG tube in place with 300 mL bilious output. He sitting up in bedside chair. Pain controlled. Denies any nausea. Denies any bowel activity. Afebrile. WBC 5.84 Hgb 11.7 platelets 111 sodium 146 creatinine 1.8 culture results PHYSICAL EXAM: VITAL SIGNS: Reviewed. GENERAL: Well-developed in no acute distress. ABDOMEN: Soft. Nondistended. Incisional dressings clean dry and intact NEUROLOGIC: Alert and oriented. Cranial nerves II through XII grossly intact. ASSESSMENT: 1. Incarcerated left inguinal hernia, small bowel obstruction, ascites 2. History of metastatic renal cell carcinoma PLAN: -Continue NG tube for decompression -Keep patient n.p.o. -Continue antibiotics per infectious disease -Continue pain management -Increase activity level -Encourage patient to use incentive spirometer -DVT prophylaxis Lovenox GI prophylaxis Protonix Physician Electrophysiology Technologist note has been reviewed by physician. Signing provider agrees with the documented findings, assessment, and plan of care. I have personally seen and examined the patient, reviewed the TOOL TROUBLE [employer]ER /PAs history, e xam and MDM and agree with the assessment and plan as written. Based on total visit time, I have performed more than 50% of the visit. As above: Patient doing better today. No flatus but no nausea. Abdomen without distention. Will remove nasogastric tube and [place]. Ambulate. Sips of liquids. Objective - Vital Signs Vital signs: Vital Signs Temp 97.9 F 11/05/23 07:00 Pulse 72 11/05/23 08:45 Resp 16 11/05/23 07:00 BP 120/74 11/05/23 07:00 Pulse Ox 99 11/05/23 07:00 FiO2 Intake & Output 11/04/23 11/05/23 11/05/23 18:59 06:59 18:59 Output Total 850 700 Balance -850 -700 Output: Gastric Drainage 400 Drainage 300 Face 300 Urine 450 400 Other: Voiding Method Indwelling Catheter Indwelling Catheter Indwelling Catheter - Labs CBC & Chem 7: 11/05/23 06:22 11/05/23 06:22 Labs: Abnormal Lab Results - Last 24 Hours (Table) 11/04/23 11/05/23 11/05/23 Range/Units 17:10 06:22 06:22 RBC 3.42 L (4.40-5.60) X 10*6/uL Hgb 11.7 L (13.0-17.0) g/dL Hct 37.4 L (39.6-50.0) % MCV 109.4 H (80.0-97.0) FL MCH 34.2 H (27.0-32.0) pg MCHC 31.3 L (32.0-37.0) g/dL Plt Count 111 L (140-440) X 10*3/uL Lymphocytes # 0.29 L (0.90-5.00) X 10*3/uL Sodium 146 H (135-145) mmol/L Chloride 114 H (96-109) mmol/L Carbon Dioxide 20.9 L (21.6-31.8) mmol/L BUN 59.0 H (9.0-27.0) mg/dL Creatinine 1.8 H (0.6-1.5) mg/dL Est GFR (CKD-EPI) 38 L (>=60) BUN/Creatinine Ratio 32.78 H (12.00-20.00) Ratio POC Glucose (mg/dL) 68 L (70-110) mg/dL Calcium 7.9 L (8.7-10.3) mg/dL Total Protein 4.4 L (6.2-8.2) g/dL Albumin 2.8 L (3.8-4.9) g/dL Microbiology - Last 24 Hours (Table) 11/02/23 18:20 Anaerobic Culture - Preliminary Peritoneal Fluid 11/02/23 18:20 Gram Stain - Preliminary Other - Other Wound Culture - Preliminary
[2023-11-05 11:44] LABS: Glucose,Whole Blood 101 mg/dL (70-110)
[2023-11-05 12:57] VITALS: BMI 22.4
--- NOTE | 2023-11-05 16:07 | P.PN ---
Subjective Progress Note Date: 11/05/23 Principal diagnosis: Reason for follow-up is incarcerated left inguinal hernia concerning for peritonitis and pneumonia Patient is a 82-year-old male with a past medical history significant for hypertension hyperlipidemia GI bleed reflux sleep apnea, renal carcinoma, p resented to the hospital with abdominal pain constipation has been diagnosed with incarcerated left groin hernia s/p extensive surgery and evidence of cloudy peritoneal fluid. On today's evaluation that is 11/05/2023, Patient is afebrile patient is currently on room air and denies having any shortness of breath, the patient denies any chest pain or cough, the patient denies any nausea vomiting still have the NG in abdominal pain has decreased in intensity did not have any bowel movement. Patient white count is 5.84, creatinine is 1.8 cultures currently pending Objective - Vital Signs Vital signs: Vital Signs Temp 97.9 F 11/05/23 07:00 Pulse 72 11/05/23 08:45 Resp 16 11/05/23 07:00 BP 120/74 11/05/23 07:00 Pulse Ox 99 11/05/23 07:00 FiO2 Intake & Output 11/04/23 11/05/23 11/05/23 18:59 06:59 18:59 Output Total 850 700 Balance -850 -700 Output: Gastric Drainage 400 Drainage 300 Face 300 Urine 450 400 Other: Voiding Method Indwelling Catheter Indwelling Catheter Indwelling Catheter - Exam GENERAL DESCRIPTION: An elderly male lying in bed in no distress RESPIRATORY SYSTEM: Unlabored breathing , decreased breath sounds at bases HEART: S1 S2 regular rate and rhythm , ABDOMEN: Soft , abdominal incision intact no tenderness EXTREMITIES: No edema feet - Labs CBC & Chem 7: 11/05/23 06:22 11/05/23 06:22 Labs: Abnormal Lab Results - Last 24 Hours (Table) 11/04/23 11/05/23 11/05/23 Range/Units 17:10 06:22 06:22 RBC 3.42 L (4.40-5.60) X 10*6/uL Hgb 11.7 L (13.0-17.0) g/dL Hct 37.4 L (39.6-50.0) % MCV 109.4 H (80.0-97.0) FL MCH 34.2 H (27.0-32.0) pg MCHC 31.3 L (32.0-37.0) g/dL Plt Count 111 L (140-440) X 10*3/uL Lymphocytes # 0.29 L (0.90-5.00) X 10*3/uL Sodium 146 H (135-145) mmol/L Chloride 114 H (96-109) mmol/L Carbon Dioxide 20.9 L (21.6-31.8) mmol/L BUN 59.0 H (9.0-27.0) mg/dL Creatinine 1.8 H (0.6-1.5) mg/dL Est GFR (CKD-EPI) 38 L (>=60) BUN/Creatinine Ratio 32.78 H (12.00-20.00) Ratio POC Glucose (mg/dL) 68 L (70-110) mg/dL Calcium 7.9 L (8.7-10.3) mg/dL Total Protein 4.4 L (6.2-8.2) g/dL Albumin 2.8 L (3.8-4.9) g/dL Microbiology - Last 24 Hours (Table) 11/02/23 18:20 Anaerobic Culture - Preliminary Peritoneal Fluid 11/02/23 18:20 Gram Stain - Preliminary Other - Other Wound Culture - Preliminary Assessment and Plan (1) Incarcerated inguinal hernia, unilateral Current Visit: Yes Status: Acute Code(s): K40.30 - UNIL INGUINAL HERNIA, W OBST, W/O GANGR, NOT SPCF RECUR SNOMED Code(s): 039793604 (2) Peritonitis Current Visit: Yes Status: Acute Code(s): K65.9 - PERITONITIS, UNSPECIFIED SNOMED Code(s): 12622479 (3) Aspiration pneumonia Current Visit: Yes Status: Acute Code(s): J69.0 - PNEUMONITIS DUE TO INHALATION OF FOOD AND VOMIT SNOMED Code(s): 377615175 Plan: 1patient presented to hospital with nausea vomiting abdominal pain and this patient has been diagnosed with incarcerated left inguinal hernia status post open repair of the incarcerated left inguinal hernia culture of the cloudy ascitic fluid left orchiectomy laparotomy with lysis of additions with a cloudy peritoneal fluid suspicious for leakage of the gut remi from incarcerated hernia and we need to cover for the enteric gram-negative both aerobes and anaerobes 2patient also have left lower lobe infiltrate/pneumonia concern for possible aspiration pneumonitis 3patient did have some clinical improvement the patient remains to be afebrile, cultures currently pending, patient to continue with Zosyn 3.375 g every 8 hours waiting for the culture to finalize Dictation was produced using [employer] dictation software. please excuse any grammatical, word or spelling errors. Time with Patient: Less than 30
[2023-11-05 17:31] LABS: Glucose,Whole Blood 127 mg/dL (70-110)
--- NOTE | 2023-11-05 17:41 | P.PN ---
Subjective Progress Note Date: 11/05/23 Patient is being followed for acute kidney injury. Creatinine today is 1.8, same as yesterday. Patient is hemodynamically stable. No significant complaints today. Objective - Vital Signs Vital signs: Vital Signs Temp 97.9 F 11/05/23 07:00 Pulse 72 11/05/23 08:45 Resp 16 11/05/23 07:00 BP 120/74 11/05/23 07:00 Pulse Ox 99 11/05/23 07:00 FiO2 Intake & Output 11/04/23 11/05/23 11/05/23 18:59 06:59 18:59 Output Total 850 700 Balance -850 -700 Output: Gastric Drainage 400 Drainage 300 Face 300 Urine 450 400 Other: Voiding Method Indwelling Catheter Indwelling Catheter Indwelling Catheter - Exam Vital signs are stable. General: No acute distress. Heart: Regular rate and rhythm present. Lungs: Bilateral breath sounds present; no rhonchi, wheezes, or rales. Extremities: No edema present. - Labs CBC & Chem 7: 11/05/23 06:22 11/05/23 06:22 Labs: Abnormal Lab Results - Last 24 Hours (Table) 11/04/23 11/05/23 11/05/23 Range/Units 17:10 06:22 06:22 RBC 3.42 L (4.40-5.60) X 10*6/uL Hgb 11.7 L (13.0-17.0) g/dL Hct 37.4 L (39.6-50.0) % MCV 109.4 H (80.0-97.0) FL MCH 34.2 H (27.0-32.0) pg MCHC 31.3 L (32.0-37.0) g/dL Plt Count 111 L (140-440) X 10*3/uL Lymphocytes # 0.29 L (0.90-5.00) X 10*3/uL Sodium 146 H (135-145) mmol/L Chloride 114 H (96-109) mmol/L Carbon Dioxide 20.9 L (21.6-31.8) mmol/L BUN 59.0 H (9.0-27.0) mg/dL Creatinine 1.8 H (0.6-1.5) mg/dL Est GFR (CKD-EPI) 38 L (>=60) BUN/Creatinine Ratio 32.78 H (12.00-20.00) Ratio POC Glucose (mg/dL) 68 L (70-110) mg/dL Calcium 7.9 L (8.7-10.3) mg/dL Total Protein 4.4 L (6.2-8.2) g/dL Albumin 2.8 L (3.8-4.9) g/dL Microbiology - Last 24 Hours (Table) 11/02/23 18:20 Anaerobic Culture - Preliminary Peritoneal Fluid 11/02/23 18:20 Gram Stain - Preliminary Other - Other Wound Culture - Preliminary Assessment and Plan Assessment: 1. Acute kidney injury on chronic kidney disease stage III. Acute kidney injury, prerenal from decreased oral intake and borderline low blood pressure, improving with IV hydration. 2. Left nephrectomy for renal cell cancer. 3. 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 Baseline creatinine 1.5-1.7. Etiology: nephroscerloris and solitary kidney. 4. Hypertension with chronic kidney disease stage III 5. Hypernatremia associated with free water deficit. 6. Small bowel obstruction-being followed by surgery, currently with NG tube. 7. History of BPH-maintained on Flomax. 8. 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 9. Left lower lobe pneumonia-maintained on antibiotics. 10. Anion gap metabolic acidosis associated with acute kidney injury and saline. Plan: Continue current IV fluids, D5.45 Continue on IV antibiotics, as per primary. Avoid nephrotoxic agents. Repeat labs in the morning. Patient is seen and examined with the resident. Agree with findings, assessment and plan.
[2023-11-05 19:36] LABS: Glucose,Whole Blood 131 mg/dL (70-110)
[2023-11-06 07:05] LABS: Glucose,Whole Blood 125 mg/dL (70-110)
--- NOTE | 2023-11-06 08:51 | P.PN ---
Subjective Patient is seen in follow-up for acute kidney injury on chronic kidney disease. Renal function stable as of yesterday. NG tube removed. Still NPO. Vital signs are stable. General: No acute distress. HEENT: Head exam is unremarkable. LUNGS: No audible rhonchi or wheezes. HEART: Rate and Rhythm are regular. ABDOMEN: Soft, mild generalized tenderness. EXTREMITITES: No edema. Objective - Vital Signs Vital signs: Vital Signs Temp 98 F 11/06/23 02:00 Pulse 58 L 11/06/23 02:00 Resp 15 11/05/23 11:43 BP 121/71 11/06/23 02:00 Pulse Ox 97 11/06/23 02:00 FiO2 Intake & Output 11/05/23 11/06/23 11/06/23 18:59 06:59 18:59 Output Total 500 200 Balance -500 -200 Weight 68.946 kg Output: Gastric Drainage 200 Urine 300 200 Other: Voiding Method Indwelling Catheter Diaper Incontinent # Voids 1 - Labs CBC & Chem 7: 11/05/23 06:22 11/05/23 06:22 Labs: Abnormal Lab Results - Last 24 Hours (Table) 11/05/23 11/05/23 11/05/23 Range/Units 06:22 06:22 17:29 RBC 3.42 L (4.40-5.60) X 10*6/uL Hgb 11.7 L (13.0-17.0) g/dL Hct 37.4 L (39.6-50.0) % MCV 109.4 H (80.0-97.0) FL MCH 34.2 H (27.0-32.0) pg MCHC 31.3 L (32.0-37.0) g/dL Plt Count 111 L (140-440) X 10*3/uL Lymphocytes # 0.29 L (0.90-5.00) X 10*3/uL Sodium 146 H (135-145) mmol/L Chloride 114 H (96-109) mmol/L Carbon Dioxide 20.9 L (21.6-31.8) mmol/L BUN 59.0 H (9.0-27.0) mg/dL Creatinine 1.8 H (0.6-1.5) mg/dL Est GFR (CKD-EPI) 38 L (>=60) BUN/Creatinine Ratio 32.78 H (12.00-20.00) Ratio POC Glucose (mg/dL) 127 H (70-110) mg/dL Calcium 7.9 L (8.7-10.3) mg/dL Total Protein 4.4 L (6.2-8.2) g/dL Albumin 2.8 L (3.8-4.9) g/dL 11/05/23 11/06/23 Range/Units 19:29 07:04 RBC (4.40-5.60) X 10*6/uL Hgb (13.0-17.0) g/dL Hct (39.6-50.0) % MCV (80.0-97.0) FL MCH (27.0-32.0) pg MCHC (32.0-37.0) g/dL Plt Count (140-440) X 10*3/uL Lymphocytes # (0.90-5.00) X 10*3/uL Sodium (135-145) mmol/L Chloride (96-109) mmol/L Carbon Dioxide (21.6-31.8) mmol/L BUN (9.0-27.0) mg/dL Creatinine (0.6-1.5) mg/dL Est GFR (CKD-EPI) (>=60) BUN/Creatinine Ratio (12.00-20.00) Ratio POC Glucose (mg/dL) 131 H 125 H (70-110) mg/dL Calcium (8.7-10.3) mg/dL Total Protein (6.2-8.2) g/dL Albumin (3.8-4.9) g/dL Microbiology - Last 24 Hours (Table) 11/02/23 18:20 Anaerobic Culture - Preliminary Peritoneal Fluid 11/02/23 18:20 Gram Stain - Preliminary Other - Other Wound Culture - Preliminary Assessment and Plan Plan: Assessment: 1. Acute kidney injury secondary to vasomotor nephropathy from poor intake and hypotension. Creatinine stable at 1.8 as of yesterday. 2. Renal cancer status post left nephrectomy. On chemo outpatient. 3. Chronic kidney disease stage IIIb with baseline creatinine 1.5-1.7 secondary to nephrosclerosis and solitary kidney. 4. Hypernatremia from lack of oral water intake. 5. Small bowel obstruction. Surgery following. NG tube removed. 6. Metabolic acidosis secondary to acute kidney injury and IV fluids. 7. Pneumonia on antibiotics. Plan: Maintain half-normal saline. Diet per surgery. Avoid nephrotoxins. Morning labs pending.
[2023-11-06 09:23] LABS: Basophils # (A) 0.01 X 10*3/uL (0.00-0.10); Basophils % (A) 0.2 %; Eosinophils # (A) 0.34 X 10*3/uL (0.04-0.35); Eosinophils % (A) 7.2 %; HCT 35.3 % (39.6-50.0); HGB 11.1 g/dL (13.0-17.0); Lymphocytes # (A) 0.25 X 10*3/uL (0.90-5.00); Lymphocytes % (A) 5.3 %; MCH 33.5 pg (27.0-32.0); MCHC 31.4 g/dL (32.0-37.0); MCV 106.6 FL (80.0-97.0); Mean Platelet Volume 10.8 FL (9.5-12.2); Monocytes # (A) 0.22 X 10*3/uL (0.20-1.00); Monocytes % (A) 4.6 %; NRBC Per 100 WBC 0 X 10*3/uL (0.00-0.01); Neutrophils # (A) 3.88 X 10*3/uL (1.80-7.70); Neutrophils % (A) 81.9 %; Platelet Count 118 X 10*3/uL (140-440); RBC 3.31 X 10*6/uL (4.40-5.60); RDW 13.8 % (11.5-14.5); WBC 4.74 X 10*3/uL (4.50-10.00)
--- NOTE | 2023-11-06 11:44 | P.PN ---
Subjective Progress Note Date: 11/06/23 Isidoro Prado, is an 82-year-old male who presented to [facility] emergency room with a chief complaint of Abdominal pain and hernia. Patient was a transfer from [facility]. Per patient he was started on a new medication for treatment of renal cell carcinomaPer oncology services and reports that he started having issues after second dose with abdominal pain nausea and vomiting He was evaluated in the emergency room vital examination on presentation revealedTemp 97.8, heart rate 67, respiratory rate 16, blood pressure 123/69 with pulse ox 90% on room air Laboratory data revealsCreatinine 2.3 bun 105, white blood cell 5.6, hemoglobin 13.3, AST 40, ALT 28 and alkaline phosphatase 91 Testing in the emergency room revealed Imaging in [facility]. Chest x-ray completed showing minimal left lower lobe infiltrate Patient was admitted to medical floor for further evaluation and treatment. At this time NG tube was placed, Surgical service is consulted. Patient started on treatment for pneumonia with IV antibiotics Rocephin and Zithromax repeat 2 view chest x-ray ordered. Nephrology service is consulted for acute kidney injury patient maintained normal saline at 100 and oncology service is consulted Past medical history is significant for Renal cell carcinoma follows with oncology, Diverticulitis, previous GI bleed, hyperlipidemia, hypertension, sleep apnea On review of systems : Patient is resting comfortably in bed. Patient reports improvement with abdominal pain. Patient denies any chest pain or shortness of breath. At this time patient denies nausea vomiting or diarrhea.Patient denies any urinary burning or frequency On 11/02/2023 patient's alert and oriented 3. Patient was evaluated by surgical services recommending surgical intervention for hernia small bowel obstruction. Patient remains with NG tube reports improvement. Hematology services also following for metastatic renal cell carcinoma. At this time patient denies chest pain or shortness of breath. Patient denies nausea vomiting or diarrhea. Patient denies any urinary burning or frequency. Current vital signs temp 97.7, heart rate 73, respiratory rate 16, blood pressure 119/69 with pulse ox 97% 11/03/2023 patient is alert and oriented 3. Patient is status post open repair incarcerated left inguinal hernia with left orchiectomy with lysis of adhesions and small bowel resection. Patient reports he feels well. Patient denies any chest pain or shortness of breath. Patient denies nausea vomiting or diarrhea. Patient denies any urinary burning or frequency patient remains nothing by mouth at this time. Current vital signs temp 98.0, heart rate 78, respiratory rate 17, blood pressure 94/60 with a pulse ox 96% On 11/04/2023 patient was seen and examined on the medical floor he is alert and oriented x 3 in no apparent distress, he is still having NG tube in, he is complaining of mild abdominal pain and discomfort, otherwise he denies any complaints there is no fever or chills no headache or dizziness no chest pain no shortness of breath no cough no nausea or vomiting no diarrhea no blood in the stools and no urinary symptoms. Vital examination today reveals a temperature of 97.5 pulse 71 respiration 16 blood pressure 113/72 pulse ox 98% on room air his white blood count is 5.24 hemoglobin 12.2 platelet count 122 BUN 65 creatini ne 1.8 On 11/05/2023 patient is alert and oriented x 3 patient currently sitting up in chair. Patient still requiring NG tube at this time per surgical services. Patient reports mild abdominal pain. Patient denies any nausea or vomiting. Antibiotics adjusted to IV Zosyn per infectious disease awaiting final cultures. Current vital signs Temp 97.9, heart rate 60, respiratory rate 16, blood pre ssure 120/74 with a pulse ox of 99% On 11/06/2023 patient was seen and examined on the medical floor he is alert and oriented x 3 in no apparent distress, there is no fever or chills no headache or dizziness no chest pain no shortness of breath no cough no nausea or vomiting no abdominal pain no diarrhea no urinary symptoms, NG tube has been removed, patient is tolerating clear liquid diet well, will continue to monitor closely. Objective - Vital Signs Vital signs: Vital Signs Temp 97.5 F L 11/06/23 07:06 Pulse 59 L 11/06/23 07:06 Resp 15 11/06/23 07:06 BP 121/75 11/06/23 07:06 Pulse Ox 96 11/06/23 07:06 FiO2 Intake & Output 11/05/23 11/06/23 11/06/23 18:59 06:59 18:59 Output Total 500 200 Balance -500 -200 Weight 68.946 kg Output: Gastric Drainage 200 Urine 300 200 Other: Voiding Method Indwelling Catheter Diaper Incontinent # Voids 1 - Exam In general patient is alert and oriented x 3 in no distress HEENT head normocephalic and atraumatic Neck is supple no JVD no goiter no lymphadenopathy no carotid bruit Chest examination is clear to auscultation no crackles no wheezing Cardiac exam reveals regular heart sounds S1 and S2 no gallops no murmurs Abdomen is soft nontender no organomegaly with normal bowel sounds Extremity exam reveals no edema no cyanosis or clubbing Neurological examination reveals no gross focal deficits - Labs CBC & Chem 7: 11/06/23 05:02 11/05/23 06:22 Labs: Abnormal Lab Results - Last 24 Hours (Table) 11/05/23 11/05/23 11/05/23 Range/Units 06:22 06:22 17:29 RBC 3.42 L (4.40-5.60) X 10*6/uL Hgb 11.7 L (13.0-17.0) g/dL Hct 37.4 L (39.6-50.0) % MCV 109.4 H (80.0-97.0) FL MCH 34.2 H (27.0-32.0) pg MCHC 31.3 L (32.0-37.0) g/dL Plt Count 111 L (140-440) X 10*3/uL Lymphocytes # 0.29 L (0.90-5.00) X 10*3/uL Sodium 146 H (135-145) mmol/L Chloride 114 H (96-109) mmol/L Carbon Dioxide 20.9 L (21.6-31.8) mmol/L BUN 59.0 H (9.0-27.0) mg/dL Creatinine 1.8 H (0.6-1.5) mg/dL Est GFR (CKD-EPI) 38 L (>=60) BUN/Creatinine Ratio 32.78 H (12.00-20.00) Ratio POC Glucose (mg/dL) 127 H (70-110) mg/dL Calcium 7.9 L (8.7-10.3) mg/dL Total Protein 4.4 L (6.2-8.2) g/dL Albumin 2.8 L (3.8-4.9) g/dL 11/05/23 11/06/23 Range/Units 19:29 07:04 RBC (4.40-5.60) X 10*6/uL Hgb (13.0-17.0) g/dL Hct (39.6-50.0) % MCV (80.0-97.0) FL MCH (27.0-32.0) pg MCHC (32.0-37.0) g/dL Plt Count (140-440) X 10*3/uL Lymphocytes # (0.90-5.00) X 10*3/uL Sodium (135-145) mmol/L Chloride (96-109) mmol/L Carbon Dioxide (21.6-31.8) mmol/L BUN (9.0-27.0) mg/dL Creatinine (0.6-1.5) mg/dL Est GFR (CKD-EPI) (>=60) BUN/Creatinine Ratio (12.00-20.00) Ratio POC Glucose (mg/dL) 131 H 125 H (70-110) mg/dL Calcium (8.7-10.3) mg/dL Total Protein (6.2-8.2) g/dL Albumin (3.8-4.9) g/dL Microbiology - Last 24 Hours (Table) 11/02/23 18:20 Anaerobic Culture - Preliminary Peritoneal Fluid 11/02/23 18:20 Gram Stain - Preliminary Other - Other Wound Culture - Preliminary Assessment and Plan Assessment: 1.Abdominal pain secondary to hernia and small bowel obstruction. Status post open repair of incarcerated left inguinal hernia with culture cloudy ascitic fluid left orchiectomy with lysis of adhesions and small bowel resection on 11/02/2023 2. Pneumonia. Patient started on IV antibiotics repeat two-view chest x-ray ordered 3. Acute kidney injury patient started normal saline at 100. Nephrology services consulted 4. Recent diagnosis of metastic renal cell carcinoma. Oncology service is consulted 5. History of diverticulitis with GI bleed 6. History of essential hypertension 7. History of hyperlipidemia DVT prophylaxis Lovenox. GI prophylaxis Protonix Surgical services, oncology and nephrology service is consulted Patient started on IV antibiotics Continue normal saline NG tube in place
[2023-11-06 12:01] LABS: Glucose,Whole Blood 102 mg/dL (70-110)
[2023-11-06 12:42] LABS: ALT 12 U/L (10-49); AST 22 U/L (14-35); Albumin 2.6 g/dL (3.8-4.9); Albumin/Globulin Ratio 1.62 Ratio (1.60-3.17); Alkaline Phosphatase 66 U/L (41-126); BUN/Creat Ratio 31.53 Ratio (12.00-20.00); Blood Urea Nitrogen 47.3 mg/dL (9.0-27.0); Calcium 7.6 mg/dL (8.7-10.3); Carbon Dioxide 22.7 mmol/L (21.6-31.8); Chloride 116 mmol/L (96-109); Globulin 1.6 g/dL (1.6-3.3); Glucose 130 mg/dL (70-110); Potassium 3.7 mmol/L (3.5-5.5); Sodium 147 mmol/L (135-145); Total Bilirubin 0.3 mg/dL (0.3-1.2); Total Protein 4.2 g/dL (6.2-8.2)
--- NOTE | 2023-11-06 13:48 | P.PN ---
Progress Note - Text Progress Note Date: 11/06/23 CHIEF COMPLAINT: Incarcerated left inguinal hernia, small bowel obstruction and ascites HISTORY OF PRESENT ILLNESS: Patient is postop day #4 status post open repair incarcerated left inguinal hernia, culture of cloudy ascitic fluid, left orchiectomy, laparotomy with lysis of adhesions, small bowel resection. NAEO PHYSICAL EXAM: VITAL SIGNS: Reviewed. GENERAL: Well-developed in no acute distress. ABDOMEN: Soft. Nondistended. Incisional dressings clean dry and intact NEUROLOGIC: Alert and oriented. Cranial nerves II through XII grossly intact. ASSESSMENT: 1. Incarcerated left inguinal hernia, small bowel obstruction, ascites 2. History of metastatic renal cell carcinoma PLAN: -CLD -Continue antibiotics per infectious disease -Continue pain management -Increase activity level -Encourage patient to use incentive spirometer -DVT prophylaxis Lovenox GI prophylaxis Protonix
--- NOTE | 2023-11-06 15:34 | P.PN ---
Subjective Progress Note Date: 11/06/23 Principal diagnosis: Reason for follow-up is incarcerated left inguinal hernia concerning for peritonitis and pneumonia Patient is a 82-year-old male with a past medical history significant for hypertension hyperlipidemia GI bleed reflux sleep apnea, renal carcinoma, p resented to the hospital with abdominal pain constipation has been diagnosed with incarcerated left groin hernia s/p extensive surgery and evidence of cloudy peritoneal fluid. On today's evaluation that is 11/06/2023, patient has been afebrile, patient is breathing comfortably and is currently on room air, patient denies having any significant cough no chest pain shortness of breath, patient denies nausea vomiting NG has been discontinued abdominal pain has decreased denies any bowel movement. Patient white count normalized to 4.75, creatinine is 1.5 abdominal cultures currently pending Objective - Vital Signs Vital signs: Vital Signs Temp 97.5 F L 11/06/23 07:06 Pulse 59 L 11/06/23 07:06 Resp 15 11/06/23 07:06 BP 121/75 11/06/23 07:06 Pulse Ox 96 11/06/23 07:06 FiO2 Intake & Output 11/05/23 11/06/23 11/06/23 18:59 06:59 18:59 Output Total 500 200 Balance -500 -200 Weight 68.946 kg Output: Gastric Drainage 200 Urine 300 200 Other: Voiding Method Indwelling Catheter Diaper Indwelling Catheter Incontinent # Voids 1 - Exam GENERAL DESCRIPTION: An elderly male lying in bed in no distress RESPIRATORY SYSTEM: Unlabored breathing , decreased breath sounds at bases HEART: S1 S2 regular rate and rhythm , ABDOMEN: Soft , abdominal incision intact no tenderness EXTREMITIES: No edema feet - Labs CBC & Chem 7: 11/06/23 05:02 11/06/23 05:02 Labs: Abnormal Lab Results - Last 24 Hours (Table) 11/05/23 11/05/23 11/06/23 Range/Units 17:29 19:29 05:02 RBC 3.31 L (4.40-5.60) X 10*6/uL Hgb 11.1 L (13.0-17.0) g/dL Hct 35.3 L (39.6-50.0) % MCV 106.6 H (80.0-97.0) FL MCH 33.5 H (27.0-32.0) pg MCHC 31.4 L (32.0-37.0) g/dL Plt Count 118 L (140-440) X 10*3/uL Lymphocytes # 0.25 L (0.90-5.00) X 10*3/uL POC Glucose (mg/dL) 127 H 131 H (70-110) mg/dL 11/06/23 Range/Units 07:04 RBC (4.40-5.60) X 10*6/uL Hgb (13.0-17.0) g/dL Hct (39.6-50.0) % MCV (80.0-97.0) FL MCH (27.0-32.0) pg MCHC (32.0-37.0) g/dL Plt Count (140-440) X 10*3/uL Lymphocytes # (0.90-5.00) X 10*3/uL POC Glucose (mg/dL) 125 H (70-110) mg/dL Microbiology - Last 24 Hours (Table) 11/02/23 18:20 Gram Stain - Preliminary Other - Other Wound Culture - Preliminary 11/02/23 18:20 Anaerobic Culture - Preliminary Peritoneal Fluid Assessment and Plan (1) Incarcerated inguinal hernia, unilateral Current Visit: Yes Status: Acute Code(s): K40.30 - UNIL INGUINAL HERNIA, W OBST, W/O GANGR, NOT SPCF RECUR SNOMED Code(s): 834326244 (2) Peritonitis Current Visit: Yes Status: Acute Code(s): K65.9 - PERITONITIS, UNSPECIFIED SNOMED Code(s): 81517346 (3) Aspiration pneumonia Current Visit: Yes Status: Acute Code(s): J69.0 - PNEUMONITIS DUE TO INHALATION OF FOOD AND VOMIT SNOMED Code(s): 920144397 Plan: 1patient presented to hospital with nausea vomiting abdominal pain and this patient has been diagnosed with incarcerated left inguinal hernia status post open repair of the incarcerated left inguinal hernia culture of the cloudy ascitic fluid left orchiectomy laparotomy with lysis of additions with a cloudy peritoneal fluid suspicious for leakage of the gut remi from incarcerated hernia and we need to cover for the enteric gram-negative both aerobes and anaerobes 2patient also have left lower lobe infiltrate/pneumonia concern for possible aspiration pneumonitis 3patient has shown clinical improvement patient white count normalized culture currently pending continue with the Zosyn while waiting for the culture to finalize Dictation was produced using [employer] dictation software. please excuse any grammatical, word or spelling errors. Time with Patient: Less than 30
[2023-11-06] MEDS: DEXTROSE 5% IN WATER 1,000 ML IV SCH (16:47)
[2023-11-06 19:55] LABS: Glucose,Whole Blood 155 mg/dL (70-110)
[2023-11-07 07:23] LABS: Glucose,Whole Blood 91 mg/dL (70-110)
[2023-11-07] MEDS: ENOXAPARIN 40 MG/0.4 ML SYRINGE SQ SCH (09:04)
[2023-11-07 09:33] LABS: Basophils # (A) 0.01 X 10*3/uL (0.00-0.10); Basophils % (A) 0.2 %; Eosinophils # (A) 0.34 X 10*3/uL (0.04-0.35); Eosinophils % (A) 7.1 %; HCT 34.8 % (39.6-50.0); HGB 11.2 g/dL (13.0-17.0); Lymphocytes # (A) 0.26 X 10*3/uL (0.90-5.00); Lymphocytes % (A) 5.4 %; MCH 34.4 pg (27.0-32.0); MCHC 32.2 g/dL (32.0-37.0); MCV 106.7 FL (80.0-97.0); Mean Platelet Volume 10.7 FL (9.5-12.2); Monocytes # (A) 0.23 X 10*3/uL (0.20-1.00); Monocytes % (A) 4.8 %; NRBC Per 100 WBC 0 X 10*3/uL (0.00-0.01); Neutrophils # (A) 3.91 X 10*3/uL (1.80-7.70); Neutrophils % (A) 81.7 %; Platelet Count 115 X 10*3/uL (140-440); RBC 3.26 X 10*6/uL (4.40-5.60); RDW 13.7 % (11.5-14.5); WBC 4.79 X 10*3/uL (4.50-10.00)
--- NOTE | 2023-11-07 09:48 | P.PN ---
Subjective Progress Note Date: 11/07/23 Isidoro Prado, is an 82-year-old male who presented to [facility] emergency room with a chief complaint of Abdominal pain and hernia. Patient was a transfer from [facility]. Per patient he was started on a new medication for treatment of renal cell carcinomaPer oncology services and reports that he started having issues after second dose with abdominal pain nausea and vomiting He was evaluated in the emergency room vital examination on presentation revealedTemp 97.8, heart rate 67, respiratory rate 16, blood pressure 123/69 with pulse ox 90% on room air Laboratory data revealsCreatinine 2.3 bun 105, white blood cell 5.6, hemoglobin 13.3, AST 40, ALT 28 and alkaline phosphatase 91 Testing in the emergency room revealed Imaging in [facility]. Chest x-ray completed showing minimal left lower lobe infiltrate Patient was admitted to medical floor for further evaluation and treatment. At this time NG tube was placed, Surgical service is consulted. Patient started on treatment for pneumonia with IV antibiotics Rocephin and Zithromax repeat 2 view chest x-ray ordered. Nephrology service is consulted for acute kidney injury patient maintained normal saline at 100 and oncology service is consulted Past medical history is significant for Renal cell carcinoma follows with oncology, Diverticulitis, previous GI bleed, hyperlipidemia, hypertension, sleep apnea On review of systems : Patient is resting comfortably in bed. Patient reports improvement with abdominal pain. Patient denies any chest pain or shortness of breath. At this time patient denies nausea vomiting or diarrhea.Patient denies any urinary burning or frequency On 11/02/2023 patient's alert and oriented 3. Patient was evaluated by surgical services recommending surgical intervention for hernia small bowel obstruction. Patient remains with NG tube reports improvement. Hematology services also following for metastatic renal cell carcinoma. At this time patient denies chest pain or shortness of breath. Patient denies nausea vomiting or diarrhea. Patient denies any urinary burning or frequency. Current vital signs temp 97.7, heart rate 73, respiratory rate 16, blood pressure 119/69 with pulse ox 97% 11/03/2023 patient is alert and oriented 3. Patient is status post open repair incarcerated left inguinal hernia with left orchiectomy with lysis of adhesions and small bowel resection. Patient reports he feels well. Patient denies any chest pain or shortness of breath. Patient denies nausea vomiting or diarrhea. Patient denies any urinary burning or frequency patient remains nothing by mouth at this time. Current vital signs temp 98.0, heart rate 78, respiratory rate 17, blood pressure 94/60 with a pulse ox 96% On 11/04/2023 patient was seen and examined on the medical floor he is alert and oriented x 3 in no apparent distress, he is still having NG tube in, he is complaining of mild abdominal pain and discomfort, otherwise he denies any complaints there is no fever or chills no headache or dizziness no chest pain no shortness of breath no cough no nausea or vomiting no diarrhea no blood in the stools and no urinary symptoms. Vital examination today reveals a temperature of 97.5 pulse 71 respiration 16 blood pressure 113/72 pulse ox 98% on room air his white blood count is 5.24 hemoglobin 12.2 platelet count 122 BUN 65 creatini ne 1.8 On 11/05/2023 patient is alert and oriented x 3 patient currently sitting up in chair. Patient still requiring NG tube at this time per surgical services. Patient reports mild abdominal pain. Patient denies any nausea or vomiting. Antibiotics adjusted to IV Zosyn per infectious disease awaiting final cultures. Current vital signs Temp 97.9, heart rate 60, respiratory rate 16, blood pre ssure 120/74 with a pulse ox of 99% On 11/06/2023 patient was seen and examined on the medical floor he is alert and oriented x 3 in no apparent distress, there is no fever or chills no headache or dizziness no chest pain no shortness of breath no cough no nausea or vomiting no abdominal pain no diarrhea no urinary symptoms, NG tube has been removed, patient is tolerating clear liquid diet well, will continue to monitor closely. On 11/07/2023 patient was seen and examined on the medical floor he is alert and oriented x 3 in no apparent distress, he is complaining of abdominal discomfort otherwise he denies any complaints there is no fever or chills no headache or dizziness no chest pain no shortness of breath no cough no nausea or vomiting no abdominal pain no diarrhea and no urinary symptoms, patient is tolerating liquid diet well. Objective - Vital Signs Vital signs: Vital Signs Temp 97.7 F 11/07/23 07:21 Pulse 74 11/07/23 07:21 Resp 17 11/07/23 07:21 BP 110/68 11/07/23 07:21 Pulse Ox 99 11/07/23 07:21 FiO2 Intake & Output 11/06/23 11/07/23 11/07/23 18:59 06:59 18:59 Output Total 200 Balance -200 Output: Urine 200 Other: Voiding Method Indwelling Catheter Diaper Incontinent # Voids 3 1 - Exam In general patient is alert and oriented x 3 in no distress HEENT head normocephalic and atraumatic Neck is supple no JVD no goiter no lymphadenopathy no carotid bruit Chest examination is clear to auscultation no crackles no wheezing Cardiac exam reveals regular heart sounds S1 and S2 no gallops no murmurs Abdomen is soft nontender no organomegaly with normal bowel sounds Extremity exam reveals no edema no cyanosis or clubbing Neurological examination reveals no gross focal deficits - Labs CBC & Chem 7: 11/06/23 05:02 11/06/23 05:02 Labs: Abnormal Lab Results - Last 24 Hours (Table) 11/06/23 11/06/23 11/06/23 Range/Units 05:02 05:02 19:53 RBC 3.31 L (4.40-5.60) X 10*6/uL Hgb 11.1 L (13.0-17.0) g/dL Hct 35.3 L (39.6-50.0) % MCV 106.6 H (80.0-97.0) FL MCH 33.5 H (27.0-32.0) pg MCHC 31.4 L (32.0-37.0) g/dL Plt Count 118 L (140-440) X 10*3/uL Lymphocytes # 0.25 L (0.90-5.00) X 10*3/uL Sodium 147 H (135-145) mmol/L Chloride 116 H (96-109) mmol/L BUN 47.3 H (9.0-27.0) mg/dL Est GFR (CKD-EPI) 47 L (>=60) BUN/Creatinine Ratio 31.53 H (12.00-20.00) Ratio Glucose 130 H (70-110) mg/dL POC Glucose (mg/dL) 155 H (70-110) mg/dL Calcium 7.6 L (8.7-10.3) mg/dL Total Protein 4.2 L (6.2-8.2) g/dL Albumin 2.6 L (3.8-4.9) g/dL Microbiology - Last 24 Hours (Table) 11/02/23 18:20 Gram Stain - Preliminary Other - Other Wound Culture - Preliminary Assessment and Plan Assessment: 1.Abdominal pain secondary to hernia and small bowel obstruction. Status post open repair of incarcerated left inguinal hernia with culture cloudy ascitic fluid left orchiectomy with lysis of adhesions and small bowel resection on 11/02/2023 2. Pneumonia. Patient started on IV antibiotics repeat two-view chest x-ray ordered 3. Acute kidney injury patient started normal saline at 100. Nephrology services consulted 4. Recent diagnosis of metastic renal cell carcinoma. Oncology service is consulted 5. History of diverticulitis with GI bleed 6. History of essential hypertension 7. History of hyperlipidemia DVT prophylaxis Lovenox. GI prophylaxis Protonix Surgical services, oncology and nephrology service is consulted Patient started on IV antibiotics Continue normal saline NG tube in place
[2023-11-07 09:50] LABS: ALT 15 U/L (10-49); AST 25 U/L (14-35); Albumin 2.6 g/dL (3.8-4.9); Albumin/Globulin Ratio 1.62 Ratio (1.60-3.17); Alkaline Phosphatase 69 U/L (41-126); BUN/Creat Ratio 26.77 Ratio (12.00-20.00); Blood Urea Nitrogen 34.8 mg/dL (9.0-27.0); Calcium 7.4 mg/dL (8.7-10.3); Carbon Dioxide 21.4 mmol/L (21.6-31.8); Chloride 116 mmol/L (96-109); Globulin 1.6 g/dL (1.6-3.3); Glucose 103 mg/dL (70-110); Potassium 3.9 mmol/L (3.5-5.5); Sodium 147 mmol/L (135-145); Total Bilirubin 0.3 mg/dL (0.3-1.2); Total Protein 4.2 g/dL (6.2-8.2)
--- NOTE | 2023-11-07 10:03 | P.PN ---
Subjective Progress Note Date: 11/07/23 Principal diagnosis: Small bowel obstruction Patient doing well today. Passing flatus. No bowel movement. No nausea. Tolerating liquids however says he is quite hungry for more to eat. Objective - Vital Signs Vital signs: Vital Signs Temp 97.7 F 11/07/23 07:21 Pulse 74 11/07/23 07:21 Resp 17 11/07/23 07:21 BP 110/68 11/07/23 07:21 Pulse Ox 99 11/07/23 07:21 FiO2 Intake & Output 11/06/23 11/07/23 11/07/23 18:59 06:59 18:59 Output Total 200 Balance -200 Output: Urine 200 Other: Voiding Method Toilet Diaper Toilet Urinal Incontinent Urinal Diaper Diaper Incontinent Incontinent # Voids 3 1 - Exam Abdomen: Soft, nondistended, midline and left groin incision clean and dry, minimal tenderness - Labs CBC & Chem 7: 11/07/23 05:36 11/07/23 05:32 Labs: Abnormal Lab Results - Last 24 Hours (Table) 11/06/23 11/06/23 11/07/23 Range/Units 05:02 19:53 05:32 RBC (4.40-5.60) X 10*6/uL Hgb (13.0-17.0) g/dL Hct (39.6-50.0) % MCV (80.0-97.0) FL MCH (27.0-32.0) pg Plt Count (140-440) X 10*3/uL Lymphocytes # (0.90-5.00) X 10*3/uL Sodium 147 H 147 H (135-145) mmol/L Chloride 116 H 116 H (96-109) mmol/L Carbon Dioxide 21.4 L (21.6-31.8) mmol/L BUN 47.3 H 34.8 H (9.0-27.0) mg/dL Est GFR (CKD-EPI) 47 L 56 L (>=60) BUN/Creatinine Ratio 31.53 H 26.77 H (12.00-20.00) Ratio Glucose 130 H (70-110) mg/dL POC Glucose (mg/dL) 155 H (70-110) mg/dL Calcium 7.6 L 7.4 L (8.7-10.3) mg/dL Total Protein 4.2 L 4.2 L (6.2-8.2) g/dL Albumin 2.6 L 2.6 L (3.8-4.9) g/dL 11/07/23 Range/Units 05:36 RBC 3.26 L (4.40-5.60) X 10*6/uL Hgb 11.2 L (13.0-17.0) g/dL Hct 34.8 L (39.6-50.0) % MCV 106.7 H (80.0-97.0) FL MCH 34.4 H (27.0-32.0) pg Plt Count 115 L (140-440) X 10*3/uL Lymphocytes # 0.26 L (0.90-5.00) X 10*3/uL Sodium (135-145) mmol/L Chloride (96-109) mmol/L Carbon Dioxide (21.6-31.8) mmol/L BUN (9.0-27.0) mg/dL Est GFR (CKD-EPI) (>=60) BUN/Creatinine Ratio (12.00-20.00) Ratio Glucose (70-110) mg/dL POC Glucose (mg/dL) (70-110) mg/dL Calcium (8.7-10.3) mg/dL Total Protein (6.2-8.2) g/dL Albumin (3.8-4.9) g/dL Microbiology - Last 24 Hours (Table) 11/02/23 18:20 Gram Stain - Final Other - Other Wound Culture - Final Assessment and Plan (1) Small bowel obstruction Narrative/Plan: Patient doing better daily. Continue advancing diet now to regular. Ambulate. Possible discharge tomorrow if doing well. Current Visit: Yes Status: Acute Priority: High Code(s): K56.609 - UNSP INTESTNL OBST, UNSP TO PARTIAL VERSUS COMPLETE OBST SNOMED Code(s): 878044873
--- NOTE | 2023-11-07 12:20 | P.PN ---
Subjective Patient is seen in follow-up for acute kidney injury on chronic kidney disease. Renal function better. Sodium level stable at 147. Tolerating clear liquid diet. Vital signs are stable. General: No acute distress. HEENT: Head exam is unremarkable. LUNGS: No audible rhonchi or wheezes. HEART: Rate and Rhythm are regular. ABDOMEN: Soft, mild generalized tenderness. EXTREMITITES: No edema. Objective - Vital Signs Vital signs: Vital Signs Temp 97.7 F 11/07/23 07:21 Pulse 74 11/07/23 07:21 Resp 17 11/07/23 07:21 BP 110/68 11/07/23 07:21 Pulse Ox 99 11/07/23 07:21 FiO2 Intake & Output 11/06/23 11/07/23 11/07/23 18:59 06:59 18:59 Output Total 200 Balance -200 Output: Urine 200 Other: Voiding Method Toilet Diaper Toilet Urinal Incontinent Urinal Diaper Diaper Incontinent Incontinent # Voids 3 1 - Labs CBC & Chem 7: 11/07/23 05:36 11/07/23 05:32 Labs: Abnormal Lab Results - Last 24 Hours (Table) 11/06/23 11/06/23 11/07/23 Range/Units 05:02 19:53 05:32 RBC (4.40-5.60) X 10*6/uL Hgb (13.0-17.0) g/dL Hct (39.6-50.0) % MCV (80.0-97.0) FL MCH (27.0-32.0) pg Plt Count (140-440) X 10*3/uL Lymphocytes # (0.90-5.00) X 10*3/uL Sodium 147 H 147 H (135-145) mmol/L Chloride 116 H 116 H (96-109) mmol/L Carbon Dioxide 21.4 L (21.6-31.8) mmol/L BUN 47.3 H 34.8 H (9.0-27.0) mg/dL Est GFR (CKD-EPI) 47 L 56 L (>=60) BUN/Creatinine Ratio 31.53 H 26.77 H (12.00-20.00) Ratio Glucose 130 H (70-110) mg/dL POC Glucose (mg/dL) 155 H (70-110) mg/dL Calcium 7.6 L 7.4 L (8.7-10.3) mg/dL Total Protein 4.2 L 4.2 L (6.2-8.2) g/dL Albumin 2.6 L 2.6 L (3.8-4.9) g/dL 11/07/23 Range/Units 05:36 RBC 3.26 L (4.40-5.60) X 10*6/uL Hgb 11.2 L (13.0-17.0) g/dL Hct 34.8 L (39.6-50.0) % MCV 106.7 H (80.0-97.0) FL MCH 34.4 H (27.0-32.0) pg Plt Count 115 L (140-440) X 10*3/uL Lymphocytes # 0.26 L (0.90-5.00) X 10*3/uL Sodium (135-145) mmol/L Chloride (96-109) mmol/L Carbon Dioxide (21.6-31.8) mmol/L BUN (9.0-27.0) mg/dL Est GFR (CKD-EPI) (>=60) BUN/Creatinine Ratio (12.00-20.00) Ratio Glucose (70-110) mg/dL POC Glucose (mg/dL) (70-110) mg/dL Calcium (8.7-10.3) mg/dL Total Protein (6.2-8.2) g/dL Albumin (3.8-4.9) g/dL Microbiology - Last 24 Hours (Table) 11/02/23 18:20 Gram Stain - Final Other - Other Wound Culture - Final Assessment and Plan Plan: Assessment: 1. Acute kidney injury secondary to vasomotor nephropathy from poor intake and hypotension. Renal function improved. Creatinine 1.3. 2. Renal cancer status post left nephrectomy. On chemo outpatient. 3. Chronic kidney disease stage IIIb with baseline creatinine 1.5-1.7 secondary to nephrosclerosis and solitary kidney. 4. Hypernatremia from lack of oral water intake. Stable. 5. Small bowel obstruction. Surgery following. NG tube removed. 6. Metabolic acidosis secondary to acute kidney injury and IV fluids. 7. Pneumonia on antibiotics. Plan: Maintain D5W. Expect further improvement of hypernatremia now that he is on clear diet. Avoid nephrotoxins. Repeat labs in the morning.
--- NOTE | 2023-11-07 13:02 | P.PN ---
Subjective Progress Note Date: 11/07/23 Principal diagnosis: Reason for follow-up is incarcerated left inguinal hernia concerning for peritonitis and pneumonia Patient is a 82-year-old male with a past medical history significant for hypertension hyperlipidemia GI bleed reflux sleep apnea, renal carcinoma, p resented to the hospital with abdominal pain constipation has been diagnosed with incarcerated left groin hernia s/p extensive surgery and evidence of cloudy peritoneal fluid. On today's evaluation that is 11/07/2023, Patient is afebrile this morning and denies any chills, patient mention breathing comfortably and is currently on room air, patient denies any chest pain occasional cough patient denies any abdominal pain no nausea no vomiting mention feeling slightly better. Patient white count normalized to 4.7, creatinine is 1.3 Objective - Vital Signs Vital signs: Vital Signs Temp 97.7 F 11/07/23 07:21 Pulse 74 11/07/23 07:21 Resp 17 11/07/23 07:21 BP 110/68 11/07/23 07:21 Pulse Ox 99 11/07/23 07:21 FiO2 Intake & Output 11/06/23 11/07/23 11/07/23 18:59 06:59 18:59 Output Total 200 Balance -200 Output: Urine 200 Other: Voiding Method Toilet Diaper Toilet Urinal Incontinent Urinal Diaper Diaper Incontinent Incontinent # Voids 3 1 - Exam GENERAL DESCRIPTION: An elderly male lying in bed in no distress RESPIRATORY SYSTEM: Unlabored breathing , decreased breath sounds at bases HEART: S1 S2 regular rate and rhythm , ABDOMEN: Soft , abdominal incision intact no tenderness EXTREMITIES: No edema feet - Labs CBC & Chem 7: 11/07/23 05:36 11/07/23 05:32 Labs: Abnormal Lab Results - Last 24 Hours (Table) 11/06/23 11/07/23 11/07/23 Range/Units 19:53 05:32 05:36 RBC 3.26 L (4.40-5.60) X 10*6/uL Hgb 11.2 L (13.0-17.0) g/dL Hct 34.8 L (39.6-50.0) % MCV 106.7 H (80.0-97.0) FL MCH 34.4 H (27.0-32.0) pg Plt Count 115 L (140-440) X 10*3/uL Lymphocytes # 0.26 L (0.90-5.00) X 10*3/uL Sodium 147 H (135-145) mmol/L Chloride 116 H (96-109) mmol/L Carbon Dioxide 21.4 L (21.6-31.8) mmol/L BUN 34.8 H (9.0-27.0) mg/dL Est GFR (CKD-EPI) 56 L (>=60) BUN/Creatinine Ratio 26.77 H (12.00-20.00) Ratio POC Glucose (mg/dL) 155 H (70-110) mg/dL Calcium 7.4 L (8.7-10.3) mg/dL Total Protein 4.2 L (6.2-8.2) g/dL Albumin 2.6 L (3.8-4.9) g/dL Microbiology - Last 24 Hours (Table) 11/02/23 18:20 Gram Stain - Final Other - Other Wound Culture - Final Assessment and Plan (1) Incarcerated inguinal hernia, unilateral Current Visit: Yes Status: Acute Code(s): K40.30 - UNIL INGUINAL HERNIA, W OBST, W/O GANGR, NOT SPCF RECUR SNOMED Code(s): 687522166 (2) Peritonitis Current Visit: Yes Status: Acute Code(s): K65.9 - PERITONITIS, UNSPECIFIED SNOMED Code(s): 02224272 (3) Aspiration pneumonia Current Visit: Yes Status: Acute Code(s): J69.0 - PNEUMONITIS DUE TO INHALATION OF FOOD AND VOMIT SNOMED Code(s): 644972566 Plan: 1patient presented to hospital with nausea vomiting abdominal pain and this patient has been diagnosed with incarcerated left inguinal hernia status post open repair of the incarcerated left inguinal hernia culture of the cloudy ascitic fluid left orchiectomy laparotomy with lysis of additions with a cloudy peritoneal fluid suspicious for leakage of the gut ermi from incarcerated hernia and we need to cover for the enteric gram-negative both aerobes and anaerobes 2patient also have left lower lobe infiltrate/pneumonia concern for possible as piration pneumonitis 3patient has shown clinical improvement patient white count normalized abdomin al culture has been negative so far we will continue patient on Zosyn transition to oral antibiotics on discharge Dictation was produced using dragon dictation software. please excuse any grammatical, word or spelling errors. Time with Patient: Less than 30
[2023-11-07] MEDS: DEXTROSE 5% IN WATER 1,000 ML IV SCH (13:06)
[2023-11-08 09:37] LABS: BUN/Creat Ratio 21.77 Ratio (12.00-20.00); Blood Urea Nitrogen 28.3 mg/dL (9.0-27.0); Calcium 7.2 mg/dL (8.7-10.3); Carbon Dioxide 19.6 mmol/L (21.6-31.8); Chloride 109 mmol/L (96-109); Glucose 102 mg/dL (70-110); Magnesium 2.1 mg/dL (1.5-2.4); Potassium 3.7 mmol/L (3.5-5.5); Sodium 138 mmol/L (135-145)
--- NOTE | 2023-11-08 14:32 | P.PN ---
Subjective Progress Note Date: 11/08/23 Patient is being followed for acute kidney injury. Creatinine today is 1.3, stable from yesterday. Patient seen at bedside. Hemodynamically stable. No significant complaints today. Objective - Vital Signs Vital signs: Vital Signs Temp 98.2 F 11/08/23 07:18 Pulse 63 11/08/23 07:18 Resp 17 11/08/23 07:18 BP 115/71 11/08/23 07:18 Pulse Ox 98 11/08/23 07:18 FiO2 Intake & Output 11/07/23 11/08/23 11/08/23 18:59 06:59 18:59 Intake Total 780 Output Total 500 Balance 280 Intake: Oral 780 Output: Urine 500 Stool 0 Other: Voiding Method Toilet Urinal Urinal Diaper Diaper Incontinent Incontinent # Voids 1 2 # Bowel Movements 1 - Exam Vital signs are stable. General: No acute distress. Heart: Regular rate and rhythm present. Lungs: Bilateral breath sounds present; no rhonchi, wheezes, or rales. Extremities: No edema present. Abdomen: Nondistended, mild tenderness to palpation. - Labs CBC & Chem 7: 11/07/23 05:36 11/08/23 02:25 Labs: Abnormal Lab Results - Last 24 Hours (Table) 11/07/23 11/07/23 Range/Units 05:32 05:36 RBC 3.26 L (4.40-5.60) X 10*6/uL Hgb 11.2 L (13.0-17.0) g/dL Hct 34.8 L (39.6-50.0) % MCV 106.7 H (80.0-97.0) FL MCH 34.4 H (27.0-32.0) pg Plt Count 115 L (140-440) X 10*3/uL Lymphocytes # 0.26 L (0.90-5.00) X 10*3/uL Sodium 147 H (135-145) mmol/L Chloride 116 H (96-109) mmol/L Carbon Dioxide 21.4 L (21.6-31.8) mmol/L BUN 34.8 H (9.0-27.0) mg/dL Est GFR (CKD-EPI) 56 L (>=60) BUN/Creatinine Ratio 26.77 H (12.00-20.00) Ratio Calcium 7.4 L (8.7-10.3) mg/dL Total Protein 4.2 L (6.2-8.2) g/dL Albumin 2.6 L (3.8-4.9) g/dL Microbiology - Last 24 Hours (Table) 11/02/23 18:20 Anaerobic Culture - Final Peritoneal Fluid 11/02/23 18:20 Gram Stain - Final Other - Other Wound Culture - Final Assessment and Plan Assessment: 1. Acute kidney injury on chronic kidney disease stage IIIb. Acute kidney injury, prerenal from decreased oral intake and borderline low blood pressure, improving with IV hydration. 2. Left nephrectomy for renal cell cancer. 3. 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 Baseline creatinine 1.5-1.7. Etiology: nephroscerloris and solitary kidney. 4. Hypertension with chronic kidney disease stage IIIb. 5. Hypernatremia associated with free water deficit. 6. Small bowel obstruction-being followed by surgery. Resolved. 7. History of BPH-maintained on Flomax at home. 8. 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 9. Left lower lobe pneumonia-maintained on antibiotics. 10. Anion gap metabolic acidosis associated with acute kidney injury and saline. Plan: Discontinue D5W - now tolerating regular diet. Avoid nephrotoxins. Continue to monitor renal function. Patient is cleared for discharge from a nephrology standpoint. I have seen and examined the patient with resident and agree with assessment and plan. F/u outpatient 1-2 weeks post discharge.
--- NOTE | 2023-11-08 15:25 | P.PN ---
Subjective Progress Note Date: 11/08/23 CHIEF COMPLAINT: Incarcerated left inguinal hernia, small bowel obstruction and ascites HISTORY OF PRESENT ILLNESS: Patient is postop day #6 status post open repair incarcerated left inguinal hernia, culture of cloudy ascitic fluid, left orchiectomy, laparotomy with lysis of adhesions, small bowel resection. Patient lying in bed comfortably. He is having bowel movements. Denies any nausea or vomiting. Reports his pain is controlled. Tolerating regular diet. Afebrile. WBC 4.79 PHYSICAL EXAM: VITAL SIGNS: Reviewed. GENERAL: no acute distress. ABDOMEN: Soft. Nondistended. Incisional dressings clean dry and intact ASSESSMENT: 1. Incarcerated left inguinal hernia, small bowel obstruction, ascites 2. History of metastatic renal cell carcinoma PLAN: -Patient can be discharged from surgical standpoint -Continue regular diet -Antibiotics per ID service -DVT prophylaxis Lovenox GI prophylaxis Protonix Physician Medical Assistant Supervisor note has been reviewed by physician. Signing provider agrees with the documented findings, assessment, and plan of care. I have personally seen and examined the patient, reviewed the FUEL ATTENDANT /PAs history, exam and MDM and agree with the assessment and plan as written. Based on total visit time, I have performed more than 50% of the visit. As above: Patient doing well today. Tolerating diet. Continue regular diet. Continue increasing activity. Stable for discharge tomorrow. Final cultures negative. Pathology noted. Objective - Vital Signs Vital signs: Vital Signs Temp 98.2 F 11/08/23 12:22 Pulse 59 L 11/08/23 12:22 Resp 18 11/08/23 12:22 BP 117/69 11/08/23 12:22 Pulse Ox 96 11/08/23 12:22 FiO2 Intake & Output 11/07/23 11/08/23 11/08/23 18:59 06:59 18:59 Intake Total 780 Output Total 500 Balance 280 Weight 68.946 kg Intake: Oral 780 Output: Urine 500 Stool 0 Other: Voiding Method Toilet Urinal Urinal Diaper Diaper Incontinent Incontinent # Voids 1 2 1 # Bowel Movements 1 - Labs CBC & Chem 7: 11/07/23 05:36 11/08/23 02:25 Labs: Abnormal Lab Results - Last 24 Hours (Table) 11/08/23 Range/Units 02:25 Carbon Dioxide 19.6 L (21.6-31.8) mmol/L BUN 28.3 H (9.0-27.0) mg/dL Est GFR (CKD-EPI) 56 L (>=60) BUN/Creatinine Ratio 21.77 H (12.00-20.00) Ratio Calcium 7.2 L (8.7-10.3) mg/dL Microbiology - Last 24 Hours (Table) 11/02/23 18:20 Anaerobic Culture - Final Peritoneal Fluid 11/02/23 18:20 Gram Stain - Final Other - Other Wound Culture - Final
--- NOTE | 2023-11-08 15:44 | P.PN ---
Subjective Progress Note Date: 11/08/23 Principal diagnosis: Metastatic RCC, intolerance to oral therapy. Admit for intractable N,V, dehydration In follow-up today patient is doing much better. He has had some small stools, denies any unrealistic pain in the abd or groin. He is tolerating oral intake. Objective - Vital Signs Vital signs: Vital Signs Temp 98.2 F 11/08/23 12:22 Pulse 59 L 11/08/23 12:22 Resp 18 11/08/23 12:22 BP 117/69 11/08/23 12:22 Pulse Ox 96 11/08/23 12:22 FiO2 Intake & Output 11/07/23 11/08/23 11/08/23 18:59 06:59 18:59 Intake Total 780 Output Total 500 Balance 280 Weight 68.946 kg Intake: Oral 780 Output: Urine 500 Stool 0 Other: Voiding Method Toilet Urinal Urinal Diaper Diaper Incontinent Incontinent # Voids 1 2 1 # Bowel Movements 1 - Constitutional General appearance: Present: cooperative, no acute distress, thin - EENT Eyes: Present: anicteric sclerae, EOMI ENT: Present: hearing grossly normal - Respiratory Details: resp even and unlabored - Peripheral edema leg Peripheral Edema: bilateral: None - Neurologic Neurologic: Present: CNII-XII intact - Musculoskeletal Musculoskeletal: Present: generalized weakness, strength equal bilaterally - Psychiatric Psychiatric: Present: A&O x's 3, appropriate affect, intact judgment & insight - Labs CBC & Chem 7: 11/07/23 05:36 11/08/23 02:25 Labs: Abnormal Lab Results - Last 24 Hours (Table) 11/08/23 Range/Units 02:25 Carbon Dioxide 19.6 L (21.6-31.8) mmol/L BUN 28.3 H (9.0-27.0) mg/dL Est GFR (CKD-EPI) 56 L (>=60) BUN/Creatinine Ratio 21.77 H (12.00-20.00) Ratio Calcium 7.2 L (8.7-10.3) mg/dL Microbiology - Last 24 Hours (Table) 11/02/23 18:20 Anaerobic Culture - Final Peritoneal Fluid Assessment and Plan (1) Abdominal pain Current Visit: Yes Status: Acute Priority: High Code(s): R10.9 - UNSPECIFIED ABDOMINAL PAIN SNOMED Code(s): 28157687 (2) Inguinal hernia Current Visit: Yes Status: Acute Priority: High Code(s): K40.90 - UNIL INGUINAL HERNIA, W/O OBST OR GANGR, NOT SPCF RECUR SNOMED Code(s): 458103197 (3) Renal cell carcinoma Current Visit: Yes Status: Acute Priority: High Code(s): C64.9 - MALIGNANT NEOPLASM OF UNSP KIDNEY, EXCEPT RENAL PELVIS SNOMED Code(s): 032196351 Plan: SBO, inguinal hernia -abdominal pain, nausea and vomiting. Transferred from [facility] due to concerns for small bowel obstruction as well as possible pneumonia. -General surgery has performed hernia repair, pt doing well post op. Defer mgmt of same to Surgery Metastatic renal cell carcinoma -CT 10/01/23 showed disease progression, with new osseous lesions. Thankfully, pt does not have any specific symptoms from these lesion. 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 -Recommended to start oral Lenvima and keytruda. He started Lenvima 10/25/23, he had not yet received keytruda. Took two doses of lenvima when he experienced intractable N,V, "nothing would stay down". [place] that maybe hernia exacerbated by N,V, and that N,V may have been in part due to SBO, not just lenvima. Pt and family agree. -Hold Lenvima for now and until healed from surgery. -May consider re-challenge of lenvima at same dose. He will be assessed prior to resuming any treatment by Med Onc. -Clinic f/u in [place] plan. Pt reports fear of taking abx-make him nauseated and diarrhea at times. Encouraged to use antiemetics about 45min - 1 hour prior to taking abx. Rx was sent from office to refill his compazine Rx. Also, recommend some type of probiotic and antidiarrheals to decrease diarrhea. Pt verbalized understanding Mild anemia and thrombocytopenia post op-very mild, no intervention needed at this time
--- NOTE | 2023-11-08 17:24 | P.PN ---
Subjective Progress Note Date: 11/08/23 Isidoro Prado, is an 82-year-old male who presented to [facility] emergency room with a chief complaint of Abdominal pain and hernia. Patient was a transfer from [facility]. Per patient he was started on a new medication for treatment of renal cell carcinomaPer oncology services and reports that he started having issues after second dose with abdominal pain nausea and vomiting He was evaluated in the emergency room vital examination on presentation revealedTemp 97.8, heart rate 67, respiratory rate 16, blood pressure 123/69 with pulse ox 90% on room air Laboratory data revealsCreatinine 2.3 bun 105, white blood cell 5.6, hemoglobin 13.3, AST 40, ALT 28 and alkaline phosphatase 91 Testing in the emergency room revealed Imaging in [facility]. Chest x-ray completed showing minimal left lower lobe infiltrate Patient was admitted to medical floor for further evaluation and treatment. At this time NG tube was placed, Surgical service is consulted. Patient started on treatment for pneumonia with IV antibiotics Rocephin and Zithromax repeat 2 view chest x-ray ordered. Nephrology service is consulted for acute kidney injury patient maintained normal saline at 100 and oncology service is consulted Past medical history is significant for Renal cell carcinoma follows with oncology, Diverticulitis, previous GI bleed, hyperlipidemia, hypertension, sleep apnea On review of systems : Patient is resting comfortably in bed. Patient reports improvement with abdominal pain. Patient denies any chest pain or shortness of breath. At this time patient denies nausea vomiting or diarrhea.Patient denies any urinary burning or frequency On 11/02/2023 patient's alert and oriented 3. Patient was evaluated by surgical services recommending surgical intervention for hernia small bowel obstruction. Patient remains with NG tube reports improvement. Hematology services also following for metastatic renal cell carcinoma. At this time patient denies chest pain or shortness of breath. Patient denies nausea vomiting or diarrhea. Patient denies any urinary burning or frequency. Current vital signs temp 97.7, heart rate 73, respiratory rate 16, blood pressure 119/69 with pulse ox 97% 11/03/2023 patient is alert and oriented 3. Patient is status post open repair incarcerated left inguinal hernia with left orchiectomy with lysis of adhesions and small bowel resection. Patient reports he feels well. Patient denies any chest pain or shortness of breath. Patient denies nausea vomiting or diarrhea. Patient denies any urinary burning or frequency patient remains nothing by mouth at this time. Current vital signs temp 98.0, heart rate 78, respiratory rate 17, blood pressure 94/60 with a pulse ox 96% On 11/04/2023 patient was seen and examined on the medical floor he is alert and oriented x 3 in no apparent distress, he is still having NG tube in, he is complaining of mild abdominal pain and discomfort, otherwise he denies any complaints there is no fever or chills no headache or dizziness no chest pain no shortness of breath no cough no nausea or vomiting no diarrhea no blood in the stools and no urinary symptoms. Vital examination today reveals a temperature of 97.5 pulse 71 respiration 16 blood pressure 113/72 pulse ox 98% on room air his white blood count is 5.24 hemoglobin 12.2 platelet count 122 BUN 65 creatini ne 1.8 On 11/05/2023 patient is alert and oriented x 3 patient currently sitting up in chair. Patient still requiring NG tube at this time per surgical services. Patient reports mild abdominal pain. Patient denies any nausea or vomiting. Antibiotics adjusted to IV Zosyn per infectious disease awaiting final cultures. Current vital signs Temp 97.9, heart rate 60, respiratory rate 16, blood pre ssure 120/74 with a pulse ox of 99% On 11/06/2023 patient was seen and examined on the medical floor he is alert and oriented x 3 in no apparent distress, there is no fever or chills no headache or dizziness no chest pain no shortness of breath no cough no nausea or vomiting no abdominal pain no diarrhea no urinary symptoms, NG tube has been removed, patient is tolerating clear liquid diet well, will continue to monitor closely. On 11/07/2023 patient was seen and examined on the medical floor he is alert and oriented x 3 in no apparent distress, he is complaining of abdominal discomfort otherwise he denies any complaints there is no fever or chills no headache or dizziness no chest pain no shortness of breath no cough no nausea or vomiting no abdominal pain no diarrhea and no urinary symptoms, patient is tolerating liquid diet well. On 11/08/2023 patient was seen and examined on the medical floor, he is alert and oriented x 3 in no apparent distress, patient denies any complaints at this time, he is able to tolerate diet well, he denies any nausea or vomiting no abdominal pain no diarrhea, he had a bowel movement today, there is no fever or chills no headache or dizziness no chest pain no shortness of breath no cough no abdominal pain and no urinary symptoms, patient is improving gradually, possible discharge to home tomorrow. Objective - Vital Signs Vital signs: Vital Signs Temp 98.2 F 11/08/23 12:22 Pulse 59 L 11/08/23 12:22 Resp 18 11/08/23 12:22 BP 117/69 11/08/23 12:22 Pulse Ox 96 11/08/23 12:22 FiO2 Intake & Output 11/07/23 11/08/23 11/08/23 18:59 06:59 18:59 Intake Total 780 Output Total 500 Balance 280 Weight 68.946 kg Intake: Oral 780 Output: Urine 500 Stool 0 Other: Voiding Method Toilet Urinal Urinal Diaper Diaper Incontinent Incontinent # Voids 1 2 1 # Bowel Movements 1 - Exam In general patient is alert and oriented x 3 in no distress HEENT head normocephalic and atraumatic Neck is supple no JVD no goiter no lymphadenopathy no carotid bruit Chest examination is clear to auscultation no crackles no wheezing Cardiac exam reveals regular heart sounds S1 and S2 no gallops no murmurs Abdomen is soft nontender no organomegaly with normal bowel sounds Extremity exam reveals no edema no cyanosis or clubbing Neurological examination reveals no gross focal deficits - Labs CBC & Chem 7: 11/07/23 05:36 11/08/23 02:25 Labs: Abnormal Lab Results - Last 24 Hours (Table) 11/08/23 Range/Units 02:25 Carbon Dioxide 19.6 L (21.6-31.8) mmol/L BUN 28.3 H (9.0-27.0) mg/dL Est GFR (CKD-EPI) 56 L (>=60) BUN/Creatinine Ratio 21.77 H (12.00-20.00) Ratio Calcium 7.2 L (8.7-10.3) mg/dL Assessment and Plan Assessment: 1.Abdominal pain secondary to hernia and small bowel obstruction. Status post open repair of incarcerated left inguinal hernia with culture cloudy ascitic fluid left orchiectomy with lysis of adhesions and small bowel resection on 11/02/2023 2. Pneumonia. Patient started on IV antibiotics repeat two-view chest x-ray ordered 3. Acute kidney injury patient started normal saline at 100. Nephrology services consulted 4. Recent diagnosis of metastic renal cell carcinoma. Oncology service is consulted 5. History of diverticulitis with GI bleed 6. History of essential hypertension 7. History of hyperlipidemia DVT prophylaxis Lovenox. GI prophylaxis Protonix Surgical services, oncology and nephrology service is consulted Patient started on IV antibiotics Continue normal saline NG tube in place
[2023-11-08 19:32] VITALS: RESP 16
--- NOTE | 2023-11-09 11:30 | P.DS ---
Providers Date of admission: 10/31/23 20:03 Expected date of discharge: 11/09/23 Attending physician: Ruperto Reese Consults: 10/31/23 20:03 Consult Physician Routine Consulting Provider: Paul Aguilar Consult Reason/Comments: sbo Do you want consulting provider notified?: Yes Consult Physician Routine Consulting Provider: Tank Rasmussen Consult Reason/Comments: known Do you want consulting provider notified?: Yes 11/01/23 11:57 Consult Physician Routine Consulting Provider: Damaris Diaz Consult Reason/Comments: MAHENDRA Do you want consulting provider notified?: Yes 11/03/23 10:20 Consult Physician Routine Consulting Provider: Jacki Lopez Consult Reason/Comments: cloudy acitic fluid, pneumonia Do you want consulting provider notified?: Yes Primary care physician: Ruperto Reese [facility] Course: Discharge diagnosis 1.Abdominal pain secondary to hernia and small bowel obstruction. Status post open repair of incarcerated left inguinal hernia with culture cloudy ascitic fluid left orchiectomy with lysis of adhesions and small bowel resection on 11/02/2023 2. Pneumonia. Patient started on IV antibiotics repeat two-view chest x-ray ordered 3. Acute kidney injury patient started normal saline at 100. Nephrology services consulted 4. Recent diagnosis of metastic renal cell carcinoma. Oncology service is consulted 5. History of diverticulitis with GI bleed 6. History of essential hypertension 7. History of hyperlipidemia Hospital course Isidoro Prado, is an 82-year-old male who presented to [facility] emergency room with a chief complaint of Abdominal pain and hernia. Patient was a transfer from [facility]. Per patient he was started on a new medication for treatment of renal cell carcinomaPer oncology services and reports that he started having issues after second dose with abdominal pain nausea and vomiting He was evaluated in the emergency room vital examination on presentation revealedTemp 97.8, heart rate 67, respiratory rate 16, blood pressure 123/69 with pulse ox 90% on room air Laboratory data revealsCreatinine 2.3 bun 105, white blood cell 5.6, hemoglobin 13.3, AST 40, ALT 28 and alkaline phosphatase 91 Testing in the emergency room revealed Imaging in [facility]. Chest x-ray completed showing minimal left lower lobe infiltrate Patient was admitted to medical floor for further evaluation and treatment. At this time NG tube was placed, Surgical service is consulted. Patient started on treatment for pneumonia with IV antibiotics Rocephin and Zithromax repeat 2 view chest x-ray ordered. Nephrology service is consulted for acute kidney injury patient maintained normal saline at 100 and oncology service is consulted Past medical history is significant for Renal cell carcinoma follows with oncology, Diverticulitis, previous GI bleed, hyperlipidemia, hypertension, sleep apnea On review of systems : Patient is resting comfortably in bed. Patient reports improvement with abdominal pain. Patient denies any chest pain or shortness of breath. At this time patient denies nausea vomiting or diarrhea.Patient denies any urinary burning or frequency On 11/02/2023 patient's alert and oriented 3. Patient was evaluated by surgical services recommending surgical intervention for hernia small bowel obstruction. Patient remains with NG tube reports improvement. Hematology services also following for metastatic renal cell carcinoma. At this time patient denies chest pain or shortness of breath. Patient denies nausea vomiting or diarrhea. Patient denies any urinary burning or frequency. Current vital signs temp 97.7, heart rate 73, respiratory rate 16, blood pressure 119/69 with pulse ox 97% 11/03/2023 patient is alert and oriented 3. Patient is status post open repair incarcerated left inguinal hernia with left orchiectomy with lysis of adhesions and small bowel resection. Patient reports he feels well. Patient denies any chest pain or shortness of breath. Patient denies nausea vomiting or diarrhea. Patient denies any urinary burning or frequency patient remains nothing by mouth at this time. Current vital signs temp 98.0, heart rate 78, respiratory rate 17, blood pressure 94/60 with a pulse ox 96% On 11/04/2023 patient was seen and examined on the medical floor he is alert and oriented x 3 in no apparent distress, he is still having NG tube in, he is complaining of mild abdominal pain and discomfort, otherwise he denies any complaints there is no fever or chills no headache or dizziness no chest pain no shortness of breath no cough no nausea or vomiting no diarrhea no blood in the stools and no urinary symptoms. Vital examination today reveals a temperature of 97.5 pulse 71 respiration 16 blood pressure 113/72 pulse ox 98% on room air his white blood count is 5.24 hemoglobin 12.2 platelet count 122 BUN 65 creatinine 1.8 On 11/05/2023 patient is alert and oriented x 3 patient currently sitting up in chair. Patient still requiring NG tube at this time per surgical services. Patient reports mild abdominal pain. Patient denies any nausea or vomiting. Antibiotics adjusted to IV Zosyn per infectious disease awaiting final cultures. Current vital signs Temp 97.9, heart rate 60, respiratory rate 16, blood pressure 120/74 with a pulse ox of 99% On 11/06/2023 patient was seen and examined on the medical floor he is alert and oriented x 3 in no apparent distress, there is no fever or chills no headache or dizziness no chest pain no shortness of breath no cough no nausea or vomiting no abdominal pain no diarrhea no urinary symptoms, NG tube has been removed, patient is tolerating clear liquid diet well, will continue to monitor closely. On 11/07/2023 patient was seen and examined on the medical floor he is alert and oriented x 3 in no apparent distress, he is complaining of abdominal discomfort otherwise he denies any complaints there is no fever or chills no headache or dizziness no chest pain no shortness of breath no cough no nausea or vomiting no abdominal pain no diarrhea and no urinary symptoms, patient is tolerating liquid diet well. On 11/08/2023 patient was seen and examined on the medical floor, he is alert and oriented x 3 in no apparent distress, patient denies any complaints at this time, he is able to tolerate diet well, he denies any nausea or vomiting no abdominal pain no diarrhea, he had a bowel movement today, there is no fever or chills no headache or dizziness no chest pain no shortness of breath no cough no abdominal pain and no urinary symptoms, patient is improving gradually, possible discharge to home tomorrow. On 11/09/2023 patient is alert and oriented x 3. Patient reports he feels ready to be DC'd home. Patient has been tolerating diet. Patient has been cleared for discharge from surgical, oncology and infectious disease services. Patient will be DC'd on Augmentin per ID recommendation. Patient denies chest pain or shortness of breath. Patient denies nausea vomiting or diarrhea. Patient denies any urinary burning or frequency. Current vital signs Temp 98.2, heart rate 64, respiratory rate 16, blood pressure 123/64 with pulse ox of 97% on room air Patient Condition at Discharge: Stable Plan - Discharge Summary New Discharge Prescriptions: New Amoxic-Pot Clav 875-125Mg [Augmentin 875-125] 1 tab PO Q12HR 7 Days #14 tab Continue Omeprazole 20 mg PO BID allopurinoL [Allopurinol] 100 mg PO DAILY Fexofenadine HCl [[place] Allergy] 180 mg PO DAILY PRN PRN Reason: Allergy Symptoms Tamsulosin HCl [Flomax] 0.8 mg PO HS Acetaminophen [Tylenol Arthritis] 650 mg PO Q8H PRN PRN Reason: Pain Acetaminophen [Tylenol Extra Strength] 500 mg PO Q6H PRN PRN Reason: Fever And/ Or Pain Cholecalciferol (Vitamin D3) [Vitamin D3 (50 Mcg = 2000 Iu)] 50 mcg PO DAILY Triamcinolone Acetonide [Nasacort] 1 spray EA NOSTRIL DAILY PRN PRN Reason: Allergy Symptoms Levothyroxine Sodium 50 mcg PO WE Pembrolizumab [Keytruda] 200 mg IV DIRECTED Diphenoxylate HCl/Atropine [Lomotil 2.5-0.025 mg Tablet] 2 tab PO QID PRN PRN Reason: Diarrhea Loperamide [Imodium] 2 mg PO QID PRN PRN Reason: Diarrhea Ipratropium [place] 0.06%Nasal [Atrovent Nasal 0.06%] 1 - 2 spray EA NOSTRIL DAILY PRN PRN Reason: Allergy Symptoms Folic Acid 0.4 mg PO DAILY Atorvastatin [Lipitor] 20 mg PO HS Furosemide [Lasix] 20 mg PO DIRECTED Levothyroxine Sodium 25 mcg PO SUMOTUTHFRSA Diclofenac Sodium [Voltaren Arthritis Pain 1% Gel] 1 applic TOPICAL DAILY PRN PRN Reason: Pain Oxybutynin Chloride [oxyBUTYnin chloride ER] 15 mg PO DAILY Lidocaine 5% Patch [Lidoderm 5% Patch] 1 patch TOPICAL DAILY PRN PRN Reason: Pain Aspirin EC [Ecotrin Low Dose] 81 mg PO DAILY Apixaban [Eliquis] 2.5 mg PO BID Chlorhexidine Gluconate [Peridex] 15 ml PO BID Xgeva Injection 1 dose SQ Q56D Discontinued Ferrous Sulfate [Feosol] 325 mg PO Q48H Discharge Medication List Omeprazole 20 mg PO BID 02/19/14 [History] allopurinoL [Allopurinol] 100 mg PO DAILY 02/19/14 [History] Acetaminophen [Tylenol Arthritis] 650 mg PO Q8H PRN 04/17/21 [History] Acetaminophen [Tylenol Extra Strength] 500 mg PO Q6H PRN 04/17/21 [History] Atorvastatin [Lipitor] 20 mg PO HS 04/17/21 [History] Fexofenadine HCl [[place] Allergy] 180 mg PO DAILY PRN 04/17/21 [History] Folic Acid 0.4 mg PO DAILY 04/17/21 [History] Furosemide [Lasix] 20 mg PO DIRECTED 04/17/21 [History] Ipratropium [place] 0.06%Nasal [Atrovent Nasal 0.06%] 1 - 2 spray EA NOSTRIL DAILY PRN 04/17/21 [History] Levothyroxine Sodium 25 mcg PO SUMOTUTHFRSA 04/17/21 [History] Loperamide [Imodium] 2 mg PO QID PRN 04/17/21 [History] Tamsulosin HCl [Flomax] 0.8 mg PO HS 04/17/21 [History] Apixaban [Eliquis] 2.5 mg PO BID 10/26/23 [History] Aspirin EC [Ecotrin Low Dose] 81 mg PO DAILY 10/26/23 [History] Chlorhexidine Gluconate [Peridex] 15 ml PO BID 10/26/23 [History] Cholecalciferol (Vitamin D3) [Vitamin D3 (50 Mcg = 2000 Iu)] 50 mcg PO DAILY 10/26/23 [History] Diclofenac Sodium [Voltaren Arthritis Pain 1% Gel] 1 applic TOPICAL DAILY PRN 10/26/23 [History] Diphenoxylate HCl/Atropine [Lomotil 2.5-0.025 mg Tablet] 2 tab PO QID PRN 10/26/23 [History] Levothyroxine Sodium 50 mcg PO WE 10/26/23 [History] Lidocaine 5% Patch [Lidoderm 5% Patch] 1 patch TOPICAL DAILY PRN 10/26/23 [History] Oxybutynin Chloride [oxyBUTYnin chloride ER] 15 mg PO DAILY 10/26/23 [History] Pembrolizumab [Keytruda] 200 mg IV DIRECTED 10/26/23 [History] Triamcinolone Acetonide [Nasacort] 1 spray EA NOSTRIL DAILY PRN 10/26/23 [History] Xgeva Injection 1 dose SQ Q56D 10/26/23 [History] Amoxic-Pot Clav 875-125Mg [Augmentin 875-125] 1 tab PO Q12HR 7 Days #14 tab 11/09/23 [Rx] Follow up Appointment(s)/Referral(s): [facility] [NON-STAFF] - As Needed Tank Rasmussen [STAFF PHYSICIAN] - 12/10/23 11:45 am (This appt is at the [address] [place] [address] floor, office location) Ritu Kramer MD [STAFF PHYSICIAN] - 1-2 days Patient Instructions/Handouts: Abdominal Pain (ED) Activity/Diet/Wound Care/Special Instructions: DO NOT TAKE LENVIMA UNTIL SEEN BY DR. RASMUSSEN Discharge Disposition: HOME WITH HOME HEALTH SERVICES
--- NOTE | 2023-11-09 11:47 | P.PN ---
Subjective Progress Note Date: 11/09/23 Patient is being followed for acute kidney injury. Creatinine yesterday was 1.3. Able to make urine. Patient seen at bedside. Hemodynamically stable. No significant complaints today. Objective - Vital Signs Vital signs: Vital Signs Temp 98.2 F 11/09/23 07:10 Pulse 64 11/09/23 07:10 Resp 16 11/09/23 07:10 BP 123/64 11/09/23 07:10 Pulse Ox 97 11/09/23 07:10 FiO2 Intake & Output 11/08/23 11/09/23 11/09/23 18:59 06:59 18:59 Intake Total 200 Output Total 300 Balance -100 Weight 68.946 kg Intake: Intake, IV Titration 200 Amount Piperacillin-Tazobactam 3 200 .375 gm In Sodium Chloride 0.9% 100 ml @ 25 mls/hr IVPB Q8H [facility] Rx#: [id number] Output: Urine 300 Other: # Voids 1 - Exam Vital signs are stable. General: No acute distress. Heart: Regular rate and rhythm present. Lungs: Bilateral breath sounds present; no rhonchi, wheezes, or rales. Extremities: No edema present. Abdomen: Nondistended, mild tenderness to palpation. - Labs CBC & Chem 7: 11/07/23 05:36 11/08/23 02:25 Labs: Abnormal Lab Results - Last 24 Hours (Table) 11/08/23 Range/Units 02:25 Carbon Dioxide 19.6 L (21.6-31.8) mmol/L BUN 28.3 H (9.0-27.0) mg/dL Est GFR (CKD-EPI) 56 L (>=60) BUN/Creatinine Ratio 21.77 H (12.00-20.00) Ratio Calcium 7.2 L (8.7-10.3) mg/dL Assessment and Plan Assessment: 1. Acute kidney injury on chronic kidney disease stage IIIb. Acute kidney injury, prerenal from decreased oral intake and borderline low blood pressure, improving with IV hydration. 2. Left nephrectomy for renal cell cancer. 3. 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 Baseline creatinine 1.5-1.7. Etiology: nephroscerloris and solitary kidney. 4. Hypertension with chronic kidney disease stage III 5. Hypernatremia associated with free water deficit. 6. Small bowel obstruction-being followed by surgery. Resolved. 7. History of BPH-maintained on Flomax at home. 8. 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 9. Left lower lobe pneumonia-maintained on antibiotics. 10. Anion gap metabolic acidosis associated with acute kidney injury and saline. Plan: Avoid nephrotoxins. Continue to monitor renal function. Follow-up outpatient 1-2 weeks post discharge. Advised patient on importance of fluid restriction and low-salt diet at home. If patient gains more than 3 pounds in a week, let physician know. Patient is cleared for discharge from nephrology standpoint. Patient seen and examined with the resident and agree with assessment and plan. Remains off IV fluids. Tolerating oral intake.
[2023-11-09 13:17] VITALS: BP 127/71; PULSE 55; TEMP 98
--- NOTE | 2023-11-09 14:40 | P.PN ---
Subjective Progress Note Date: 11/09/23 Principal diagnosis: Reason for follow-up is incarcerated left inguinal hernia concerning for peritonitis and pneumonia Patient is a 82-year-old male with a past medical history significant for hypertension hyperlipidemia GI bleed reflux sleep apnea, renal carcinoma, p resented to the hospital with abdominal pain constipation has been diagnosed with incarcerated left groin hernia s/p extensive surgery and evidence of cloudy peritoneal fluid. On today's evaluation that is 11/09/2023,the patient continues to be afebrile, patient is breathing comfortably on room air, the patient denies chest pain shortness of breath and no significant cough, patient did have improvement in abdominal pain no nausea no vomiting mention feeling better. No new labs were drawn today Objective - Vital Signs Vital signs: Vital Signs Temp 98.2 F 11/09/23 07:10 Pulse 64 11/09/23 07:10 Resp 16 11/09/23 07:10 BP 123/64 11/09/23 07:10 Pulse Ox 94 L 11/09/23 08:56 FiO2 Intake & Output 11/08/23 11/09/23 11/09/23 18:59 06:59 18:59 Intake Total 200 Output Total 300 Balance -100 Weight 68.946 kg Intake: Intake, IV Titration 200 Amount Piperacillin-Tazobactam 3 200 .375 gm In Sodium Chloride 0.9% 100 ml @ 25 mls/hr IVPB Q8H [facility] Rx#: [id number] Output: Urine 300 Other: # Voids 1 - Exam GENERAL DESCRIPTION: An elderly male lying in bed in no distress RESPIRATORY SYSTEM: Unlabored breathing , decreased breath sounds at bases HEART: S1 S2 regular rate and rhythm , ABDOMEN: Soft , abdominal incision intact no tenderness EXTREMITIES: No edema feet - Labs CBC & Chem 7: 11/07/23 05:36 11/08/23 02:25 Assessment and Plan (1) Incarcerated inguinal hernia, unilateral Current Visit: Yes Status: Acute Code(s): K40.30 - UNIL INGUINAL HERNIA, W OBST, W/O GANGR, NOT SPCF RECUR SNOMED Code(s): 634702965 (2) Peritonitis Current Visit: Yes Status: Acute Code(s): K65.9 - PERITONITIS, UNSPECIFIED SNOMED Code(s): 15661916 (3) Aspiration pneumonia Current Visit: Yes Status: Acute Code(s): J69.0 - PNEUMONITIS DUE TO INHALATION OF FOOD AND VOMIT SNOMED Code(s): 049114837 Plan: 1patient presented to hospital with nausea vomiting abdominal pain and this patient has been diagnosed with incarcerated left inguinal hernia status post open repair of the incarcerated left inguinal hernia culture of the cloudy ascitic fluid left orchiectomy laparotomy with lysis of additions with a cloudy peritoneal fluid suspicious for leakage of the gut remi from incarcerated hernia and we need to cover for the enteric gram-negative both aerobes and anaerobes 2patient also have left lower lobe infiltrate/pneumonia concern for possible aspiration pneumonitis 3patient has shown clinical improvement patient white count normalized abdominal culture has been negative so far 4-we will consider a 7-day course of oral Augmentin on discharge discussed with ESCALATOR INSTALLER for admitting team Dictation was produced using [employer] dictation software. please excuse any grammatical, word or spelling errors. Time with Patient: Less than 30
--- NOTE | 2023-11-09 14:40 | P.PN ---
Subjective Progress Note Date: 11/08/23 Principal diagnosis: Reason for follow-up is incarcerated left inguinal hernia concerning for peritonitis and pneumonia Patient is a 82-year-old male with a past medical history significant for hypertension hyperlipidemia GI bleed reflux sleep apnea, renal carcinoma, p resented to the hospital with abdominal pain constipation has been diagnosed with incarcerated left groin hernia s/p extensive surgery and evidence of cloudy peritoneal fluid. On today's evaluation that is 11/08/2023,the patient denies any fever or any chills, patient is breathing comfortably on room air, the patient denies chest pain shortness of breath and no significant cough, patient abdominal pain has decreased in intensity no nausea or vomiting did have bowel movement. Patient did have a creatinine 1.3 no CBC was done today Objective - Vital Signs Vital signs: Vital Signs Temp 98.2 F 11/08/23 12:22 Pulse 59 L 11/08/23 12:22 Resp 18 11/08/23 12:22 BP 117/69 11/08/23 12:22 Pulse Ox 96 11/08/23 12:22 FiO2 Intake & Output 11/07/23 11/08/23 11/08/23 18:59 06:59 18:59 Intake Total 780 Output Total 500 Balance 280 Weight 68.946 kg Intake: Oral 780 Output: Urine 500 Stool 0 Other: Voiding Method Toilet Urinal Urinal Diaper Diaper Incontinent Incontinent # Voids 1 2 1 # Bowel Movements 1 - Exam GENERAL DESCRIPTION: An elderly male lying in bed in no distress RESPIRATORY SYSTEM: Unlabored breathing , decreased breath sounds at bases HEART: S1 S2 regular rate and rhythm , ABDOMEN: Soft , abdominal incision intact no tenderness EXTREMITIES: No edema feet - Labs CBC & Chem 7: 11/07/23 05:36 11/08/23 02:25 Labs: Abnormal Lab Results - Last 24 Hours (Table) 11/08/23 Range/Units 02:25 Carbon Dioxide 19.6 L (21.6-31.8) mmol/L BUN 28.3 H (9.0-27.0) mg/dL Est GFR (CKD-EPI) 56 L (>=60) BUN/Creatinine Ratio 21.77 H (12.00-20.00) Ratio Calcium 7.2 L (8.7-10.3) mg/dL Assessment and Plan (1) Incarcerated inguinal hernia, unilateral Current Visit: Yes Status: Acute Code(s): K40.30 - UNIL INGUINAL HERNIA, W OBST, W/O GANGR, NOT SPCF RECUR SNOMED Code(s): 643392931 (2) Peritonitis Current Visit: Yes Status: Acute Code(s): K65.9 - PERITONITIS, UNSPECIFIED SNOMED Code(s): 72145112 (3) Aspiration pneumonia Current Visit: Yes Status: Acute Code(s): J69.0 - PNEUMONITIS DUE TO INHALATION OF FOOD AND VOMIT SNOMED Code(s): 721748915 Plan: 1patient presented to hospital with nausea vomiting abdominal pain and this patient has been diagnosed with incarcerated left inguinal hernia status post open repair of the incarcerated left inguinal hernia culture of the cloudy ascitic fluid left orchiectomy laparotomy with lysis of additions with a cloudy peritoneal fluid suspicious for leakage of the gut remi from incarcerated hernia and we need to cover for the enteric gram-negative both aerobes and anaerobes 2patient also have left lower lobe infiltrate/pneumonia concern for possible aspiration pneumonitis 3patient has shown clinical improvement patient white count normalized abdominal culture has been negative so far 4-we will continue patient on Zosyn while inpatient finishing therapy with oral Augmentin on discharge Dictation was produced using [employer] dictation software. please excuse any grammatical, word or spelling errors. Time with Patient: Less than 30
--- NOTE | 2023-11-09 15:37 | P.PN ---
Subjective Progress Note Date: 11/09/23 CHIEF COMPLAINT: Incarcerated left inguinal hernia, small bowel obstruction and ascites HISTORY OF PRESENT ILLNESS: Patient is postop day #7 status post open repair incarcerated left inguinal hernia, culture of cloudy ascitic fluid, left orchiectomy, laparotomy with lysis of adhesions, small bowel resection. Patient is tolerating diet. He is having bowel movements. He is not pain is controlled. He is not requiring any pain medication. Afebrile. He has been up to ambulate. Afebrile PHYSICAL EXAM: VITAL SIGNS: Reviewed. GENERAL: no acute distress. ABDOMEN: Soft. Nondistended. Incisional dressings clean dry and intact ASSESSMENT: 1. Incarcerated left inguinal hernia, small bowel obstruction, ascites 2. History of metastatic renal cell carcinoma PLAN: -Patient can be discharged from surgical standpoint -Continue regular diet -Antibiotics per ID service -DVT prophylaxis Lovenox GI prophylaxis Protonix Physician Set Rider note has been reviewed by physician. Signing provider agrees with the documented findings, assessment, and plan of care. Objective - Vital Signs Vital signs: Vital Signs Temp 98.0 F 11/09/23 12:54 Pulse 55 L 11/09/23 12:54 Resp 16 11/09/23 12:54 BP 127/71 11/09/23 12:54 Pulse Ox 98 11/09/23 12:54 FiO2 Intake & Output 11/08/23 11/09/23 11/09/23 18:59 06:59 18:59 Intake Total 200 Output Total 300 Balance -100 Weight 68.946 kg Intake: Intake, IV Titration 200 Amount Piperacillin-Tazobactam 3 200 .375 gm In Sodium Chloride 0.9% 100 ml @ 25 mls/hr IVPB Q8H [facility] Rx#: [id number] Output: Urine 300 Other: # Voids 1 - Labs CBC & Chem 7: 11/07/23 05:36 11/08/23 02:25
== END 2023-11-09 14:42 | disposition home health service (06) | DRG 329 ==
LOC: EC 17:16 → 5NMEDONC 20:03
PROVIDERS: ADMIT Internal Medicine; ATTEND Internal Medicine
PROC: 0D9670Z Drainage of Stomach with Drainage Device, Via Natural or Artificial Opening (ICD-10-PCS; 2023-11-01)
PROC: 0DT80ZZ Resection of Small Intestine, Open Approach (ICD-10-PCS; principal; 2023-11-02 10:15)
PROC: 0DN80ZZ Release Small Intestine, Open Approach (ICD-10-PCS; principal; 2023-11-02 10:15)
PROC: 0YQ60ZZ Repair Left Inguinal Region, Open Approach (ICD-10-PCS; principal; 2023-11-02 10:15)
PROC: 0VTB0ZZ Resection of Left Testis, Open Approach (ICD-10-PCS; principal; 2023-11-02 10:15)
DX: K40.30 Unilateral inguinal hernia, with obstruction, without gangrene, not specified as recurrent (principal); J69.0 Pneumonitis due to inhalation of food and vomit; K65.9 Peritonitis, unspecified; N17.0 Acute kidney failure with tubular necrosis; R18.8 Other ascites; E87.20 Acidosis, unspecified; E87.0 Hyperosmolality and hypernatremia; K56.50 Intestinal adhesions [bands], unspecified as to partial versus complete obstruction; C64.2 Malignant neoplasm of left kidney, except renal pelvis; N17.8 Other acute kidney failure; I95.9 Hypotension, unspecified; M19.90 Unspecified osteoarthritis, unspecified site; E78.5 Hyperlipidemia, unspecified; N43.3 Hydrocele, unspecified; I12.9 Hypertensive chronic kidney disease with stage 1 through stage 4 chronic kidney disease, or unspecified chronic kidney disease; N18.32 Chronic kidney disease, stage 3b; M54.10 Radiculopathy, site unspecified; N40.0 Benign prostatic hyperplasia without lower urinary tract symptoms; G47.30 Sleep apnea, unspecified; K21.9 Gastro-esophageal reflux disease without esophagitis; Z71.3 Dietary counseling and surveillance; Z79.01 Long term (current) use of anticoagulants; Z79.82 Long term (current) use of aspirin; Z79.899 Other long term (current) drug therapy; Z90.5 Acquired absence of kidney; Z96.649 Presence of unspecified artificial hip joint; Z87.19 Personal history of other diseases of the digestive system; Z79.890 Hormone replacement therapy
CPT/HCPCS: 71045; 71046; 80048; 80053; 81001; 83735; 84100; 85025; 86850; 86900; 86901; 87070; 87075; 87205; 87449; 88307; 94640; 94760; 96365; 96366; 96367; 96375; 96376; 99285

== ENCOUNTER → 2024-01-07 | Outpatient (CLI) | payer MEDICARE, BC ==
[2024-01-07 15:08] LABS: BUN/Creat Ratio 26.14 Ratio (12.00-20.00); Blood Urea Nitrogen 57.5 mg/dL (9.0-27.0); Calcium 8.5 mg/dL (8.7-10.3); Carbon Dioxide 16.5 mmol/L (21.6-31.8); Chloride 114 mmol/L (96-109); Glucose 110 mg/dL (70-110); Potassium 3.7 mmol/L (3.5-5.5); Sodium 142 mmol/L (135-145)
== END | disposition home or self-care (01) ==
LOC: LABWHC1 11:13
PROVIDERS: ATTEND Family Medicine
DX: N18.32 Chronic kidney disease, stage 3b (principal)
CPT/HCPCS: 36415; 80048

== ENCOUNTER 2024-02-01 14:06 | Inpatient (IN) | payer MEDICARE, BC ==
--- NOTE | 2024-02-01 16:18 | ED ---
General Adult HPI - General Chief complaint: Nausea/Vomiting/Diarrhea Stated complaint: weakness Time Seen by Provider: 02/01/24 15:32 Source: patient, family, RN notes reviewed Mode of arrival: ambulatory Limitations: no limitations - History of Present Illness Initial comments: Patient is an 83-year-old male presents emergency department with concerns for diarrhea and weakness. Diarrhea has progressed over the more than 2 weeks. Patient is having chest loose watery stools at this point. Patient has decreased oral intake. Patient feels dehydrated and fatigued. Patient does have abdominal discomfort that is somewhat severe left lower abdomen. Patient does have history of renal cell cancer s/p resection with recurrence, stage IV. Patient is on Keytruda and 1 other therapy. - Related Data Home Medications Medication Instructions Recorded Confirmed Omeprazole 20 mg PO BID 02/19/14 02/01/24 allopurinoL [Allopurinol] 100 mg PO DAILY 02/19/14 02/01/24 Acetaminophen [Tylenol Arthritis] 650 mg PO Q8H PRN 04/17/21 02/01/24 Acetaminophen [Tylenol Extra 500 mg PO Q6H PRN 04/17/21 02/01/24 Strength] Atorvastatin [Lipitor] 20 mg PO HS 04/17/21 02/01/24 Fexofenadine HCl [[place] Allergy] 180 mg PO DAILY PRN 04/17/21 02/01/24 Folic Acid 0.4 mg PO DAILY 04/17/21 02/01/24 Furosemide [Lasix] 20 mg PO DAILY 04/17/21 02/01/24 Ipratropium [place] 0.06%Nasal 1 - 2 spray EA NOSTRIL DAILY PRN 04/17/21 02/01/24 [Atrovent Nasal 0.06%] Levothyroxine Sodium 25 mcg PO SUMOTUTHFRSA 04/17/21 02/01/24 Loperamide [Imodium] 2 mg PO QID PRN 04/17/21 02/01/24 Tamsulosin HCl [Flomax] 0.8 mg PO HS 04/17/21 02/01/24 Apixaban [Eliquis] 2.5 mg PO BID 10/26/23 02/01/24 Aspirin EC [Ecotrin Low Dose] 81 mg PO DAILY 10/26/23 02/01/24 Cholecalciferol (Vitamin D3) 50 mcg PO DAILY 10/26/23 02/01/24 [Vitamin D3 (50 Mcg = 2000 Iu)] Diclofenac Sodium [Voltaren 1 applic TOPICAL DAILY PRN 10/26/23 02/01/24 Arthritis Pain 1% Gel] Diphenoxylate HCl/Atropine 1 tab PO QID PRN 10/26/23 02/01/24 [Lomotil 2.5-0.025 mg Tablet] Levothyroxine Sodium 50 mcg PO WE 10/26/23 02/01/24 Lidocaine 5% Patch [Lidoderm 5% 1 patch TOPICAL DAILY PRN 10/26/23 02/01/24 Patch] Oxybutynin Chloride [oxyBUTYnin 15 mg PO DAILY 10/26/23 02/01/24 chloride ER] Pembrolizumab [Keytruda] 1 dose IV Q21D 10/26/23 02/01/24 Triamcinolone Acetonide [Nasacort] 1 spray EA NOSTRIL HS PRN 10/26/23 02/01/24 Xgeva Injection 1 dose SQ Q56D 10/26/23 02/01/24 Lenvatinib Mesylate [Lenvima 20mg 20 mg PO DAILY 02/01/24 02/01/24 (Dosepack = 2 x 10mg capsules)] Prochlorperazine [Compazine] 10 mg PO BID PRN 02/01/24 02/01/24 Allergies Allergy/AdvReac Type Severity Reaction Status Date / Time weed pollen Allergy runny Verified 02/01/24 17:15 nose, red eyes dust mites Allergy rash, Uncoded 02/01/24 17:15 swelling goldenrod Allergy Rash/Hives Uncoded 02/01/24 17:15 MOLD Allergy RASH, Uncoded 02/01/24 17:15 SWELLING. Review of Systems ROS Statement: Those systems with pertinent positive or pertinent negative responses have been documented in the HPI. ROS Other: All systems not noted in ROS Statement are negative. Constitutional: Denies: fever Eyes: Denies: eye pain ENT: Denies: ear pain Respiratory: Denies: cough, dyspnea Cardiovascular: Denies: chest pain Endocrine: Reports: fatigue Gastrointestinal: Reports: abdominal pain, diarrhea. Denies: vomiting Musculoskeletal: Denies: back pain Neurological: Reports: weakness Past Medical History Past Medical History: GERD/Reflux, GI Bleed, Hyperlipidemia, Hypertension, Renal Disease, Sleep Apnea/CPAP/BIPAP Additional Past Medical History / Comment(s): HTN & GI BLEED RESOVLED. Renal cell cancer. RECENT DX OF MASS ON LT KIDNEY. HX OF DIVERTICULITIS History of Any Multi-Drug Resistant Organisms: None Reported Past Surgical History: Appendectomy Additional Past Surgical History / Comment(s): EGD. COLONOSCOPY. ESOPHAGEAL OBSTRUCTION REMOVED. HEMORRHOIDECTOMY. SURGERY FOR BLEEDING ULCER. SEVERAL PROCEDURES FOR PERITONITIS R/T RUPTURED APPENDIX Past Anesthesia/Blood Transfusion Reactions: No Reported Reaction Past Psychological History: No Psychological Hx Reported Smoking Status: Never smoker Past Alcohol Use History: None Reported, Rare Past Drug Use History: None Reported - Past Family History Mother Family Medical History: Diabetes Mellitus, Hypertension Additional Family Medical History / Comment(s): ANEURYSM Father Family Medical History: Cancer, Coronary Artery Disease (CAD), CVA/TIA, Hyperlipidemia Additional Family Medical History / Comment(s): Ca: bladder; cabg General Exam Limitations: no limitations General appearance: alert, in no apparent distress Head exam: Present: normocephalic Eye exam: Present: normal appearance ENT exam: Present: mucous membranes dry Neck exam: Present: normal inspection Respiratory exam: Present: normal lung sounds bilaterally Cardiovascular Exam: Present: regular rate, normal rhythm GI/Abdominal exam: Present: soft, tenderness (Moderate tenderness left lower abdomen). Absent: distended, pulsatile mass Extremities exam: Present: normal inspection Neurological exam: Present: alert Psychiatric exam: Present: normal affect, normal mood Skin exam: Present: normal color Course Vital Signs 02/01/24 02/01/24 14:21 17:34 Temperature 98.2 F Pulse Rate 87 66 Respiratory 18 18 Rate Blood Pressure 87/56 103/65 O2 Sat by Pulse 97 98 Oximetry Medical Decision Making - Medical Decision Making MDM back was pt. sent in by a medical professional or institution (, PA, PSYCHIATRIST, urgent care, hospital, or senior care...) When possible be specific @ -No Did you speak to anyone other than the patient for history (EMS, parent, family, police, friend...)? What history was obtained from this source @ -Family is present and helps provide history including history of patient's previous history including cancer history Did you review nursing and triage notes (agree or disagree)? Why? @ -I reviewed and agree with nursing and triage notes Were old charts reviewed (outside hosp., previous admission, EMS record, old EKG, old radiological studies, urgent care reports/EKG's, senior care records)? Report findings @ -Previous labs including renal function reviewed Differential Diagnosis (chest pain, altered mental status, abdominal pain women, abdominal pain men, vaginal bleeding, weakness, fever, dyspnea, syncope, headache, dizziness, GI bleed, back pain, seizure, CVA, palpatations, mental health, musculoskeletal)? @ -Differential Weakness: Hypoglycemia, shock, sepsis, hyponatremia, anemia, infection, SC, ETOH, adverse medicine reaction, overdose, stroke, this is not meant to be an all-inclusive list. EKG interpreted by me (3pts min.). @ -As above X-rays interpreted by me (1pt min.). @ -None done CT interpreted by me (1pt min.). @ -CT scan abdomen pelvis concerning for colitis/enteritis. There is also enlargement of the left iliopsoas which could be hematoma or hemorrhage. U/S interpreted by me (1pt. min.). @ -None done What testing was considered but not performed or refused? (CT, X-rays, U/S, labs)? Why? @ -None What meds were considered but not given or refused? Why? @ -None Did you discuss the management of the patient with other professionals (professionals i.e. , PA, PSYCHIATRIST, lab, RT, psych nurse, mental health social worker, cap parts cutter, teacher, emergency response officer, case resolution specialist)? Give summary @ -Case was discussed with Dr. Reese who will admit covering Dr. Gordon Was smoking cessation discussed for >3mins.? @ -No Was critical care preformed (if so, how long)? @ -No Were there social determinants of health that impacted care today? How? (Homelessness, low income, unemployed, alcoholism, drug addiction, transportation, low edu. Level, literacy, decrease access to med. care, senior care, rehab)? @ -No Was there de-escalation of care discussed even if they declined (Discuss DNR or withdrawal of care, Hospice)? DNR status @ -No What co-morbidities impacted this encounter? (DM, HTN, Smoking, COPD, CAD, Cancer, CVA, ARF, Chemo, Hep., AIDS, mental health diagnosis, sleep apnea, morbid obesity)? @ -History of metastatic renal cell cancer Was patient admitted / discharged? Hospital course, mention meds given and route, prescriptions, significant lab abnormalities, going to OR and other pertinent info. @ -Patient presents with weakness diarrhea and left-sided abdominal pain. Patient does have some dehydration. In addition there is concern for hematoma or hemorrhage near the left iliopsoas, Eliquis and aspirin will be held with surgical evaluation. Testing will be done with diarrhea. Fluids will be provided. Consults will also be placed with oncology. Admission orders written. Undiagnosed new problem with uncertain prognosis? @ -No Drug Therapy requiring intensive monitoring for toxicity (Heparin, Nitro, Insulin, Cardizem)? @ -No Were any procedures done? @ -No Diagnosis/symptom? @ -Colitis, dehydration, iliopsoas hematoma Acute, or Chronic, or Acute on Chronic? @ -Acute, acute, acute Uncomplicated (without systemic symptoms) or Complicated (systemic symptoms)? @ -Default Side effects of treatment? @ -No Exacerbation, Progression, or Severe Exacerbation? @ -No Poses a threat to life or bodily function? How? (Chest pain, USA, SC, pneumonia, PE, COPD, DKA, ARF, appy, cholecystitis, CVA, Diverticulitis, Homicidal, Suicidal, threat to staff... and all critical care pts) @ -Threat to renal function - Lab Data Result diagrams: 02/01/24 16:21 02/01/24 16:21 Lab Results 02/01/24 02/01/24 02/01/24 Range/Units 16:21 16:21 16:21 WBC 5.9 (3.8-10.6) k/uL RBC 3.50 L (4.30-5.90) m/uL Hgb 11.7 L (13.0-17.5) gm/dL Hct 35.9 L (39.0-53.0) % MCV 102.7 H (80.0-100.0) fL MCH 33.4 (25.0-35.0) pg MCHC 32.5 (31.0-37.0) g/dL RDW 18.6 H (11.5-15.5) % Plt Count 67 L (150-450) k/uL MPV 9.3 Neutrophils % 85 % Lymphocytes % 8 % Monocytes % 5 % Eosinophils % 1 % Basophils % 0 % Neutrophils # 5.0 (1.3-7.7) k/uL Lymphocytes # 0.5 L (1.0-4.8) k/uL Monocytes # 0.3 (0-1.0) k/uL Eosinophils # 0.1 (0-0.7) k/uL Basophils # 0.0 (0-0.2) k/uL Manual Slide Review Performed Hypochromasia Moderate Poikilocytosis Slight Anisocytosis Slight Macrocytosis Moderate PT 10.4 (10.0-12.5) sec INR 0.9 (<1.2) APTT 26.0 (22.0-30.0) sec Sodium 140 (137-145) mmol/L Potassium 3.2 L (3.5-5.1) mmol/L Chloride 116 H (98-107) mmol/L Carbon Dioxide 10 L (22-30) mmol/L Anion Gap 14 mmol/L BUN 63 H (9-20) mg/dL Creatinine 2.73 H (0.66-1.25) mg/dL Est GFR (CKD-EPI)AfAm 24 (>60 ml/min/1.73 sqM) Est GFR (CKD-EPI)NonAf 21 (>60 ml/min/1.73 sqM) Glucose 71 L (74-99) mg/dL Calcium 7.4 L (8.4-10.2) mg/dL Total Bilirubin 0.7 (0.2-1.3) mg/dL AST 51 (17-59) U/L ALT 26 (4-49) U/L Alkaline Phosphatase 91 (38-126) U/L Total Protein 5.1 L (6.3-8.2) g/dL Albumin 2.8 L (3.5-5.0) g/dL Amylase 125 H (30-110) U/L Lipase 310 H (23-300) U/L Disposition Clinical Impression: Iliopsoas muscle hematoma, Colitis, Dehydration Disposition: ADMITTED IP TO THIS HOSP Is patient prescribed a controlled substance at d/c from ED?: No Referrals: Ritu Kramer MD [Primary Care Provider] - 1-2 days Time of Disposition: 19:14
[2024-02-01] MEDS: MORPHINE SULFATE 4 MG/ML SYRINGE IVP STA (16:36)
[2024-02-01] MEDS: SODIUM CHLORIDE 0.9% 500 ML 500 ML IV STA (16:39)
[2024-02-01] MEDS: SODIUM CHLORIDE 0.9% 1,000 ML IV STA (16:40)
[2024-02-01 16:48] LABS: INR 0.9 (<1.2); Prothrombin Time 10.4 sec (10.0-12.5)
[2024-02-01 17:00] LABS: ALT 26 U/L (4-49); AST 51 U/L (17-59); African American GFR (CKD) 24 (>60 ml/min/1.73 sqM); Albumin 2.8 g/dL (3.5-5.0); Alkaline Phosphatase 91 U/L (38-126); Amylase 125 U/L (30-110); Anion Gap 14 mmol/L; Anisocytosis Slight; Basophils % (A) 0 %; Blood Urea Nitrogen 63 mg/dL (9-20); Calcium 7.4 mg/dL (8.4-10.2); Carbon Dioxide 10 mmol/L (22-30); Chloride 116 mmol/L (98-107); Eosinophils # (A) 0.1 k/uL (0-0.7); Eosinophils % (A) 1 %; Glucose 71 mg/dL (74-99); HCT 35.9 % (39.0-53.0); HGB 11.7 gm/dL (13.0-17.5); Hypochromasia Moderate; Lipase 310 U/L (23-300); Lymphocytes # (A) 0.5 k/uL (1.0-4.8); Lymphocytes % (A) 8 %; MCH 33.4 pg (25.0-35.0); MCHC 32.5 g/dL (31.0-37.0); MCV 102.7 fL (80.0-100.0); Macrocytosis Moderate; Mean Platelet Volume 9.3; Monocytes # (A) 0.3 k/uL (0-1.0); Monocytes % (A) 5 %; Neutrophils % (A) 85 %; Non-African American GFR(CKD) 21 (>60 ml/min/1.73 sqM); Poikilocytosis Slight; Potassium 3.2 mmol/L (3.5-5.1); RDW 18.6 % (11.5-15.5); Sodium 140 mmol/L (137-145); Total Bilirubin 0.7 mg/dL (0.2-1.3); Total Protein 5.1 g/dL (6.3-8.2); WBC 5.9 k/uL (3.8-10.6)
[2024-02-01 17:22] LABS: Platelet Count 67 k/uL (150-450)
--- NOTE | 2024-02-01 17:39 | CT ---
EXAMINATION TYPE: CT abdomen pelvis wo con DATE OF EXAM: 02/01/2024 COMPARISON: 10/26/2023 HISTORY: 83-year-old male diarrhea ongoing for the past few days and right sided abdominal pain. Hx o f hernia repair CT DLP: 448.3 mGycm. Automated exposure control for dose reduction was used. TECHNIQUE: Contiguous axial scanning of the abdomen and pelvis without IV contrast. Coronal and sagit zach reconstructions performed. FINDINGS: Heart normal size. Similar slight volume loss in the left hemithorax. Coronary artery calcifications. Similar pleural parenchymal scarring in the lung bases. No pleural effusion. Gallbladder hydropic measuring 5.0 cm wide. Dependent gallstones measuring up to 1.3 cm. A 4.3 cm duo denal diverticulum noted. Noncontrast appearance of the liver, right adrenal gland, spleen, atrophic pancreas show no gross abn ormality. Similar diffuse thickening of the left adrenal gland without discrete nodularity. Right-sided renal cortical cysts measuring up to 6.0 cm. Fluid-filled small bowel loops throughout the abdomen. Liquid stool within the cecum. Moderate circum ferential wall thickening in the hepatic flexure of the colon. Otherwise, scattered [id number] stool. There is also scattered left-sided clonic diverticulosis greatest in the sigmoid colon. Left kidney surgically absent. Bladder distended. Mild presacral edema. Bones: Unchanged lucency and trabecular thickening of the T10 vertebral body. [facility] within the lower t horacic spine. Additional lucent lesion with trabecular thickening left side of the sacrum. Findings may reflect Paget's disease Asymmetrically larger left iliopsoas musculature with some adjacent retroperitoneal stranding. There may be some vague hyperdensity within the musculature. Redemonstrated post surgical change right hip hemiarthroplasty with similar sclerosis and fragmentati on of the proximal right femur. IMPRESSION : 1. Fluid-filled small bowel loops throughout along with liquid stool in the cecum. In addition, ther e is moderate circumferential wall thickening at the hepatic flexure of the colon. Consider a nonspec ific colitis/enterocolitis. Given the degree of colonic wall thickening, recommend short interval fol low-up to ensure resolution and exclude underlying neoplasm. Direct visualization can also be conside red if routine screening colonoscopy is not being performed. 2. Gallstones measuring up to 1.3 cm. Gallbladder is hydropic. This may be due to fasting state. If concern for early acute cholecystitis, HIDA scan can be considered. 3. Asymmetric enlargement of the left iliopsoas musculature with surrounding stranding and edema and some subtle intrinsic hyperdensity. Correlate for any blood thinner use and for suspected intramuscu lar hemorrhage/hematoma. 4. 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 Also, unchanged appearance to the proximal right femur with sclerosis and fragmentation. Underlying right hip hemiarthroplasty. 5. Status post left nephrectomy. [facility], , 02/01/2024 5:36 PM
[2024-02-01] MEDS ORDERED: FLUTICASONE NASAL 50MCG/SPRAY 16GM BTL EA NOSTRIL PRN (19:03)
[2024-02-01] MEDS ORDERED: LORATADINE 10 MG TAB PO PRN (19:03)
[2024-02-01] MEDS ORDERED: LIDOCAINE 4% PATCH TOPICAL PRN (19:03)
[2024-02-01] MEDS ORDERED: DIPHENOX-ATROP 2.5-0.025 MG 1 EACH TAB PO PRN (19:03)
[2024-02-01] MEDS ORDERED: NALOXONE 0.4 MG/ML 1 ML VIAL IV PRN (19:16)
[2024-02-01] MEDS: PANTOPRAZOLE 40 MG TABLET PO SCH (20:12)
[2024-02-01] MEDS: ATORVASTATIN 20 MG TAB PO SCH (20:12)
[2024-02-01] MEDS: TAMSULOSIN 0.4 MG CAP.ER.24H PO SCH (20:12)
[2024-02-01] MEDS: SODIUM CHLORIDE 0.9% 1,000 ML IV SCH (20:15)
[2024-02-01] MEDS: ACETAMINOPHEN TAB 325 MG TAB PO PRN (22:49)
[2024-02-01] MEDS: POTASSIUM CHLORIDE 10 MEQ in WATER FOR INJECTION 1 100ML.BAG IVPB STA (22:50)
[2024-02-02] MEDS: LEVOTHYROXINE 50 MCG TAB PO SCH (07:03)
[2024-02-02] MEDS: OXYBUTYNIN 15 MG TAB.ER.24 PO SCH (08:39)
[2024-02-02] MEDS: allopurinoL 100 MG TAB PO SCH (08:39)
[2024-02-02] MEDS: FOLIC ACID 1 MG TAB PO SCH (08:39)
[2024-02-02] MEDS: CHOLECALCIFEROL 25 MCG (1000 IU) TABLET PO SCH (08:39)
[2024-02-02] MEDS ORDERED: PANTOPRAZOLE 40 MG/10 ML VIAL IV SCH (09:00)
[2024-02-02 10:58] LABS: Basophils # (A) 0.01 X 10*3/uL (0.00-0.10); Basophils % (A) 0.3 %; Eosinophils # (A) 0.06 X 10*3/uL (0.04-0.35); Eosinophils % (A) 1.6 %; HGB 10.6 g/dL (13.0-17.0); Immature Platelet Fraction 3.2 % (1.1-6.1); Lymphocytes # (A) 0.43 X 10*3/uL (0.90-5.00); Lymphocytes % (A) 11.8 %; MCH 32.1 pg (27.0-32.0); MCHC 32.1 g/dL (32.0-37.0); Mean Platelet Volume 11.7 FL (9.5-12.2); Monocytes # (A) 0.31 X 10*3/uL (0.20-1.00); Monocytes % (A) 8.5 %; NRBC Per 100 WBC 0 X 10*3/uL (0.00-0.01); Neutrophils # (A) 2.81 X 10*3/uL (1.80-7.70); Neutrophils % (A) 77.3 %; Platelet Count 64 X 10*3/uL (140-440); RDW 20.1 % (11.5-14.5); WBC 3.64 X 10*3/uL (4.50-10.00)
[2024-02-02 11:02] LABS: ALT 25 U/L (10-49); AST 58 U/L (14-35); Albumin 2.6 g/dL (3.8-4.9); Albumin/Globulin Ratio 1.73 Ratio (1.60-3.17); Alkaline Phosphatase 90 U/L (41-126); BUN/Creat Ratio 23.93 Ratio (12.00-20.00); Blood Urea Nitrogen 64.6 mg/dL (9.0-27.0); Calcium 6.5 mg/dL (8.7-10.3); Carbon Dioxide 12.5 mmol/L (21.6-31.8); Chloride 115 mmol/L (96-109); Globulin 1.5 g/dL (1.6-3.3); Glucose 63 mg/dL (70-110); Magnesium 1.8 mg/dL (1.5-2.4); Phosphorus 5.4 mg/dL (2.4-5.1); Potassium 3.4 mmol/L (3.5-5.5); Sodium 143 mmol/L (135-145); Total Bilirubin 0.3 mg/dL (0.3-1.2); Total Protein 4.1 g/dL (6.2-8.2)
[2024-02-02] MEDS ORDERED: ACETAMINOPHEN TAB 500 MG TAB PO PRN (12:59)
[2024-02-02] MEDS ORDERED: IPRATROPIUM BROMIDE 0.06% NASAL SPRAY (15 ML) EA NOSTRIL PRN (12:59)
--- NOTE | 2024-02-02 13:39 | P.GSCN ---
History of Present Illness Consult date: 02/02/24 History of present illness: CHIEF COMPLAINT: Diarrhea and weakness HISTORY OF PRESENT ILLNESS: This is a 83-year-old male who presented with diarrhea and weakness. Patient reports he had diarrhea over the last 2 weeks. He denies any blood in his stools. He denies any nausea or vomiting. He had a CT scan abdomen pelvis that had reported thickening of the colon in the hepatic flexure and possible colitis, and possible hematoma at the left iliopsoas. Patient is on Eliquis. Last dose was yesterday morning. Patient denies any injury. Patient does have a history of stage IV renal cancer status post left nephrectomy and has been on chemotherapy. Patient does complain of pain that is sharp in the left groin area. He did have a recent left inguinal hernia open repair in October 2023. The patient denies any injury to the area. And the incision is healed. Surgical service has been consulted in regards to a possible iliopsoas hematoma. Last EGD and colonoscopy was in March 2021. EGD revealed gastric antral vascular dysphagia with no active bleeding and small. Scattered sigmoid diverticulosis and small internal. PAST MEDICAL HISTORY: See below PAST SURGICAL HISTORY: See below MEDICATIONS: See below ALLERGIES: See below SOCIAL HISTORY: No illicit drug use. REVIEW OF SYSTEMS: CONSTITUTIONAL: Denies fever or chills. HEENT: Denies blurred vision, vision changes, or eye pain. Denies hemoptysis CARDIOVASCULAR: Denies chest pain or pressure. RESPIRATORY: No shortness of breath. GASTROINTESTINAL: See HPI for pertinent findings HEMATOLOGIC: Denies bleeding disorders. GENITOURINARY: Denies any blood in urine or increased urinary frequency. SKIN: Denies pruitis. Denies rash. PHYSICAL EXAM: VITAL SIGNS: Reviewed GENERAL: Well-developed in no acute distress. HEENT: No sclera icterus. Extraocular movements grossly intact. Moist buccal mucosa. Head is atraumatic, normocephalic. No nasal drainage. ABDOMEN: Soft. Nondistended. Tenderness to palpation in the left groin. No hernia noted. Recent hernia surgical scar is healed. No evidence of infection. No ecchymosis. NEUROLOGIC: Alert and oriented. Cranial nerves II through XII grossly intact. Back: No ecchymosis or bruising noted on the lower back LABORATORY DATA: WBC 3.64 Hgb 11.7 down to 10.6 platelets 64 Sodium 143 potassium 3.4 creatinine 2.7 IMAGING: CT scan abdomen pelvis reports fluid-filled small bowel loops throughout along with liquid stool in the cecum. There is moderate circumferential wall thickening at the hepatic flexure of the colon consider a nonspecific colitis and or enterocolitis. Gallstones measuring up to 1.3 cm asymmetric enlargement of the left iliopsoas musculature with surrounding stranding and edema and some subtle intracystic hyperdensity. Suspected intramuscular hemorrhage/hematoma. Similar low-density of trabecular thickening of the T10 vertebral body and left side of the sacrum may relate to Paget's disease of the bone ASSESSMENT: 1. Iliopsoas hematoma. Patient on blood thinners at home. The hematoma may be contributing to patient's left groin pain. 2. Moderate circumferential wall thickening at the hepatic flexure of the colon with possible colitis 3. Diarrhea 4. History of DVT on Eliquis 5. Status post open repair of incarcerated left inguinal hernia with left orchiectomy and laparotomy with lysis of adhesions and small bowel resection on November 02, 2023 6. History of renal cancer status post nephrectomy and is on chemotherapy PLAN: -No surgical intervention planned -Continue to hold Eliquis -Continue to monitor hemoglobin -Check stool studies Physician Shorthand Teacher note has been reviewed by physician. Signing provider agrees with the documented findings, assessment, and plan of care. Past Medical History Past Medical History: GERD/Reflux, GI Bleed, Hyperlipidemia, Hypertension, Renal Disease, Sleep Apnea/CPAP/BIPAP Additional Past Medical History / Comment(s): HTN & GI BLEED RESOVLED. Renal cell cancer. RECENT DX OF MASS ON LT KIDNEY. HX OF DIVERTICULITIS History of Any Multi-Drug Resistant Organisms: None Reported Past Surgical History: Appendectomy Additional Past Surgical History / Comment(s): EGD. COLONOSCOPY. ESOPHAGEAL OBSTRUCTION REMOVED. HEMORRHOIDECTOMY. SURGERY FOR BLEEDING ULCER. SEVERAL PROCEDURES FOR PERITONITIS R/T RUPTURED APPENDIX. left kidney removed. Past Anesthesia/Blood Transfusion Reactions: No Reported Reaction Past Psychological History: No Psychological Hx Reported Smoking Status: Never smoker Past Alcohol Use History: None Reported, Rare Past Drug Use History: None Reported - Past Family History Mother Family Medical History: Diabetes Mellitus, Hypertension Additional Family Medical History / Comment(s): ANEURYSM Father Family Medical History: Cancer, Coronary Artery Disease (CAD), CVA/TIA, Hyperlipidemia Additional Family Medical History / Comment(s): Ca: bladder; cabg Medications and Allergies Home Medications Medication Instructions Recorded Confirmed Type Omeprazole 20 mg PO BID 02/19/14 02/01/24 History allopurinoL [Allopurinol] 100 mg PO DAILY 02/19/14 02/01/24 History Acetaminophen [Tylenol Arthritis] 650 mg PO Q8H PRN 04/17/21 02/01/24 History Acetaminophen [Tylenol Extra 500 mg PO Q6H PRN 04/17/21 02/01/24 History Strength] Atorvastatin [Lipitor] 20 mg PO HS 04/17/21 02/01/24 History Fexofenadine HCl [[place] Allergy] 180 mg PO DAILY PRN 04/17/21 02/01/24 History Folic Acid 0.4 mg PO DAILY 04/17/21 02/01/24 History Furosemide [Lasix] 20 mg PO DAILY 04/17/21 02/01/24 History Ipratropium [place] 0.06%Nasal 1 - 2 spray EA NOSTRIL DAILY PRN 04/17/21 02/01/24 History [Atrovent Nasal 0.06%] Levothyroxine Sodium 25 mcg PO SUMOTUTHFRSA 04/17/21 02/01/24 History Loperamide [Imodium] 2 mg PO QID PRN 04/17/21 02/01/24 History Tamsulosin HCl [Flomax] 0.8 mg PO HS 04/17/21 02/01/24 History Apixaban [Eliquis] 2.5 mg PO BID 10/26/23 02/01/24 History Aspirin EC [Ecotrin Low Dose] 81 mg PO DAILY 10/26/23 02/01/24 History Cholecalciferol (Vitamin D3) 50 mcg PO DAILY 10/26/23 02/01/24 History [Vitamin D3 (50 Mcg = 2000 Iu)] Diclofenac Sodium [Voltaren 1 applic TOPICAL DAILY PRN 10/26/23 02/01/24 History Arthritis Pain 1% Gel] Diphenoxylate HCl/Atropine 1 tab PO QID PRN 10/26/23 02/01/24 History [Lomotil 2.5-0.025 mg Tablet] Levothyroxine Sodium 50 mcg PO WE 10/26/23 02/01/24 History Lidocaine 5% Patch [Lidoderm 5% 1 patch TOPICAL DAILY PRN 10/26/23 02/01/24 History Patch] Oxybutynin Chloride [oxyBUTYnin 15 mg PO DAILY 10/26/23 02/01/24 History chloride ER] Pembrolizumab [Keytruda] 1 dose IV Q21D 10/26/23 02/01/24 History Triamcinolone Acetonide [Nasacort] 1 spray EA NOSTRIL HS PRN 10/26/23 02/01/24 History Xgeva Injection 1 dose SQ Q56D 10/26/23 02/01/24 History Lenvatinib Mesylate [Lenvima 20mg 20 mg PO DAILY 02/01/24 02/01/24 History (Dosepack = 2 x 10mg capsules)] Prochlorperazine [Compazine] 10 mg PO BID PRN 02/01/24 02/01/24 History Allergies Allergy/AdvReac Type Severity Reaction Status Date / Time weed pollen Allergy runny Verified 02/01/24 17:15 nose, red eyes dust mites Allergy rash, Uncoded 02/01/24 17:15 swelling goldenrod Allergy Rash/Hives Uncoded 02/01/24 17:15 MOLD Allergy RASH, Uncoded 02/01/24 17:15 SWELLING. Surgical - Exam Vital Signs Temp Pulse Resp BP Pulse Ox 98.2 F 87 18 87/56 97 02/01/24 14:21 02/01/24 14:21 02/01/24 14:21 02/01/24 14:21 02/01/24 14:21 Results - Labs 02/02/24 05:15 02/02/24 05:15 Abnormal Lab Results - Last 24 Hours (Table) 02/01/24 02/01/24 Range/Units 16:21 16:21 RBC 3.50 L (4.30-5.90) m/uL Hgb 11.7 L (13.0-17.5) gm/dL Hct 35.9 L (39.0-53.0) % MCV 102.7 H (80.0-100.0) fL RDW 18.6 H (11.5-15.5) % Plt Count 67 L (150-450) k/uL Lymphocytes # 0.5 L (1.0-4.8) k/uL Potassium 3.2 L (3.5-5.1) mmol/L Chloride 116 H (98-107) mmol/L Carbon Dioxide 10 L (22-30) mmol/L BUN 63 H (9-20) mg/dL Creatinine 2.73 H (0.66-1.25) mg/dL Glucose 71 L (74-99) mg/dL Calcium 7.4 L (8.4-10.2) mg/dL Total Protein 5.1 L (6.3-8.2) g/dL Albumin 2.8 L (3.5-5.0) g/dL Amylase 125 H (30-110) U/L Lipase 310 H (23-300) U/L Diabetes panel 02/01/24 Range/Units 16:21 Sodium 140 (137-145) mmol/L Potassium 3.2 L (3.5-5.1) mmol/L Chloride 116 H (98-107) mmol/L Carbon Dioxide 10 L (22-30) mmol/L BUN 63 H (9-20) mg/dL Creatinine 2.73 H (0.66-1.25) mg/dL Glucose 71 L (74-99) mg/dL Calcium 7.4 L (8.4-10.2) mg/dL AST 51 (17-59) U/L ALT 26 (4-49) U/L Alkaline Phosphatase 91 (38-126) U/L Total Protein 5.1 L (6.3-8.2) g/dL Albumin 2.8 L (3.5-5.0) g/dL Calcium panel 02/01/24 Range/Units 16:21 Calcium 7.4 L (8.4-10.2) mg/dL Albumin 2.8 L (3.5-5.0) g/dL Pituitary panel 02/01/24 Range/Units 16:21 Sodium 140 (137-145) mmol/L Potassium 3.2 L (3.5-5.1) mmol/L Chloride 116 H (98-107) mmol/L Carbon Dioxide 10 L (22-30) mmol/L BUN 63 H (9-20) mg/dL Creatinine 2.73 H (0.66-1.25) mg/dL Glucose 71 L (74-99) mg/dL Calcium 7.4 L (8.4-10.2) mg/dL Adrenal panel 02/01/24 Range/Units 16:21 Sodium 140 (137-145) mmol/L Potassium 3.2 L (3.5-5.1) mmol/L Chloride 116 H (98-107) mmol/L Carbon Dioxide 10 L (22-30) mmol/L BUN 63 H (9-20) mg/dL Creatinine 2.73 H (0.66-1.25) mg/dL Glucose 71 L (74-99) mg/dL Calcium 7.4 L (8.4-10.2) mg/dL Total Bilirubin 0.7 (0.2-1.3) mg/dL AST 51 (17-59) U/L ALT 26 (4-49) U/L Alkaline Phosphatase 91 (38-126) U/L Total Protein 5.1 L (6.3-8.2) g/dL Albumin 2.8 L (3.5-5.0) g/dL
[2024-02-02] MEDS: XGEVA SQ SCH (14:27)
[2024-02-02] MEDS: NON FORMULARY DRUG (Pembrolizumab [Keytruda] 100 MG/4 ML Each) IV SCH (14:27)
[2024-02-02] MEDS: LENVATINIB MESYLATE PO SCH (14:27)
[2024-02-02 14:39] VITALS: BMI 21.4
[2024-02-02] MEDS: PROCHLORPERAZINE 10 MG TAB PO PRN (16:36)
[2024-02-02] MEDS: SALT AND SODA MOUTHWASH 1,000 ML PO SCH (18:04)
--- NOTE | 2024-02-02 20:04 | P.CONS ---
History of Present Illness - Reason for Consult Consult date: 02/02/24 hx RCC Requesting physician: Lázaro Barraza - Chief Complaint groin pain, diarrhea, weakness - History of Present Illness Patient is a 83 year old male with a significant history of renal cell carcinoma. He is a patient of Dr. Rasmussen. He initially presented with lower back and left sided LE pain in early 2015. Initial imaging indicated degenerative disease, causing radiculopathy. He was being treated for the same with some improvement. Since mid 09/08, he developed pain in the right buttock area, radiating down the RLE, which was progressive. This was worsened by weight blaise ring. It progressed to where he started needing crutches to ambulate. XR of the rt hip on 11/18/15 revealed a 6.7 cm lytic lesion in the subtrochanteric proximal rt femur. He has a h/o left nephrectomy for cancer in late 02/06. He is not sure of the exact type of malignancy. He was seen by Orthopedic Oncology, Dr Goyal , at [facility], and admitted due to severity of his symptoms. He had excision with partial hip replacement in 12/09, with pathology showing renal cell cancer. He then started RT, completing that on 02/03/16. His PET in 11/08 had shown no other sites of disease. Repeat in 03/11 showed recurrence in the RML, CHRISTO, distal femur, and possibly the surgical site. Previously on treatment with Votrient and Xgeva but CT scans in September 2023 appeared to show progression, with new osseous lesions noted, including a T10, and in the pelvic bones. There also appears to be progression of bilateral adrenal masses. Treatment was then switched to Lenvima and Keytruda, completing cycle 3 of keytruda on 01/27/24. Last dose of Lenvima was 2 days ago. Patient presented to the emergency room for left groin pain, diarrhea and weakness. He was taking imodium at home without relief of symptoms. Also reports nausea but denies vomiting. On admit CT abdomen and pelvis showed fluid-filled s mall bowel loops throughout along with liquid stool in the cecum. Moderate circumferential wall thickening at the hepatic flexure of the colon. Gallstones measuring up to 1.3 cm. Asymmetric enlargement of the left iliopsoas musculature with surrounding stranding and edema. Suspected intramuscular hemorrhage/hematoma. CBC showing WBC 5.9, hemoglobin 11.7, platelets 67,000. Creatinine 2.73, GFR 21. LFTs and bilirubin WNL. Amylase 125, lipase 310. Patient is afebrile and hemodynamically stable. Today's visit patient reports diarrhea has resolved since admission. He is reporting improvement overall in symptoms but feels weak. Eliquis has been held due to concern of left iliopsoas hematoma. General surgery consulted Review of Systems 10 point ROS is negative except as stated in the HPI Past Medical History Past Medical History: GERD/Reflux, GI Bleed, Hyperlipidemia, Hypertension, Renal Disease, Sleep Apnea/CPAP/BIPAP Additional Past Medical History / Comment(s): HTN & GI BLEED RESOVLED. Renal cell cancer. RECENT DX OF MASS ON LT KIDNEY. HX OF DIVERTICULITIS History of Any Multi-Drug Resistant Organisms: None Reported Past Surgical History: Appendectomy Additional Past Surgical History / Comment(s): EGD. COLONOSCOPY. ESOPHAGEAL OBSTRUCTION REMOVED. HEMORRHOIDECTOMY. SURGERY FOR BLEEDING ULCER. SEVERAL PROCEDURES FOR PERITONITIS R/T RUPTURED APPENDIX. left kidney removed. Past Anesthesia/Blood Transfusion Reactions: No Reported Reaction Past Psychological History: No Psychological Hx Reported Smoking Status: Never smoker Past Alcohol Use History: None Reported, Rare Past Drug Use History: None Reported - Past Family History Mother Family Medical History: Diabetes Mellitus, Hypertension Additional Family Medical History / Comment(s): ANEURYSM Father Family Medical History: Cancer, Coronary Artery Disease (CAD), CVA/TIA, Hyperlipidemia Additional Family Medical History / Comment(s): Ca: bladder; cabg Medications and Allergies Home Medications Medication Instructions Recorded Confirmed Type Omeprazole 20 mg PO BID 02/19/14 02/01/24 History allopurinoL [Allopurinol] 100 mg PO DAILY 02/19/14 02/01/24 History Acetaminophen [Tylenol Arthritis] 650 mg PO Q8H PRN 04/17/21 02/01/24 History Acetaminophen [Tylenol Extra 500 mg PO Q6H PRN 04/17/21 02/01/24 History Strength] Atorvastatin [Lipitor] 20 mg PO HS 04/17/21 02/01/24 History Fexofenadine HCl [[place] Allergy] 180 mg PO DAILY PRN 04/17/21 02/01/24 History Folic Acid 0.4 mg PO DAILY 04/17/21 02/01/24 History Furosemide [Lasix] 20 mg PO DAILY 04/17/21 02/01/24 History Ipratropium Hartshorn 0.06%Nasal 1 - 2 spray EA NOSTRIL DAILY PRN 04/17/21 02/01/24 History [Atrovent Nasal 0.06%] Levothyroxine Sodium 25 mcg PO SUMOTUTHFRSA 04/17/21 02/01/24 History Loperamide [Imodium] 2 mg PO QID PRN 04/17/21 02/01/24 History Tamsulosin HCl [Flomax] 0.8 mg PO HS 04/17/21 02/01/24 History Apixaban [Eliquis] 2.5 mg PO BID 10/26/23 02/01/24 History Aspirin EC [Ecotrin Low Dose] 81 mg PO DAILY 10/26/23 02/01/24 History Cholecalciferol (Vitamin D3) 50 mcg PO DAILY 10/26/23 02/01/24 History [Vitamin D3 (50 Mcg = 2000 Iu)] Diclofenac Sodium [Voltaren 1 applic TOPICAL DAILY PRN 10/26/23 02/01/24 History Arthritis Pain 1% Gel] Diphenoxylate HCl/Atropine 1 tab PO QID PRN 10/26/23 02/01/24 History [Lomotil 2.5-0.025 mg Tablet] Levothyroxine Sodium 50 mcg PO WE 10/26/23 02/01/24 History Lidocaine 5% Patch [Lidoderm 5% 1 patch TOPICAL DAILY PRN 10/26/23 02/01/24 His tory Patch] Oxybutynin Chloride [oxyBUTYnin 15 mg PO DAILY 10/26/23 02/01/24 History chloride ER] Pembrolizumab [Keytruda] 1 dose IV Q21D 10/26/23 02/01/24 History Triamcinolone Acetonide [Nasacort] 1 spray EA NOSTRIL HS PRN 10/26/23 02/01/24 History Xgeva Injection 1 dose SQ Q56D 10/26/23 02/01/24 History Lenvatinib Mesylate [Lenvima 20mg 20 mg PO DAILY 02/01/24 02/01/24 History (Dosepack = 2 x 10mg capsules)] Prochlorperazine [Compazine] 10 mg PO BID PRN 02/01/24 02/01/24 History Allergies Allergy/AdvReac Type Severity Reaction Status Date / Time weed pollen Allergy runny Verified 02/01/24 17:15 nose, red eyes dust mites Allergy rash, Uncoded 02/01/24 17:15 swelling goldenrod Allergy Rash/Hives Uncoded 02/01/24 17:15 MOLD Allergy RASH, Uncoded 02/01/24 17:15 SWELLING. Physical Exam Vitals: Vital Signs Temp Pulse Pulse Resp BP BP Pulse Ox 02/02/24 08:00 97.5 F L 66 17 108/58 95 02/02/24 00:34 97.5 F L 66 17 103/64 98 02/01/24 21:47 97.6 F 69 19 111/66 98 02/01/24 21:23 67 17 103/51 100 02/01/24 19:00 66 18 107/67 97 02/01/24 17:34 66 18 103/65 98 02/01/24 14:21 98.2 F 87 18 87/56 97 Intake and Output 02/01/24 02/02/24 02/02/24 22:59 06:59 14:59 Intake Total 120 Output Total 600 Balance -600 120 Intake: Oral 120 Output: Urine 600 Straight 550 Other: Weight 65.771 kg - Constitutional General appearance: no acute distress - EENT Eyes: anicteric sclerae, EOMI ENT: hearing grossly normal - Respiratory Respiratory: bilateral: CTA - Cardiovascular Rhythm: regular - Gastrointestinal General gastrointestinal: distended, soft, no tenderness - Integumentary Integumentary: no cyanotic, no jaundiced - Musculoskeletal Musculoskeletal: strength equal bilaterally - Psychiatric Psychiatric: A&O x's 3 Results CBC & Chem 7: 02/02/24 05:15 02/02/24 05:15 Labs: Abnormal Lab Results - Last 24 Hours (Table) 02/01/24 02/01/24 02/02/24 Range/Units 16:21 16:21 05:15 WBC 3.64 L (4.50-10.00) X 10*3/uL RBC 3.50 L 3.30 L (4.30-5.90) m/uL Hgb 11.7 L 10.6 L (13.0-17.5) gm/dL Hct 35.9 L 33.0 L (39.0-53.0) % MCV 102.7 H 100.0 H (80.0-100.0) fL MCH 32.1 H (27.0-32.0) pg RDW 18.6 H 20.1 H (11.5-15.5) % Plt Count 67 L 64 L (150-450) k/uL Lymphocytes # 0.5 L 0.43 L (1.0-4.8) k/uL Potassium 3.2 L (3.5-5.1) mmol/L Chloride 116 H (98-107) mmol/L Carbon Dioxide 10 L (22-30) mmol/L Anion Gap (4.00-12.00) mmol/L BUN 63 H (9-20) mg/dL Creatinine 2.73 H (0.66-1.25) mg/dL Est GFR (CKD-EPI) (>=60) BUN/Creatinine Ratio (12.00-20.00) Ratio Glucose 71 L (74-99) mg/dL Calcium 7.4 L (8.4-10.2) mg/dL Phosphorus (2.4-5.1) mg/dL AST (14-35) U/L Total Protein 5.1 L (6.3-8.2) g/dL Albumin 2.8 L (3.5-5.0) g/dL Globulin (1.6-3.3) g/dL Amylase 125 H (30-110) U/L Lipase 310 H (23-300) U/L 02/02/24 Range/Units 05:15 WBC (4.50-10.00) X 10*3/uL RBC (4.30-5.90) m/uL Hgb (13.0-17.5) gm/dL Hct (39.0-53.0) % MCV (80.0-100.0) fL MCH (27.0-32.0) pg RDW (11.5-15.5) % Plt Count (150-450) k/uL Lymphocytes # (1.0-4.8) k/uL Potassium 3.4 L (3.5-5.1) mmol/L Chloride 115 H (98-107) mmol/L Carbon Dioxide 12.5 L (22-30) mmol/L Anion Gap 15.50 H (4.00-12.00) mmol/L BUN 64.6 H (9-20) mg/dL Creatinine 2.7 H (0.66-1.25) mg/dL Est GFR (CKD-EPI) 23 L (>=60) BUN/Creatinine Ratio 23.93 H (12.00-20.00) Ratio Glucose 63 L (74-99) mg/dL Calcium 6.5 L (8.4-10.2) mg/dL Phosphorus 5.4 H (2.4-5.1) mg/dL AST 58 H (14-35) U/L Total Protein 4.1 L (6.3-8.2) g/dL Albumin 2.6 L (3.5-5.0) g/dL Globulin 1.5 L (1.6-3.3) g/dL Amylase (30-110) U/L Lipase (23-300) U/L CT scan - abdomen: report reviewed CT scan - pelvis: report reviewed Assessment and Plan (1) Colitis Current Visit: Yes Status: Acute Priority: High Code(s): K52.9 - NONINFECTIVE GASTROENTERITIS AND COLITIS, UNSPECIFIED SNOMED Code(s): 47950780 (2) Dehydration Current Visit: Yes Status: Acute Priority: High Code(s): E86.0 - DEHYDRATION SNOMED Code(s): 90514872 (3) Iliopsoas muscle hematoma Current Visit: Yes Status: Acute Priority: Medium Code(s): S70.10XA - CONTUSION OF UNSPECIFIED THIGH, INITIAL ENCOUNTER SNOMED Code(s): 640406526 (4) Renal cell carcinoma Current Visit: Yes Status: Acute Priority: High Code(s): C64.9 - MALIGNANT NEOPLASM OF UNSP KIDNEY, EXCEPT RENAL PELVIS SNOMED Code(s): 637233432 (5) Diarrhea Current Visit: Yes Status: Acute Priority: High Code(s): R19.7 - DIARRHEA, UNSPECIFIED SNOMED Code(s): 22977083 Plan: Diarrhea/colitis -CT abdomen and pelvis showed fluid-filled small bowel loops throughout along with liquid stool in the cecum. Moderate circumferential wall thickening at the hepatic flexure of the colon. Gallstones measuring up to 1.3 cm. -Diarrhea has subsided since admission. Denies abd pain. Pt afebrile -Stool studies pending -Diarrhea likely related to Lenvima. However IO induced colitis remains in differential, but less likely as diarrhea has already resolved since holding Lenvima Iliopsoas hematoma: Presented with significant left groin pain -CT AP showed asymmetric enlargement of the left iliopsoas musculature with harkins rrounding stranding and edema. Suspected intramuscular hemorrhage/hematoma. -Eliquis has been held. General surgery consulted -Hgb stable at 11.7 Metastatic RCC: -Oncological history as dictated in the HPI -Currently on treatment with Lenvima and Keytruda, completing cycle 3 of keytruda on 01/27/24. Last dose of Lenvima was 2 days ago -Treatment will be held until adequately recovered from acute condition attests: I have performed H&P and developed impression and plan of care for patient, discussed with dictator. I agree with dictated note, documented as a scribe
[2024-02-02] MEDS ORDERED: APIXABAN 2.5 MG TABLET PO SCH (21:00)
[2024-02-03] MEDS: LEVOTHYROXINE 25 MCG TAB PO SCH (06:34)
[2024-02-03 09:47] LABS: HCT 28.9 % (39.6-50.0); HGB 9.5 g/dL (13.0-17.0); Immature Platelet Fraction 2.4 % (1.1-6.1); MCH 33.3 pg (27.0-32.0); MCHC 32.9 g/dL (32.0-37.0); MCV 101.4 FL (80.0-97.0); Mean Platelet Volume 12.4 FL (9.5-12.2); NRBC Per 100 WBC 0 X 10*3/uL (0.00-0.01); Platelet Count 66 X 10*3/uL (140-440); RBC 2.85 X 10*6/uL (4.40-5.60); RDW 20.1 % (11.5-14.5); WBC 3.38 X 10*3/uL (4.50-10.00)
[2024-02-03] MEDS: ASPIRIN 81 MG PO SCH (10:10)
[2024-02-03] MEDS: FUROSEMIDE 20 MG TAB PO SCH (10:10)
[2024-02-03] MEDS: MORPHINE SULFATE 4 MG/ML SYRINGE IV PRN (10:19)
[2024-02-03] MEDS ORDERED: ONDANSETRON 4 MG/2 ML VIAL IVP PRN (11:04)
--- NOTE | 2024-02-03 11:36 | P.PN ---
Subjective Progress Note Date: 02/03/24 CHIEF COMPLAINT: Abdominal pain HISTORY OF PRESENT ILLNESS: Patient continues to report same intermittent sharp pains in the left lower quadrant and achiness in the left back. Diarrhea has resolved. Patient's chemotherapy meds on hold. Patient seen by oncology service. Stool cultures not collected since diarrhea resolved. He denies any nausea or vomiting. Afebrile. Hemoglobin 10.6 down to 9.5 WBC 3.38 plt [address] Lorenz is covering for Dr. Aguilar patient's PHYSICAL EXAM: VITAL SIGNS: Reviewed. GENERAL: no acute distress. ABDOMEN: Soft. Nondistended. Mild discomfort with palpation in the left lower quadrant and lower back on the left NEUROLOGIC: Alert and oriented. Cranial nerves II through XII grossly intact. ASSESSMENT: 1. Iliopsoas hematoma. Patient on blood thinners at home. The hematoma may be contributing to patient's left groin pain. 2. Moderate circumferential wall thickening at the hepatic flexure of the colon with possible colitis 3. Diarrhea resolved 4. History of DVT on Eliquis 5. Status post open repair of incarcerated left inguinal hernia with left orchiectomy and laparotomy with lysis of adhesions and small bowel resection on November 02, 2023 6. History of renal cancer status post nephrectomy and is on chemotherapy PLAN: -CT scan abdomen pelvis with oral contrast ordered for further evaluation of patient's abdominal pain and the iliopsoas hematoma -Consult PT to help increase activity level -Continue to hold Eliquis -Repeat CBC in a.m. Physician As400 Operator note has been reviewed by physician. Signing provider agrees with the documented findings, assessment, and plan of care. Objective - Vital Signs Vital signs: Vital Signs Temp 97.4 F L 02/03/24 07:17 Pulse 65 02/03/24 07:17 Resp 16 02/03/24 07:17 BP 121/67 02/03/24 07:17 Pulse Ox 99 02/03/24 07:17 FiO2 Intake & Output 02/02/24 02/03/24 02/03/24 18:59 06:59 18:59 Intake Total 820 Output Total 350 Balance 820 -350 Weight 65.771 kg Intake: Intake, IV Titration 600 Amount Sodium Chloride 0.9% 1, 600 000 ml @ 75 mls/hr IV . [id number] [facility] Rx#:[id number] Oral 220 Output: Urine 350 Other: Voiding Method Urinal # Voids 1 - Labs CBC & Chem 7: 02/03/24 03:22 02/02/24 05:15 Labs: Abnormal Lab Results - Last 24 Hours (Table) 02/03/24 Range/Units 03:22 WBC 3.38 L (4.50-10.00) X 10*3/uL RBC 2.85 L (4.40-5.60) X 10*6/uL Hgb 9.5 L (13.0-17.0) g/dL Hct 28.9 L (39.6-50.0) % MCV 101.4 H (80.0-97.0) FL MCH 33.3 H (27.0-32.0) pg RDW 20.1 H (11.5-14.5) % Plt Count 66 L (140-440) X 10*3/uL MPV 12.4 H (9.5-12.2) FL
[2024-02-03] MEDS: IOPAMIDOL CONTRAST (ORAL USE) VIAL PO PRN (12:03)
--- NOTE | 2024-02-03 12:09 | P.PN ---
Subjective Progress Note Date: 02/03/24 Pt reporting left groin pain, morphine helping with pain. Denies diarrhea and vomiting, but is having intermittent nausea. Hgb 9.5, WBC 3.38, plt 65 Objective - Vital Signs Vital signs: Vital Signs Temp 97.4 F L 02/03/24 07:17 Pulse 65 02/03/24 07:17 Resp 16 02/03/24 07:17 BP 121/67 02/03/24 07:17 Pulse Ox 99 02/03/24 07:17 FiO2 Intake & Output 02/02/24 02/03/24 02/03/24 18:59 06:59 18:59 Intake Total 820 Output Total 350 Balance 820 -350 Weight 65.771 kg Intake: Intake, IV Titration 600 Amount Sodium Chloride 0.9% 1, 600 000 ml @ 75 mls/hr IV . [id number] [facility] Rx#:[id number] Oral 220 Output: Urine 350 Other: Voiding Method Urinal # Voids 1 - Constitutional General appearance: Present: no acute distress - EENT Eyes: Present: anicteric sclerae, EOMI ENT: Present: hearing grossly normal - Respiratory Details: breathing is even and unlabored - Cardiovascular Details: skin warm and dry - Gastrointestinal General gastrointestinal: Present: soft. Absent: tenderness - Musculoskeletal Musculoskeletal: Present: generalized weakness - Psychiatric Psychiatric: Present: A&O x's 3 - Labs CBC & Chem 7: 02/03/24 03:22 02/02/24 05:15 Labs: Abnormal Lab Results - Last 24 Hours (Table) 02/02/24 02/03/24 Range/Units 05:15 03:22 WBC 3.38 L (4.50-10.00) X 10*3/uL RBC 2.85 L (4.40-5.60) X 10*6/uL Hgb 9.5 L (13.0-17.0) g/dL Hct 28.9 L (39.6-50.0) % MCV 101.4 H (80.0-97.0) FL MCH 33.3 H (27.0-32.0) pg RDW 20.1 H (11.5-14.5) % Plt Count 66 L (140-440) X 10*3/uL MPV 12.4 H (9.5-12.2) FL Potassium 3.4 L (3.5-5.5) mmol/L Chloride 115 H (96-109) mmol/L Carbon Dioxide 12.5 L (21.6-31.8) mmol/L Anion Gap 15.50 H (4.00-12.00) mmol/L BUN 64.6 H (9.0-27.0) mg/dL Creatinine 2.7 H (0.6-1.5) mg/dL Est GFR (CKD-EPI) 23 L (>=60) BUN/Creatinine Ratio 23.93 H (12.00-20.00) Ratio Glucose 63 L (70-110) mg/dL Calcium 6.5 L (8.7-10.3) mg/dL Phosphorus 5.4 H (2.4-5.1) mg/dL AST 58 H (14-35) U/L Total Protein 4.1 L (6.2-8.2) g/dL Albumin 2.6 L (3.8-4.9) g/dL Globulin 1.5 L (1.6-3.3) g/dL Assessment and Plan (1) Colitis Current Visit: Yes Status: Acute Priority: High Code(s): K52.9 - NONINFECTIVE GASTROENTERITIS AND COLITIS, UNSPECIFIED SNOMED Code(s): 30205126 (2) Dehydration Current Visit: Yes Status: Acute Priority: High Code(s): E86.0 - DEHYDRATION SNOMED Code(s): 67501039 (3) Iliopsoas muscle hematoma Current Visit: Yes Status: Acute Priority: Medium Code(s): S70.10XA - CONTUSION OF UNSPECIFIED THIGH, INITIAL ENCOUNTER SNOMED Code(s): 397728926 (4) Renal cell carcinoma Current Visit: Yes Status: Acute Priority: High Code(s): C64.9 - MALIGNANT NEOPLASM OF UNSP KIDNEY, EXCEPT RENAL PELVIS SNOMED Code(s): 816689882 (5) Diarrhea Current Visit: Yes Status: Acute Priority: High Code(s): R19.7 - DIARRHEA, UNSPECIFIED SNOMED Code(s): 71855766 (6) Anemia Current Visit: Yes Status: Acute Priority: Medium Code(s): D64.9 - ANEMIA, UNSPECIFIED SNOMED Code(s): 250373656 Plan: Diarrhea/colitis -CT abdomen and pelvis showed fluid-filled small bowel loops throughout along with liquid stool in the cecum. Moderate circumferential wall thickening at the hepatic flexure of the colon. Gallstones measuring up to 1.3 cm. -Diarrhea has subsided since admission. Denies abd pain. Pt afebrile -Stool studies pending -Anti-nausea meds adjusted -Diarrhea likely related to Lenvima. However IO induced colitis remains in differential, but less likely as diarrhea has already resolved since holding Lenvima Iliopsoas hematoma: Presented with significant left groin pain -CT AP showed asymmetric enlargement of the left iliopsoas musculature with surrounding stranding and edema. Suspected intramuscular hemorrhage/hematoma. -Eliquis has been held. General surgery consulted Macrocytic Anemia: -Hgb 11.7 on admit. Today Hgb 9.5, MCV 101.4, moderate hypochromasia noted -Left iliopsoas hematoma. Denies blood in stool/melena. Elquis held -Anemia labs ordered -Continue to monitor CBC Metastatic RCC: -Oncological history as dictated in the HPI -Currently on treatment with Lenvima and Keytruda, completing cycle 3 of keytruda on 01/27/24. Last dose of Lenvima was 2 days ago -Treatment will be held until adequately recovered from acute condition
--- NOTE | 2024-02-03 14:14 | CT ---
EXAMINATION TYPE: CT abdomen pelvis wo con CT DLP: 510 mGycm, Automated exposure control for dose reduction was used. DATE OF EXAM: 02/03/2024 1:45 PM COMPARISON: CT abdomen pelvis 02/01/2024 CLINICAL INDICATION:Male, 83 years old with history of abdominal pain in LLQ, follow up iliopsoas hem atoma; llq PAIN TECHNIQUE: Standard CT of the abdomen and pelvis following the administration of oral contrast. Kaur ited examination due to lack of intravenous contrast. Coronal and sagittal reformats were performed. FINDINGS: LOWER CHEST: Trace bilateral pleural effusions. Trace pericardial effusion. Coronary artery calcifica tions. Slight volume loss in the left hemithorax redemonstrated. ABDOMEN LIVER: Unremarkable noncontrast appearance GALLBLADDER AND BILE DUCTS: Cholelithiasis with decrease in size of gallbladder measuring 3.2 cm in d iameter, previously 5 cm. PANCREAS: Mildly atrophic. SPLEEN: Unremarkable noncontrast appearance ADRENAL GLANDS: Similar diffuse thickening of both adrenal glands. KIDNEYS AND URETERS: No evidence of hydronephrosis or renal calculus. Right-sided renal cortical cyst s measuring up to 6.0 cm again. Left kidney is surgically absent. PELVIS BLADDER: Unremarkable REPRODUCTIVE: Mildly prominent prostate gland. ABDOMEN & PELVIS STOMACH AND BOWEL: Residual contrast within the distal esophagus which may be recurrent related to es ophageal reflux. Mid duodenal diverticulum containing contrast and gas. Enteric contrast reaches the mid small bowel. Mild colonic stool burden. Distal colonic diverticulosis. There is again moderate ce rvical ventral wall thickening in the hepatic flexure of the colon. No pneumatosis. Anastomosis invol ving the left upper small bowel. No evidence of bowel obstruction. PERITONEUM/RETROPERITONEUM: No evidence of pneumoperitoneum. Presacral edema redemonstrated. Small am ount of ascites throughout the abdomen and pelvis. VASCULATURE: Mild to moderate atherosclerotic calcifications are present throughout the abdominal aor ta and its branches. No evidence of aortic aneurysm. MUSCULOSKELETAL: No acute osseous abnormalities. Unchanged lucency and trabecular thickening the T10 vertebral body. This would in the lower thoracic spine. Additional stable lucent lesion with trabecul ar thickening of the left-sided the sacrum which may reflect Paget's disease. Redemonstrated postsurg ical change of right hip hemiarthroplasty with similar sclerosis and fragmentation of the proximal ri ght femur. This creates streak artifact which was evaluation of the pelvis. There is again asymmetric increased size of the left iliopsoas muscle with adjacent retroperitoneal stranding and scattered hy perdensity within the musculature. LYMPH NODES: No gross evidence for lymphadenopathy. SOFT TISSUE/ABDOMINAL WALL: Small right inguinal hernia containing ascites. Diffuse anasarca. IMPRESSION: 1. Similar moderate circumferential wall thickening hepatic flexure the colon. Consider nonspecific colitis from infectious/inflammatory etiology with ischemic colitis not excluded. Underlying neoplasm is likely. 2. Asymmetric enlargement of the left iliopsoas muscle with surrounding stranding/fluid and some int rinsic hyperdensity. Favored to represent intramuscular/retroperitoneal hemorrhage/hematoma. No signi ficant change from prior exam. 3. Cholelithiasis with decreased size of gallbladder. 4. 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 Unchanged appearance to the proximal right femur with scleros is and fragmentation. Underlying right hip hemiarthroplasty are demonstrated. 5. Status post left nephrectomy. 6. Trace bilateral pleural effusions with diffuse anasarca and small volume simple appearing ascites . Correlate for volume overload. [facility], , 02/03/2024 2:12 PM
--- NOTE | 2024-02-03 15:01 | P.PN ---
Subjective Progress Note Date: 02/03/24 Isidoro Prado, is an 83-year-old male who presented to [facility] emergency room with a chief complaint of diarrhea and severe weakness, patient stated that he started having diarrhea 2 weeks ago, he started having worsening weakness and fatigue, he was complaining of left lower quadrant abdominal pain, he decided to come to emergency room. He was evaluated in the emergency room vital examination on presentation revealed a temperature of 98.2 pulse 87 respiration 18 blood pressure 87/56 pulse ox 97% on room air Laboratory data reveals a white blood count of 5.9 hemoglobin 11.7 platelet count 67 sodium 140 potassium 3.2 chloride 116 CO2 10 BUN 63 creatinine 2.73 amylase 125 lipase 310 Testing in the emergency room revealed CT scan of the abdomen and pelvis revealed hydropic gallbladder measuring 5.0 cm with dependent gallstones, duodenal diverticulum, right-sided renal cortical cyst measuring 6 cm, fluid- filled small bowel loops throughout the abdomen, liquid stools within the cecum, moderate circumferential wall thickening in the hepatic flexure of the colon, left-sided diverticulosis. Patient was admitted to medical floor for further evaluation and treatment Past medical history is significant for history of renal cell carcinoma, previous history of diverticulosis with acute diverticulitis and history of gastrointestinal bleeding, history of hypertension, history of hyperlipidemia, history of chronic atrial fibrillation maintained on Eliquis. On 02/03/2024 patient was seen and examined on the medical floor he is alert and oriented x 3 in no apparent distress he is still complaining of severe weakness otherwise he denies any complaints at this time there is no fever or chills no headache or dizziness no chest pain no shortness of breath no cough no nausea or vomiting no abdominal pain he is still having episodes of diarrhea and no urinary symptoms. Input from general surgery reviewed patient is scheduled for repeat CT scan of the abdomen today we will continue to follow closely Objective - Vital Signs Vital signs: Vital Signs Temp 97.4 F L 02/03/24 07:17 Pulse 65 02/03/24 07:17 Resp 16 02/03/24 07:17 BP 121/67 02/03/24 07:17 Pulse Ox 99 02/03/24 07:17 FiO2 Intake & Output 02/02/24 02/03/24 02/03/24 18:59 06:59 18:59 Intake Total 820 Output Total 350 Balance 820 -350 Weight 65.771 kg Intake: Intake, IV Titration 600 Amount Sodium Chloride 0.9% 1, 600 000 ml @ 75 mls/hr IV . [id number] [facility] Rx#:[id number] Oral 220 Output: Urine 350 Other: Voiding Method Urinal # Voids 1 - Exam In general patient is alert and oriented x 3 in no distress HEENT head normocephalic and atraumatic Neck is supple no JVD no goiter no lymphadenopathy no carotid bruit Chest examination is clear to auscultation no crackles no wheezing Cardiac exam reveals regular heart sounds S1 and S2 no gallops no murmurs Abdomen is soft nontender no organomegaly with normal bowel sounds Extremity exam reveals no edema no cyanosis or clubbing Neurological examination reveals no gross focal deficits - Labs CBC & Chem 7: 02/03/24 03:22 02/02/24 05:15 Labs: Abnormal Lab Results - Last 24 Hours (Table) 02/03/24 Range/Units 03:22 WBC 3.38 L (4.50-10.00) X 10*3/uL RBC 2.85 L (4.40-5.60) X 10*6/uL Hgb 9.5 L (13.0-17.0) g/dL Hct 28.9 L (39.6-50.0) % MCV 101.4 H (80.0-97.0) FL MCH 33.3 H (27.0-32.0) pg RDW 20.1 H (11.5-14.5) % Plt Count 66 L (140-440) X 10*3/uL MPV 12.4 H (9.5-12.2) FL Assessment and Plan Plan: Abdominal pain with diarrhea Hydropic gallbladder with gallstones Recent surgery for incarcerated left inguinal hernia and small bowel obstruction in October 2023 History of metastatic renal cell carcinoma Underlying history of hypertension Underlying history of hyperlipidemia Underlying history of chronic atrial fibrillation maintained on Eliquis At this time patient was seen and examined Home medications reviewed and reordered General surgery and oncology consultation requested For DVT prophylaxis patient is maintained on Eliquis
[2024-02-03 15:36] LABS: % Iron Saturation 16.85 (15.00-50.00)
[2024-02-04 09:07] LABS: ALT 29 U/L (10-49); AST 61 U/L (14-35); Albumin 2.3 g/dL (3.8-4.9); Albumin/Globulin Ratio 1.77 Ratio (1.60-3.17); Alkaline Phosphatase 81 U/L (41-126); BUN/Creat Ratio 20.89 Ratio (12.00-20.00); Blood Urea Nitrogen 56.4 mg/dL (9.0-27.0); Calcium 6.2 mg/dL (8.7-10.3); Carbon Dioxide 13.5 mmol/L (21.6-31.8); Chloride 119 mmol/L (96-109); Globulin 1.3 g/dL (1.6-3.3); Glucose 114 mg/dL (70-110); Potassium 3.6 mmol/L (3.5-5.5); Sodium 142 mmol/L (135-145); Total Bilirubin 0.2 mg/dL (0.3-1.2); Total Protein 3.6 g/dL (6.2-8.2)
[2024-02-04 09:30] LABS: Basophils # (A) 0 X 10*3/uL (0.00-0.10); Basophils % (A) 0 %; Eosinophils # (A) 0.12 X 10*3/uL (0.04-0.35); Eosinophils % (A) 3.2 %; HCT 27.6 % (39.6-50.0); Immature Platelet Fraction 2.6 % (1.1-6.1); MCH 32.5 pg (27.0-32.0); MCHC 32.6 g/dL (32.0-37.0); MCV 99.6 FL (80.0-97.0); Mean Platelet Volume 10.8 FL (9.5-12.2); Monocytes # (A) 0.27 X 10*3/uL (0.20-1.00); Monocytes % (A) 7.2 %; NRBC Per 100 WBC 0 X 10*3/uL (0.00-0.01); Neutrophils # (A) 3.04 X 10*3/uL (1.80-7.70); Neutrophils % (A) 81.3 %; Platelet Count 64 X 10*3/uL (140-440); RBC 2.77 X 10*6/uL (4.40-5.60); WBC 3.74 X 10*3/uL (4.50-10.00)
--- NOTE | 2024-02-04 10:25 | P.PN ---
Subjective Progress Note Date: 02/04/24 Isidoro Prado, is an 83-year-old male who presented to [facility] emergency room with a chief complaint of diarrhea and severe weakness, patient stated that he started having diarrhea 2 weeks ago, he started having worsening weakness and fatigue, he was complaining of left lower quadrant abdominal pain, he decided to come to emergency room. He was evaluated in the emergency room vital examination on presentation revealed a temperature of 98.2 pulse 87 respiration 18 blood pressure 87/56 pulse ox 97% on room air Laboratory data reveals a white blood count of 5.9 hemoglobin 11.7 platelet count 67 sodium 140 potassium 3.2 chloride 116 CO2 10 BUN 63 creatinine 2.73 amylase 125 lipase 310 Testing in the emergency room revealed CT scan of the abdomen and pelvis revealed hydropic gallbladder measuring 5.0 cm with dependent gallstones, duodenal diverticulum, right-sided renal cortical cyst measuring 6 cm, fluid- filled small bowel loops throughout the abdomen, liquid stools within the cecum, moderate circumferential wall thickening in the hepatic flexure of the colon, left-sided diverticulosis. Patient was admitted to medical floor for further evaluation and treatment Past medical history is significant for history of renal cell carcinoma, previous history of diverticulosis with acute diverticulitis and history of gastrointestinal bleeding, history of hypertension, history of hyperlipidemia, history of chronic atrial fibrillation maintained on Eliquis. On 02/03/2024 patient was seen and examined on the medical floor he is alert and oriented x 3 in no apparent distress he is still complaining of severe weakness otherwise he denies any complaints at this time there is no fever or chills no headache or dizziness no chest pain no shortness of breath no cough no nausea or vomiting no abdominal pain he is still having episodes of diarrhea and no urinary symptoms. Input from general surgery reviewed patient is scheduled for repeat CT scan of the abdomen today we will continue to follow closely On 02/04/2024 patient is alert and oriented x 3. Patient still complaining of some abdominal pain no bowel movement. Patient still having some nausea. Repeat CT scan was ordered for surgical services awaiting further input. Patient denies chest pain or shortness of breath. Current vital signs temp 98.5, heart 72, respiratory rate 16, blood pressure 120/71 with a pulse ox of 96% on room air Objective - Vital Signs Vital signs: Vital Signs Temp 98.5 F 02/04/24 07:00 Pulse 72 02/04/24 10:18 Resp 16 02/04/24 10:18 BP 120/71 02/04/24 07:00 Pulse Ox 96 02/04/24 07:00 FiO2 Intake & Output 02/03/24 02/04/24 02/04/24 18:59 06:59 18:59 Intake Total 600 900 Output Total 600 475 Balance 0 425 Intake: Intake, IV Titration 600 900 Amount Sodium Chloride 0.9% 1, 600 900 000 ml @ 75 mls/hr IV . [id number] [facility] Rx#:[id number] Output: Urine 600 475 Other: Voiding Method Urinal # Voids 2 2 - Exam In general patient is alert and oriented x 3 in no distress HEENT head normocephalic and atraumatic Neck is supple no JVD no goiter no lymphadenopathy no carotid bruit Chest examination is clear to auscultation no crackles no wheezing Cardiac exam reveals regular heart sounds S1 and S2 no gallops no murmurs Abdomen is soft nontender no organomegaly with normal bowel sounds Extremity exam reveals no edema no cyanosis or clubbing Neurological examination reveals no gross focal deficits - Labs CBC & Chem 7: 02/04/24 03:42 02/04/24 03:42 Labs: Abnormal Lab Results - Last 24 Hours (Table) 02/03/24 02/04/24 02/04/24 Range/Units 11:19 03:42 03:42 WBC 3.74 L (4.50-10.00) X 10*3/uL RBC 2.77 L (4.40-5.60) X 10*6/uL Hgb 9.0 L (13.0-17.0) g/dL Hct 27.6 L (39.6-50.0) % MCV 99.6 H (80.0-97.0) FL MCH 32.5 H (27.0-32.0) pg RDW 20.0 H (11.5-14.5) % Plt Count 64 L (140-440) X 10*3/uL Lymphocytes # 0.30 L (0.90-5.00) X 10*3/uL Chloride 119 H (96-109) mmol/L Carbon Dioxide 13.5 L (21.6-31.8) mmol/L BUN 56.4 H (9.0-27.0) mg/dL Creatinine 2.7 H (0.6-1.5) mg/dL Est GFR (CKD-EPI) 23 L (>=60) BUN/Creatinine Ratio 20.89 H (12.00-20.00) Ratio Glucose 114 H (70-110) mg/dL Calcium 6.2 A* (8.7-10.3) mg/dL Iron 30 L (65-175) UG/DL TIBC 178 L (228-460) UG/DL Transferrin 127.0 L (204.0-354.0) mg/dL Total Bilirubin 0.2 L (0.3-1.2) mg/dL AST 61 H (14-35) U/L Total Protein 3.6 L (6.2-8.2) g/dL Albumin 2.3 L (3.8-4.9) g/dL Globulin 1.3 L (1.6-3.3) g/dL Assessment and Plan Assessment: Abdominal pain with diarrhea Hydropic gallbladder with gallstones Recent surgery for incarcerated left inguinal hernia and small bowel obstruction in October 2023 History of metastatic renal cell carcinoma Underlying history of hypertension Underlying history of hyperlipidemia Underlying history of chronic atrial fibrillation maintained on Eliquis At this time patient was seen and examined Home medications reviewed and reordered General surgery and oncology consultation requested For DVT prophylaxis patient is maintained on Eliquis
--- NOTE | 2024-02-04 13:13 | P.PN ---
Subjective Progress Note Date: 02/04/24 CHIEF COMPLAINT: Abdominal pain HISTORY OF PRESENT ILLNESS: Patient is having flatus. The diarrhea has r esolved. Still complains of pain left lower quadrant and lower back. He denies any nausea or vomiting. Repeat CT scan abdomen pelvis reports similar moderate circumferential wall thickening at the hepatic flexure of the colon. And asymmetric enlargement of the left iliopsoas muscle with surrounding stranding/fluid. Favored to represent intramuscular/retroperitoneal hemorrhage/hematoma. Cholelithiasis. Afebrile. WBC 3.74 Hgb stable at 9.0 platelets 64 Patient seen and examined with Dr. Kelechi Lorenz is covering for Dr. Aguilar patient's PHYSICAL EXAM: VITAL SIGNS: Reviewed. GENERAL: no acute distress. ABDOMEN: Soft. Nondistended. Mild discomfort with palpation in the left lower quadrant and lower back on the left NEUROLOGIC: Alert and oriented. Cranial nerves II through XII grossly intact. ASSESSMENT: 1. Iliopsoas hematoma. Patient on blood thinners at home. The hematoma may be contributing to patient's left groin pain. 2. Moderate circumferential wall thickening at the hepatic flexure of the colon with possible colitis 3. Diarrhea resolved 4. History of DVT on Eliquis 5. Status post open repair of incarcerated left inguinal hernia with left orchiectomy and laparotomy with lysis of adhesions and small bowel resection on November 02, 2023 6. History of renal cancer status post nephrectomy and is on chemotherapy PLAN: -No surgical intervention planned -Continue regular diet -Increase activity level -Continue to hold Eliquis -Repeat CBC in a.m. Physician [employer] note has been reviewed by physician. Signing provider agrees with the documented findings, assessment, and plan of care. Objective - Vital Signs Vital signs: Vital Signs Temp 98.5 F 02/04/24 07:00 Pulse 72 02/04/24 10:18 Resp 16 02/04/24 10:18 BP 120/71 02/04/24 07:00 Pulse Ox 96 02/04/24 07:00 FiO2 Intake & Output 02/03/24 02/04/24 02/04/24 18:59 06:59 18:59 Intake Total 600 900 Output Total 600 475 300 Balance 0 425 -300 Intake: Intake, IV Titration 600 900 Amount Sodium Chloride 0.9% 1, 600 900 000 ml @ 75 mls/hr IV . [id number] [facility] Rx#:[id number] Output: Urine 600 475 300 Other: Voiding Method Urinal # Voids 2 2 1 - Labs CBC & Chem 7: 02/04/24 03:42 02/04/24 03:42 Labs: Abnormal Lab Results - Last 24 Hours (Table) 02/03/24 02/03/24 02/04/24 Range/Units 11:19 11:19 03:42 WBC 3.74 L (4.50-10.00) X 10*3/uL RBC 2.77 L (4.40-5.60) X 10*6/uL Hgb 9.0 L (13.0-17.0) g/dL Hct 27.6 L (39.6-50.0) % MCV 99.6 H (80.0-97.0) FL MCH 32.5 H (27.0-32.0) pg RDW 20.0 H (11.5-14.5) % Plt Count 64 L (140-440) X 10*3/uL Lymphocytes # 0.30 L (0.90-5.00) X 10*3/uL Chloride (96-109) mmol/L Carbon Dioxide (21.6-31.8) mmol/L BUN (9.0-27.0) mg/dL Creatinine (0.6-1.5) mg/dL Est GFR (CKD-EPI) (>=60) BUN/Creatinine Ratio (12.00-20.00) Ratio Glucose (70-110) mg/dL Calcium (8.7-10.3) mg/dL Iron 30 L (65-175) UG/DL TIBC 178 L (228-460) UG/DL Transferrin 127.0 L (204.0-354.0) mg/dL Total Bilirubin (0.3-1.2) mg/dL AST (14-35) U/L Total Protein (6.2-8.2) g/dL Albumin (3.8-4.9) g/dL Globulin (1.6-3.3) g/dL RBC Folate 975 H (280 - 791) ng/mL 02/04/24 Range/Units 03:42 WBC (4.50-10.00) X 10*3/uL RBC (4.40-5.60) X 10*6/uL Hgb (13.0-17.0) g/dL Hct (39.6-50.0) % MCV (80.0-97.0) FL MCH (27.0-32.0) pg RDW (11.5-14.5) % Plt Count (140-440) X 10*3/uL Lymphocytes # (0.90-5.00) X 10*3/uL Chloride 119 H (96-109) mmol/L Carbon Dioxide 13.5 L (21.6-31.8) mmol/L BUN 56.4 H (9.0-27.0) mg/dL Creatinine 2.7 H (0.6-1.5) mg/dL Est GFR (CKD-EPI) 23 L (>=60) BUN/Creatinine Ratio 20.89 H (12.00-20.00) Ratio Glucose 114 H (70-110) mg/dL Calcium 6.2 A* (8.7-10.3) mg/dL Iron (65-175) UG/DL TIBC (228-460) UG/DL Transferrin (204.0-354.0) mg/dL Total Bilirubin 0.2 L (0.3-1.2) mg/dL AST 61 H (14-35) U/L Total Protein 3.6 L (6.2-8.2) g/dL Albumin 2.3 L (3.8-4.9) g/dL Globulin 1.3 L (1.6-3.3) g/dL RBC Folate (280 - 791) ng/mL
[2024-02-04] MEDS: droNABinol 2.5 MG CAP PO SCH (16:47)
--- NOTE | 2024-02-04 19:06 | P.PN ---
Subjective Progress Note Date: 02/04/24 Pt reporting persisting left groin pain, morphine helping with pain. Denies diarrhea and vomiting, but is having intermittent nausea. C/o weakness and fatigue. Hgb 9.0, WBC 3.74, plt 64 Objective - Vital Signs Vital signs: Vital Signs Temp 97.4 F L 02/04/24 14:42 Pulse 76 02/04/24 14:42 Resp 17 02/04/24 14:42 BP 126/70 02/04/24 14:42 Pulse Ox 100 02/04/24 14:42 FiO2 Intake & Output 02/03/24 02/04/24 02/04/24 18:59 06:59 18:59 Intake Total 600 900 Output Total 600 475 300 Balance 0 425 -300 Intake: Intake, IV Titration 600 900 Amount Sodium Chloride 0.9% 1, 600 900 000 ml @ 75 mls/hr IV . [id number] [facility] Rx#:[id number] Output: Urine 600 475 300 Other: Voiding Method Urinal # Voids 2 2 1 - Constitutional General appearance: Present: no acute distress - EENT ENT: Present: hearing grossly normal - Respiratory Details: breathing is even and unlabored - Cardiovascular Details: skin warm and dry - Gastrointestinal Gastrointestinal Comment(s): mildly distended/firm General gastrointestinal: Absent: tenderness - Integumentary Integumentary: Absent: cyanotic, jaundiced - Musculoskeletal Musculoskeletal: Present: generalized weakness - Psychiatric Psychiatric: Present: A&O x's 3 - Labs CBC & Chem 7: 02/04/24 03:42 02/04/24 03:42 Labs: Abnormal Lab Results - Last 24 Hours (Table) 02/03/24 02/04/24 02/04/24 Range/Units 11:19 03:42 03:42 WBC 3.74 L (4.50-10.00) X 10*3/uL RBC 2.77 L (4.40-5.60) X 10*6/uL Hgb 9.0 L (13.0-17.0) g/dL Hct 27.6 L (39.6-50.0) % MCV 99.6 H (80.0-97.0) FL MCH 32.5 H (27.0-32.0) pg RDW 20.0 H (11.5-14.5) % Plt Count 64 L (140-440) X 10*3/uL Lymphocytes # 0.30 L (0.90-5.00) X 10*3/uL Chloride 119 H (96-109) mmol/L Carbon Dioxide 13.5 L (21.6-31.8) mmol/L BUN 56.4 H (9.0-27.0) mg/dL Creatinine 2.7 H (0.6-1.5) mg/dL Est GFR (CKD-EPI) 23 L (>=60) BUN/Creatinine Ratio 20.89 H (12.00-20.00) Ratio Glucose 114 H (70-110) mg/dL Calcium 6.2 A* (8.7-10.3) mg/dL Total Bilirubin 0.2 L (0.3-1.2) mg/dL AST 61 H (14-35) U/L Total Protein 3.6 L (6.2-8.2) g/dL Albumin 2.3 L (3.8-4.9) g/dL Globulin 1.3 L (1.6-3.3) g/dL RBC Folate 975 H (280 - 791) ng/mL - Imaging and Cardiology CT scan - abdomen: report reviewed CT scan - pelvis: report reviewed Assessment and Plan (1) Colitis Current Visit: Yes Status: Acute Priority: High Code(s): K52.9 - NONINFECTIVE GASTROENTERITIS AND COLITIS, UNSPECIFIED SNOMED Code(s): 51374054 (2) Dehydration Current Visit: Yes Status: Acute Priority: High Code(s): E86.0 - DEHYDRATION SNOMED Code(s): 48212098 (3) Iliopsoas muscle hematoma Current Visit: Yes Status: Acute Priority: Medium Code(s): S70.10XA - CONTUSION OF UNSPECIFIED THIGH, INITIAL ENCOUNTER SNOMED Code(s): 480429267 (4) Renal cell carcinoma Current Visit: Yes Status: Acute Priority: High Code(s): C64.9 - MALIGNANT NEOPLASM OF UNSP KIDNEY, EXCEPT RENAL PELVIS SNOMED Code(s): 178155678 (5) Diarrhea Current Visit: Yes Status: Acute Priority: High Code(s): R19.7 - DIARRHEA, UNSPECIFIED SNOMED Code(s): 47726155 (6) Anemia Current Visit: Yes Status: Acute Priority: Medium Code(s): D64.9 - ANEMIA, UNSPECIFIED SNOMED Code(s): 809182988 Plan: Diarrhea/colitis -CT abdomen and pelvis showed fluid-filled small bowel loops throughout along with liquid stool in the cecum. Moderate circumferential wall thickening at the hepatic flexure of the colon. Gallstones measuring up to 1.3 cm. -Diarrhea has subsided since admission. Pt afebrile -Stool studies pending -Anti-nausea meds adjusted -Having decreased oral intake over the cpl weeks due to loss of appetite and early satiety. Marinol added -Diarrhea likely related to Lenvima. However IO induced colitis remains in differential, but less likely as diarrhea has already resolved since holding Lenvima -Repeat CT AP showing similar moderate circumferential wall thickening hepatic flexure of the colon Iliopsoas hematoma: Presented with significant left groin pain -CT AP showed asymmetric enlargement of the left iliopsoas musculature with nena rounding stranding and edema. Suspected intramuscular hemorrhage/hematoma. -Eliquis has been held. General surgery following -Repeat CT showing no significant change in hematoma/hemorrhage Macrocytic Anemia: -Hgb 11.7 on admit. Today Hgb 9.5, MCV 101.4, moderate hypochromasia noted -Left iliopsoas hematoma. Denies blood in stool/melena. Elquis held -Anemia labs consistent with anemia of inflammation -Continue to monitor CBC Hypothyroidism: -Thyroid studies checked in clinic on 01/27. TSH 75.6, T4 0.88, T3 1.7 -Possible IO induced thyroiditis -Synthroid increased to 50mcg daily Metastatic RCC: -Oncological history as dictated in the HPI -Currently on treatment with Lenvima and Keytruda, completing cycle 3 of keytruda on 01/27/24. Last dose of Lenvima was 2 days ago -Treatment will be held until adequately recovered from acute condition Had long discussion with patient and family today regarding POC. All questions and concerns were addressed
[2024-02-05] MEDS: LEVOTHYROXINE 50 MCG TAB PO SCH (06:49)
[2024-02-05] MEDS: DOCUSATE 100 MG CAP PO SCH (09:57)
--- NOTE | 2024-02-05 10:30 | P.PN ---
Subjective Progress Note Date: 02/04/24 Isidoro Prado, is an 83-year-old male who presented to [facility] emergency room with a chief complaint of diarrhea and severe weakness, patient stated that he started having diarrhea 2 weeks ago, he started having worsening weakness and fatigue, he was complaining of left lower quadrant abdominal pain, he decided to come to emergency room. He was evaluated in the emergency room vital examination on presentation revealed a temperature of 98.2 pulse 87 respiration 18 blood pressure 87/56 pulse ox 97% on room air Laboratory data reveals a white blood count of 5.9 hemoglobin 11.7 platelet count 67 sodium 140 potassium 3.2 chloride 116 CO2 10 BUN 63 creatinine 2.73 amylase 125 lipase 310 Testing in the emergency room revealed CT scan of the abdomen and pelvis revealed hydropic gallbladder measuring 5.0 cm with dependent gallstones, duodenal diverticulum, right-sided renal cortical cyst measuring 6 cm, fluid- filled small bowel loops throughout the abdomen, liquid stools within the cecum, moderate circumferential wall thickening in the hepatic flexure of the colon, left-sided diverticulosis. Patient was admitted to medical floor for further evaluation and treatment Past medical history is significant for history of renal cell carcinoma, previous history of diverticulosis with acute diverticulitis and history of gastrointestinal bleeding, history of hypertension, history of hyperlipidemia, history of chronic atrial fibrillation maintained on Eliquis. On 02/03/2024 patient was seen and examined on the medical floor he is alert and oriented x 3 in no apparent distress he is still complaining of severe weakness otherwise he denies any complaints at this time there is no fever or chills no headache or dizziness no chest pain no shortness of breath no cough no nausea or vomiting no abdominal pain he is still having episodes of diarrhea and no urinary symptoms. Input from general surgery reviewed patient is scheduled for repeat CT scan of the abdomen today we will continue to follow closely. On 02/04/2024 patient is alert and oriented x 3. Patient still complaining of some abdominal pain no bowel movement. Patient still having some nausea. Repeat CT scan was ordered for surgical services awaiting further input. Patient denies chest pain or shortness of breath. Current vital signs temp 98.5, heart 72, respiratory rate 16, blood pressure 120/71 with a pulse ox of 96% on room air Objective - Vital Signs Vital signs: Vital Signs Temp 97.6 F 02/04/24 00:51 Pulse 71 02/04/24 00:51 Resp 16 02/04/24 00:51 BP 122/69 02/04/24 00:51 Pulse Ox 98 02/04/24 00:51 FiO2 Intake & Output 02/03/24 02/04/24 02/04/24 18:59 06:59 18:59 Intake Total 600 900 Output Total 600 475 Balance 0 425 Intake: Intake, IV Titration 600 900 Amount Sodium Chloride 0.9% 1, 600 900 000 ml @ 75 mls/hr IV . [id number] [facility] Rx#:[id number] Output: Urine 600 475 Other: # Voids 2 2 - Exam In general patient is alert and oriented x 3 in no distress HEENT head normocephalic and atraumatic Neck is supple no JVD no goiter no lymphadenopathy no carotid bruit Chest examination is clear to auscultation no crackles no wheezing Cardiac exam reveals regular heart sounds S1 and S2 no gallops no murmurs Abdomen is soft nontender no organomegaly with normal bowel sounds Extremity exam reveals no edema no cyanosis or clubbing Neurological examination reveals no gross focal deficits - Labs CBC & Chem 7: 02/04/24 03:42 02/04/24 03:42 Labs: Abnormal Lab Results - Last 24 Hours (Table) 02/03/24 02/03/24 Range/Units 03:22 11:19 WBC 3.38 L (4.50-10.00) X 10*3/uL RBC 2.85 L (4.40-5.60) X 10*6/uL Hgb 9.5 L (13.0-17.0) g/dL Hct 28.9 L (39.6-50.0) % MCV 101.4 H (80.0-97.0) FL MCH 33.3 H (27.0-32.0) pg RDW 20.1 H (11.5-14.5) % Plt Count 66 L (140-440) X 10*3/uL MPV 12.4 H (9.5-12.2) FL Iron 30 L (65-175) UG/DL TIBC 178 L (228-460) UG/DL Transferrin 127.0 L (204.0-354.0) mg/dL Assessment and Plan Plan: Abdominal pain with diarrhea Hydropic gallbladder with gallstones Recent surgery for incarcerated left inguinal hernia and small bowel obstruction in October 2023 History of metastatic renal cell carcinoma Underlying history of hypertension Underlying history of hyperlipidemia Underlying history of chronic atrial fibrillation maintained on Eliquis At this time patient was seen and examined Home medications reviewed and reordered General surgery and oncology consultation requested For DVT prophylaxis patient is maintained on Eliquis
--- NOTE | 2024-02-05 12:54 | P.PN ---
Subjective Progress Note Date: 02/05/24 Isidoro Prado, is an 83-year-old male who presented to [facility] emergency room with a chief complaint of diarrhea and severe weakness, patient stated that he started having diarrhea 2 weeks ago, he started having worsening weakness and fatigue, he was complaining of left lower quadrant abdominal pain, he decided to come to emergency room. He was evaluated in the emergency room vital examination on presentation revealed a temperature of 98.2 pulse 87 respiration 18 blood pressure 87/56 pulse ox 97% on room air Laboratory data reveals a white blood count of 5.9 hemoglobin 11.7 platelet count 67 sodium 140 potassium 3.2 chloride 116 CO2 10 BUN 63 creatinine 2.73 amylase 125 lipase 310 Testing in the emergency room revealed CT scan of the abdomen and pelvis revealed hydropic gallbladder measuring 5.0 cm with dependent gallstones, duodenal diverticulum, right-sided renal cortical cyst measuring 6 cm, fluid- filled small bowel loops throughout the abdomen, liquid stools within the cecum, moderate circumferential wall thickening in the hepatic flexure of the colon, left-sided diverticulosis. Patient was admitted to medical floor for further evaluation and treatment Past medical history is significant for history of renal cell carcinoma, previous history of diverticulosis with acute diverticulitis and history of gastrointestinal bleeding, history of hypertension, history of hyperlipidemia, history of chronic atrial fibrillation maintained on Eliquis. On 02/03/2024 patient was seen and examined on the medical floor he is alert and oriented x 3 in no apparent distress he is still complaining of severe weakness otherwise he denies any complaints at this time there is no fever or chills no headache or dizziness no chest pain no shortness of breath no cough no nausea or vomiting no abdominal pain he is still having episodes of diarrhea and no urinary symptoms. Input from general surgery reviewed patient is scheduled for repeat CT scan of the abdomen today we will continue to follow closely. On 02/04/2024 patient is alert and oriented x 3. Patient still complaining of some abdominal pain no bowel movement. Patient still having some nausea. Repeat CT scan was ordered for surgical services awaiting further input. Patient denies chest pain or shortness of breath. Current vital signs temp 98.5, heart 72, respiratory rate 16, blood pressure 120/71 with a pulse ox of 96% on room air On 02/05/2024 patient was seen and examined on the medical floor he is alert and oriented x 3 in no apparent distress he is complaining of abdominal discomfort, nausea, poor oral intake, and constipation otherwise he denies any complaints at this time there is no fever or chills no headache or dizziness no chest pain no shortness of breath no cough no vomiting no burning with urination no frequency or urgency and no hematuria. Objective - Vital Signs Vital signs: Vital Signs Temp 98.9 F 02/05/24 06:59 Pulse 70 02/05/24 06:59 Resp 16 02/05/24 06:59 BP 138/79 02/05/24 06:59 Pulse Ox 98 02/05/24 06:59 FiO2 Intake & Output 02/04/24 02/05/24 02/05/24 18:59 06:59 18:59 Output Total 300 300 Balance -300 -300 Output: Urine 300 300 Other: Voiding Method Urinal Urinal # Voids 1 - Exam In general patient is alert and oriented x 3 in no distress HEENT head normocephalic and atraumatic Neck is supple no JVD no goiter no lymphadenopathy no carotid bruit Chest examination is clear to auscultation no crackles no wheezing Cardiac exam reveals regular heart sounds S1 and S2 no gallops no murmurs Abdomen is soft nontender no organomegaly with normal bowel sounds Extremity exam reveals no edema no cyanosis or clubbing Neurological examination reveals no gross focal deficits - Labs CBC & Chem 7: 02/04/24 03:42 02/04/24 03:42 Labs: Abnormal Lab Results - Last 24 Hours (Table) 02/03/24 Range/Units 11:19 RBC Folate 975 H (280 - 791) ng/mL Assessment and Plan Plan: Abdominal pain with diarrhea Hydropic gallbladder with gallstones Recent surgery for incarcerated left inguinal hernia and small bowel obstruction in October 2023 History of metastatic renal cell carcinoma Underlying history of hypertension Underlying history of hyperlipidemia Underlying history of chronic atrial fibrillation maintained on Eliquis At this time patient was seen and examined Home medications reviewed and reordered General surgery and oncology consultation requested For DVT prophylaxis patient is maintained on Eliquis
--- NOTE | 2024-02-05 15:39 | P.PN ---
Subjective Progress Note Date: 02/05/24 CHIEF COMPLAINT: Iliopsoas hematoma HISTORY OF PRESENT ILLNESS: The patient is a 83-year-old male admitted with anemia and iliopsoas hemotoma and on chronic anticoagulant use. He is resting comfortably. ROS: No reports of nausea and vomiting. No bowel movements. No fevers or chills. No new chest pain. No productive sputum PHYSICAL EXAM: VITAL SIGNS: Reviewed CONSTITUTIONAL: Well developed and in no acute distress. EYES: Conjuctivae without sclera icterus. Extraocular movements grossly intact. HEAD, EARS, NOSE, THROAT: Moist buccal mucosa. Head is atraumatic, normocephalic. Hears conversational speech. No nasal drainage. RESPIRATORY: Non-labored respirations and equal bilateral excursions. CARDIOVASCULAR: Palpable 2+ radial pulses. ABDOMEN: No peritonitis. MUSCULOSKELETAL: No gross deformity of the lower extremities noted. No clubbing. No cyanosis. SKIN: Good skin turgor. Well perfused. NEUROLOGIC: Cranial nerves II through XII grossly intact. No focal or lateralizing signs. PSYCH: Lethargic CLINICAL LABS: Reviewed. Hgb 9.5 to 9.0, anemia. ASSESSMENT: 1. Iliopsoas hematoma 2. Acute blood loss anemia. PLAN: 1. Monitor Hemoglobin 2. Continue hold of all anticoagulants. Objective - Vital Signs Vital signs: Vital Signs Temp 98.9 F 02/05/24 06:59 Pulse 63 02/05/24 13:04 Resp 19 02/05/24 13:04 BP 104/65 02/05/24 13:04 Pulse Ox 98 02/05/24 13:04 FiO2 Intake & Output 02/04/24 02/05/24 02/05/24 18:59 06:59 18:59 Output Total 300 300 200 Balance -300 -300 -200 Output: Urine 300 300 200 Other: Voiding Method Urinal Urinal # Voids 1 - Labs CBC & Chem 7: 02/04/24 03:42 02/04/24 03:42
[2024-02-05] MEDS: ENOXAPARIN 40 MG/0.4 ML SYRINGE SQ SCH (16:57)
[2024-02-06 00:17] LABS: Appearance,Urine Cloudy (Clear); Bacteria,Urine Many /hpf; Bilirubin,Urine Negative (Negative); Blood,Urine Moderate (Negative); Color,Urine Colorless; Glucose,Urine (UA) Negative (Negative); Hyaline Casts,Urine 10 /lpf (0-2); Ketones,Urine Negative (Negative); Leukocyte Esterase,Urine Large (Negative); Mucus,Urine Rare /hpf; Nitrite,Urine Negative (Negative); Protein,Urine 3+ (Negative); RBC,Urine 10 /hpf (0-5); Specific Gravity,Urine 1.015 (1.001-1.035); Urobilinogen,Urine <2.0 mg/dL (<2.0); WBC,Urine >182 /hpf (0-5)
--- NOTE | 2024-02-06 09:39 | P.PN ---
Subjective Progress Note Date: 02/06/24 Isdioro Prado, is an 83-year-old male who presented to [facility] emergency room with a chief complaint of diarrhea and severe weakness, patient stated that he started having diarrhea 2 weeks ago, he started having worsening weakness and fatigue, he was complaining of left lower quadrant abdominal pain, he decided to come to emergency room. He was evaluated in the emergency room vital examination on presentation revealed a temperature of 98.2 pulse 87 respiration 18 blood pressure 87/56 pulse ox 97% on room air Laboratory data reveals a white blood count of 5.9 hemoglobin 11.7 platelet count 67 sodium 140 potassium 3.2 chloride 116 CO2 10 BUN 63 creatinine 2.73 amylase 125 lipase 310 Testing in the emergency room revealed CT scan of the abdomen and pelvis revealed hydropic gallbladder measuring 5.0 cm with dependent gallstones, duodenal diverticulum, right-sided renal cortical cyst measuring 6 cm, fluid- filled small bowel loops throughout the abdomen, liquid stools within the cecum, moderate circumferential wall thickening in the hepatic flexure of the colon, left-sided diverticulosis. Patient was admitted to medical floor for further evaluation and treatment Past medical history is significant for history of renal cell carcinoma, previous history of diverticulosis with acute diverticulitis and history of gastrointestinal bleeding, history of hypertension, history of hyperlipidemia, history of chronic atrial fibrillation maintained on Eliquis. On 02/03/2024 patient was seen and examined on the medical floor he is alert and oriented x 3 in no apparent distress he is still complaining of severe weakness otherwise he denies any complaints at this time there is no fever or chills no headache or dizziness no chest pain no shortness of breath no cough no nausea or vomiting no abdominal pain he is still having episodes of diarrhea and no urinary symptoms. Input from general surgery reviewed patient is scheduled for repeat CT scan of the abdomen today we will continue to follow closely. On 02/04/2024 patient is alert and oriented x 3. Patient still complaining of some abdominal pain no bowel movement. Patient still having some nausea. Repeat CT scan was ordered for surgical services awaiting further input. Patient denies chest pain or shortness of breath. Current vital signs temp 98.5, heart 72, respiratory rate 16, blood pressure 120/71 with a pulse ox of 96% on room air On 02/05/2024 patient was seen and examined on the medical floor he is alert and oriented x 3 in no apparent distress he is complaining of abdominal discomfort, nausea, poor oral intake, and constipation otherwise he denies any complaints at this time there is no fever or chills no headache or dizziness no chest pain no shortness of breath no cough no vomiting no burning with urination no frequency or urgency and no hematuria. On 02/06/2024 patient is alert and oriented x 3. Patient is still complaining of abdominal pain and poor oral intake. Surgical services following. Current vital signs temp 97.6, pulse rate 67, respiratory rate 17, blood pressure 137/75 with a pulse ox of 99% on room air. Awaiting further recommendations from surgical and oncology services Objective - Vital Signs Vital signs: Vital Signs Temp 97.6 F 02/06/24 07:05 Pulse 67 02/06/24 07:05 Resp 17 02/06/24 07:05 BP 131/75 02/06/24 07:05 Pulse Ox 99 02/06/24 07:05 FiO2 Intake & Output 02/05/24 02/06/24 02/06/24 18:59 06:59 18:59 Intake Total 600 Output Total 200 Balance 400 Intake: Intake, IV Titration 600 Amount Sodium Chloride 0.9% 1, 600 000 ml @ 75 mls/hr IV . [id number] [facility] Rx#:[id number] Output: Urine 200 Other: Voiding Method Urinal # Voids 2 - Exam In general patient is alert and oriented x 3 in no distress HEENT head normocephalic and atraumatic Neck is supple no JVD no goiter no lymphadenopathy no carotid bruit Chest examination is clear to auscultation no crackles no wheezing Cardiac exam reveals regular heart sounds S1 and S2 no gallops no murmurs Abdomen is soft nontender no organomegaly with normal bowel sounds Extremity exam reveals no edema no cyanosis or clubbing Neurological examination reveals no gross focal deficits - Labs CBC & Chem 7: 02/04/24 03:42 02/04/24 03:42 Labs: Abnormal Lab Results - Last 24 Hours (Table) 02/05/24 Range/Units 23:34 Urine Protein 3+ H (Negative) Urine Blood Moderate H (Negative) Ur Leukocyte Esterase Large H (Negative) Urine RBC 10 H (0-5) /hpf Urine WBC >182 H (0-5) /hpf Urine WBC Clumps Rare H (None) /hpf Urine Bacteria Many H (None) /hpf Hyaline Casts 10 H (0-2) /lpf Urine Mucus Rare H (None) /hpf Assessment and Plan Plan: Abdominal pain with diarrhea Hydropic gallbladder with gallstones Recent surgery for incarcerated left inguinal hernia and small bowel obstruction in October 2023 History of metastatic renal cell carcinoma Underlying history of hypertension Underlying history of hyperlipidemia Underlying history of chronic atrial fibrillation maintained on Eliquis. Eliquis on hold per surgical services At this time patient was seen and examined Home medications reviewed and reordered General surgery and oncology consultation requested For DVT prophylaxis patient is maintained on Lovenox
[2024-02-06 10:05] LABS: Basophils # (A) 0.01 X 10*3/uL (0.00-0.10); Basophils % (A) 0.3 %; Eosinophils # (A) 0.18 X 10*3/uL (0.04-0.35); Eosinophils % (A) 4.9 %; HGB 9.1 g/dL (13.0-17.0); Immature Platelet Fraction 2.7 % (1.1-6.1); Lymphocytes # (A) 0.25 X 10*3/uL (0.90-5.00); Lymphocytes % (A) 6.9 %; MCH 32.6 pg (27.0-32.0); MCHC 32.5 g/dL (32.0-37.0); MCV 100.4 FL (80.0-97.0); Mean Platelet Volume 12.5 FL (9.5-12.2); Monocytes # (A) 0.27 X 10*3/uL (0.20-1.00); Monocytes % (A) 7.4 %; NRBC Per 100 WBC 0 X 10*3/uL (0.00-0.01); Neutrophils # (A) 2.92 X 10*3/uL (1.80-7.70); Neutrophils % (A) 80.2 %; Platelet Count 61 X 10*3/uL (140-440); RBC 2.79 X 10*6/uL (4.40-5.60); RDW 20.2 % (11.5-14.5); WBC 3.64 X 10*3/uL (4.50-10.00)
[2024-02-06 10:42] LABS: BUN/Creat Ratio 24.57 Ratio (12.00-20.00); Blood Urea Nitrogen 51.6 mg/dL (9.0-27.0); Carbon Dioxide 12.6 mmol/L (21.6-31.8); Chloride 122 mmol/L (96-109); Glucose 95 mg/dL (70-110); Potassium 3.4 mmol/L (3.5-5.5); Sodium 143 mmol/L (135-145)
[2024-02-06 10:43] LABS: ALT 25 U/L (10-49); AST 39 U/L (14-35); Albumin 2.1 g/dL (3.8-4.9); Alkaline Phosphatase 77 U/L (41-126); Calcium 6.4 mg/dL (8.7-10.3); Globulin 1.5 g/dL (1.6-3.3); Total Bilirubin 0.3 mg/dL (0.3-1.2); Total Protein 3.6 g/dL (6.2-8.2)
--- NOTE | 2024-02-06 15:43 | P.PN ---
Subjective Progress Note Date: 02/06/24 CHIEF COMPLAINT: Iliopsoas hematoma HISTORY OF PRESENT ILLNESS: The patient is a 83-year-old male admitted with anemia and iliopsoas hemotoma and on chronic anticoagulant use. He just finished using his urinal. He denies abdominal pain at the time of my assessment. ROS: No reports of nausea and vomiting. No fevers or chills. No new chest pain. No productive sputum PHYSICAL EXAM: VITAL SIGNS: Reviewed CONSTITUTIONAL: Well developed and in no acute distress. EYES: Conjuctivae without sclera icterus. Extraocular movements grossly intact. HEAD, EARS, NOSE, THROAT: Moist buccal mucosa. Head is atraumatic, normocephalic. Hears conversational speech. No nasal drainage. RESPIRATORY: Non-labored respirations and equal bilateral excursions. CARDIOVASCULAR: Palpable 2+ radial pulses. ABDOMEN: No peritonitis. MUSCULOSKELETAL: No gross deformity of the lower extremities noted. No clubb ing. No cyanosis. SKIN: Good skin turgor. Well perfused. NEUROLOGIC: Cranial nerves II through XII grossly intact. No focal or lateralizing signs. PSYCH: Awake and alert to self, place and time. Appropriate affect. CLINICAL LABS: Reviewed. Hgb 9.5 to 9.0, today stable at 9.1 anemia. ASSESSMENT: 1. Iliopsoas hematoma 2. Acute blood loss anemia. PLAN: 1. Hemoglobin is stable and recommend do not start anticoagulants. 2. May benefit from follow-up imaging as hemoglobin has now stabilized. Objective - Vital Signs Vital signs: Vital Signs Temp 97.6 F 02/06/24 07:05 Pulse 79 02/06/24 14:37 Resp 21 02/06/24 14:37 BP 125/76 02/06/24 14:37 Pulse Ox 92 L 02/06/24 14:37 FiO2 Intake & Output 02/05/24 02/06/24 02/06/24 18:59 06:59 18:59 Intake Total 600 Output Total 200 Balance 400 Intake: Intake, IV Titration 600 Amount Sodium Chloride 0.9% 1, 600 000 ml @ 75 mls/hr IV . [id number] Rx#:[id number] Output: Urine 200 Other: Voiding Method Urinal Urinal Diaper # Voids 2 1 - Labs CBC & Chem 7: 02/06/24 05:00 02/06/24 05:00 Labs: Abnormal Lab Results - Last 24 Hours (Table) 02/05/24 02/06/24 02/06/24 Range/Units 23:34 05:00 05:00 WBC 3.64 L (4.50-10.00) X 10*3/uL RBC 2.79 L (4.40-5.60) X 10*6/uL Hgb 9.1 L (13.0-17.0) g/dL Hct 28.0 L (39.6-50.0) % MCV 100.4 H (80.0-97.0) FL MCH 32.6 H (27.0-32.0) pg RDW 20.2 H (11.5-14.5) % Plt Count 61 L (140-440) X 10*3/uL MPV 12.5 H (9.5-12.2) FL Lymphocytes # 0.25 L (0.90-5.00) X 10*3/uL Potassium 3.4 L (3.5-5.5) mmol/L Chloride 122 H (96-109) mmol/L Carbon Dioxide 12.6 L (21.6-31.8) mmol/L BUN 51.6 H (9.0-27.0) mg/dL Creatinine 2.1 H (0.6-1.5) mg/dL Est GFR (CKD-EPI) 31 L (>=60) BUN/Creatinine Ratio 24.57 H (12.00-20.00) Ratio Calcium 6.4 A* (8.7-10.3) mg/dL AST 39 H (14-35) U/L Total Protein 3.6 L (6.2-8.2) g/dL Albumin 2.1 L (3.8-4.9) g/dL Globulin 1.5 L (1.6-3.3) g/dL Albumin/Globulin Ratio 1.40 L (1.60-3.17) Ratio Urine Protein 3+ H (Negative) Urine Blood Moderate H (Negative) Ur Leukocyte Esterase Large H (Negative) Urine RBC 10 H (0-5) /hpf Urine WBC >182 H (0-5) /hpf Urine WBC Clumps Rare H (None) /hpf Urine Bacteria Many H (None) /hpf Hyaline Casts 10 H (0-2) /lpf Urine Mucus Rare H (None) /hpf
[2024-02-06 21:27] LABS: Glucose,Whole Blood 144 mg/dL (70-110)
[2024-02-07 09:35] LABS: Basophils # (A) 0.01 X 10*3/uL (0.00-0.10); Basophils % (A) 0.3 %; Eosinophils % (A) 6.3 %; HCT 30.2 % (39.6-50.0); HGB 9.4 g/dL (13.0-17.0); Lymphocytes # (A) 0.26 X 10*3/uL (0.90-5.00); Lymphocytes % (A) 8.2 %; MCHC 31.1 g/dL (32.0-37.0); MCV 102.7 FL (80.0-97.0); Mean Platelet Volume 11.4 FL (9.5-12.2); Monocytes % (A) 9.4 %; NRBC Per 100 WBC 0 X 10*3/uL (0.00-0.01); Neutrophils # (A) 2.39 X 10*3/uL (1.80-7.70); Neutrophils % (A) 75.2 %; Platelet Count 70 X 10*3/uL (140-440); RBC 2.94 X 10*6/uL (4.40-5.60); WBC 3.18 X 10*3/uL (4.50-10.00)
[2024-02-07 10:03] LABS: ALT 26 U/L (10-49); AST 37 U/L (14-35); Albumin 2.1 g/dL (3.8-4.9); Alkaline Phosphatase 79 U/L (41-126); BUN/Creat Ratio 24.29 Ratio (12.00-20.00); Calcium 6.4 mg/dL (8.7-10.3); Carbon Dioxide 12.6 mmol/L (21.6-31.8); Chloride 121 mmol/L (96-109); Globulin 1.5 g/dL (1.6-3.3); Glucose 91 mg/dL (70-110); Potassium 3.4 mmol/L (3.5-5.5); Sodium 143 mmol/L (135-145); Total Bilirubin 0.3 mg/dL (0.3-1.2); Total Protein 3.6 g/dL (6.2-8.2)
[2024-02-07] MEDS: CALCIUM CARB-VIT D 500 MG-5 MCG TAB PO SCH (12:21)
[2024-02-07] MEDS: polyethylene glycoL 3350 17 GM POWD.PACK PO SCH (12:21)
--- NOTE | 2024-02-07 13:11 | P.PN ---
Subjective Progress Note Date: 02/07/24 CHIEF COMPLAINT: Abdominal pain HISTORY OF PRESENT ILLNESS: Patient does report intermittent pain in that left lower quadrant. He is having flatus. Denies any nausea or vomiting. No bowel movement for several days. HGB up from 9.1-9.4 Dr. Lorenz is covering for Dr. Aguilar patient's PHYSICAL EXAM: VITAL SIGNS: Reviewed. GENERAL: no acute distress. ABDOMEN: Soft. mildly distended. Mild discomfort with palpation in the left lower quadrant NEUROLOGIC: Alert and oriented. Cranial nerves II through XII grossly intact. ASSESSMENT: 1. Iliopsoas hematoma. Patient on blood thinners at home. The hematoma may be contributing to patient's left groin pain. 2. Moderate circumferential wall thickening at the hepatic flexure of the colon with possible colitis 3. Diarrhea resolved 4. History of DVT on Eliquis 5. Status post open repair of incarcerated left inguinal hernia with left orchiectomy and laparotomy with lysis of adhesions and small bowel resection on November 02, 2023 6. History of renal cancer status post nephrectomy and is on chemotherapy PLAN: -No surgical intervention planned -Repeat imaging planned at this time -Continue regular diet -Increase activity level -Continue to hold Eliquis -MiraLAX added for constipation Physician Grain Cleaner note has been reviewed by physician. Signing provider agrees with the documented findings, assessment, and plan of care. Objective - Vital Signs Vital signs: Vital Signs Temp 97.5 F L 02/07/24 06:56 Pulse 62 02/07/24 06:56 Resp 17 02/07/24 06:56 BP 106/63 02/07/24 06:56 Pulse Ox 98 02/07/24 06:56 FiO2 Intake & Output 02/06/24 02/07/24 02/07/24 18:59 06:59 18:59 Output Total 250 Balance -250 Output: Urine 250 Other: Voiding Method Urinal Urinal Diaper Incontinent # Voids 1 1 1 - Labs CBC & Chem 7: 02/07/24 03:28 02/07/24 03:28 Labs: Abnormal Lab Results - Last 24 Hours (Table) 02/06/24 02/07/24 02/07/24 Range/Units 21:25 03:28 03:28 WBC 3.18 L (4.50-10.00) X 10*3/uL RBC 2.94 L (4.40-5.60) X 10*6/uL Hgb 9.4 L (13.0-17.0) g/dL Hct 30.2 L (39.6-50.0) % MCV 102.7 H (80.0-97.0) FL MCHC 31.1 L (32.0-37.0) g/dL RDW 20.0 H (11.5-14.5) % Plt Count 70 L (140-440) X 10*3/uL Lymphocytes # 0.26 L (0.90-5.00) X 10*3/uL Potassium 3.4 L (3.5-5.5) mmol/L Chloride 121 H (96-109) mmol/L Carbon Dioxide 12.6 L (21.6-31.8) mmol/L BUN 51.0 H (9.0-27.0) mg/dL Creatinine 2.1 H (0.6-1.5) mg/dL Est GFR (CKD-EPI) 31 L (>=60) BUN/Creatinine Ratio 24.29 H (12.00-20.00) Ratio POC Glucose (mg/dL) 144 H (70-110) mg/dL Calcium 6.4 A* (8.7-10.3) mg/dL AST 37 H (14-35) U/L Total Protein 3.6 L (6.2-8.2) g/dL Albumin 2.1 L (3.8-4.9) g/dL Globulin 1.5 L (1.6-3.3) g/dL Albumin/Globulin Ratio 1.40 L (1.60-3.17) Ratio
--- NOTE | 2024-02-07 16:00 | P.PN ---
Subjective Progress Note Date: 02/07/24 Isidoro Prado, is an 83-year-old male who presented to [facility] emergency room with a chief complaint of diarrhea and severe weakness, patient stated that he started having diarrhea 2 weeks ago, he started having worsening weakness and fatigue, he was complaining of left lower quadrant abdominal pain, he decided to come to emergency room. He was evaluated in the emergency room vital examination on presentation revealed a temperature of 98.2 pulse 87 respiration 18 blood pressure 87/56 pulse ox 97% on room air Laboratory data reveals a white blood count of 5.9 hemoglobin 11.7 platelet count 67 sodium 140 potassium 3.2 chloride 116 CO2 10 BUN 63 creatinine 2.73 amylase 125 lipase 310 Testing in the emergency room revealed CT scan of the abdomen and pelvis revealed hydropic gallbladder measuring 5.0 cm with dependent gallstones, duodenal diverticulum, right-sided renal cortical cyst measuring 6 cm, fluid- filled small bowel loops throughout the abdomen, liquid stools within the cecum, moderate circumferential wall thickening in the hepatic flexure of the colon, left-sided diverticulosis. Patient was admitted to medical floor for further evaluation and treatment Past medical history is significant for history of renal cell carcinoma, previous history of diverticulosis with acute diverticulitis and history of gastrointestinal bleeding, history of hypertension, history of hyperlipidemia, history of chronic atrial fibrillation maintained on Eliquis. On 02/03/2024 patient was seen and examined on the medical floor he is alert and oriented x 3 in no apparent distress he is still complaining of severe weakness otherwise he denies any complaints at this time there is no fever or chills no headache or dizziness no chest pain no shortness of breath no cough no nausea or vomiting no abdominal pain he is still having episodes of diarrhea and no urinary symptoms. Input from general surgery reviewed patient is scheduled for repeat CT scan of the abdomen today we will continue to follow closely. On 02/04/2024 patient is alert and oriented x 3. Patient still complaining of some abdominal pain no bowel movement. Patient still having some nausea. Repeat CT scan was ordered for surgical services awaiting further input. Patient denies chest pain or shortness of breath. Current vital signs temp 98.5, heart 72, respiratory rate 16, blood pressure 120/71 with a pulse ox of 96% on room air On 02/05/2024 patient was seen and examined on the medical floor he is alert and oriented x 3 in no apparent distress he is complaining of abdominal discomfort, nausea, poor oral intake, and constipation otherwise he denies any complaints at this time there is no fever or chills no headache or dizziness no chest pain no shortness of breath no cough no vomiting no burning with urination no frequency or urgency and no hematuria. On 02/06/2024 patient is alert and oriented x 3. Patient is still complaining of abdominal pain and poor oral intake. Surgical services following. Current vital signs temp 97.6, pulse rate 67, respiratory rate 17, blood pressure 137/75 with a pulse ox of 99% on room air. Awaiting further recommendations from surgical and oncology services On 02/07/2024 patient was seen and examined on the medical floor he is alert and oriented x 3 in no apparent distress he is still complaining of abdominal discomfort poor oral intake and nausea otherwise he denies any complaints there is no fever or chills no headache or dizziness no chest pain no shortness of breath no cough no vomiting no diarrhea no blood in the stools. Patient has di scomfort with urination. At this time there is evidence of urinary tract infection and IV ceftriaxone was added, infectious disease consultation was requested in regard to colitis we will continue to follow closely Objective - Vital Signs Vital signs: Vital Signs Temp 97.6 F 02/07/24 13:26 Pulse 67 02/07/24 13:26 Resp 17 02/07/24 13:26 BP 114/68 02/07/24 13:26 Pulse Ox 100 02/07/24 13:26 FiO2 Intake & Output 02/06/24 02/07/24 02/07/24 18:59 06:59 18:59 Output Total 250 Balance -250 Weight 65.771 kg Output: Urine 250 Other: Voiding Method Urinal Urinal Diaper Incontinent # Voids 1 1 1 - Exam In general patient is alert and oriented x 3 in no distress HEENT head normocephalic and atraumatic Neck is supple no JVD no goiter no lymphadenopathy no carotid bruit Chest examination is clear to auscultation no crackles no wheezing Cardiac exam reveals regular heart sounds S1 and S2 no gallops no murmurs Abdomen is soft nontender no organomegaly with normal bowel sounds Extremity exam reveals no edema no cyanosis or clubbing Neurological examination reveals no gross focal deficits - Labs CBC & Chem 7: 02/07/24 03:28 02/07/24 03:28 Labs: Abnormal Lab Results - Last 24 Hours (Table) 02/06/24 02/07/24 02/07/24 Range/Units 21:25 03:28 03:28 WBC 3.18 L (4.50-10.00) X 10*3/uL RBC 2.94 L (4.40-5.60) X 10*6/uL Hgb 9.4 L (13.0-17.0) g/dL Hct 30.2 L (39.6-50.0) % MCV 102.7 H (80.0-97.0) FL MCHC 31.1 L (32.0-37.0) g/dL RDW 20.0 H (11.5-14.5) % Plt Count 70 L (140-440) X 10*3/uL Lymphocytes # 0.26 L (0.90-5.00) X 10*3/uL Potassium 3.4 L (3.5-5.5) mmol/L Chloride 121 H (96-109) mmol/L Carbon Dioxide 12.6 L (21.6-31.8) mmol/L BUN 51.0 H (9.0-27.0) mg/dL Creatinine 2.1 H (0.6-1.5) mg/dL Est GFR (CKD-EPI) 31 L (>=60) BUN/Creatinine Ratio 24.29 H (12.00-20.00) Ratio POC Glucose (mg/dL) 144 H (70-110) mg/dL Calcium 6.4 A* (8.7-10.3) mg/dL AST 37 H (14-35) U/L Total Protein 3.6 L (6.2-8.2) g/dL Albumin 2.1 L (3.8-4.9) g/dL Globulin 1.5 L (1.6-3.3) g/dL Albumin/Globulin Ratio 1.40 L (1.60-3.17) Ratio Microbiology - Last 24 Hours (Table) 02/05/24 23:34 Urine Culture - Preliminary Urine,Voided Gram Neg Bacilli Assessment and Plan Plan: Abdominal pain with diarrhea Hydropic gallbladder with gallstones Recent surgery for incarcerated left inguinal hernia and small bowel obstruction in October 2023 History of metastatic renal cell carcinoma Underlying history of hypertension Underlying history of hyperlipidemia Underlying history of chronic atrial fibrillation maintained on Eliquis. E liquis on hold per surgical services At this time patient was seen and examined Home medications reviewed and reordered General surgery and oncology consultation requested For DVT prophylaxis patient is maintained on Lovenox
[2024-02-07] MEDS: PIPERACILLIN-TAZOBACTAM 3.375 GM in SODIUM CHLORIDE 0.9% 100 ML IVPB SCH (17:55)
--- NOTE | 2024-02-07 22:03 | P.CONS ---
History of Present Illness - Reason for Consult Consult date: 02/07/24 Colitis Requesting physician: Ruperto Reese - Chief Complaint Abdominal pain x few days - History of Present Illness Patient is a 83-year-old male with a past medical history significant for hypertension hyperlipidemia sleep apnea GI bleed reflux in this patient p resented to the hospital about 6 days ago for evaluation of diarrhea and weakness and this patient has been complaining of diarrhea that has been going on for 2 weeks before presentation to hospital has been complaining of mostly watery stool decreased oral intake and feels dehydrated and fatigue patient also complaining of some left-sided abdominal pain describing it to be mostly sharp to colicky moderate intensity without any radiation patient on presentation to the hospital was afebrile and no fever have been called subsequently patient was not tachycardic hypotensive or hypoxic patient has mild leukopenia with a white count of 3.18 BUN and creatinine has been mildly elevated calcium has been in the low side ALT has been normal urine has been positive with a culture showing gram-negative patient did have a initial CT of abdominal pelvis fluid-filled small bowel loops throughout along with a loose stool in the cecum moderate circumferential wall thickening of the hepatic flexure of the colon consider nonspecific colitis enterocolitis patient was started on Rocephin today with the features of colitis seen on the CAT scan on 02/03/2024 Review of Systems Positive point and negatives has been mentioned in the HPI, complete review of systems was performed and all other systems are negative Past Medical History Past Medical History: GERD/Reflux, GI Bleed, Hyperlipidemia, Hypertension, Renal Disease, Sleep Apnea/CPAP/BIPAP Additional Past Medical History / Comment(s): HTN & GI BLEED RESOVLED. Renal cell cancer. RECENT DX OF MASS ON LT KIDNEY. HX OF DIVERTICULITIS History of Any Multi-Drug Resistant Organisms: None Reported Past Surgical History: Appendectomy Additional Past Surgical History / Comment(s): EGD. COLONOSCOPY. ESOPHAGEAL OBSTRUCTION REMOVED. HEMORRHOIDECTOMY. SURGERY FOR BLEEDING ULCER. SEVERAL PROCEDURES FOR PERITONITIS R/T RUPTURED APPENDIX. left kidney removed. Past Anesthesia/Blood Transfusion Reactions: No Reported Reaction Past Psychological History: No Psychological Hx Reported Smoking Status: Never smoker Past Alcohol Use History: None Reported, Rare Past Drug Use History: None Reported - Past Family History Mother Family Medical History: Diabetes Mellitus, Hypertension Additional Family Medical History / Comment(s): ANEURYSM Father Family Medical History: Cancer, Coronary Artery Disease (CAD), CVA/TIA, Hyperlipidemia Additional Family Medical History / Comment(s): Ca: bladder; cabg Medications and Allergies Home Medications Medication Instructions Recorded Confirmed Type Omeprazole 20 mg PO BID 02/19/14 02/01/24 History allopurinoL [Allopurinol] 100 mg PO DAILY 02/19/14 02/01/24 History Acetaminophen [Tylenol Arthritis] 650 mg PO Q8H PRN 04/17/21 02/01/24 History Acetaminophen [Tylenol Extra 500 mg PO Q6H PRN 04/17/21 02/01/24 History Strength] Atorvastatin [Lipitor] 20 mg PO HS 04/17/21 02/01/24 History Fexofenadine HCl [[place] Allergy] 180 mg PO DAILY PRN 04/17/21 02/01/24 History Folic Acid 0.4 mg PO DAILY 04/17/21 02/01/24 History Furosemide [Lasix] 20 mg PO DAILY 04/17/21 02/01/24 History Ipratropium [place] 0.06%Nasal 1 - 2 spray EA NOSTRIL DAILY PRN 04/17/21 02/01/24 History [Atrovent Nasal 0.06%] Levothyroxine Sodium 25 mcg PO SUMOTUTHFRSA 04/17/21 02/01/24 History Loperamide [Imodium] 2 mg PO QID PRN 04/17/21 02/01/24 History Tamsulosin HCl [Flomax] 0.8 mg PO HS 04/17/21 02/01/24 History Apixaban [Eliquis] 2.5 mg PO BID 10/26/23 02/01/24 History Aspirin EC [Ecotrin Low Dose] 81 mg PO DAILY 10/26/23 02/01/24 History Cholecalciferol (Vitamin D3) 50 mcg PO DAILY 10/26/23 02/01/24 History [Vitamin D3 (50 Mcg = 2000 Iu)] Diclofenac Sodium [Voltaren 1 applic TOPICAL DAILY PRN 10/26/23 02/01/24 History Arthritis Pain 1% Gel] Diphenoxylate HCl/Atropine 1 tab PO QID PRN 10/26/23 02/01/24 History [Lomotil 2.5-0.025 mg Tablet] Levothyroxine Sodium 50 mcg PO WE 10/26/23 02/01/24 History Lidocaine 5% Patch [Lidoderm 5% 1 patch TOPICAL DAILY PRN 10/26/23 02/01/24 H istory Patch] Oxybutynin Chloride [oxyBUTYnin 15 mg PO DAILY 10/26/23 02/01/24 History chloride ER] Pembrolizumab [Keytruda] 1 dose IV Q21D 10/26/23 02/01/24 History Triamcinolone Acetonide [Nasacort] 1 spray EA NOSTRIL HS PRN 10/26/23 02/01/24 History Xgeva Injection 1 dose SQ Q56D 10/26/23 02/01/24 History Lenvatinib Mesylate [Lenvima 20mg 20 mg PO DAILY 02/01/24 02/01/24 History (Dosepack = 2 x 10mg capsules)] Prochlorperazine [Compazine] 10 mg PO BID PRN 02/01/24 02/01/24 History Allergies Allergy/AdvReac Type Severity Reaction Status Date / Time weed pollen Allergy runny Verified 02/01/24 17:15 nose, red eyes dust mites Allergy rash, Uncoded 02/01/24 17:15 swelling goldenrod Allergy Rash/Hives Uncoded 02/01/24 17:15 MOLD Allergy RASH, Uncoded 02/01/24 17:15 SWELLING. Physical Exam Vitals: Vital Signs Temp Pulse Resp BP Pulse Ox 02/07/24 06:56 97.5 F L 62 17 106/63 98 02/07/24 01:31 97.5 F L 62 17 137/69 100 02/06/24 22:25 16 02/06/24 19:44 98.0 F 70 16 100/62 99 02/06/24 14:37 79 21 125/76 92 L Intake and Output 02/06/24 02/07/24 02/07/24 22:59 06:59 14:59 Output Total 250 Balance -250 Output: Urine 250 Other: Voiding Method Urinal Incontinent # Voids 1 1 1 GENERAL DESCRIPTION: Elderly male up in the chair, no distress. No tachypnea or accessory muscle of respiration use. HEENT: Shows Pallor , no scleral icterus. Oral mucous membrane is dry. No pharyngeal erythema or thrush NECK: Trachea central, no thyromegaly. LUNGS: Unlabored breathing. Clear to auscultation anteriorly. No wheeze or crackle. HEART: S1, S2, regular rate and rhythm. No loud murmur ABDOMEN: Soft, mild distention but no significant tenderness EXTREMITIES: No edema of feet. SKIN: No rash, no masses palpable. NEUROLOGICAL: The patient is awake, alert, oriented x3, mood and affect normal. Results CBC & Chem 7: 02/07/24 03:28 02/07/24 03:28 Labs: Abnormal Lab Results - Last 24 Hours (Table) 02/06/24 02/07/24 02/07/24 Range/Units 21:25 03:28 03:28 WBC 3.18 L (4.50-10.00) X 10*3/uL RBC 2.94 L (4.40-5.60) X 10*6/uL Hgb 9.4 L (13.0-17.0) g/dL Hct 30.2 L (39.6-50.0) % MCV 102.7 H (80.0-97.0) FL MCHC 31.1 L (32.0-37.0) g/dL RDW 20.0 H (11.5-14.5) % Plt Count 70 L (140-440) X 10*3/uL Lymphocytes # 0.26 L (0.90-5.00) X 10*3/uL Potassium 3.4 L (3.5-5.5) mmol/L Chloride 121 H (96-109) mmol/L Carbon Dioxide 12.6 L (21.6-31.8) mmol/L BUN 51.0 H (9.0-27.0) mg/dL Creatinine 2.1 H (0.6-1.5) mg/dL Est GFR (CKD-EPI) 31 L (>=60) BUN/Creatinine Ratio 24.29 H (12.00-20.00) Ratio POC Glucose (mg/dL) 144 H (70-110) mg/dL Calcium 6.4 A* (8.7-10.3) mg/dL AST 37 H (14-35) U/L Total Protein 3.6 L (6.2-8.2) g/dL Albumin 2.1 L (3.8-4.9) g/dL Globulin 1.5 L (1.6-3.3) g/dL Albumin/Globulin Ratio 1.40 L (1.60-3.17) Ratio Assessment and Plan (1) Colitis Current Visit: Yes Status: Acute Priority: High Code(s): K52.9 - NONINFECTIVE GASTROENTERITIS AND COLITIS, UNSPECIFIED SNOMED Code(s): 38334010 Plan: 1patient presented to hospital with abdominal pain he also have some diarrhea CT has been suggestive of circumferential wall thickening of the hepatic flexure highly suggestive of ischemic colitis to be likely etiology infectious etiology less likely but not entirely excluded. 2we will check a stool for C. difficile and stool culture if the patient still having diarrhea. 3discontinue Rocephin. 4start the patient on Zosyn 3.375 g every 8 hours. We will follow on clinical condition and cultures to further adjust medication if needed Thank you for this consultation we will follow the patient along with you Dictation was produced using [employer] dictation software. please excuse any grammatical, word or spelling errors. Time with Patient: Greater than 30
--- NOTE | 2024-02-08 08:31 | P.HPIM ---
History of Present Illness H&P Date: 02/02/24 Isidoro Prado, is an 83-year-old male who presented to [facility] emergency room with a chief complaint of diarrhea and severe weakness, patient stated that he started having diarrhea 2 weeks ago, he started having worsening weakness and fatigue, he was complaining of left lower quadrant abdominal pain, he decided to come to emergency room. He was evaluated in the emergency room vital examination on presentation revealed a temperature of 98.2 pulse 87 respiration 18 blood pressure 87/56 pulse ox 97% on room air Laboratory data reveals a white blood count of 5.9 hemoglobin 11.7 platelet count 67 sodium 140 potassium 3.2 chloride 116 CO2 10 BUN 63 creatinine 2.73 amylase 125 lipase 310 Testing in the emergency room revealed CT scan of the abdomen and pelvis revealed hydropic gallbladder measuring 5.0 cm with dependent gallstones, duodenal diverticulum, right-sided renal cortical cyst measuring 6 cm, fluid- filled small bowel loops throughout the abdomen, liquid stools within the cecum, moderate circumferential wall thickening in the hepatic flexure of the colon, left-sided diverticulosis. Patient was admitted to medical floor for further evaluation and treatment Past medical history is significant for history of renal cell carcinoma, previous history of diverticulosis with acute diverticulitis and history of gastrointestinal bleeding, history of hypertension, history of hyperlipidemia, history of chronic atrial fibrillation maintained on Eliquis. On review of systems Past Medical History Past Medical History: GERD/Reflux, GI Bleed, Hyperlipidemia, Hypertension, Renal Disease, Sleep Apnea/CPAP/BIPAP Additional Past Medical History / Comment(s): HTN & GI BLEED RESOVLED. Renal cell cancer. RECENT DX OF MASS ON LT KIDNEY. HX OF DIVERTICULITIS History of Any Multi-Drug Resistant Organisms: None Reported Past Surgical History: Appendectomy Additional Past Surgical History / Comment(s): EGD. COLONOSCOPY. ESOPHAGEAL OBSTRUCTION REMOVED. HEMORRHOIDECTOMY. SURGERY FOR BLEEDING ULCER. SEVERAL PROCEDURES FOR PERITONITIS R/T RUPTURED APPENDIX. left kidney removed. Past Anesthesia/Blood Transfusion Reactions: No Reported Reaction Past Psychological History: No Psychological Hx Reported Smoking Status: Never smoker Past Alcohol Use History: None Reported, Rare Past Drug Use History: None Reported - Past Family History Mother Family Medical History: Diabetes Mellitus, Hypertension Additional Family Medical History / Comment(s): ANEURYSM Father Family Medical History: Cancer, Coronary Artery Disease (CAD), CVA/TIA, Hyperlipidemia Additional Family Medical History / Comment(s): Ca: bladder; cabg Medications and Allergies Home Medications Medication Instructions Recorded Confirmed Type Omeprazole 20 mg PO BID 02/19/14 02/01/24 History allopurinoL [Allopurinol] 100 mg PO DAILY 02/19/14 02/01/24 History Acetaminophen [Tylenol Arthritis] 650 mg PO Q8H PRN 04/17/21 02/01/24 History Acetaminophen [Tylenol Extra 500 mg PO Q6H PRN 04/17/21 02/01/24 History Strength] Atorvastatin [Lipitor] 20 mg PO HS 04/17/21 02/01/24 History Fexofenadine HCl [[place] Allergy] 180 mg PO DAILY PRN 04/17/21 02/01/24 History Folic Acid 0.4 mg PO DAILY 04/17/21 02/01/24 History Furosemide [Lasix] 20 mg PO DAILY 04/17/21 02/01/24 History Ipratropium [place] 0.06%Nasal 1 - 2 spray EA NOSTRIL DAILY PRN 04/17/21 02/01/24 History [Atrovent Nasal 0.06%] Levothyroxine Sodium 25 mcg PO SUMOTUTHFRSA 04/17/21 02/01/24 History Loperamide [Imodium] 2 mg PO QID PRN 04/17/21 02/01/24 History Tamsulosin HCl [Flomax] 0.8 mg PO HS 04/17/21 02/01/24 History Apixaban [Eliquis] 2.5 mg PO BID 10/26/23 02/01/24 History Aspirin EC [Ecotrin Low Dose] 81 mg PO DAILY 10/26/23 02/01/24 History Cholecalciferol (Vitamin D3) 50 mcg PO DAILY 10/26/23 02/01/24 History [Vitamin D3 (50 Mcg = 2000 Iu)] Diclofenac Sodium [Voltaren 1 applic TOPICAL DAILY PRN 10/26/23 02/01/24 History Arthritis Pain 1% Gel] Diphenoxylate HCl/Atropine 1 tab PO QID PRN 10/26/23 02/01/24 History [Lomotil 2.5-0.025 mg Tablet] Levothyroxine Sodium 50 mcg PO WE 10/26/23 02/01/24 History Lidocaine 5% Patch [Lidoderm 5% 1 patch TOPICAL DAILY PRN 10/26/23 02/01/24 History Patch] Oxybutynin Chloride [oxyBUTYnin 15 mg PO DAILY 10/26/23 02/01/24 History chloride ER] Pembrolizumab [Keytruda] 1 dose IV Q21D 10/26/23 02/01/24 History Triamcinolone Acetonide [Nasacort] 1 spray EA NOSTRIL HS PRN 10/26/23 02/01/24 History Xgeva Injection 1 dose SQ Q56D 10/26/23 02/01/24 History Lenvatinib Mesylate [Lenvima 20mg 20 mg PO DAILY 02/01/24 02/01/24 History (Dosepack = 2 x 10mg capsules)] Prochlorperazine [Compazine] 10 mg PO BID PRN 02/01/24 02/01/24 History Allergies Allergy/AdvReac Type Severity Reaction Status Date / Time weed pollen Allergy runny Verified 02/01/24 17:15 nose, red eyes dust mites Allergy rash, Uncoded 02/01/24 17:15 swelling goldenrod Allergy Rash/Hives Uncoded 02/01/24 17:15 MOLD Allergy RASH, Uncoded 02/01/24 17:15 SWELLING. Physical Exam Vitals: Vital Signs Temp Pulse Pulse Resp BP BP Pulse Ox 02/02/24 08:00 97.5 F L 66 17 108/58 95 02/02/24 00:34 97.5 F L 66 17 103/64 98 02/01/24 21:47 97.6 F 69 19 111/66 98 02/01/24 21:23 67 17 103/51 100 02/01/24 19:00 66 18 107/67 97 02/01/24 17:34 66 18 103/65 98 02/01/24 14:21 98.2 F 87 18 87/56 97 Intake and Output 02/01/24 02/02/24 02/02/24 22:59 06:59 14:59 Intake Total 120 Output Total 600 Balance -600 120 Intake: Oral 120 Output: Urine 600 Straight 550 Other: Weight 65.771 kg In general patient is alert and oriented x 3 in no distress HEENT head normocephalic and atraumatic Neck is supple no JVD no goiter no lymphadenopathy no carotid bruit Chest examination is clear to auscultation no crackles no wheezing Cardiac exam reveals regular heart sounds S1 and S2 no gallops no murmurs Abdomen is soft nontender no organomegaly with normal bowel sounds Extremity exam reveals no edema no cyanosis or clubbing Neurological examination reveals no gross focal deficits Results CBC & Chem 7: 02/02/24 05:15 02/02/24 05:15 Labs: Abnormal Lab Results - Last 24 Hours (Table) 02/01/24 02/01/24 02/02/24 Range/Units 16:21 16:21 05:15 WBC 3.64 L (4.50-10.00) X 10*3/uL RBC 3.50 L 3.30 L (4.30-5.90) m/uL Hgb 11.7 L 10.6 L (13.0-17.5) gm/dL Hct 35.9 L 33.0 L (39.0-53.0) % MCV 102.7 H 100.0 H (80.0-100.0) fL MCH 32.1 H (27.0-32.0) pg RDW 18.6 H 20.1 H (11.5-15.5) % Plt Count 67 L 64 L (150-450) k/uL Lymphocytes # 0.5 L 0.43 L (1.0-4.8) k/uL Potassium 3.2 L (3.5-5.1) mmol/L Chloride 116 H (98-107) mmol/L Carbon Dioxide 10 L (22-30) mmol/L Anion Gap (4.00-12.00) mmol/L BUN 63 H (9-20) mg/dL Creatinine 2.73 H (0.66-1.25) mg/dL Est GFR (CKD-EPI) (>=60) BUN/Creatinine Ratio (12.00-20.00) Ratio Glucose 71 L (74-99) mg/dL Calcium 7.4 L (8.4-10.2) mg/dL Phosphorus (2.4-5.1) mg/dL AST (14-35) U/L Total Protein 5.1 L (6.3-8.2) g/dL Albumin 2.8 L (3.5-5.0) g/dL Globulin (1.6-3.3) g/dL Amylase 125 H (30-110) U/L Lipase 310 H (23-300) U/L 02/02/24 Range/Units 05:15 WBC (4.50-10.00) X 10*3/uL RBC (4.30-5.90) m/uL Hgb (13.0-17.5) gm/dL Hct (39.0-53.0) % MCV (80.0-100.0) fL MCH (27.0-32.0) pg RDW (11.5-15.5) % Plt Count (150-450) k/uL Lymphocytes # (1.0-4.8) k/uL Potassium 3.4 L (3.5-5.1) mmol/L Chloride 115 H (98-107) mmol/L Carbon Dioxide 12.5 L (22-30) mmol/L Anion Gap 15.50 H (4.00-12.00) mmol/L BUN 64.6 H (9-20) mg/dL Creatinine 2.7 H (0.66-1.25) mg/dL Est GFR (CKD-EPI) 23 L (>=60) BUN/Creatinine Ratio 23.93 H (12.00-20.00) Ratio Glucose 63 L (74-99) mg/dL Calcium 6.5 L (8.4-10.2) mg/dL Phosphorus 5.4 H (2.4-5.1) mg/dL AST 58 H (14-35) U/L Total Protein 4.1 L (6.3-8.2) g/dL Albumin 2.6 L (3.5-5.0) g/dL Globulin 1.5 L (1.6-3.3) g/dL Amylase (30-110) U/L Lipase (23-300) U/L Thrombosis Risk Factor Assmnt - Choose All That Apply Any of the Below Risk Factors Present?: Yes Each Risk Factor Represents 3 Points: Age 75 years or older Thrombosis Risk Factor Assessment Total Risk Factor Score: 3 Thrombosis Risk Factor Assessment Level: Moderate Risk Assessment and Plan Plan: Abdominal pain with diarrhea Hydropic gallbladder with gallstones Recent surgery for incarcerated left inguinal hernia and small bowel obstruction in October 2023 History of metastatic renal cell carcinoma Underlying history of hypertension Underlying history of hyperlipidemia Underlying history of chronic atrial fibrillation maintained on Eliquis At this time patient was seen and examined Home medications reviewed and reordered General surgery and oncology consultation requested For DVT prophylaxis patient is maintained on Eliquis
[2024-02-08] MEDS: NYSTATIN 100,000 UNIT/GM POWD 15 GM TOPICAL SCH (09:05)
[2024-02-08] MEDS: ZINC OXIDE PASTE (Z-GUARD) 1 APPLIC TOPICAL PRN (09:06)
--- NOTE | 2024-02-08 09:13 | P.PN ---
Subjective Progress Note Date: 02/08/24 Isidoro Prado, is an 83-year-old male who presented to [facility] emergency room with a chief complaint of diarrhea and severe weakness, patient stated that he started having diarrhea 2 weeks ago, he started having worsening weakness and fatigue, he was complaining of left lower quadrant abdominal pain, he decided to come to emergency room. He was evaluated in the emergency room vital examination on presentation revealed a temperature of 98.2 pulse 87 respiration 18 blood pressure 87/56 pulse ox 97% on room air Laboratory data reveals a white blood count of 5.9 hemoglobin 11.7 platelet count 67 sodium 140 potassium 3.2 chloride 116 CO2 10 BUN 63 creatinine 2.73 amylase 125 lipase 310 Testing in the emergency room revealed CT scan of the abdomen and pelvis revealed hydropic gallbladder measuring 5.0 cm with dependent gallstones, duodenal diverticulum, right-sided renal cortical cyst measuring 6 cm, fluid- filled small bowel loops throughout the abdomen, liquid stools within the cecum, moderate circumferential wall thickening in the hepatic flexure of the colon, left-sided diverticulosis. Patient was admitted to medical floor for further evaluation and treatment Past medical history is significant for history of renal cell carcinoma, previous history of diverticulosis with acute diverticulitis and history of gastrointestinal bleeding, history of hypertension, history of hyperlipidemia, history of chronic atrial fibrillation maintained on Eliquis. On 02/03/2024 patient was seen and examined on the medical floor he is alert and oriented x 3 in no apparent distress he is still complaining of severe weakness otherwise he denies any complaints at this time there is no fever or chills no headache or dizziness no chest pain no shortness of breath no cough no nausea or vomiting no abdominal pain he is still having episodes of diarrhea and no urinary symptoms. Input from general surgery reviewed patient is scheduled for repeat CT scan of the abdomen today we will continue to follow closely. On 02/04/2024 patient is alert and oriented x 3. Patient still complaining of some abdominal pain no bowel movement. Patient still having some nausea. Repeat CT scan was ordered for surgical services awaiting further input. Patient denies chest pain or shortness of breath. Current vital signs temp 98.5, heart 72, respiratory rate 16, blood pressure 120/71 with a pulse ox of 96% on room air On 02/05/2024 patient was seen and examined on the medical floor he is alert and oriented x 3 in no apparent distress he is complaining of abdominal discomfort, nausea, poor oral intake, and constipation otherwise he denies any complaints at this time there is no fever or chills no headache or dizziness no chest pain no shortness of breath no cough no vomiting no burning with urination no frequency or urgency and no hematuria. On 02/06/2024 patient is alert and oriented x 3. Patient is still complaining of abdominal pain and poor oral intake. Surgical services following. Current vital signs temp 97.6, pulse rate 67, respiratory rate 17, blood pressure 137/75 with a pulse ox of 99% on room air. Awaiting further recommendations from surgical and oncology services On 02/07/2024 patient was seen and examined on the medical floor he is alert and oriented x 3 in no apparent distress he is still complaining of abdominal discomfort poor oral intake and nausea otherwise he denies any complaints there is no fever or chills no headache or dizziness no chest pain no shortness of breath no cough no vomiting no diarrhea no blood in the stools. Patient has di scomfort with urination. At this time there is evidence of urinary tract infection and IV ceftriaxone was added, infectious disease consultation was requested in regard to colitis we will continue to follow closely On 02/08/2024 patient is alert and oriented x 3. Antibiotic adjusted to Zosyn per infectious disease urine and stool cultures pending. Current vital signs temp 97.9, heart rate 72, respiratory rate 14, blood pressure 108/62 with a pulse ox of 98% on room air patient is still complaining some abdominal discomfort and poor oral intake. Patient denies chest pain. Patient denies any urinary burning or frequency Objective - Vital Signs Vital signs: Vital Signs Temp 97.9 F 02/08/24 01:54 Pulse 72 02/08/24 01:54 Resp 14 02/08/24 01:54 BP 108/62 02/08/24 01:54 Pulse Ox 98 02/08/24 01:54 FiO2 Intake & Output 02/07/24 02/08/24 02/08/24 18:59 06:59 18:59 Output Total 200 Balance -200 Weight 65.771 kg Output: Urine 200 Other: Voiding Method Toilet Urinal # Voids 1 2 - Exam In general patient is alert and oriented x 3 in no distress HEENT head normocephalic and atraumatic Neck is supple no JVD no goiter no lymphadenopathy no carotid bruit Chest examination is clear to auscultation no crackles no wheezing Cardiac exam reveals regular heart sounds S1 and S2 no gallops no murmurs Abdomen is soft nontender no organomegaly with normal bowel sounds Extremity exam reveals no edema no cyanosis or clubbing Neurological examination reveals no gross focal deficits - Labs CBC & Chem 7: 02/07/24 03:28 02/07/24 03:28 Labs: Abnormal Lab Results - Last 24 Hours (Table) 02/07/24 02/07/24 Range/Units 03:28 03:28 WBC 3.18 L (4.50-10.00) X 10*3/uL RBC 2.94 L (4.40-5.60) X 10*6/uL Hgb 9.4 L (13.0-17.0) g/dL Hct 30.2 L (39.6-50.0) % MCV 102.7 H (80.0-97.0) FL MCHC 31.1 L (32.0-37.0) g/dL RDW 20.0 H (11.5-14.5) % Plt Count 70 L (140-440) X 10*3/uL Lymphocytes # 0.26 L (0.90-5.00) X 10*3/uL Potassium 3.4 L (3.5-5.5) mmol/L Chloride 121 H (96-109) mmol/L Carbon Dioxide 12.6 L (21.6-31.8) mmol/L BUN 51.0 H (9.0-27.0) mg/dL Creatinine 2.1 H (0.6-1.5) mg/dL Est GFR (CKD-EPI) 31 L (>=60) BUN/Creatinine Ratio 24.29 H (12.00-20.00) Ratio Calcium 6.4 A* (8.7-10.3) mg/dL AST 37 H (14-35) U/L Total Protein 3.6 L (6.2-8.2) g/dL Albumin 2.1 L (3.8-4.9) g/dL Globulin 1.5 L (1.6-3.3) g/dL Albumin/Globulin Ratio 1.40 L (1.60-3.17) Ratio Microbiology - Last 24 Hours (Table) 02/05/24 23:34 Urine Culture - Preliminary Urine,Voided Gram Neg Bacilli Assessment and Plan Plan: Abdominal pain with diarrhea. Patient started on IV Zosyn Hydropic gallbladder with gallstones Recent surgery for incarcerated left inguinal hernia and small bowel obstruction in October 2023 History of metastatic renal cell carcinoma Underlying history of hypertension Underlying history of hyperlipidemia Underlying history of chronic atrial fibrillation maintained on Eliquis At this time patient was seen and examined Home medications reviewed and reordered General surgery and oncology consultation requested Infectious disease services following For DVT prophylaxis patient is maintained on SCDs and anticoagulation on hold per surgery
--- NOTE | 2024-02-08 11:34 | CT ---
EXAMINATION TYPE: CT abdomen pelvis wo con CT DLP: 754.6 mGycm, Automated exposure control for dose reduction was used. DATE OF EXAM: 02/08/2024 11:19 AM COMPARISON: CT abdomen pelvis 02/03/2024, 02/01/2024, 10/26/2023, CT chest abdomen pelvis 09/30/2023 CLINICAL INDICATION:Male, 83 years old with history of Abdominal pain acute; Acute abdominal pain TECHNIQUE: Standard CT of the abdomen and pelvis without IV or oral contrast. Lack of IV or oral co ntrast limits evaluation of solid and hollow organ viscera. Coronal and sagittal reformats were perfo rmed. FINDINGS: LOWER CHEST: Increasing small bilateral pleural effusions with associated atelectasis. Trace pericard ial effusion. Coronary artery calcifications. Slight volume loss in the left hemithorax redemonstrate d. ABDOMEN LIVER: Unremarkable noncontrast appearance GALLBLADDER AND BILE DUCTS: Cholelithiasis. No biliary ductal dilatation. PANCREAS: Mildly atrophic. SPLEEN: Unremarkable noncontrast appearance ADRENAL GLANDS: Similar diffuse thickening of both adrenal glands. KIDNEYS AND URETERS: No evidence of hydronephrosis or renal calculus. Right-sided renal cortical cyst s measuring up to 6.0 cm again. Left kidney is surgically absent. PELVIS BLADDER: Unremarkable REPRODUCTIVE: Mildly prominent prostate gland. ABDOMEN & PELVIS STOMACH AND BOWEL: Residual contrast is demonstrated within the proximal stomach and colon. Mid duode nal diverticulum containing contrast and gas. Mild colonic stool burden. Distal colonic diverticulosi s. Resolution. She demonstrated wall thickening lecture. No pneumatosis. Anastomosis involving the le ft upper small bowel. No evidence of bowel obstruction. PERITONEUM/RETROPERITONEUM: No evidence of pneumoperitoneum. Presacral edema redemonstrated. Small am ount of ascites throughout the abdomen and pelvis. Couple of surgical clips along the right paracolic gutter. VASCULATURE: Mild to moderate atherosclerotic calcifications are present throughout the abdominal aor ta and its branches. No evidence of aortic aneurysm. MUSCULOSKELETAL: No acute osseous abnormalities. Unchanged lucency and trabecular thickening the T10 vertebral body. [facility] of the lower thoracic spine. Stable lucent lesion with trabecular thickening of the left-sided the sacrum which may reflect Paget's disease. Redemonstrated postsurgical change of ri ght hip hemiarthroplasty with similar sclerosis and fragmentation of the proximal right femur. This c reates streak artifact which was evaluation of the pelvis. Similar asymmetric increased size of the l eft iliopsoas muscle with adjacent retroperitoneal stranding and scattered hyperdensity within the mu sculature. LYMPH NODES: No gross evidence for lymphadenopathy. SOFT TISSUE/ABDOMINAL WALL: Small right inguinal hernia containing ascites. Diffuse anasarca. The gas within the lower anterior abdominal wall soft tissues likely related to medication injection. IMPRESSION: 1. Similar asymmetric enlargement of the left iliopsoas muscle with surrounding stranding/fluid and some intrinsic hyperdensity. Favored to represent intramuscular/retroperitoneal hemorrhage/hematoma. No significant change from prior exam. 2. Cholelithiasis. 3. 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 Unchanged appearance to the proximal right femur with scleros is and fragmentation. Underlying right hip hemiarthroplasty are demonstrated. 4. Status post left nephrectomy. 5. Increased small bilateral pleural effusions with increased diffuse anasarca and small volume simp le appearing ascites. Correlate for worsening volume overload. 6. Resolution of previously demonstrated hepatic flexure colonic wall thickening. [facility], , 02/08/2024 11:31 AM
--- NOTE | 2024-02-08 12:09 | P.PN ---
Subjective Progress Note Date: 02/08/24 CHIEF COMPLAINT: Abdominal pain HISTORY OF PRESENT ILLNESS: Patient has no new complaints. Patient does report intermittent pain in that left lower quadrant. He is having flatus. Denies any nausea or vomiting. Hemoglobin stable at 9.4. Dr. Lorenz is covering for Dr. Aguilar patient's PHYSICAL EXAM: VITAL SIGNS: Reviewed. GENERAL: no acute distress. ABDOMEN: Soft. mildly distended. Mild discomfort with palpation in the left lower quadrant NEUROLOGIC: Alert and oriented. Cranial nerves II through XII grossly intact. ASSESSMENT: 1. Iliopsoas hematoma. Patient on blood thinners at home. The hematoma may be contributing to patient's left groin pain. 2. Moderate circumferential wall thickening at the hepatic flexure of the colon with possible colitis 3. Diarrhea resolved 4. History of DVT on Eliquis 5. Status post open repair of incarcerated left inguinal hernia with left orch iectomy and laparotomy with lysis of adhesions and small bowel resection on November 02, 2023 6. History of renal cancer status post nephrectomy and is on chemotherapy PLAN: -Patient can be discharge from surgical standpoint -No surgical intervention planned -No Repeat imaging planned at this time -Continue regular diet -Increase activity level -Continue to hold Eliquis -MiraLAX added for constipation -Agree with ECF at discharge Physician Supervisor Veneer note has been reviewed by physician. Signing provider agrees with the documented findings, assessment, and plan of care. Objective - Vital Signs Vital signs: Vital Signs Temp 97.7 F 02/08/24 08:00 Pulse 71 02/08/24 08:00 Resp 16 02/08/24 08:00 BP 96/57 02/08/24 08:00 Pulse Ox 94 L 02/08/24 08:00 FiO2 Intake & Output 02/07/24 02/08/24 02/08/24 18:59 06:59 18:59 Intake Total 358 Output Total 200 Balance -200 358 Weight 65.771 kg Intake: Oral 358 Output: Urine 200 Other: Voiding Method Toilet Urinal # Voids 1 2 - Labs CBC & Chem 7: 02/07/24 03:28 02/07/24 03:28 Labs: Microbiology - Last 24 Hours (Table) 02/05/24 23:34 Urine Culture - Preliminary Urine,Voided Gram Neg Bacilli
--- NOTE | 2024-02-08 15:23 | P.PN ---
Subjective Progress Note Date: 02/08/24 No acute events. Pt reporting some improvement in left groin pain. Still having weakness, but is getting up to bedside chair. Hgb 9.4, WBC 3.1, plt 70 Objective - Vital Signs Vital signs: Vital Signs Temp 97.7 F 02/08/24 08:00 Pulse 71 02/08/24 08:00 Resp 16 02/08/24 08:00 BP 96/57 02/08/24 08:00 Pulse Ox 94 L 02/08/24 08:00 FiO2 Intake & Output 02/07/24 02/08/24 02/08/24 18:59 06:59 18:59 Intake Total 358 Output Total 200 Balance -200 358 Weight 65.771 kg Intake: Oral 358 Output: Urine 200 Other: Voiding Method Toilet Urinal # Voids 1 2 - Constitutional General appearance: Present: no acute distress - EENT Eyes: Present: anicteric sclerae, EOMI ENT: Present: hearing grossly normal - Respiratory Details: breathing is even and unlabored - Cardiovascular Details: skin warm and dry - Gastrointestinal General gastrointestinal: Present: soft. Absent: tenderness - Integumentary Integumentary: Absent: cyanotic, jaundiced - Musculoskeletal Musculoskeletal: Present: generalized weakness - Psychiatric Psychiatric: Present: A&O x's 3 - Labs CBC & Chem 7: 02/07/24 03:28 02/07/24 03:28 Labs: Microbiology - Last 24 Hours (Table) 02/05/24 23:34 Urine Culture - Preliminary Urine,Voided Gram Neg Bacilli Assessment and Plan (1) Colitis Current Visit: Yes Status: Acute Priority: High Code(s): K52.9 - NONINFECTIVE GASTROENTERITIS AND COLITIS, UNSPECIFIED SNOMED Code(s): 86500435 (2) Dehydration Current Visit: Yes Status: Acute Priority: High Code(s): E86.0 - DEHYDRATION SNOMED Code(s): 20088076 (3) Iliopsoas muscle hematoma Current Visit: Yes Status: Acute Priority: Medium Code(s): S70.10XA - CONTUSION OF UNSPECIFIED THIGH, INITIAL ENCOUNTER SNOMED Code(s): 612180374 (4) Renal cell carcinoma Current Visit: Yes Status: Acute Priority: High Code(s): C64.9 - MALIGNANT NEOPLASM OF UNSP KIDNEY, EXCEPT RENAL PELVIS SNOMED Code(s): 709135380 (5) Diarrhea Current Visit: Yes Status: Acute Priority: High Code(s): R19.7 - DIARRHEA, UNSPECIFIED SNOMED Code(s): 75548791 (6) Anemia Current Visit: Yes Status: Acute Priority: Medium Code(s): D64.9 - ANEMIA, UNSPECIFIED SNOMED Code(s): 164807670 Plan: Diarrhea/colitis -CT abdomen and pelvis showed fluid-filled small bowel loops throughout along with liquid stool in the cecum. Moderate circumferential wall thickening at the hepatic flexure of the colon. Gallstones measuring up to 1.3 cm. -Diarrhea has subsided since admission. Pt afebrile -Stool studies pending -Anti-nausea meds adjusted -Having decreased oral intake over the cpl weeks due to loss of appetite and early satiety. Marinol added with improvement in appetite -Diarrhea likely related to Lenvima. However IO induced colitis remains in diff erential, but less likely as diarrhea has already resolved since holding Lenvima -Repeat CT AP showing similar moderate circumferential wall thickening hepatic flexure of the colon Iliopsoas hematoma: Presented with significant left groin pain -CT AP showed asymmetric enlargement of the left iliopsoas musculature with surrounding stranding and edema. Suspected intramuscular hemorrhage/hematoma. -Eliquis has been held. General surgery following -Repeat CT showing no significant change in hematoma/hemorrhage Macrocytic Anemia: -Hgb 11.7 on admit. Today Hgb 9.4 -Left iliopsoas hematoma. Denies blood in stool/melena. Elquis held -Anemia labs consistent with anemia of inflammation -Continue to monitor CBC Hypothyroidism: -Thyroid studies checked in clinic on 01/27. TSH 75.6, T4 0.88, T3 1.7 -Possible IO induced thyroiditis -Synthroid increased to 50mcg daily Metastatic RCC: -Oncological history as dictated in the HPI -Currently on treatment with Lenvima and Keytruda, completing cycle 3 of keytruda on 01/27/24. Last dose of Lenvima was 1 day prior to admit -Plan is for rehab, treatment will be held until discharged. -Clinic f/u upon discharge from rehabilitation
[2024-02-09 08:37] LABS: HGB 9.4 g/dL (13.0-17.0); MCH 33.1 pg (27.0-32.0); MCHC 31.3 g/dL (32.0-37.0); MCV 105.6 FL (80.0-97.0); Mean Platelet Volume 11.9 FL (9.5-12.2); NRBC Per 100 WBC 0 X 10*3/uL (0.00-0.01); Platelet Count 89 X 10*3/uL (140-440); RBC 2.84 X 10*6/uL (4.40-5.60); RDW 19.9 % (11.5-14.5); WBC 2.63 X 10*3/uL (4.50-10.00)
[2024-02-09 08:58] LABS: BUN/Creat Ratio 25.43 Ratio (12.00-20.00); Blood Urea Nitrogen 53.4 mg/dL (9.0-27.0); Glucose 86 mg/dL (70-110)
[2024-02-09 08:59] LABS: ALT 26 U/L (10-49); AST 32 U/L (14-35); Albumin/Globulin Ratio 1.33 Ratio (1.60-3.17); Alkaline Phosphatase 75 U/L (41-126); Calcium 6.9 mg/dL (8.7-10.3); Carbon Dioxide 13.5 mmol/L (21.6-31.8); Chloride 119 mmol/L (96-109); Globulin 1.5 g/dL (1.6-3.3); Potassium 4.1 mmol/L (3.5-5.5); Sodium 142 mmol/L (135-145); Total Bilirubin 0.3 mg/dL (0.3-1.2); Total Protein 3.5 g/dL (6.2-8.2)
[2024-02-09 09:54] LABS: Basophils # (A) 0.01 X 10*3/uL (0.00-0.10); Basophils % (A) 0.4 %; Eosinophils # (A) 0.19 X 10*3/uL (0.04-0.35); Eosinophils % (A) 7.2 %; Lymphocytes # (A) 0.26 X 10*3/uL (0.90-5.00); Lymphocytes % (A) 9.9 %; Monocytes % (A) 11.4 %; Neutrophils # (A) 1.85 X 10*3/uL (1.80-7.70); Neutrophils % (A) 70.3 %
[2024-02-09 09:55] LABS: Elliptocytes 2+; Macrocytosis (M) 2+
[2024-02-09] MEDS ORDERED: traMADol 50 MG TAB PO PRN (10:37)
--- NOTE | 2024-02-09 11:13 | P.PN ---
Subjective Progress Note Date: 02/09/24 CHIEF COMPLAINT: Abdominal pain HISTORY OF PRESENT ILLNESS: Patient does report intermittent pain in that left lower quadrant. He is sitting at the bedside chair. He does complain of lower extremity swelling. He does he is having flatus. He reports been several days since his last bowel movement. Denies any nausea or vomiting. Hemoglobin stable at 9.4. Antibiotics adjusted per ID service. CT scan abdomen pelvis reports similar asymmetric enlargement of left iliopsoas muscle with surrounding stranding and fluid and some intrinsic hyperdensity. Favored to represent intramuscular/retroperitoneal hemorrhage/hematoma. No significant change from prior exam. Cholelithiasis. Resolution of previously demonstrated hepatic flexure colonic wall thickening. Increased small bilateral pleural effusions anasarca and some small volume ascites. Patient with hypotension. Nursing staff reports that patient is still using morphine. Dr. Lorenz is covering for Dr. Aguilar patient's PHYSICAL EXAM: VITAL SIGNS: Reviewed. GENERAL: no acute distress. ABDOMEN: Soft. mildly distended. Mild discomfort with palpation in the left lower quadrant NEUROLOGIC: Alert and oriented. Cranial nerves II through XII grossly intact. ASSESSMENT: 1. Iliopsoas hematoma. Patient on blood thinners at home. The hematoma may be contributing to patient's left groin pain. 2. Moderate circumferential wall thickening at the hepatic flexure of the colon with possible colitis. Resolved on repeat CAT scan 3. Diarrhea resolved 4. History of DVT on Eliquis 5. Status post open repair of incarcerated left inguinal hernia with left orchiectomy and laparotomy with lysis of adhesions and small bowel resection on November 02, 2023 6. History of renal cancer status post nephrectomy 7. Constipation PLAN: -No surgical intervention planned -Lactulose added for constipation -Fluid overload management per medicine service -Continue regular diet -Increase activity level -Continue to hold Eliquis -Ultram ordered for pain management and try to wean off Morphine Physician Java Lead Developer note has been reviewed by physician. Signing provider agrees with the documented findings, assessment, and plan of care. Objective - Vital Signs Vital signs: Vital Signs Temp 97.4 F L 02/09/24 07:44 Pulse 69 02/09/24 08:15 Resp 16 02/09/24 07:44 BP 96/57 02/09/24 08:15 Pulse Ox 96 02/09/24 08:15 FiO2 Intake & Output 10/02/09/24 02/09/24 18:59 06:59 18:59 Intake Total 956 Output Total 320 225 Balance 636 -225 Intake: Oral 956 Output: Urine 320 225 Other: Voiding Method Urinal - Labs CBC & Chem 7: 02/09/24 03:30 02/09/24 03:30 Labs: Abnormal Lab Results - Last 24 Hours (Table) 02/09/24 02/09/24 Range/Units 03:30 03:30 WBC 2.63 L (4.50-10.00) X 10*3/uL RBC 2.84 L (4.40-5.60) X 10*6/uL Hgb 9.4 L (13.0-17.0) g/dL Hct 30.0 L (39.6-50.0) % MCV 105.6 H (80.0-97.0) FL MCH 33.1 H (27.0-32.0) pg MCHC 31.3 L (32.0-37.0) g/dL RDW 19.9 H (11.5-14.5) % Plt Count 89 L (140-440) X 10*3/uL Lymphocytes # 0.26 L (0.90-5.00) X 10*3/uL Macrocytosis (manual) 2+ A Elliptocytes 2+ A Chloride 119 H (96-109) mmol/L Carbon Dioxide 13.5 L (21.6-31.8) mmol/L BUN 53.4 H (9.0-27.0) mg/dL Creatinine 2.1 H (0.6-1.5) mg/dL Est GFR (CKD-EPI) 31 L (>=60) BUN/Creatinine Ratio 25.43 H (12.00-20.00) Ratio Calcium 6.9 L (8.7-10.3) mg/dL Total Protein 3.5 L (6.2-8.2) g/dL Albumin 2.0 L (3.8-4.9) g/dL Globulin 1.5 L (1.6-3.3) g/dL Albumin/Globulin Ratio 1.33 L (1.60-3.17) Ratio Microbiology - Last 24 Hours (Table) 02/07/24 16:55 Urine Culture - Preliminary Urine,Voided Group D Enterococcus Gram Neg Bacilli 02/05/24 23:34 Urine Culture - Final Urine,Voided Proteus mirabilis
--- NOTE | 2024-02-09 12:08 | P.PN ---
Subjective Progress Note Date: 02/09/24 Isidoro Prado, is an 83-year-old male who presented to [facility] emergency room with a chief complaint of diarrhea and severe weakness, patient stated that he started having diarrhea 2 weeks ago, he started having worsening weakness and fatigue, he was complaining of left lower quadrant abdominal pain, he decided to come to emergency room. He was evaluated in the emergency room vital examination on presentation revealed a temperature of 98.2 pulse 87 respiration 18 blood pressure 87/56 pulse ox 97% on room air Laboratory data reveals a white blood count of 5.9 hemoglobin 11.7 platelet count 67 sodium 140 potassium 3.2 chloride 116 CO2 10 BUN 63 creatinine 2.73 amylase 125 lipase 310 Testing in the emergency room revealed CT scan of the abdomen and pelvis revealed hydropic gallbladder measuring 5.0 cm with dependent gallstones, duodenal diverticulum, right-sided renal cortical cyst measuring 6 cm, fluid- filled small bowel loops throughout the abdomen, liquid stools within the cecum, moderate circumferential wall thickening in the hepatic flexure of the colon, left-sided diverticulosis. Patient was admitted to medical floor for further evaluation and treatment Past medical history is significant for history of renal cell carcinoma, previous history of diverticulosis with acute diverticulitis and history of gastrointestinal bleeding, history of hypertension, history of hyperlipidemia, history of chronic atrial fibrillation maintained on Eliquis. On 02/03/2024 patient was seen and examined on the medical floor he is alert and oriented x 3 in no apparent distress he is still complaining of severe weakness otherwise he denies any complaints at this time there is no fever or chills no headache or dizziness no chest pain no shortness of breath no cough no nausea or vomiting no abdominal pain he is still having episodes of diarrhea and no urinary symptoms. Input from general surgery reviewed patient is scheduled for repeat CT scan of the abdomen today we will continue to follow closely. On 02/04/2024 patient is alert and oriented x 3. Patient still complaining of some abdominal pain no bowel movement. Patient still having some nausea. Repeat CT scan was ordered for surgical services awaiting further input. Patient denies chest pain or shortness of breath. Current vital signs temp 98.5, heart 72, respiratory rate 16, blood pressure 120/71 with a pulse ox of 96% on room air On 02/05/2024 patient was seen and examined on the medical floor he is alert and oriented x 3 in no apparent distress he is complaining of abdominal discomfort, nausea, poor oral intake, and constipation otherwise he denies any complaints at this time there is no fever or chills no headache or dizziness no chest pain no shortness of breath no cough no vomiting no burning with urination no frequency or urgency and no hematuria. On 02/06/2024 patient is alert and oriented x 3. Patient is still complaining of abdominal pain and poor oral intake. Surgical services following. Current vital signs temp 97.6, pulse rate 67, respiratory rate 17, blood pressure 137/75 with a pulse ox of 99% on room air. Awaiting further recommendations from surgical and oncology services On 02/07/2024 patient was seen and examined on the medical floor he is alert and oriented x 3 in no apparent distress he is still complaining of abdominal discomfort poor oral intake and nausea otherwise he denies any complaints there is no fever or chills no headache or dizziness no chest pain no shortness of breath no cough no vomiting no diarrhea no blood in the stools. Patient has di scomfort with urination. At this time there is evidence of urinary tract infection and IV ceftriaxone was added, infectious disease consultation was requested in regard to colitis we will continue to follow closely On 02/08/2024 patient is alert and oriented x 3. Antibiotic adjusted to Zosyn per infectious disease urine and stool cultures pending. Current vital signs temp 97.9, heart rate 72, respiratory rate 14, blood pressure 108/62 with a pulse ox of 98% on room air patient is still complaining some abdominal discomfort and poor oral intake. Patient denies chest pain. Patient denies any urinary burning or frequency On 02/09/2024 patient is alert and oriented x 3. Per surgical services no surgical intervention planned lactulose added for constipation. Patient remains on IV Zosyn for UTI. PT OT and social work services consulted for discharge planning likely ECF Objective - Vital Signs Vital signs: Vital Signs Temp 97.4 F L 02/09/24 07:44 Pulse 69 02/09/24 08:15 Resp 16 02/09/24 07:44 BP 96/57 02/09/24 08:15 Pulse Ox 96 02/09/24 08:15 FiO2 Intake & Output 02/08/24 02/09/24 02/09/24 18:59 06:59 18:59 Intake Total 956 Output Total 320 225 Balance 636 -225 Intake: Oral 956 Output: Urine 320 225 Other: Voiding Method Urinal - Exam In general patient is alert and oriented x 3 in no distress HEENT head normocephalic and atraumatic Neck is supple no JVD no goiter no lymphadenopathy no carotid bruit Chest examination is clear to auscultation no crackles no wheezing Cardiac exam reveals regular heart sounds S1 and S2 no gallops no murmurs Abdomen is soft nontender no organomegaly with normal bowel sounds Extremity exam reveals no edema no cyanosis or clubbing Neurological examination reveals no gross focal deficits - Labs CBC & Chem 7: 02/09/24 03:30 02/09/24 03:30 Labs: Abnormal Lab Results - Last 24 Hours (Table) 02/09/24 02/09/24 Range/Units 03:30 03:30 WBC 2.63 L (4.50-10.00) X 10*3/uL RBC 2.84 L (4.40-5.60) X 10*6/uL Hgb 9.4 L (13.0-17.0) g/dL Hct 30.0 L (39.6-50.0) % MCV 105.6 H (80.0-97.0) FL MCH 33.1 H (27.0-32.0) pg MCHC 31.3 L (32.0-37.0) g/dL RDW 19.9 H (11.5-14.5) % Plt Count 89 L (140-440) X 10*3/uL Lymphocytes # 0.26 L (0.90-5.00) X 10*3/uL Macrocytosis (manual) 2+ A Elliptocytes 2+ A Chloride 119 H (96-109) mmol/L Carbon Dioxide 13.5 L (21.6-31.8) mmol/L BUN 53.4 H (9.0-27.0) mg/dL Creatinine 2.1 H (0.6-1.5) mg/dL Est GFR (CKD-EPI) 31 L (>=60) BUN/Creatinine Ratio 25.43 H (12.00-20.00) Ratio Calcium 6.9 L (8.7-10.3) mg/dL Total Protein 3.5 L (6.2-8.2) g/dL Albumin 2.0 L (3.8-4.9) g/dL Globulin 1.5 L (1.6-3.3) g/dL Albumin/Globulin Ratio 1.33 L (1.60-3.17) Ratio Microbiology - Last 24 Hours (Table) 02/07/24 16:55 Urine Culture - Preliminary Urine,Voided Group D Enterococcus Gram Neg Bacilli 02/05/24 23:34 Urine Culture - Final Urine,Voided Proteus mirabilis Assessment and Plan Plan: Abdominal pain with diarrhea. Patient started on IV Zosyn Hydropic gallbladder with gallstones Recent surgery for incarcerated left inguinal hernia and small bowel obstruction in October 2023 History of metastatic renal cell carcinoma Underlying history of hypertension Underlying history of hyperlipidemia Underlying history of chronic atrial fibrillation maintained on Eliquis At this time patient was seen and examined Home medications reviewed and reordered General surgery and oncology consultation requested Infectious disease services following For DVT prophylaxis patient is maintained on SCDs and anticoagulation on hold per surgery
--- NOTE | 2024-02-09 12:19 | P.PN ---
Subjective Progress Note Date: 02/09/24 Principal diagnosis: Reason for follow-up is colitis Patient is a 83-year-old male with a past medical history significant for hypertension hyperlipidemia sleep apnea GI bleed reflux in this patient presented to the hospital for evaluation of weakness diarrhea and abdominal pain patient did have a CT that had been suggestive of colitis involving the hepatic flexure prompting this consultation. On today's evaluation that is 02/09/2024, patient has been afebrile, patient is breathing comfortably and is currently on room air, patient denies having any significant cough no chest pain, patient denies nausea vomiting or diarrhea still having some abdominal and discomfort but no worsening abdominal pain. Patient white count is 2.63, creatinine is 2.1 Objective - Vital Signs Vital signs: Vital Signs Temp 97.4 F L 02/09/24 07:44 Pulse 69 02/09/24 08:15 Resp 16 02/09/24 07:44 BP 96/57 02/09/24 08:15 Pulse Ox 96 02/09/24 08:15 FiO2 Intake & Output 02/08/24 02/09/24 02/09/24 18:59 06:59 18:59 Intake Total 956 Output Total 320 225 Balance 636 -225 Intake: Oral 956 Output: Urine 320 225 Other: Voiding Method Urinal - Exam GENERAL DESCRIPTION: An elderly male lying in bed in no distress RESPIRATORY SYSTEM: Unlabored breathing , decreased breath sounds at bases HEART: S1 S2 regular rate and rhythm , ABDOMEN: Soft , mild tenderness EXTREMITIES: No edema feet - Labs CBC & Chem 7: 02/09/24 03:30 02/09/24 03:30 Labs: Abnormal Lab Results - Last 24 Hours (Table) 02/09/24 02/09/24 Range/Units 03:30 03:30 WBC 2.63 L (4.50-10.00) X 10*3/uL RBC 2.84 L (4.40-5.60) X 10*6/uL Hgb 9.4 L (13.0-17.0) g/dL Hct 30.0 L (39.6-50.0) % MCV 105.6 H (80.0-97.0) FL MCH 33.1 H (27.0-32.0) pg MCHC 31.3 L (32.0-37.0) g/dL RDW 19.9 H (11.5-14.5) % Plt Count 89 L (140-440) X 10*3/uL Lymphocytes # 0.26 L (0.90-5.00) X 10*3/uL Macrocytosis (manual) 2+ A Elliptocytes 2+ A Chloride 119 H (96-109) mmol/L Carbon Dioxide 13.5 L (21.6-31.8) mmol/L BUN 53.4 H (9.0-27.0) mg/dL Creatinine 2.1 H (0.6-1.5) mg/dL Est GFR (CKD-EPI) 31 L (>=60) BUN/Creatinine Ratio 25.43 H (12.00-20.00) Ratio Calcium 6.9 L (8.7-10.3) mg/dL Total Protein 3.5 L (6.2-8.2) g/dL Albumin 2.0 L (3.8-4.9) g/dL Globulin 1.5 L (1.6-3.3) g/dL Albumin/Globulin Ratio 1.33 L (1.60-3.17) Ratio Microbiology - Last 24 Hours (Table) 02/07/24 16:55 Urine Culture - Preliminary Urine,Voided Group D Enterococcus Gram Neg Bacilli 02/05/24 23:34 Urine Culture - Final Urine,Voided Proteus mirabilis Assessment and Plan (1) Colitis Current Visit: Yes Status: Acute Priority: High Code(s): K52.9 - NONINFECTIVE GASTROENTERITIS AND COLITIS, UNSPECIFIED SNOMED Code(s): 21742277 Plan: 1patient presented to hospital with abdominal pain he also have some diarrhea CT has been suggestive of circumferential wall thickening of the hepatic flexure highly suggestive of ischemic colitis to be likely etiology infectious etiology less likely but not entirely excluded. 2 patient remains to be afebrile abdominal pain mildly decreased we will continue Zosyn 3.375 g every 8 hours and monitor clinical course closely. Dictation was produced using [employer] dictation software. please excuse any grammatical, word or spelling errors. Time with Patient: Less than 30
--- NOTE | 2024-02-09 12:19 | P.PN ---
Subjective Progress Note Date: 02/08/24 Principal diagnosis: Reason for follow-up is colitis Patient is a 83-year-old male with a past medical history significant for hypertension hyperlipidemia sleep apnea GI bleed reflux in this patient presented to the hospital for evaluation of weakness diarrhea and abdominal pain patient did have a CT that had been suggestive of colitis involving the hepatic flexure prompting this consultation. On today's evaluation that is 02/08/2024 patient continues to be afebrile he is breathing comfortably and is currently on room air denies any chest pain shortness of breath or cough still complaining of abdominal pain however denied any further diarrhea. Patient white count is 3.18, creatinine is 2.1 Objective - Vital Signs Vital signs: Vital Signs Temp 97.7 F 02/08/24 14:00 Pulse 85 02/08/24 14:00 Resp 16 02/08/24 14:00 BP 108/65 02/08/24 14:00 Pulse Ox 95 02/08/24 14:00 FiO2 Intake & Output 02/08/24 02/08/24 02/09/24 06:59 18:59 06:59 Intake Total 956 Output Total 200 320 Balance -200 636 Intake: Oral 956 Output: Urine 200 320 Other: Voiding Method Toilet Urinal # Voids 2 - Exam GENERAL DESCRIPTION: An elderly male lying in bed in no distress RESPIRATORY SYSTEM: Unlabored breathing , decreased breath sounds at bases HEART: S1 S2 regular rate and rhythm , ABDOMEN: Soft , mild tenderness EXTREMITIES: No edema feet - Labs CBC & Chem 7: 02/09/24 03:30 02/09/24 03:30 Labs: Microbiology - Last 24 Hours (Table) 02/05/24 23:34 Urine Culture - Final Urine,Voided Proteus mirabilis Assessment and Plan (1) Colitis Current Visit: Yes Status: Acute Priority: High Code(s): K52.9 - NONINFECTIVE GASTROENTERITIS AND COLITIS, UNSPECIFIED SNOMED Code(s): 03903687 Plan: 1patient presented to hospital with abdominal pain he also have some diarrhea CT has been suggestive of circumferential wall thickening of the hepatic flexure highly suggestive of ischemic colitis to be likely etiology infectious etiology less likely but not entirely excluded. 2stool status not collected the patient had a bowel movement 3patient to continue with Zosyn 3.375 g every 8 hours. Family the bedside questions answered Dictation was produced using [employer] software. please excuse any grammatical, word or spelling errors. Time with Patient: Less than 30
[2024-02-09] MEDS: LACTULOSE 20 GM/30 ML CUP PO ONE (12:52)
[2024-02-10] MEDS: ENOXAPARIN 30 MG/0.3 ML SYRINGE SQ SCH (07:39)
[2024-02-10 08:38] LABS: Basophils # (A) 0.01 X 10*3/uL (0.00-0.10); Basophils % (A) 0.4 %; Eosinophils # (A) 0.16 X 10*3/uL (0.04-0.35); Eosinophils % (A) 6.5 %; HCT 30.2 % (39.6-50.0); HGB 9.3 g/dL (13.0-17.0); Lymphocytes # (A) 0.25 X 10*3/uL (0.90-5.00); Lymphocytes % (A) 10.2 %; MCH 32.5 pg (27.0-32.0); MCHC 30.8 g/dL (32.0-37.0); MCV 105.6 FL (80.0-97.0); Mean Platelet Volume 11.5 FL (9.5-12.2); Monocytes # (A) 0.27 X 10*3/uL (0.20-1.00); NRBC Per 100 WBC 0 X 10*3/uL (0.00-0.01); Neutrophils # (A) 1.75 X 10*3/uL (1.80-7.70); Neutrophils % (A) 71.5 %; Platelet Count 97 X 10*3/uL (140-440); RBC 2.86 X 10*6/uL (4.40-5.60); RDW 19.5 % (11.5-14.5); WBC 2.45 X 10*3/uL (4.50-10.00)
[2024-02-10 08:41] LABS: ALT 27 U/L (10-49); AST 31 U/L (14-35); Albumin 2.1 g/dL (3.8-4.9); Albumin/Globulin Ratio 1.24 Ratio (1.60-3.17); Alkaline Phosphatase 81 U/L (41-126); BUN/Creat Ratio 24.09 Ratio (12.00-20.00); Calcium 7.4 mg/dL (8.7-10.3); Carbon Dioxide 12.5 mmol/L (21.6-31.8); Chloride 119 mmol/L (96-109); Globulin 1.7 g/dL (1.6-3.3); Glucose 97 mg/dL (70-110); Potassium 4.1 mmol/L (3.5-5.5); Sodium 143 mmol/L (135-145); Total Bilirubin 0.2 mg/dL (0.3-1.2); Total Protein 3.8 g/dL (6.2-8.2)
--- NOTE | 2024-02-10 13:37 | P.PN ---
Subjective Progress Note Date: 02/10/24 CHIEF COMPLAINT: Abdominal pain HISTORY OF PRESENT ILLNESS: Patient reports his abdominal pain is better today. He denies any nausea or vomiting. Reports tolerating diet. He is now reporting he has had a few small bowel movements throughout his stay. He is having flatus. Afebrile. Hemoglobin stable at 9.3. WBC 2.45 PHYSICAL EXAM: VITAL SIGNS: Reviewed. GENERAL: no acute distress. ABDOMEN: Soft. mildly distended. Nontender NEUROLOGIC: Alert and oriented. Cranial nerves II through XII grossly intact. ASSESSMENT: 1. Iliopsoas hematoma. Patient on blood thinners at home. The hematoma may be contributing to patient's left groin pain. 2. Moderate circumferential wall thickening at the hepatic flexure of the colon with possible colitis. Resolved on repeat CAT scan 3. Diarrhea resolved 4. History of DVT on Eliquis 5. Status post open repair of incarcerated left inguinal hernia with left orchiectomy and laparotomy with lysis of adhesions and small bowel resection on November 02, 2023 6. History of renal cancer status post nephrectomy 7. Constipation PLAN: -No surgical intervention planned -Continue regular diet -Increase activity level -Continue to hold Eliquis -Ultram ordered for pain management and try to wean off Morphine -Agree with discharge to ECF Physician Screen Cutter And Trimmer note has been reviewed by physician. Signing provider agrees with the documented findings, assessment, and plan of care. I have personally seen and examined the patient, reviewed the ONCOLOGY ACCOUNT SPECIALIST /PAs history, exam and MDM and agree with the assessment and plan as written. Based on total visit time, I have performed more than 50% of the visit. As above: Patient denies pain currently. Tolerating diet. Appetite is diminished however. He states he is passing flatus and a few small bowel movements. Recent CAT scans noted. Area of hematoma seems to be dissipating through the course of the iliopsoas. Would recommend continuing to hold anticoagulation at this time. Objective - Vital Signs Vital signs: Vital Signs Temp 97.9 F 02/10/24 07:27 Pulse 74 02/10/24 07:27 Resp 17 02/10/24 07:27 BP 118/72 02/10/24 07:27 Pulse Ox 98 02/10/24 07:27 FiO2 Intake & Output 02/09/24 02/10/24 02/10/24 18:59 06:59 18:59 Output Total 525 100 Balance -525 -100 Output: Urine 525 100 Other: Voiding Method Urinal Urinal - Labs CBC & Chem 7: 02/10/24 04:10 02/10/24 04:10 Labs: Abnormal Lab Results - Last 24 Hours (Table) 02/10/24 02/10/24 Range/Units 04:10 04:10 WBC 2.45 L (4.50-10.00) X 10*3/uL RBC 2.86 L (4.40-5.60) X 10*6/uL Hgb 9.3 L (13.0-17.0) g/dL Hct 30.2 L (39.6-50.0) % MCV 105.6 H (80.0-97.0) FL MCH 32.5 H (27.0-32.0) pg MCHC 30.8 L (32.0-37.0) g/dL RDW 19.5 H (11.5-14.5) % Plt Count 97 L (140-440) X 10*3/uL Neutrophils # 1.75 L (1.80-7.70) X 10*3/uL Lymphocytes # 0.25 L (0.90-5.00) X 10*3/uL Chloride 119 H (96-109) mmol/L Carbon Dioxide 12.5 L (21.6-31.8) mmol/L BUN 53.0 H (9.0-27.0) mg/dL Creatinine 2.2 H (0.6-1.5) mg/dL Est GFR (CKD-EPI) 29 L (>=60) BUN/Creatinine Ratio 24.09 H (12.00-20.00) Ratio Calcium 7.4 L (8.7-10.3) mg/dL Total Bilirubin 0.2 L (0.3-1.2) mg/dL Total Protein 3.8 L (6.2-8.2) g/dL Albumin 2.1 L (3.8-4.9) g/dL Albumin/Globulin Ratio 1.24 L (1.60-3.17) Ratio Microbiology - Last 24 Hours (Table) 02/07/24 16:55 Urine Culture - Preliminary Urine,Voided Group D Enterococcus Morganella morganii
--- NOTE | 2024-02-10 15:29 | CDI ---
Documentation Clarification Form Date: 02/10/2024 02:49:44 PM From: Rossi Catalan RN, CCDS Phone: [phone] Admit Date: 02/01/2024 07:17:00 PM Patient Name: Isidoro Prado Visit Number: [id number] Discharge Date: ATTENTION: The Clinical Documentation Specialists (CDI) and [facility] Coding Staff appreciate your assistance in clarifying documentation. Please respond to the clarification below the line at the bottom and electronically sign. The CDI & [facility] Coding staff will review the response and follow-up if needed. Please note: Queries are made part of the Legal Health Record. If you have any questions, please contact the author of this message via ITS. Doctor/Provider: Ruperto Reese There is documentation of urinary tract infection is documented in the progress notes starting on 02/07/24.Additional clarification is requested. History/Risk Factors: GERD/Reflux, GI Bleed, Hyperlipidemia, Hypertension, Renal Disease (renal cell cancer stage IV) Clinical Indicators: 83-year-old male presents emergency department with concerns for diarrhea and weakness that progressed over the last 2 weeks. He is having loose diarrhea and weakness. Diarrhea has progressed over the more than 2 weeks. He complains of severe left lower abdominal discomfort. 01/31 VS 87/56 87 18 98.2 97% RA 01/31 Labs: WBC 5.9 HGB 11.7 HCT 35.9 K+ 3.2 CL 16, CO2 10, BUN 63, CR 2.73, PLT 67, Glucose 71 02/04 Urine: Ur Leukocyte Esterase Large Urine Bacteria Many (Void Specimen 02/04 Urine Culture Final -Proteus Mirabilis 02/06 Urine culture (voided) Group D Enterococcus Morganella morganii Treatment: Can you please further clarify urinary tract infection? [ xxxx ] Urinary tract infection POA, with history of ongoing diarrhea. [ ] Urinary tract infection not POA [ ] Other, please specify [ ] Unable to determine (Template Last Revised: June 2020) MTDD
--- NOTE | 2024-02-10 15:56 | P.PN ---
Subjective Progress Note Date: 02/10/24 Principal diagnosis: Reason for follow-up is colitis Patient is a 83-year-old male with a past medical history significant for hypertension hyperlipidemia sleep apnea GI bleed reflux in this patient presented to the hospital for evaluation of weakness diarrhea and abdominal pain patient did have a CT that had been suggestive of colitis involving the hepatic flexure prompting this consultation. On today's evaluation that is 02/10/2024, Patient is afebrile this morning patient denies having any chest pain shortness of breath or cough, the patient is currently on room air, patient abdominal pain has decreased in intensity no nausea vomiting patient denies any bowel movement over the last few days. The patient was noticed 2.45, creatinine is 2.2 Objective - Vital Signs Vital signs: Vital Signs Temp 97.5 F L 02/10/24 13:08 Pulse 74 02/10/24 13:08 Resp 17 02/10/24 13:08 BP 113/63 02/10/24 13:08 Pulse Ox 100 02/10/24 13:08 FiO2 Intake & Output 02/09/24 02/10/24 02/10/24 18:59 06:59 18:59 Output Total 525 100 Balance -525 -100 Output: Urine 525 100 Other: Voiding Method Urinal Urinal - Exam GENERAL DESCRIPTION: An elderly male lying in bed in no distress RESPIRATORY SYSTEM: Unlabored breathing , decreased breath sounds at bases HEART: S1 S2 regular rate and rhythm , ABDOMEN: Soft , mild tenderness EXTREMITIES: No edema feet - Labs CBC & Chem 7: 02/10/24 04:10 02/10/24 04:10 Labs: Abnormal Lab Results - Last 24 Hours (Table) 02/10/24 02/10/24 Range/Units 04:10 04:10 WBC 2.45 L (4.50-10.00) X 10*3/uL RBC 2.86 L (4.40-5.60) X 10*6/uL Hgb 9.3 L (13.0-17.0) g/dL Hct 30.2 L (39.6-50.0) % MCV 105.6 H (80.0-97.0) FL MCH 32.5 H (27.0-32.0) pg MCHC 30.8 L (32.0-37.0) g/dL RDW 19.5 H (11.5-14.5) % Plt Count 97 L (140-440) X 10*3/uL Neutrophils # 1.75 L (1.80-7.70) X 10*3/uL Lymphocytes # 0.25 L (0.90-5.00) X 10*3/uL Chloride 119 H (96-109) mmol/L Carbon Dioxide 12.5 L (21.6-31.8) mmol/L BUN 53.0 H (9.0-27.0) mg/dL Creatinine 2.2 H (0.6-1.5) mg/dL Est GFR (CKD-EPI) 29 L (>=60) BUN/Creatinine Ratio 24.09 H (12.00-20.00) Ratio Calcium 7.4 L (8.7-10.3) mg/dL Total Bilirubin 0.2 L (0.3-1.2) mg/dL Total Protein 3.8 L (6.2-8.2) g/dL Albumin 2.1 L (3.8-4.9) g/dL Albumin/Globulin Ratio 1.24 L (1.60-3.17) Ratio Microbiology - Last 24 Hours (Table) 02/07/24 16:55 Urine Culture - Preliminary Urine,Voided Group D Enterococcus Morganella morganii Assessment and Plan (1) Colitis Current Visit: Yes Status: Acute Priority: High Code(s): K52.9 - NONINFECTIVE GASTROENTERITIS AND COLITIS, UNSPECIFIED SNOMED Code(s): 44914355 Plan: 1patient presented to hospital with abdominal pain he also have some diarrhea CT has been suggestive of circumferential wall thickening of the hepatic flexure highly suggestive of ischemic colitis to be likely etiology infectious etiology less likely but not entirely excluded. 2 patient remains to be afebrile abdominal pain has decreased in intensity did not have any bowel movement over the last few days he is getting laxatives nursing staff to address further with admitting for now continue with Zosyn and monitor clinical course closely. Dictation was produced using [employer] dictation software. please excuse any grammatical, word or spelling errors. Time with Patient: Less than 30
--- NOTE | 2024-02-10 17:16 | P.PN ---
Subjective Progress Note Date: 02/10/24 Isidoro Prado, is an 83-year-old male who presented to [facility] emergency room with a chief complaint of diarrhea and severe weakness, patient stated that he started having diarrhea 2 weeks ago, he started having worsening weakness and fatigue, he was complaining of left lower quadrant abdominal pain, he decided to come to emergency room. He was evaluated in the emergency room vital examination on presentation revealed a temperature of 98.2 pulse 87 respiration 18 blood pressure 87/56 pulse ox 97% on room air Laboratory data reveals a white blood count of 5.9 hemoglobin 11.7 platelet count 67 sodium 140 potassium 3.2 chloride 116 CO2 10 BUN 63 creatinine 2.73 amylase 125 lipase 310 Testing in the emergency room revealed CT scan of the abdomen and pelvis revealed hydropic gallbladder measuring 5.0 cm with dependent gallstones, duodenal diverticulum, right-sided renal cortical cyst measuring 6 cm, fluid- filled small bowel loops throughout the abdomen, liquid stools within the cecum, moderate circumferential wall thickening in the hepatic flexure of the colon, left-sided diverticulosis. Patient was admitted to medical floor for further evaluation and treatment Past medical history is significant for history of renal cell carcinoma, previous history of diverticulosis with acute diverticulitis and history of gastrointestinal bleeding, history of hypertension, history of hyperlipidemia, history of chronic atrial fibrillation maintained on Eliquis. On 02/03/2024 patient was seen and examined on the medical floor he is alert and oriented x 3 in no apparent distress he is still complaining of severe weakness otherwise he denies any complaints at this time there is no fever or chills no headache or dizziness no chest pain no shortness of breath no cough no nausea or vomiting no abdominal pain he is still having episodes of diarrhea and no urinary symptoms. Input from general surgery reviewed patient is scheduled for repeat CT scan of the abdomen today we will continue to follow closely. On 02/04/2024 patient is alert and oriented x 3. Patient still complaining of some abdominal pain no bowel movement. Patient still having some nausea. Repeat CT scan was ordered for surgical services awaiting further input. Patient denies chest pain or shortness of breath. Current vital signs temp 98.5, heart 72, respiratory rate 16, blood pressure 120/71 with a pulse ox of 96% on room air On 02/05/2024 patient was seen and examined on the medical floor he is alert and oriented x 3 in no apparent distress he is complaining of abdominal discomfort, nausea, poor oral intake, and constipation otherwise he denies any complaints at this time there is no fever or chills no headache or dizziness no chest pain no shortness of breath no cough no vomiting no burning with urination no frequency or urgency and no hematuria. On 02/06/2024 patient is alert and oriented x 3. Patient is still complaining of abdominal pain and poor oral intake. Surgical services following. Current vital signs temp 97.6, pulse rate 67, respiratory rate 17, blood pressure 137/75 with a pulse ox of 99% on room air. Awaiting further recommendations from surgical and oncology services On 02/07/2024 patient was seen and examined on the medical floor he is alert and oriented x 3 in no apparent distress he is still complaining of abdominal discomfort poor oral intake and nausea otherwise he denies any complaints there is no fever or chills no headache or dizziness no chest pain no shortness of breath no cough no vomiting no diarrhea no blood in the stools. Patient has di scomfort with urination. At this time there is evidence of urinary tract infection and IV ceftriaxone was added, infectious disease consultation was requested in regard to colitis we will continue to follow closely On 02/08/2024 patient is alert and oriented x 3. Antibiotic adjusted to Zosyn per infectious disease urine and stool cultures pending. Current vital signs temp 97.9, heart rate 72, respiratory rate 14, blood pressure 108/62 with a pulse ox of 98% on room air patient is still complaining some abdominal discomfort and poor oral intake. Patient denies chest pain. Patient denies any urinary burning or frequency On 02/09/2024 patient is alert and oriented x 3. Per surgical services no surgical intervention planned lactulose added for constipation. Patient remains on IV Zosyn for UTI. PT OT and social work services consulted for discharge planning likely ECF On 02/10/2024 patient was seen and examined on the medical floor he is alert and oriented x 3 in no apparent distress he is still complaining of some abdominal discomfort and generalized weakness otherwise he denies any complaints there is no fever or chills no headache or dizziness no chest pain no shortness of breath no cough no nausea or vomiting no diarrhea no blood in the stools and no urinary symptoms Objective - Vital Signs Vital signs: Vital Signs Temp 97.5 F L 02/10/24 13:08 Pulse 74 02/10/24 13:08 Resp 17 02/10/24 13:08 BP 113/63 02/10/24 13:08 Pulse Ox 100 02/10/24 13:08 FiO2 Intake & Output 02/09/24 02/10/24 02/10/24 18:59 06:59 18:59 Output Total 525 100 Balance -525 -100 Output: Urine 525 100 Other: Voiding Method Urinal Urinal - Exam In general patient is alert and oriented x 3 in no distress HEENT head normocephalic and atraumatic Neck is supple no JVD no goiter no lymphadenopathy no carotid bruit Chest examination is clear to auscultation no crackles no wheezing Cardiac exam reveals regular heart sounds S1 and S2 no gallops no murmurs Abdomen is soft nontender no organomegaly with normal bowel sounds Extremity exam reveals no edema no cyanosis or clubbing Neurological examination reveals no gross focal deficits - Labs CBC & Chem 7: 02/10/24 04:10 02/10/24 04:10 Labs: Abnormal Lab Results - Last 24 Hours (Table) 02/10/24 02/10/24 Range/Units 04:10 04:10 WBC 2.45 L (4.50-10.00) X 10*3/uL RBC 2.86 L (4.40-5.60) X 10*6/uL Hgb 9.3 L (13.0-17.0) g/dL Hct 30.2 L (39.6-50.0) % MCV 105.6 H (80.0-97.0) FL MCH 32.5 H (27.0-32.0) pg MCHC 30.8 L (32.0-37.0) g/dL RDW 19.5 H (11.5-14.5) % Plt Count 97 L (140-440) X 10*3/uL Neutrophils # 1.75 L (1.80-7.70) X 10*3/uL Lymphocytes # 0.25 L (0.90-5.00) X 10*3/uL Chloride 119 H (96-109) mmol/L Carbon Dioxide 12.5 L (21.6-31.8) mmol/L BUN 53.0 H (9.0-27.0) mg/dL Creatinine 2.2 H (0.6-1.5) mg/dL Est GFR (CKD-EPI) 29 L (>=60) BUN/Creatinine Ratio 24.09 H (12.00-20.00) Ratio Calcium 7.4 L (8.7-10.3) mg/dL Total Bilirubin 0.2 L (0.3-1.2) mg/dL Total Protein 3.8 L (6.2-8.2) g/dL Albumin 2.1 L (3.8-4.9) g/dL Albumin/Globulin Ratio 1.24 L (1.60-3.17) Ratio Microbiology - Last 24 Hours (Table) 02/07/24 16:55 Urine Culture - Preliminary Urine,Voided Group D Enterococcus Morganella morganii Assessment and Plan Plan: Abdominal pain with diarrhea. Patient started on IV Zosyn Hydropic gallbladder with gallstones Recent surgery for incarcerated left inguinal hernia and small bowel obstruction in October 2023 History of metastatic renal cell carcinoma Underlying history of hypertension Underlying history of hyperlipidemia Underlying history of chronic atrial fibrillation maintained on Eliquis At this time patient was seen and examined Home medications reviewed and reordered General surgery and oncology consultation requested Infectious disease services following For DVT prophylaxis patient is maintained on SCDs and anticoagulation on hold per surgery
--- NOTE | 2024-02-11 10:17 | P.PN ---
Subjective Progress Note Date: 02/11/24 Isidoro Prado, is an 83-year-old male who presented to [facility] emergency room with a chief complaint of diarrhea and severe weakness, patient stated that he started having diarrhea 2 weeks ago, he started having worsening weakness and fatigue, he was complaining of left lower quadrant abdominal pain, he decided to come to emergency room. He was evaluated in the emergency room vital examination on presentation revealed a temperature of 98.2 pulse 87 respiration 18 blood pressure 87/56 pulse ox 97% on room air Laboratory data reveals a white blood count of 5.9 hemoglobin 11.7 platelet count 67 sodium 140 potassium 3.2 chloride 116 CO2 10 BUN 63 creatinine 2.73 amylase 125 lipase 310 Testing in the emergency room revealed CT scan of the abdomen and pelvis revealed hydropic gallbladder measuring 5.0 cm with dependent gallstones, duodenal diverticulum, right-sided renal cortical cyst measuring 6 cm, fluid- filled small bowel loops throughout the abdomen, liquid stools within the cecum, moderate circumferential wall thickening in the hepatic flexure of the colon, left-sided diverticulosis. Patient was admitted to medical floor for further evaluation and treatment Past medical history is significant for history of renal cell carcinoma, previous history of diverticulosis with acute diverticulitis and history of gastrointestinal bleeding, history of hypertension, history of hyperlipidemia, history of chronic atrial fibrillation maintained on Eliquis. On 02/03/2024 patient was seen and examined on the medical floor he is alert and oriented x 3 in no apparent distress he is still complaining of severe weakness otherwise he denies any complaints at this time there is no fever or chills no headache or dizziness no chest pain no shortness of breath no cough no nausea or vomiting no abdominal pain he is still having episodes of diarrhea and no urinary symptoms. Input from general surgery reviewed patient is scheduled for repeat CT scan of the abdomen today we will continue to follow closely. On 02/04/2024 patient is alert and oriented x 3. Patient still complaining of some abdominal pain no bowel movement. Patient still having some nausea. Repeat CT scan was ordered for surgical services awaiting further input. Patient denies chest pain or shortness of breath. Current vital signs temp 98.5, heart 72, respiratory rate 16, blood pressure 120/71 with a pulse ox of 96% on room air On 02/05/2024 patient was seen and examined on the medical floor he is alert and oriented x 3 in no apparent distress he is complaining of abdominal discomfort, nausea, poor oral intake, and constipation otherwise he denies any complaints at this time there is no fever or chills no headache or dizziness no chest pain no shortness of breath no cough no vomiting no burning with urination no frequency or urgency and no hematuria. On 02/06/2024 patient is alert and oriented x 3. Patient is still complaining of abdominal pain and poor oral intake. Surgical services following. Current vital signs temp 97.6, pulse rate 67, respiratory rate 17, blood pressure 137/75 with a pulse ox of 99% on room air. Awaiting further recommendations from surgical and oncology services On 02/07/2024 patient was seen and examined on the medical floor he is alert and oriented x 3 in no apparent distress he is still complaining of abdominal discomfort poor oral intake and nausea otherwise he denies any complaints there is no fever or chills no headache or dizziness no chest pain no shortness of breath no cough no vomiting no diarrhea no blood in the stools. Patient has di scomfort with urination. At this time there is evidence of urinary tract infection and IV ceftriaxone was added, infectious disease consultation was requested in regard to colitis we will continue to follow closely On 02/08/2024 patient is alert and oriented x 3. Antibiotic adjusted to Zosyn per infectious disease urine and stool cultures pending. Current vital signs temp 97.9, heart rate 72, respiratory rate 14, blood pressure 108/62 with a pulse ox of 98% on room air patient is still complaining some abdominal discomfort and poor oral intake. Patient denies chest pain. Patient denies any urinary burning or frequency On 02/09/2024 patient is alert and oriented x 3. Per surgical services no surgical intervention planned lactulose added for constipation. Patient remains on IV Zosyn for UTI. PT OT and social work services consulted for discharge planning likely ECF On 02/10/2024 patient was seen and examined on the medical floor he is alert and oriented x 3 in no apparent distress he is still complaining of some abdominal discomfort and generalized weakness otherwise he denies any complaints there is no fever or chills no headache or dizziness no chest pain no shortness of breath no cough no nausea or vomiting no diarrhea no blood in the stools and no urinary symptoms On 02/11/2024 patient is alert and oriented x 3. Patient remains on IV Zosyn. Patient still reporting poor appetite. Discharge planning to ECF. Current vital signs temp 98.0, heart 67, respiratory rate 17, blood pressure 105/63 with a pulse ox of 98% on room air Objective - Vital Signs Vital signs: Vital Signs Temp 98.0 F 02/11/24 07:10 Pulse 67 02/11/24 07:10 Resp 17 02/11/24 07:10 BP 105/63 02/11/24 07:10 Pulse Ox 98 02/11/24 07:10 FiO2 Intake & Output 02/10/24 02/11/24 02/11/24 18:59 06:59 18:59 Output Total 550 Balance -550 Output: Urine 550 Other: Voiding Method Urinal Urinal # Voids 1 - Exam In general patient is alert and oriented x 3 in no distress HEENT head normocephalic and atraumatic Neck is supple no JVD no goiter no lymphadenopathy no carotid bruit Chest examination is clear to auscultation no crackles no wheezing Cardiac exam reveals regular heart sounds S1 and S2 no gallops no murmurs Abdomen is soft nontender no organomegaly with normal bowel sounds Extremity exam reveals no edema no cyanosis or clubbing Neurological examination reveals no gross focal deficits - Labs CBC & Chem 7: 02/10/24 04:10 02/10/24 04:10 Labs: Microbiology - Last 24 Hours (Table) 02/07/24 16:55 Urine Culture - Preliminary Urine,Voided Group D Enterococcus Morganella morganii Assessment and Plan Plan: Abdominal pain with diarrhea. Patient started on IV Zosyn Hydropic gallbladder with gallstones Recent surgery for incarcerated left inguinal hernia and small bowel obstruction in October 2023 History of metastatic renal cell carcinoma Underlying history of hypertension Underlying history of hyperlipidemia Underlying history of chronic atrial fibrillation maintained on Eliquis At this time patient was seen and examined Home medications reviewed and reordered General surgery and oncology consultation requested Infectious disease services following For DVT prophylaxis patient is maintained on SCDs and anticoagulation on hold per surgery
[2024-02-11 10:19] LABS: Basophils # (A) 0.01 X 10*3/uL (0.00-0.10); Basophils % (A) 0.4 %; Eosinophils # (A) 0.16 X 10*3/uL (0.04-0.35); Eosinophils % (A) 6.5 %; HCT 28.1 % (39.6-50.0); HGB 8.8 g/dL (13.0-17.0); Lymphocytes % (A) 12.1 %; MCH 33.3 pg (27.0-32.0); MCHC 31.3 g/dL (32.0-37.0); MCV 106.4 FL (80.0-97.0); Mean Platelet Volume 11.6 FL (9.5-12.2); Monocytes # (A) 0.31 X 10*3/uL (0.20-1.00); Monocytes % (A) 12.6 %; NRBC Per 100 WBC 0 X 10*3/uL (0.00-0.01); Neutrophils # (A) 1.67 X 10*3/uL (1.80-7.70); Neutrophils % (A) 67.6 %; Platelet Count 107 X 10*3/uL (140-440); RBC 2.64 X 10*6/uL (4.40-5.60); RDW 19.3 % (11.5-14.5); WBC 2.47 X 10*3/uL (4.50-10.00)
[2024-02-11 10:46] LABS: ALT 24 U/L (10-49); AST 27 U/L (14-35); Albumin 2.2 g/dL (3.8-4.9); Albumin/Globulin Ratio 1.57 Ratio (1.60-3.17); Alkaline Phosphatase 75 U/L (41-126); BUN/Creat Ratio 22.68 Ratio (12.00-20.00); Blood Urea Nitrogen 49.9 mg/dL (9.0-27.0); Calcium 7.7 mg/dL (8.7-10.3); Carbon Dioxide 15.3 mmol/L (21.6-31.8); Chloride 117 mmol/L (96-109); Globulin 1.4 g/dL (1.6-3.3); Glucose 97 mg/dL (70-110); Potassium 4.5 mmol/L (3.5-5.5); Sodium 141 mmol/L (135-145); Total Bilirubin 0.3 mg/dL (0.3-1.2); Total Protein 3.6 g/dL (6.2-8.2)
[2024-02-11 11:38] LABS: % Iron Saturation 20.47 (15.00-50.00)
--- NOTE | 2024-02-11 13:25 | P.PN ---
Subjective Progress Note Date: 02/11/24 CHIEF COMPLAINT: Abdominal pain HISTORY OF PRESENT ILLNESS: Patient reports his abdominal pain is getting better each day. He denies any nausea or vomiting. He is having flatus. Oral intake has been decreased. Afebrile. WBC 2.47 Hgb 8.8 PHYSICAL EXAM: VITAL SIGNS: Reviewed. GENERAL: no acute distress. ABDOMEN: Soft. distended. Nontender NEUROLOGIC: Alert and oriented. Cranial nerves II through XII grossly intact. ASSESSMENT: 1. Iliopsoas hematoma. Patient on blood thinners at home. The hematoma may be contributing to patient's left groin pain. 2. Moderate circumferential wall thickening at the hepatic flexure of the colon with possible colitis. Resolved on repeat CAT scan 3. Diarrhea resolved 4. History of DVT on Eliquis 5. Status post open repair of incarcerated left inguinal hernia with left orchiectomy and laparotomy with lysis of adhesions and small bowel resection on November 02, 2023 6. History of renal cancer status post nephrectomy 7. Constipation PLAN: -No surgical intervention planned -Continue regular diet -Increase activity level -Continue to hold Eliquis -Agree with discharge to ECF -Continue colace and miralax -Lactulose ordered for constipation Physician Family Development Extension Specialist note has been reviewed by physician. Signing provider agrees with the documented findings, assessment, and plan of care. I have personally seen and examined the patient, reviewed the [facility] /PAs history, exam and MDM and agree with the assessment and plan as written. Based on total visit time, I have performed more than 50% of the visit. As above: Patient complaining of some abdominal bloating today. Slightly more distended on exam. Agree with abdominal x-rays. Begin Dulcolax suppository daily. Lactulose for constipation. Will review films. Objective - Vital Signs Vital signs: Vital Signs Temp 98.0 F 02/11/24 07:10 Pulse 67 02/11/24 07:10 Resp 17 02/11/24 07:10 BP 105/63 02/11/24 07:10 Pulse Ox 98 02/11/24 07:10 FiO2 Intake & Output 02/10/24 02/11/24 02/11/24 18:59 06:59 18:59 Output Total 550 Balance -550 Output: Urine 550 Other: Voiding Method Urinal Urinal # Voids 1 - Labs CBC & Chem 7: 02/11/24 03:14 10/18/24 03:14 Labs: Abnormal Lab Results - Last 24 Hours (Table) 02/10/24 02/11/24 02/11/24 Range/Units 04:14 03:14 03:14 WBC 2.47 L (4.50-10.00) X 10*3/uL RBC 2.64 L (4.40-5.60) X 10*6/uL Hgb 8.8 L (13.0-17.0) g/dL Hct 28.1 L (39.6-50.0) % MCV 106.4 H (80.0-97.0) FL MCH 33.3 H (27.0-32.0) pg MCHC 31.3 L (32.0-37.0) g/dL RDW 19.3 H (11.5-14.5) % Plt Count 107 L (140-440) X 10*3/uL Neutrophils # 1.67 L (1.80-7.70) X 10*3/uL Lymphocytes # 0.30 L (0.90-5.00) X 10*3/uL Chloride 117 H (96-109) mmol/L Carbon Dioxide 15.3 L (21.6-31.8) mmol/L BUN 49.9 H (9.0-27.0) mg/dL Creatinine 2.2 H (0.6-1.5) mg/dL Est GFR (CKD-EPI) 29 L (>=60) BUN/Creatinine Ratio 22.68 H (12.00-20.00) Ratio Calcium 7.7 L (8.7-10.3) mg/dL Iron 35 L (65-175) UG/DL TIBC 171 L (228-460) UG/DL Transferrin 122.0 L (204.0-354.0) mg/dL Total Protein 3.6 L (6.2-8.2) g/dL Albumin 2.2 L (3.8-4.9) g/dL Globulin 1.4 L (1.6-3.3) g/dL Albumin/Globulin Ratio 1.57 L (1.60-3.17) Ratio Microbiology - Last 24 Hours (Table) 02/07/24 16:55 Urine Culture - Final Urine,Voided Enterococcus faecalis Morganella morganii
--- NOTE | 2024-02-11 14:27 | XR ---
EXAMINATION TYPE: XR abdomen 2V DATE OF EXAM: 02/11/2024 COMPARISON: CT abdomen and pelvis 02/08/2024 HISTORY: Constipation TECHNIQUE: Single and upright images of the abdomen are obtained FINDINGS: Small bowel demonstrates no evidence for dilatation or air fluid levels. Moderate to large amount of stool is present throughout the colon. No convincing evidence for pneumoperitoneum. Postsurgical changes with surgical clips within the righ t lower quadrant and throughout the left mid to lower abdomen. No unusual calcifications. Small left pleural effusion. Postsurgical changes from right total hip arthroplasty with surrounding ossification. Degenerative ch anges of the spine. IMPRESSION: 1. Nonobstructive bowel gas pattern with moderate to large colonic stool present. 2. Postsurgical changes. 3. Small left pleural effusion. [facility], , 02/11/2024 2:24 PM
[2024-02-11] MEDS: LACTULOSE 20 GM/30 ML CUP PO ONE (14:41)
[2024-02-11] MEDS: bisacodyL 10 MG SUPP RECTAL STA (14:41)
--- NOTE | 2024-02-11 15:28 | P.PN ---
Subjective Progress Note Date: 02/11/24 Principal diagnosis: Reason for follow-up is colitis Patient is a 83-year-old male with a past medical history significant for hypertension hyperlipidemia sleep apnea GI bleed reflux in this patient presented to the hospital for evaluation of weakness diarrhea and abdominal pain patient did have a CT that had been suggestive of colitis involving the hepatic flexure prompting this consultation. On today's evaluation that is 02/11/2024,the patient denies any fever or any chills, patient is breathing comfortably on room air, the patient denies chest pain shortness of breath and no significant cough, patient did have solution of the abdominal pain no nausea vomiting however mention did not have any bowel movement. Patient patient did have abdominal x-ray nonobstructive bowel gas pattern with moderate to large colonic stool present Objective - Vital Signs Vital signs: Vital Signs Temp 97.4 F L 02/11/24 14:44 Pulse 69 02/11/24 14:44 Resp 17 02/11/24 14:44 BP 114/63 02/11/24 14:44 Pulse Ox 97 02/11/24 14:44 FiO2 Intake & Output 02/10/24 02/11/24 02/11/24 18:59 06:59 18:59 Output Total 550 Balance -550 Weight 65.771 kg Output: Urine 550 Other: Voiding Method Urinal Urinal # Voids 1 - Exam GENERAL DESCRIPTION: An elderly male lying in bed in no distress RESPIRATORY SYSTEM: Unlabored breathing , decreased breath sounds at bases HEART: S1 S2 regular rate and rhythm , ABDOMEN: Soft , mild tenderness EXTREMITIES: No edema feet - Labs CBC & Chem 7: 02/11/24 03:14 02/11/24 03:14 Labs: Abnormal Lab Results - Last 24 Hours (Table) 02/10/24 02/11/24 02/11/24 Range/Units 04:14 03:14 03:14 WBC 2.47 L (4.50-10.00) X 10*3/uL RBC 2.64 L (4.40-5.60) X 10*6/uL Hgb 8.8 L (13.0-17.0) g/dL Hct 28.1 L (39.6-50.0) % MCV 106.4 H (80.0-97.0) FL MCH 33.3 H (27.0-32.0) pg MCHC 31.3 L (32.0-37.0) g/dL RDW 19.3 H (11.5-14.5) % Plt Count 107 L (140-440) X 10*3/uL Neutrophils # 1.67 L (1.80-7.70) X 10*3/uL Lymphocytes # 0.30 L (0.90-5.00) X 10*3/uL Chloride 117 H (96-109) mmol/L Carbon Dioxide 15.3 L (21.6-31.8) mmol/L BUN 49.9 H (9.0-27.0) mg/dL Creatinine 2.2 H (0.6-1.5) mg/dL Est GFR (CKD-EPI) 29 L (>=60) BUN/Creatinine Ratio 22.68 H (12.00-20.00) Ratio Calcium 7.7 L (8.7-10.3) mg/dL Iron 35 L (65-175) UG/DL TIBC 171 L (228-460) UG/DL Transferrin 122.0 L (204.0-354.0) mg/dL Total Protein 3.6 L (6.2-8.2) g/dL Albumin 2.2 L (3.8-4.9) g/dL Globulin 1.4 L (1.6-3.3) g/dL Albumin/Globulin Ratio 1.57 L (1.60-3.17) Ratio Microbiology - Last 24 Hours (Table) 02/07/24 16:55 Urine Culture - Final Urine,Voided Enterococcus faecalis Morganella morganii Assessment and Plan (1) Colitis Current Visit: Yes Status: Acute Priority: High Code(s): K52.9 - N ONINFECTIVE GASTROENTERITIS AND COLITIS, UNSPECIFIED SNOMED Code(s): 17739286 Plan: 1patient presented to hospital with abdominal pain he also have some diarrhea CT has been suggestive of circumferential wall thickening of the hepatic flexure highly suggestive of ischemic colitis to be likely etiology infectious etiology less likely but not entirely excluded. 2 patient remains to be afebrile abdominal pain has decreased in intensity did not have any bowel movement and x-ray did shows evidence of significant stool burden we will give a dose of lactulose continue Zosyn family the bedside questions answered Dictation was produced using dragon dictation software. please excuse any grammatical, word or spelling errors. Time with Patient: Less than 30
--- NOTE | 2024-02-11 17:48 | P.PN ---
Subjective Progress Note Date: 02/11/24 No acute events. Pt reporting improvement in left groin pain. States appetite has somewhat improved since starting marinol. Still experiencing generalized weakness, plan for rehab upon discharge. Hgb 8.8, WBC 2.47, plt 107 Objective - Vital Signs Vital signs: Vital Signs Temp 98.0 F 02/11/24 07:10 Pulse 67 02/11/24 07:10 Resp 17 02/11/24 07:10 BP 105/63 02/11/24 07:10 Pulse Ox 98 02/11/24 07:10 FiO2 Intake & Output 02/10/24 02/11/24 02/11/24 18:59 06:59 18:59 Output Total 550 Balance -550 Output: Urine 550 Other: Voiding Method Urinal Urinal # Voids 1 - Constitutional General appearance: Present: average body habitus, no acute distress - EENT Eyes: Present: anicteric sclerae, EOMI ENT: Present: hearing grossly normal - Respiratory Details: breathing is even and unlabored - Cardiovascular Details: skin warm and dry - Gastrointestinal General gastrointestinal: Present: soft. Absent: tenderness - Integumentary Integumentary: Absent: cyanotic, jaundiced - Musculoskeletal Musculoskeletal: Present: generalized weakness - Psychiatric Psychiatric: Present: A&O x's 3 - Labs CBC & Chem 7: 02/11/24 03:14 02/11/24 03:14 Labs: Abnormal Lab Results - Last 24 Hours (Table) 02/10/24 02/11/24 02/11/24 Range/Units 04:14 03:14 03:14 WBC 2.47 L (4.50-10.00) X 10*3/uL RBC 2.64 L (4.40-5.60) X 10*6/uL Hgb 8.8 L (13.0-17.0) g/dL Hct 28.1 L (39.6-50.0) % MCV 106.4 H (80.0-97.0) FL MCH 33.3 H (27.0-32.0) pg MCHC 31.3 L (32.0-37.0) g/dL RDW 19.3 H (11.5-14.5) % Plt Count 107 L (140-440) X 10*3/uL Neutrophils # 1.67 L (1.80-7.70) X 10*3/uL Lymphocytes # 0.30 L (0.90-5.00) X 10*3/uL Chloride 117 H (96-109) mmol/L Carbon Dioxide 15.3 L (21.6-31.8) mmol/L BUN 49.9 H (9.0-27.0) mg/dL Creatinine 2.2 H (0.6-1.5) mg/dL Est GFR (CKD-EPI) 29 L (>=60) BUN/Creatinine Ratio 22.68 H (12.00-20.00) Ratio Calcium 7.7 L (8.7-10.3) mg/dL Iron 35 L (65-175) UG/DL TIBC 171 L (228-460) UG/DL Transferrin 122.0 L (204.0-354.0) mg/dL Total Protein 3.6 L (6.2-8.2) g/dL Albumin 2.2 L (3.8-4.9) g/dL Globulin 1.4 L (1.6-3.3) g/dL Albumin/Globulin Ratio 1.57 L (1.60-3.17) Ratio Microbiology - Last 24 Hours (Table) 02/07/24 16:55 Urine Culture - Final Urine,Voided Enterococcus faecalis Morganella morganii Assessment and Plan (1) Colitis Current Visit: Yes Status: Acute Priority: High Code(s): K52.9 - NONINFECTIVE GASTROENTERITIS AND COLITIS, UNSPECIFIED SNOMED Code(s): 98501412 (2) Dehydration Current Visit: Yes Status: Acute Priority: High Code(s): E86.0 - DEHYDRATION SNOMED Code(s): 36642150 (3) Iliopsoas muscle hematoma Current Visit: Yes Status: Acute Priority: Medium Code(s): S70.10XA - CONTUSION OF UNSPECIFIED THIGH, INITIAL ENCOUNTER SNOMED Code(s): 433756011 (4) Renal cell carcinoma Current Visit: Yes Status: Acute Priority: High Code(s): C64.9 - MALIGNANT NEOPLASM OF UNSP KIDNEY, EXCEPT RENAL PELVIS SNOMED Code(s): 976780208 (5) Diarrhea Current Visit: Yes Status: Acute Priority: High Code(s): R19.7 - DIARRHEA, UNSPECIFIED SNOMED Code(s): 90407263 (6) Anemia Current Visit: Yes Status: Acute Priority: Medium Code(s): D64.9 - ANEMIA, UNSPECIFIED SNOMED Code(s): 521835470 Plan: Diarrhea/colitis -CT abdomen and pelvis showed fluid-filled small bowel loops throughout along with liquid stool in the cecum. Moderate circumferential wall thickening at the hepatic flexure of the colon. Gallstones measuring up to 1.3 cm. -Diarrhea has subsided since admission -Stool studies pending -Having decreased oral intake over the cpl weeks due to loss of appetite and early satiety. Marinol added with improvement in appetite -Diarrhea likely related to Lenvima. However IO induced colitis remains in differential, but less likely as diarrhea has already resolved since holding Lenvima -Repeat CT AP showing similar moderate circumferential wall thickening at the he patic flexure of the colon -Patient now experiencing constipation, no BM since admit. Continues on colace and miralax. Abdominal x-ray obtained showing nonobstructive bowel gas pattern with moderate to large colonic stool present. Lactulose and Dulcolax suppository has been ordered. If no BM achieved, can try Milk of mag with warm prune juice Iliopsoas hematoma: Presented with significant left groin pain -CT AP showed asymmetric enlargement of the left iliopsoas musculature with surrounding stranding and edema. Suspected intramuscular hemorrhage/hematoma. -Eliquis has been held. General surgery following -Repeat CT showing no significant change in hematoma/hemorrhage -Pain improving Macrocytic Anemia: -Hgb 11.7 on admit. Today Hgb 8.8 -Left iliopsoas hematoma. Denies blood in stool/melena. Elquis held -Anemia labs consistent with anemia of inflammation -Continue to monitor CBC Hypothyroidism: -Thyroid studies checked in clinic on 01/27. TSH 75.6, T4 0.88, T3 1.7 -Possible IO induced thyroiditis -Synthroid increased to 50mcg daily Metastatic RCC: -Oncological history as dictated in the HPI -Currently on treatment with Lenvima and Keytruda, completing cycle 3 of keytruda on 01/27/24. Last dose of Lenvima was 1 day prior to admit -Plan is for rehab, treatment will be held until discharged. -Treatment response scans scheduled -Clinic f/u upon discharge from rehabilitation Doctor attests: I performed a history and physical examination of this patient, developed impression and plan of care. Discussed with dictator. I agree with dictators note, documented as a scribe
--- NOTE | 2024-02-12 09:31 | P.PN ---
Subjective Progress Note Date: 02/12/24 Patient states he feels well. He had 4 bowel movements yesterday. He states his constipation is resolved. On exam vital signs appear stable. Abdomen soft. Resolved constipation. Patient be discharged home per the medical service. Objective - Vital Signs Vital signs: Vital Signs Temp 98.6 F 02/12/24 07:03 Pulse 76 02/12/24 07:03 Resp 18 02/12/24 07:03 BP 101/50 02/12/24 07:03 Pulse Ox 98 02/12/24 07:03 FiO2 Intake & Output 02/11/24 02/12/24 02/12/24 18:59 06:59 18:59 Output Total 150 Balance -150 Weight 65.771 kg Output: Urine 150 Other: Voiding Method Urinal Urinal # Voids 1 2 # Bowel Movements 2 - Labs CBC & Chem 7: 02/11/24 03:14 02/11/24 03:14 Labs: Abnormal Lab Results - Last 24 Hours (Table) 02/10/24 02/11/24 02/11/24 Range/Units 04:14 03:14 03:14 WBC 2.47 L (4.50-10.00) X 10*3/uL RBC 2.64 L (4.40-5.60) X 10*6/uL Hgb 8.8 L (13.0-17.0) g/dL Hct 28.1 L (39.6-50.0) % MCV 106.4 H (80.0-97.0) FL MCH 33.3 H (27.0-32.0) pg MCHC 31.3 L (32.0-37.0) g/dL RDW 19.3 H (11.5-14.5) % Plt Count 107 L (140-440) X 10*3/uL Neutrophils # 1.67 L (1.80-7.70) X 10*3/uL Lymphocytes # 0.30 L (0.90-5.00) X 10*3/uL Chloride 117 H (96-109) mmol/L Carbon Dioxide 15.3 L (21.6-31.8) mmol/L BUN 49.9 H (9.0-27.0) mg/dL Creatinine 2.2 H (0.6-1.5) mg/dL Est GFR (CKD-EPI) 29 L (>=60) BUN/Creatinine Ratio 22.68 H (12.00-20.00) Ratio Calcium 7.7 L (8.7-10.3) mg/dL Iron 35 L (65-175) UG/DL TIBC 171 L (228-460) UG/DL Transferrin 122.0 L (204.0-354.0) mg/dL Total Protein 3.6 L (6.2-8.2) g/dL Albumin 2.2 L (3.8-4.9) g/dL Globulin 1.4 L (1.6-3.3) g/dL Albumin/Globulin Ratio 1.57 L (1.60-3.17) Ratio Microbiology - Last 24 Hours (Table) 02/07/24 16:55 Urine Culture - Final Urine,Voided Enterococcus faecalis Morganella morganii
[2024-02-12 10:14] LABS: Basophils # (A) 0.01 X 10*3/uL (0.00-0.10); Basophils % (A) 0.4 %; Eosinophils # (A) 0.13 X 10*3/uL (0.04-0.35); Eosinophils % (A) 5.4 %; HCT 29.8 % (39.6-50.0); HGB 9.1 g/dL (13.0-17.0); Lymphocytes # (A) 0.24 X 10*3/uL (0.90-5.00); MCH 32.2 pg (27.0-32.0); MCHC 30.5 g/dL (32.0-37.0); MCV 105.3 FL (80.0-97.0); Mean Platelet Volume 11.4 FL (9.5-12.2); Monocytes # (A) 0.28 X 10*3/uL (0.20-1.00); Monocytes % (A) 11.6 %; NRBC Per 100 WBC 0 X 10*3/uL (0.00-0.01); Neutrophils # (A) 1.74 X 10*3/uL (1.80-7.70); Neutrophils % (A) 72.2 %; Platelet Count 116 X 10*3/uL (140-440); RBC 2.83 X 10*6/uL (4.40-5.60); WBC 2.41 X 10*3/uL (4.50-10.00)
[2024-02-12 10:32] LABS: ALT 27 U/L (10-49); AST 29 U/L (14-35); Albumin 2.2 g/dL (3.8-4.9); Albumin/Globulin Ratio 1.57 Ratio (1.60-3.17); Alkaline Phosphatase 80 U/L (41-126); BUN/Creat Ratio 22.29 Ratio (12.00-20.00); Blood Urea Nitrogen 46.8 mg/dL (9.0-27.0); Calcium 7.9 mg/dL (8.7-10.3); Carbon Dioxide 14.8 mmol/L (21.6-31.8); Chloride 117 mmol/L (96-109); Globulin 1.4 g/dL (1.6-3.3); Glucose 81 mg/dL (70-110); Potassium 4.6 mmol/L (3.5-5.5); Sodium 141 mmol/L (135-145); Total Bilirubin 0.2 mg/dL (0.3-1.2); Total Protein 3.6 g/dL (6.2-8.2)
--- NOTE | 2024-02-12 13:01 | P.PN ---
Subjective Progress Note Date: 02/12/24 Isidoro Prado, is an 83-year-old male who presented to [facility] emergency room with a chief complaint of diarrhea and severe weakness, patient stated that he started having diarrhea 2 weeks ago, he started having worsening weakness and fatigue, he was complaining of left lower quadrant abdominal pain, he decided to come to emergency room. He was evaluated in the emergency room vital examination on presentation revealed a temperature of 98.2 pulse 87 respiration 18 blood pressure 87/56 pulse ox 97% on room air Laboratory data reveals a white blood count of 5.9 hemoglobin 11.7 platelet count 67 sodium 140 potassium 3.2 chloride 116 CO2 10 BUN 63 creatinine 2.73 amylase 125 lipase 310 Testing in the emergency room revealed CT scan of the abdomen and pelvis revealed hydropic gallbladder measuring 5.0 cm with dependent gallstones, duodenal diverticulum, right-sided renal cortical cyst measuring 6 cm, fluid- filled small bowel loops throughout the abdomen, liquid stools within the cecum, moderate circumferential wall thickening in the hepatic flexure of the colon, left-sided diverticulosis. Patient was admitted to medical floor for further evaluation and treatment Past medical history is significant for history of renal cell carcinoma, previous history of diverticulosis with acute diverticulitis and history of gastrointestinal bleeding, history of hypertension, history of hyperlipidemia, history of chronic atrial fibrillation maintained on Eliquis. On 02/03/2024 patient was seen and examined on the medical floor he is alert and oriented x 3 in no apparent distress he is still complaining of severe weakness otherwise he denies any complaints at this time there is no fever or chills no headache or dizziness no chest pain no shortness of breath no cough no nausea or vomiting no abdominal pain he is still having episodes of diarrhea and no urinary symptoms. Input from general surgery reviewed patient is scheduled for repeat CT scan of the abdomen today we will continue to follow closely. On 02/04/2024 patient is alert and oriented x 3. Patient still complaining of some abdominal pain no bowel movement. Patient still having some nausea. Repeat CT scan was ordered for surgical services awaiting further input. Patient denies chest pain or shortness of breath. Current vital signs temp 98.5, heart 72, respiratory rate 16, blood pressure 120/71 with a pulse ox of 96% on room air On 02/05/2024 patient was seen and examined on the medical floor he is alert and oriented x 3 in no apparent distress he is complaining of abdominal discomfort, nausea, poor oral intake, and constipation otherwise he denies any complaints at this time there is no fever or chills no headache or dizziness no chest pain no shortness of breath no cough no vomiting no burning with urination no frequency or urgency and no hematuria. On 02/06/2024 patient is alert and oriented x 3. Patient is still complaining of abdominal pain and poor oral intake. Surgical services following. Current vital signs temp 97.6, pulse rate 67, respiratory rate 17, blood pressure 137/75 with a pulse ox of 99% on room air. Awaiting further recommendations from surgical and oncology services On 02/07/2024 patient was seen and examined on the medical floor he is alert and oriented x 3 in no apparent distress he is still complaining of abdominal discomfort poor oral intake and nausea otherwise he denies any complaints there is no fever or chills no headache or dizziness no chest pain no shortness of breath no cough no vomiting no diarrhea no blood in the stools. Patient has di scomfort with urination. At this time there is evidence of urinary tract infection and IV ceftriaxone was added, infectious disease consultation was requested in regard to colitis we will continue to follow closely On 02/08/2024 patient is alert and oriented x 3. Antibiotic adjusted to Zosyn per infectious disease urine and stool cultures pending. Current vital signs temp 97.9, heart rate 72, respiratory rate 14, blood pressure 108/62 with a pulse ox of 98% on room air patient is still complaining some abdominal discomfort and poor oral intake. Patient denies chest pain. Patient denies any urinary burning or frequency On 02/09/2024 patient is alert and oriented x 3. Per surgical services no surgical intervention planned lactulose added for constipation. Patient remains on IV Zosyn for UTI. PT OT and social work services consulted for discharge planning likely ECF On 02/10/2024 patient was seen and examined on the medical floor he is alert and oriented x 3 in no apparent distress he is still complaining of some abdominal discomfort and generalized weakness otherwise he denies any complaints there is no fever or chills no headache or dizziness no chest pain no shortness of breath no cough no nausea or vomiting no diarrhea no blood in the stools and no urinary symptoms On 02/11/2024 patient is alert and oriented x 3. Patient remains on IV Zosyn. Patient still reporting poor appetite. Discharge planning to [facility]. Current vital signs temp 98.0, heart 67, respiratory rate 17, blood pressure 105/63 with a pulse ox of 98% on room air. On 02/12/2024 patient was seen and examined on the medical floor he is alert and oriented x 3 in no apparent distress he is complaining of abdominal discomfort, nausea, poor oral intake, he started having bowel movement, otherwise he denies any complaints at this time there is no fever or chills no headache or dizziness no chest pain no shortness of breath no cough no vomiting no burning with urination no frequency or urgency and no hematuria. Objective - Vital Signs Vital signs: Vital Signs Temp 98.6 F 02/12/24 07:03 Pulse 76 02/12/24 09:10 Resp 18 02/12/24 09:10 BP 101/50 02/12/24 07:03 Pulse Ox 98 02/12/24 07:03 FiO2 Intake & Output 02/11/24 02/12/24 02/12/24 18:59 06:59 18:59 Output Total 150 Balance -150 Weight 65.771 kg Output: Urine 150 Other: Voiding Method Urinal Urinal Urinal # Voids 1 2 # Bowel Movements 2 - Exam In general patient is alert and oriented x 3 in no distress HEENT head normocephalic and atraumatic Neck is supple no JVD no goiter no lymphadenopathy no carotid bruit Chest examination is clear to auscultation no crackles no wheezing Cardiac exam reveals regular heart sounds S1 and S2 no gallops no murmurs Abdomen is soft nontender no organomegaly with normal bowel sounds Extremity exam reveals no edema no cyanosis or clubbing Neurological examination reveals no gross focal deficits - Labs CBC & Chem 7: 02/12/24 03:34 02/12/24 03:34 Labs: Abnormal Lab Results - Last 24 Hours (Table) 02/12/24 02/12/24 Range/Units 03:34 03:34 WBC 2.41 L (4.50-10.00) X 10*3/uL RBC 2.83 L (4.40-5.60) X 10*6/uL Hgb 9.1 L (13.0-17.0) g/dL Hct 29.8 L (39.6-50.0) % MCV 105.3 H (80.0-97.0) FL MCH 32.2 H (27.0-32.0) pg MCHC 30.5 L (32.0-37.0) g/dL RDW 19.0 H (11.5-14.5) % Plt Count 116 L (140-440) X 10*3/uL Neutrophils # 1.74 L (1.80-7.70) X 10*3/uL Lymphocytes # 0.24 L (0.90-5.00) X 10*3/uL Chloride 117 H (96-109) mmol/L Carbon Dioxide 14.8 L (21.6-31.8) mmol/L BUN 46.8 H (9.0-27.0) mg/dL Creatinine 2.1 H (0.6-1.5) mg/dL Est GFR (CKD-EPI) 31 L (>=60) BUN/Creatinine Ratio 22.29 H (12.00-20.00) Ratio Calcium 7.9 L (8.7-10.3) mg/dL Total Bilirubin 0.2 L (0.3-1.2) mg/dL Total Protein 3.6 L (6.2-8.2) g/dL Albumin 2.2 L (3.8-4.9) g/dL Globulin 1.4 L (1.6-3.3) g/dL Albumin/Globulin Ratio 1.57 L (1.60-3.17) Ratio Microbiology - Last 24 Hours (Table) 02/07/24 16:55 Urine Culture - Final Urine,Voided Enterococcus faecalis Morganella morganii Assessment and Plan Plan: Abdominal pain with diarrhea. Patient started on IV Zosyn Hydropic gallbladder with gallstones Recent surgery for incarcerated left inguinal hernia and small bowel obstruction in October 2023 History of metastatic renal cell carcinoma Underlying history of hypertension Underlying history of hyperlipidemia Underlying history of chronic atrial fibrillation maintained on Eliquis At this time patient was seen and examined Home medications reviewed and reordered General surgery and oncology consultation requested Infectious disease services following For DVT prophylaxis patient is maintained on SCDs and anticoagulation on hold per surgery
[2024-02-12] MEDS: SODIUM FERRIC GLUCONAT-SUCROSE 125 MG in SODIUM CHLORIDE 0.9% 100 ML IVPB ONE (14:02)
--- NOTE | 2024-02-12 22:28 | P.PN ---
Subjective Progress Note Date: 02/12/24 Principal diagnosis: Reason for follow-up is colitis Patient is a 83-year-old male with a past medical history significant for hypertension hyperlipidemia sleep apnea GI bleed reflux in this patient presented to the hospital for evaluation of weakness diarrhea and abdominal pain patient did have a CT that had been suggestive of colitis involving the hepatic flexure prompting this consultation. On today's evaluation that is 02/12/2024 the patient continues to be afebrile, the patient is breathing comfortably on room air patient denies having any chest pain or cough, no nausea no vomiting abdominal pain and did have a few bowel movements starting last evening but not loose as reported by the nurse aide. Patient white count is 2.41 creatinine is 2.1 urine is going Enterococcus faecalis and Morganella Objective - Vital Signs Vital signs: Vital Signs Temp 97.4 F L 02/12/24 18:41 Pulse 74 02/12/24 18:41 Resp 14 02/12/24 18:41 BP 107/64 02/12/24 18:41 Pulse Ox 97 02/12/24 18:41 FiO2 Intake & Output 02/12/24 02/12/24 02/13/24 06:59 18:59 06:59 Output Total 200 Balance -200 Output: Urine 200 Other: Voiding Method Urinal Urinal # Voids 2 1 # Bowel Movements 2 1 - Exam GENERAL DESCRIPTION: An elderly male lying in bed in no distress RESPIRATORY SYSTEM: Unlabored breathing , decreased breath sounds at bases HEART: S1 S2 regular rate and rhythm , ABDOMEN: Soft , mild tenderness EXTREMITIES: No edema feet - Labs CBC & Chem 7: 02/12/24 03:34 02/12/24 03:34 Labs: Abnormal Lab Results - Last 24 Hours (Table) 02/12/24 02/12/24 Range/Units 03:34 03:34 WBC 2.41 L (4.50-10.00) X 10*3/uL RBC 2.83 L (4.40-5.60) X 10*6/uL Hgb 9.1 L (13.0-17.0) g/dL Hct 29.8 L (39.6-50.0) % MCV 105.3 H (80.0-97.0) FL MCH 32.2 H (27.0-32.0) pg MCHC 30.5 L (32.0-37.0) g/dL RDW 19.0 H (11.5-14.5) % Plt Count 116 L (140-440) X 10*3/uL Neutrophils # 1.74 L (1.80-7.70) X 10*3/uL Lymphocytes # 0.24 L (0.90-5.00) X 10*3/uL Chloride 117 H (96-109) mmol/L Carbon Dioxide 14.8 L (21.6-31.8) mmol/L BUN 46.8 H (9.0-27.0) mg/dL Creatinine 2.1 H (0.6-1.5) mg/dL Est GFR (CKD-EPI) 31 L (>=60) BUN/Creatinine Ratio 22.29 H (12.00-20.00) Ratio Calcium 7.9 L (8.7-10.3) mg/dL Total Bilirubin 0.2 L (0.3-1.2) mg/dL Total Protein 3.6 L (6.2-8.2) g/dL Albumin 2.2 L (3.8-4.9) g/dL Globulin 1.4 L (1.6-3.3) g/dL Albumin/Globulin Ratio 1.57 L (1.60-3.17) Ratio Assessment and Plan (1) Colitis Current Visit: Yes Status: Acute Priority: High Code(s): K52.9 - NON INFECTIVE GASTROENTERITIS AND COLITIS, UNSPECIFIED SNOMED Code(s): 33603968 Plan: 1patient presented to hospital with abdominal pain he also have some diarrhea CT has been suggestive of circumferential wall thickening of the hepatic flexure highly suggestive of ischemic colitis to be likely etiology infectious etiology less likely but not entirely excluded. 2 patient remains to be afebrile abdominal pain has decreased in intensity and did have bowel movement we will continue with Zosyn. 3urine is growing Klebsiella and Morganella should be covered with Zosyn patient is already on Dictation was produced using [employer] software. please excuse any grammatical, word or spelling errors. Time with Patient: Less than 30
--- NOTE | 2024-02-13 08:32 | P.PN ---
Subjective Progress Note Date: 02/13/24 Patient roe stable. There is no acute changes. He is having bowel movements. His constipation appears to be resolved. Objective - Vital Signs Vital signs: Vital Signs Temp 97.6 F 02/13/24 07:13 Pulse 63 02/13/24 07:13 Resp 17 02/13/24 07:13 BP 95/53 02/13/24 07:13 Pulse Ox 94 L 02/13/24 07:13 FiO2 Intake & Output 02/12/24 02/13/24 02/13/24 18:59 06:59 18:59 Output Total 200 Balance -200 Output: Urine 200 Other: Voiding Method Urinal # Voids 1 3 # Bowel Movements 1 1 - Labs CBC & Chem 7: 02/12/24 03:34 02/12/24 03:34 Labs: Abnormal Lab Results - Last 24 Hours (Table) 02/12/24 02/12/24 Range/Units 03:34 03:34 WBC 2.41 L (4.50-10.00) X 10*3/uL RBC 2.83 L (4.40-5.60) X 10*6/uL Hgb 9.1 L (13.0-17.0) g/dL Hct 29.8 L (39.6-50.0) % MCV 105.3 H (80.0-97.0) FL MCH 32.2 H (27.0-32.0) pg MCHC 30.5 L (32.0-37.0) g/dL RDW 19.0 H (11.5-14.5) % Plt Count 116 L (140-440) X 10*3/uL Neutrophils # 1.74 L (1.80-7.70) X 10*3/uL Lymphocytes # 0.24 L (0.90-5.00) X 10*3/uL Chloride 117 H (96-109) mmol/L Carbon Dioxide 14.8 L (21.6-31.8) mmol/L BUN 46.8 H (9.0-27.0) mg/dL Creatinine 2.1 H (0.6-1.5) mg/dL Est GFR (CKD-EPI) 31 L (>=60) BUN/Creatinine Ratio 22.29 H (12.00-20.00) Ratio Calcium 7.9 L (8.7-10.3) mg/dL Total Bilirubin 0.2 L (0.3-1.2) mg/dL Total Protein 3.6 L (6.2-8.2) g/dL Albumin 2.2 L (3.8-4.9) g/dL Globulin 1.4 L (1.6-3.3) g/dL Albumin/Globulin Ratio 1.57 L (1.60-3.17) Ratio
[2024-02-13 09:45] LABS: Basophils # (A) 0.01 X 10*3/uL (0.00-0.10); Basophils % (A) 0.5 %; Eosinophils # (A) 0.14 X 10*3/uL (0.04-0.35); Eosinophils % (A) 6.7 %; HCT 25.8 % (39.6-50.0); HGB 8.2 g/dL (13.0-17.0); Lymphocytes # (A) 0.25 X 10*3/uL (0.90-5.00); MCH 32.7 pg (27.0-32.0); MCHC 31.8 g/dL (32.0-37.0); MCV 102.8 FL (80.0-97.0); Mean Platelet Volume 11.6 FL (9.5-12.2); Monocytes # (A) 0.24 X 10*3/uL (0.20-1.00); Monocytes % (A) 11.5 %; NRBC Per 100 WBC 0 X 10*3/uL (0.00-0.01); Neutrophils # (A) 1.43 X 10*3/uL (1.80-7.70); Neutrophils % (A) 68.8 %; Platelet Count 121 X 10*3/uL (140-440); RBC 2.51 X 10*6/uL (4.40-5.60); WBC 2.08 X 10*3/uL (4.50-10.00)
[2024-02-13 09:56] LABS: ALT 22 U/L (10-49); AST 25 U/L (14-35); Albumin 2.1 g/dL (3.8-4.9); Alkaline Phosphatase 76 U/L (41-126); BUN/Creat Ratio 20.65 Ratio (12.00-20.00); Blood Urea Nitrogen 47.5 mg/dL (9.0-27.0); Calcium 7.8 mg/dL (8.7-10.3); Carbon Dioxide 14.9 mmol/L (21.6-31.8); Chloride 116 mmol/L (96-109); Globulin 1.4 g/dL (1.6-3.3); Glucose 96 mg/dL (70-110); Sodium 140 mmol/L (135-145); Total Bilirubin 0.3 mg/dL (0.3-1.2); Total Protein 3.5 g/dL (6.2-8.2)
--- NOTE | 2024-02-13 10:02 | P.PN ---
Subjective Progress Note Date: 02/13/24 Isidoro Prado, is an 83-year-old male who presented to [facility] emergency room with a chief complaint of diarrhea and severe weakness, patient stated that he started having diarrhea 2 weeks ago, he started having worsening weakness and fatigue, he was complaining of left lower quadrant abdominal pain, he decided to come to emergency room. He was evaluated in the emergency room vital examination on presentation revealed a temperature of 98.2 pulse 87 respiration 18 blood pressure 87/56 pulse ox 97% on room air Laboratory data reveals a white blood count of 5.9 hemoglobin 11.7 platelet count 67 sodium 140 potassium 3.2 chloride 116 CO2 10 BUN 63 creatinine 2.73 amylase 125 lipase 310 Testing in the emergency room revealed CT scan of the abdomen and pelvis revealed hydropic gallbladder measuring 5.0 cm with dependent gallstones, duodenal diverticulum, right-sided renal cortical cyst measuring 6 cm, fluid- filled small bowel loops throughout the abdomen, liquid stools within the cecum, moderate circumferential wall thickening in the hepatic flexure of the colon, left-sided diverticulosis. Patient was admitted to medical floor for further evaluation and treatment Past medical history is significant for history of renal cell carcinoma, previous history of diverticulosis with acute diverticulitis and history of gastrointestinal bleeding, history of hypertension, history of hyperlipidemia, history of chronic atrial fibrillation maintained on Eliquis. On 02/03/2024 patient was seen and examined on the medical floor he is alert and oriented x 3 in no apparent distress he is still complaining of severe weakness otherwise he denies any complaints at this time there is no fever or chills no headache or dizziness no chest pain no shortness of breath no cough no nausea or vomiting no abdominal pain he is still having episodes of diarrhea and no urinary symptoms. Input from general surgery reviewed patient is scheduled for repeat CT scan of the abdomen today we will continue to follow closely. On 02/04/2024 patient is alert and oriented x 3. Patient still complaining of some abdominal pain no bowel movement. Patient still having some nausea. Repeat CT scan was ordered for surgical services awaiting further input. Patient denies chest pain or shortness of breath. Current vital signs temp 98.5, heart 72, respiratory rate 16, blood pressure 120/71 with a pulse ox of 96% on room air On 02/05/2024 patient was seen and examined on the medical floor he is alert and oriented x 3 in no apparent distress he is complaining of abdominal discomfort, nausea, poor oral intake, and constipation otherwise he denies any complaints at this time there is no fever or chills no headache or dizziness no chest pain no shortness of breath no cough no vomiting no burning with urination no frequency or urgency and no hematuria. On 02/06/2024 patient is alert and oriented x 3. Patient is still complaining of abdominal pain and poor oral intake. Surgical services following. Current vital signs temp 97.6, pulse rate 67, respiratory rate 17, blood pressure 137/75 with a pulse ox of 99% on room air. Awaiting further recommendations from surgical and oncology services On 02/07/2024 patient was seen and examined on the medical floor he is alert and oriented x 3 in no apparent distress he is still complaining of abdominal discomfort poor oral intake and nausea otherwise he denies any complaints there is no fever or chills no headache or dizziness no chest pain no shortness of breath no cough no vomiting no diarrhea no blood in the stools. Patient has di scomfort with urination. At this time there is evidence of urinary tract infection and IV ceftriaxone was added, infectious disease consultation was requested in regard to colitis we will continue to follow closely On 02/08/2024 patient is alert and oriented x 3. Antibiotic adjusted to Zosyn per infectious disease urine and stool cultures pending. Current vital signs temp 97.9, heart rate 72, respiratory rate 14, blood pressure 108/62 with a pulse ox of 98% on room air patient is still complaining some abdominal discomfort and poor oral intake. Patient denies chest pain. Patient denies any urinary burning or frequency On 02/09/2024 patient is alert and oriented x 3. Per surgical services no surgical intervention planned lactulose added for constipation. Patient remains on IV Zosyn for UTI. PT OT and social work services consulted for discharge planning likely ECF On 02/10/2024 patient was seen and examined on the medical floor he is alert and oriented x 3 in no apparent distress he is still complaining of some abdominal discomfort and generalized weakness otherwise he denies any complaints there is no fever or chills no headache or dizziness no chest pain no shortness of breath no cough no nausea or vomiting no diarrhea no blood in the stools and no urinary symptoms On 02/11/2024 patient is alert and oriented x 3. Patient remains on IV Zosyn. Patient still reporting poor appetite. Discharge planning to [facility]. Current vital signs temp 98.0, heart 67, respiratory rate 17, blood pressure 105/63 with a pulse ox of 98% on room air. On 02/12/2024 patient was seen and examined on the medical floor he is alert and oriented x 3 in no apparent distress he is complaining of abdominal discomfort, nausea, poor oral intake, he started having bowel movement, otherwise he denies any complaints at this time there is no fever or chills no headache or dizziness no chest pain no shortness of breath no cough no vomiting no burning with urination no frequency or urgency and no hematuria. On 02/13/2024 patient is alert and oriented x 3. Patient reports still some poor oral intake and poor appetite. Patient does report he is having a bowel movement. Hemoglobin 8.2, creatinine 2.3 bun 47.5. Discharge planning to [facility]. Patient denies chest pain or shortness of breath. Patient denies any urinary burning or frequency Objective - Vital Signs Vital signs: Vital Signs Temp 97.6 F 02/13/24 07:13 Pulse 63 02/13/24 07:30 Resp 17 02/13/24 07:30 BP 95/53 02/13/24 07:13 Pulse Ox 94 L 02/13/24 07:13 FiO2 Intake & Output 02/12/24 02/13/24 02/13/24 18:59 06:59 18:59 Output Total 200 Balance -200 Output: Urine 200 Other: Voiding Method Urinal Urinal # Voids 1 3 # Bowel Movements 1 1 - Exam In general patient is alert and oriented x 3 in no distress HEENT head normocephalic and atraumatic Neck is supple no JVD no goiter no lymphadenopathy no carotid bruit Chest examination is clear to auscultation no crackles no wheezing Cardiac exam reveals regular heart sounds S1 and S2 no gallops no murmurs Abdomen is soft nontender no organomegaly with normal bowel sounds Extremity exam reveals no edema no cyanosis or clubbing Neurological examination reveals no gross focal deficits - Labs CBC & Chem 7: 02/13/24 02:42 02/13/24 02:42 Labs: Abnormal Lab Results - Last 24 Hours (Table) 02/12/24 02/12/24 02/13/24 Range/Units 03:34 03:34 02:42 WBC 2.41 L 2.08 L (4.50-10.00) X 10*3/uL RBC 2.83 L 2.51 L (4.40-5.60) X 10*6/uL Hgb 9.1 L 8.2 L (13.0-17.0) g/dL Hct 29.8 L 25.8 L (39.6-50.0) % MCV 105.3 H 102.8 H (80.0-97.0) FL MCH 32.2 H 32.7 H (27.0-32.0) pg MCHC 30.5 L 31.8 L (32.0-37.0) g/dL RDW 19.0 H 19.0 H (11.5-14.5) % Plt Count 116 L 121 L (140-440) X 10*3/uL Neutrophils # 1.74 L 1.43 L (1.80-7.70) X 10*3/uL Lymphocytes # 0.24 L 0.25 L (0.90-5.00) X 10*3/uL Chloride 117 H (96-109) mmol/L Carbon Dioxide 14.8 L (21.6-31.8) mmol/L BUN 46.8 H (9.0-27.0) mg/dL Creatinine 2.1 H (0.6-1.5) mg/dL Est GFR (CKD-EPI) 31 L (>=60) BUN/Creatinine Ratio 22.29 H (12.00-20.00) Ratio Calcium 7.9 L (8.7-10.3) mg/dL Total Bilirubin 0.2 L (0.3-1.2) mg/dL Total Protein 3.6 L (6.2-8.2) g/dL Albumin 2.2 L (3.8-4.9) g/dL Globulin 1.4 L (1.6-3.3) g/dL Albumin/Globulin Ratio 1.57 L (1.60-3.17) Ratio 02/13/24 Range/Units 02:42 WBC (4.50-10.00) X 10*3/uL RBC (4.40-5.60) X 10*6/uL Hgb (13.0-17.0) g/dL Hct (39.6-50.0) % MCV (80.0-97.0) FL MCH (27.0-32.0) pg MCHC (32.0-37.0) g/dL RDW (11.5-14.5) % Plt Count (140-440) X 10*3/uL Neutrophils # (1.80-7.70) X 10*3/uL Lymphocytes # (0.90-5.00) X 10*3/uL Chloride 116 H (96-109) mmol/L Carbon Dioxide 14.9 L (21.6-31.8) mmol/L BUN 47.5 H (9.0-27.0) mg/dL Creatinine 2.3 H (0.6-1.5) mg/dL Est GFR (CKD-EPI) 28 L (>=60) BUN/Creatinine Ratio 20.65 H (12.00-20.00) Ratio Calcium 7.8 L (8.7-10.3) mg/dL Total Bilirubin (0.3-1.2) mg/dL Total Protein 3.5 L (6.2-8.2) g/dL Albumin 2.1 L (3.8-4.9) g/dL Globulin 1.4 L (1.6-3.3) g/dL Albumin/Globulin Ratio 1.50 L (1.60-3.17) Ratio Assessment and Plan Plan: Abdominal pain with diarrhea. Patient started on IV Zosyn Hydropic gallbladder with gallstones Recent surgery for incarcerated left inguinal hernia and small bowel obstruction in October 2023 History of metastatic renal cell carcinoma Underlying history of hypertension Underlying history of hyperlipidemia Underlying history of chronic atrial fibrillation maintained on Eliquis At this time patient was seen and examined Home medications reviewed and reordered General surgery and oncology consultation requested Infectious disease services following DC planning to [facility] For DVT prophylaxis patient is maintained on SCDs and anticoagulation on hold per surgery
--- NOTE | 2024-02-13 22:01 | P.PN ---
Subjective Progress Note Date: 02/13/24 Principal diagnosis: Reason for follow-up is colitis Patient is a 83-year-old male with a past medical history significant for hypertension hyperlipidemia sleep apnea GI bleed reflux in this patient presented to the hospital for evaluation of weakness diarrhea and abdominal pain patient did have a CT that had been suggestive of colitis involving the hepatic flexure prompting this consultation. On today's evaluation that is 02/13/2024, the patient continues to be afebrile, the patient is on room air and breathing comfortably, the Pt denies having any chest pain or cough, the patient denies having any abdominal pain did have a bowel movements did have some nausea but no vomiting decreased appetite. Patient white count is 2.08, creatinine is 2.3 Objective - Vital Signs Vital signs: Vital Signs Temp 97.4 F L 02/13/24 13:25 Pulse 67 02/13/24 13:25 Resp 17 02/13/24 13:25 BP 113/71 02/13/24 13:25 Pulse Ox 98 02/13/24 13:25 FiO2 Intake & Output 02/12/24 02/13/24 02/13/24 18:59 06:59 18:59 Output Total 200 200 Balance -200 -200 Output: Urine 200 200 Other: Voiding Method Urinal Urinal # Voids 1 3 # Bowel Movements 1 1 - Exam GENERAL DESCRIPTION: An elderly male lying in bed in no distress RESPIRATORY SYSTEM: Unlabored breathing , decreased breath sounds at bases HEART: S1 S2 regular rate and rhythm , ABDOMEN: Soft , mild tenderness EXTREMITIES: No edema feet - Labs CBC & Chem 7: 02/13/24 02:42 02/13/24 02:42 Labs: Abnormal Lab Results - Last 24 Hours (Table) 02/13/24 02/13/24 Range/Units 02:42 02:42 WBC 2.08 L (4.50-10.00) X 10*3/uL RBC 2.51 L (4.40-5.60) X 10*6/uL Hgb 8.2 L (13.0-17.0) g/dL Hct 25.8 L (39.6-50.0) % MCV 102.8 H (80.0-97.0) FL MCH 32.7 H (27.0-32.0) pg MCHC 31.8 L (32.0-37.0) g/dL RDW 19.0 H (11.5-14.5) % Plt Count 121 L (140-440) X 10*3/uL Neutrophils # 1.43 L (1.80-7.70) X 10*3/uL Lymphocytes # 0.25 L (0.90-5.00) X 10*3/uL Chloride 116 H (96-109) mmol/L Carbon Dioxide 14.9 L (21.6-31.8) mmol/L BUN 47.5 H (9.0-27.0) mg/dL Creatinine 2.3 H (0.6-1.5) mg/dL Est GFR (CKD-EPI) 28 L (>=60) BUN/Creatinine Ratio 20.65 H (12.00-20.00) Ratio Calcium 7.8 L (8.7-10.3) mg/dL Total Protein 3.5 L (6.2-8.2) g/dL Albumin 2.1 L (3.8-4.9) g/dL Globulin 1.4 L (1.6-3.3) g/dL Albumin/Globulin Ratio 1.50 L (1.60-3.17) Ratio Assessment and Plan (1) Colitis Current Visit: Yes Status: Acute Priority: High Code(s): K52.9 - NONINFECTIVE GASTROENTERITIS AND COLITIS, UNSPECIFIED SNOMED Code(s): 68740675 Plan: 1patient presented to hospital with abdominal pain he also have some diarrhea CT has been suggestive of circumferential wall thickening of the hepatic flexure highly suggestive of ischemic colitis to be likely etiology infectious etiology less likely but not entirely excluded. 2 patient remains to be afebrile abdominal pain has decreased in intensity and did have bowel movement we will continue with Zosyn. While inpatient but will transition to oral Augmentin on discharge 3urine is growing Klebsiella and Morganella should be covered with Zosyn patient is already on Family the bedside questions answered Dictation was produced using [employer] dictation software. please excuse any grammatical, word or spelling errors. Time with Patient: Less than 30
[2024-02-14 08:33] LABS: Basophils # (A) 0.01 X 10*3/uL (0.00-0.10); Basophils % (A) 0.4 %; Eosinophils # (A) 0.12 X 10*3/uL (0.04-0.35); Eosinophils % (A) 4.3 %; HCT 28.6 % (39.6-50.0); Lymphocytes # (A) 0.24 X 10*3/uL (0.90-5.00); Lymphocytes % (A) 8.6 %; MCHC 31.5 g/dL (32.0-37.0); MCV 101.8 FL (80.0-97.0); Mean Platelet Volume 11.2 FL (9.5-12.2); Monocytes # (A) 0.23 X 10*3/uL (0.20-1.00); Monocytes % (A) 8.3 %; NRBC Per 100 WBC 0 X 10*3/uL (0.00-0.01); Neutrophils # (A) 2.17 X 10*3/uL (1.80-7.70); Platelet Count 141 X 10*3/uL (140-440); RBC 2.81 X 10*6/uL (4.40-5.60); RDW 18.6 % (11.5-14.5); WBC 2.78 X 10*3/uL (4.50-10.00)
[2024-02-14 08:48] LABS: ALT 23 U/L (10-49); AST 25 U/L (14-35); Albumin 2.2 g/dL (3.8-4.9); Albumin/Globulin Ratio 1.47 Ratio (1.60-3.17); Alkaline Phosphatase 79 U/L (41-126); BUN/Creat Ratio 20.27 Ratio (12.00-20.00); Blood Urea Nitrogen 44.6 mg/dL (9.0-27.0); Calcium 8.2 mg/dL (8.7-10.3); Carbon Dioxide 14.1 mmol/L (21.6-31.8); Chloride 115 mmol/L (96-109); Globulin 1.5 g/dL (1.6-3.3); Glucose 106 mg/dL (70-110); Sodium 141 mmol/L (135-145); Total Bilirubin 0.3 mg/dL (0.3-1.2); Total Protein 3.7 g/dL (6.2-8.2)
[2024-02-14] MEDS: bisacodyL 10 MG SUPP RECTAL STA (10:31)
[2024-02-14] MEDS: LACTULOSE 20 GM/30 ML CUP PO ONE (10:32)
--- NOTE | 2024-02-14 11:18 | P.PN ---
Subjective Progress Note Date: 02/14/24 CHIEF COMPLAINT: Abdominal pain HISTORY OF PRESENT ILLNESS: Patient sitting at the edge of bed. Abdomen is softer than Wednesday. Mildly distended. Patient reports no bowel movement yesterday. He denies any nausea or vomiting. He is having flatus. Afebrile. WBC 2.78 Hgb stable at 9.0 platelets 141 PHYSICAL EXAM: VITAL SIGNS: Reviewed. GENERAL: no acute distress. ABDOMEN: Soft. Mildly distended. Nontender NEUROLOGIC: Alert and oriented. Cranial nerves II through XII grossly intact. ASSESSMENT: 1. Iliopsoas hematoma. Patient on blood thinners at home. The hematoma may be contributing to patient's left groin pain. 2. Moderate circumferential wall thickening at the hepatic flexure of the colon with possible colitis. Resolved on repeat CAT scan 3. Diarrhea resolved 4. History of DVT on Eliquis 5. Status post open repair of incarcerated left inguinal hernia with left orchiectomy and laparotomy with lysis of adhesions and small bowel resection on November 02, 2023 6. History of renal cancer status post nephrectomy 7. Constipation PLAN: -No surgical intervention planned -Continue regular diet -Increase activity level -Continue to hold Eliquis -Agree with discharge to ECF -Continue colace and miralax -Initially lactulose and Dulcolax suppository ordered for today. Patient refused them and nurse reported that patient did have a bowel movement yesterday. Agree will holding off on lactulose and Dulcolax at this time Physician Jig Maker note has been reviewed by physician. Signing provider agrees with the documented findings, assessment, and plan of care. I have personally seen and examined the patient, reviewed the TRANSMISSION BUILDER /PAs history, exam and MDM and agree with the assessment and plan as written. Based on total visit time, I have performed more than 50% of the visit. As above: Patient remains distended. Denies pain. Apparently he is refusing lactulose. He did have a bowel movement yesterday per the nursing staff. Will increase MiraLAX to 3 times daily for now. Reassess abdomen tomorrow. Objective - Vital Signs Vital signs: Vital Signs Temp 97.5 F L 02/14/24 06:58 Pulse 65 02/14/24 06:58 Resp 17 02/14/24 06:58 BP 107/67 02/14/24 06:58 Pulse Ox 98 02/14/24 06:58 FiO2 Intake & Output 02/13/24 02/14/24 02/14/24 18:59 06:59 18:59 Output Total 200 560 400 Balance -200 -560 -400 Output: Urine 200 560 400 Other: Voiding Method Urinal - Labs CBC & Chem 7: 02/14/24 03:14 02/14/24 03:14 Labs: Abnormal Lab Results - Last 24 Hours (Table) 02/14/24 02/14/24 Range/Units 03:14 03:14 WBC 2.78 L (4.50-10.00) X 10*3/uL RBC 2.81 L (4.40-5.60) X 10*6/uL Hgb 9.0 L (13.0-17.0) g/dL Hct 28.6 L (39.6-50.0) % MCV 101.8 H (80.0-97.0) FL MCHC 31.5 L (32.0-37.0) g/dL RDW 18.6 H (11.5-14.5) % Lymphocytes # 0.24 L (0.90-5.00) X 10*3/uL Chloride 115 H (96-109) mmol/L Carbon Dioxide 14.1 L (21.6-31.8) mmol/L BUN 44.6 H (9.0-27.0) mg/dL Creatinine 2.2 H (0.6-1.5) mg/dL Est GFR (CKD-EPI) 29 L (>=60) BUN/Creatinine Ratio 20.27 H (12.00-20.00) Ratio Calcium 8.2 L (8.7-10.3) mg/dL Total Protein 3.7 L (6.2-8.2) g/dL Albumin 2.2 L (3.8-4.9) g/dL Globulin 1.5 L (1.6-3.3) g/dL Albumin/Globulin Ratio 1.47 L (1.60-3.17) Ratio
--- NOTE | 2024-02-14 12:59 | P.PN ---
Subjective Progress Note Date: 02/14/24 Principal diagnosis: Reason for follow-up is colitis Patient is a 83-year-old male with a past medical history significant for hypertension hyperlipidemia sleep apnea GI bleed reflux in this patient presented to the hospital for evaluation of weakness diarrhea and abdominal pain patient did have a CT that had been suggestive of colitis involving the hepatic flexure prompting this consultation. On today's evaluation that is 02/14/2024, Patient is afebrile patient is currently on room air and denies having any shortness of breath, the patient denies any chest pain or cough, the patient denies any nausea vomiting some vague abdominal discomfort today did have bowel movements and no diarrhea. Patient white count is 2.78, creatinine is 2.2 Objective - Vital Signs Vital signs: Vital Signs Temp 97.5 F L 02/14/24 06:58 Pulse 65 02/14/24 06:58 Resp 17 02/14/24 06:58 BP 107/67 02/14/24 06:58 Pulse Ox 98 02/14/24 06:58 FiO2 Intake & Output 02/13/24 02/14/24 02/14/24 18:59 06:59 18:59 Output Total 200 560 400 Balance -200 -560 -400 Output: Urine 200 560 400 Other: Voiding Method Urinal - Exam Elderly male up in the chair in no distress No tachypnea or accessory muscle respiration use Unlabored breathing - Labs CBC & Chem 7: 02/14/24 03:14 02/14/24 03:14 Labs: Abnormal Lab Results - Last 24 Hours (Table) 02/14/24 02/14/24 Range/Units 03:14 03:14 WBC 2.78 L (4.50-10.00) X 10*3/uL RBC 2.81 L (4.40-5.60) X 10*6/uL Hgb 9.0 L (13.0-17.0) g/dL Hct 28.6 L (39.6-50.0) % MCV 101.8 H (80.0-97.0) FL MCHC 31.5 L (32.0-37.0) g/dL RDW 18.6 H (11.5-14.5) % Lymphocytes # 0.24 L (0.90-5.00) X 10*3/uL Chloride 115 H (96-109) mmol/L Carbon Dioxide 14.1 L (21.6-31.8) mmol/L BUN 44.6 H (9.0-27.0) mg/dL Creatinine 2.2 H (0.6-1.5) mg/dL Est GFR (CKD-EPI) 29 L (>=60) BUN/Creatinine Ratio 20.27 H (12.00-20.00) Ratio Calcium 8.2 L (8.7-10.3) mg/dL Total Protein 3.7 L (6.2-8.2) g/dL Albumin 2.2 L (3.8-4.9) g/dL Globulin 1.5 L (1.6-3.3) g/dL Albumin/Globulin Ratio 1.47 L (1.60-3.17) Ratio Assessment and Plan (1) Colitis Current Visit: Yes Status: Acute Priority: High Code(s): K52.9 - NONINFECTIVE GASTROENTERITIS AND COLITIS, UNSPECIFIED SNOMED Code(s): 07673680 Plan: 1patient presented to hospital with abdominal pain he also have some diarrhea CT has been suggestive of circumferential wall thickening of the hepatic flexure highly suggestive of ischemic colitis to be likely etiology infectious etiology less likely but not entirely excluded. 2 patient remains to be afebrile abdominal pain has decreased in intensity and did have bowel movement we will continue with Zosyn. 3urine is growing Klebsiella and Morganella should be covered with Zosyn patient is already on 4-plan is for a week to 10 days course of oral Augmentin on discharge Dictation was produced using [employer] dictation software. please excuse any grammatical, word or spelling errors. Time with Patient: Less than 30
--- NOTE | 2024-02-14 15:15 | P.CONS ---
History of Present Illness - Reason for Consult Consult date: 02/14/24 Colitis Requesting physician: Ruperto Reese - Chief Complaint Diarrhea and weakness - History of Present Illness This is a 83-year-old male who presented with diarrhea and weakness 13 days ago. Patient reports he had diarrhea over the last 2 weeks prior to coming into the emergency department. He denies any blood in his stools. He denies any nausea or vomiting. He had a CT scan abdomen pelvis that had reported thickening of the colon in the hepatic flexure and possible colitis, and possible hematoma at the left iliopsoas. Patient was on Eliquis. Patient does have a history of stage IV renal cancer status post left nephrectomy and has been on chemotherapy currently on Keytruda. Patient does complain of pain that is sharp in the left groin area. He did have a recent left inguinal hernia open repair in October 2023. Gastroenterology was consulted last week for colitis however there was no GI coverage. General surgery was consulted for iliopsoas hematoma. Last EGD and colonoscopy was in March 2021. EGD revealed gastric antral vascular dysphagia with no active bleeding and small. Scattered sigmoid diverticulosis and small internal. Patient states diarrhea has stopped. He has not had any bowel movements in the last couple days duration. He denied ever having any blood in his stool or black stool. No abdominal pain, nausea or vomiting associated with the diarrhea. He had to follow-up CTs of the abdomen pelvis with resolution of colitis. Patient is also being treated for urinary tract infection he has been on IV antibiotics. Review of Systems REVIEW OF SYSTEMS: CARDIOPULMONARY: No chest pain or shortness of breath. Gastrointestinal: No abdominal pain. No nausea or vomiting. No hematemesis, coffee-ground emesis. No rectal bleeding, or melena. Diarrhea now resolved. GENITOURINARY: No dysuria or hematuria. Left inguinal pain. MUSCULOSKELETAL: Reports normal range of motion., Joint pain. SKIN: No rashes. No jaundice. ENDOCRINE: No chills, fevers. No excessive weight gain or loss. No polydipsia or polyuria. PSYCHIATRIC: Unremarkable. NEUROLOGY: No change in mental status. Denies dizziness, headache. ENT: Vision unremarkable. CONSTITUTIONAL: No recent weight loss. No fever, chills, night sweats. Past Medical History Past Medical History: GERD/Reflux, GI Bleed, Hyperlipidemia, Hypertension, Renal Disease, Sleep Apnea/CPAP/BIPAP Additional Past Medical History / Comment(s): HTN & GI BLEED RESOVLED. Renal cell cancer. RECENT DX OF MASS ON LT KIDNEY. HX OF DIVERTICULITIS History of Any Multi-Drug Resistant Organisms: None Reported Past Surgical History: Appendectomy Additional Past Surgical History / Comment(s): EGD. COLONOSCOPY. ESOPHAGEAL OBSTRUCTION REMOVED. HEMORRHOIDECTOMY. SURGERY FOR BLEEDING ULCER. SEVERAL PROCEDURES FOR PERITONITIS R/T RUPTURED APPENDIX. left kidney removed. Past Anesthesia/Blood Transfusion Reactions: No Reported Reaction Past Psychological History: No Psychological Hx Reported Smoking Status: Never smoker Past Alcohol Use History: None Reported, Rare Past Drug Use History: None Reported - Past Family History Mother Family Medical History: Diabetes Mellitus, Hypertension Additional Family Medical History / Comment(s): ANEURYSM Father Family Medical History: Cancer, Coronary Artery Disease (CAD), CVA/TIA, Hyperlipidemia Additional Family Medical History / Comment(s): Ca: bladder; cabg Medications and Allergies Home Medications Medication Instructions Recorded Confirmed Type Omeprazole 20 mg PO BID 02/19/14 02/01/24 History allopurinoL [Allopurinol] 100 mg PO DAILY 02/19/14 02/01/24 History Acetaminophen [Tylenol Arthritis] 650 mg PO Q8H PRN 04/17/21 02/01/24 History Acetaminophen [Tylenol Extra 500 mg PO Q6H PRN 04/17/21 02/01/24 History Strength] Atorvastatin [Lipitor] 20 mg PO HS 04/17/21 02/01/24 History Fexofenadine HCl [[place] Allergy] 180 mg PO DAILY PRN 04/17/21 02/01/24 History Folic Acid 0.4 mg PO DAILY 04/17/21 02/01/24 History Furosemide [Lasix] 20 mg PO DAILY 04/17/21 02/01/24 History Ipratropium [place] 0.06%Nasal 1 - 2 spray EA NOSTRIL DAILY PRN 04/17/21 02/01/24 History [Atrovent Nasal 0.06%] Levothyroxine Sodium 25 mcg PO SUMOTUTHFRSA 04/17/21 02/01/24 History Loperamide [Imodium] 2 mg PO QID PRN 04/17/21 02/01/24 History Tamsulosin HCl [Flomax] 0.8 mg PO HS 04/17/21 02/01/24 History Apixaban [Eliquis] 2.5 mg PO BID 10/26/23 02/01/24 History Aspirin EC [Ecotrin Low Dose] 81 mg PO DAILY 10/26/23 02/01/24 History Cholecalciferol (Vitamin D3) 50 mcg PO DAILY 10/26/23 02/01/24 History [Vitamin D3 (50 Mcg = 2000 Iu)] Diclofenac Sodium [Voltaren 1 applic TOPICAL DAILY PRN 10/26/23 02/01/24 History Arthritis Pain 1% Gel] Diphenoxylate HCl/Atropine 1 tab PO QID PRN 10/26/23 02/01/24 History [Lomotil 2.5-0.025 mg Tablet] Levothyroxine Sodium 50 mcg PO WE 10/26/23 02/01/24 History Lidocaine 5% Patch [Lidoderm 5% 1 patch TOPICAL DAILY PRN 10/26/23 02/01/24 History Patch] Oxybutynin Chloride [oxyBUTYnin 15 mg PO DAILY 10/26/23 02/01/24 History chloride ER] Pembrolizumab [Keytruda] 1 dose IV Q21D 10/26/23 02/01/24 History Triamcinolone Acetonide [Nasacort] 1 spray EA NOSTRIL HS PRN 10/26/23 02/01/24 History Xgeva Injection 1 dose SQ Q56D 10/26/23 02/01/24 History Lenvatinib Mesylate [Lenvima 20mg 20 mg PO DAILY 02/01/24 02/01/24 History (Dosepack = 2 x 10mg capsules)] Prochlorperazine [Compazine] 10 mg PO BID PRN 02/01/24 02/01/24 History Allergies Allergy/AdvReac Type Severity Reaction Status Date / Time weed pollen Allergy runny Verified 02/01/24 17:15 nose, red eyes dust mites Allergy rash, Uncoded 02/01/24 17:15 swelling goldenrod Allergy Rash/Hives Uncoded 02/01/24 17:15 MOLD Allergy RASH, Uncoded 02/01/24 17:15 SWELLING. Physical Exam Vitals: Vital Signs Temp Pulse Resp BP Pulse Ox 02/14/24 06:58 97.5 F L 65 17 107/67 98 02/14/24 03:09 64 02/14/24 02:00 97.9 F 44 L 108/65 94 L 02/13/24 20:38 19 02/13/24 20:00 97.5 F L 66 108/69 98 02/13/24 13:25 97.4 F L 67 17 113/71 98 Intake and Output 02/13/24 02/14/24 02/14/24 22:59 06:59 14:59 Output Total 200 560 400 Balance -200 -560 -400 Output: Urine 200 560 400 General appearance: The patient is alert, oriented, appears in no acute distress. HET: Head is normocephalic and atraumatic. Conjunctiva pink. Sclera anicteric. Neck: Supple without lymphadenopathy. Trachea midline. Heart: Regular. Lungs: Equal expansion, normal respiratory effort. Abdomen: Soft, nontender, nondistended. Skin: No rashes. No jaundice. Extremities: Normal skin color and turgor. No pedal edema. Neurological: No focal deficits. Alert and oriented x3. Results CBC & Chem 7: 02/14/24 03:14 02/14/24 03:14 Labs: Abnormal Lab Results - Last 24 Hours (Table) 02/14/24 02/14/24 Range/Units 03:14 03:14 WBC 2.78 L (4.50-10.00) X 10*3/uL RBC 2.81 L (4.40-5.60) X 10*6/uL Hgb 9.0 L (13.0-17.0) g/dL Hct 28.6 L (39.6-50.0) % MCV 101.8 H (80.0-97.0) FL MCHC 31.5 L (32.0-37.0) g/dL RDW 18.6 H (11.5-14.5) % Lymphocytes # 0.24 L (0.90-5.00) X 10*3/uL Chloride 115 H (96-109) mmol/L Carbon Dioxide 14.1 L (21.6-31.8) mmol/L BUN 44.6 H (9.0-27.0) mg/dL Creatinine 2.2 H (0.6-1.5) mg/dL Est GFR (CKD-EPI) 29 L (>=60) BUN/Creatinine Ratio 20.27 H (12.00-20.00) Ratio Calcium 8.2 L (8.7-10.3) mg/dL Total Protein 3.7 L (6.2-8.2) g/dL Albumin 2.2 L (3.8-4.9) g/dL Globulin 1.5 L (1.6-3.3) g/dL Albumin/Globulin Ratio 1.47 L (1.60-3.17) Ratio Comments: Abdominal x-ray dated 02/11/2024 reports nonobstructive bowel gas pattern with moderate to large colonic stool present. Postsurgical changes. Small left pleural effusion. CT abdomen pelvis without contrast dated 02/08/2024 reports similar asymmetric enlargement of the left iliopsoas muscle with surrounding stranding/fluid and some intrinsic hyperdensity. Favored to represent intramuscular/Retroperitoneal hemorrhage/hematoma. No significant change from prior exam. Cholelithiasis. 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 Unchanged appearance to the proximal right femur with sclerosis and fragmentation. Underlying right hip hemiarthroplasty are demonstrated. Status post left nephrectomy. Increased small bilateral pleural effusions with increased diffuse anasarca and small volume simple appearing ascites. Correlate for worsening volume overload. Resolution of previously demonstrated hepatic flexure colonic wall thickening. Assessment and Plan Assessment: 1. Colitis with diarrhea, resolved. Possible acute ischemic colitis versus infectious colitis now resolved. 2. Iliopsoas hematoma, general surgery following 3. Anticoagulation for history of DVT, likely contributed to hematoma 4. Urinary tract infection 5. Renal cell cancer status post nephrectomy on Keytruda 6. Chronic constipation Plan: 1. Continue symptomatic and supportive care 2. Recommend holding any aggressive measures for laxatives at this time 3. Encourage ambulation 4. No plans on endoscopic evaluation 5. Diet as tolerated. Encourage oral intake Thank you for this consultation, we will continue to follow. Dr. Kathleen Arteaga I agree with the dictator's note, documented as a scribe by Aurelia Peguero.
--- NOTE | 2024-02-14 15:19 | P.PN ---
Subjective Progress Note Date: 02/14/24 Principal diagnosis: Colitis, dehydration. RCC. In f/u today pt reports he is tired, did not sleep well and was up early. His appetite is still really poor, no taste. Swelling in his arms and legs is persistent, he denies the swelling being progressive at this time. No urine sym ptoms, denies F, N, new pain. He is requesting help to bed from the chair. Objective - Vital Signs Vital signs: Vital Signs Temp 97.5 F L 02/14/24 06:58 Pulse 65 02/14/24 06:58 Resp 17 02/14/24 06:58 BP 107/67 02/14/24 06:58 Pulse Ox 98 02/14/24 06:58 FiO2 Intake & Output 02/13/24 02/14/24 02/14/24 18:59 06:59 18:59 Output Total 200 560 400 Balance -200 -560 -400 Output: Urine 200 560 400 Other: Voiding Method Urinal - Constitutional General appearance: Present: average body habitus, cooperative, no acute distress - EENT EENT Comment(s): coated tongue, dry mouth Eyes: Present: anicteric sclerae, EOMI ENT: Present: hearing grossly normal - Respiratory Details: resp even and unlabored at rest - Cardiovascular Details: skin warm, swell perfused - Peripheral edema leg Peripheral Edema: bilateral: 2+, Pitting, Other (Upper extremity subcutaneous swelling, R>L) - Gastrointestinal General gastrointestinal: Present: soft - Integumentary Integumentary: Present: pale - Neurologic Neurologic: Present: CNII-XII intact - Musculoskeletal Musculoskeletal: Present: generalized weakness - Psychiatric Psychiatric: Present: A&O x's 3, appropriate affect, intact judgment & insight - Labs CBC & Chem 7: 02/14/24 03:14 02/14/24 03:14 Labs: Abnormal Lab Results - Last 24 Hours (Table) 02/14/24 02/14/24 Range/Units 03:14 03:14 WBC 2.78 L (4.50-10.00) X 10*3/uL RBC 2.81 L (4.40-5.60) X 10*6/uL Hgb 9.0 L (13.0-17.0) g/dL Hct 28.6 L (39.6-50.0) % MCV 101.8 H (80.0-97.0) FL MCHC 31.5 L (32.0-37.0) g/dL RDW 18.6 H (11.5-14.5) % Lymphocytes # 0.24 L (0.90-5.00) X 10*3/uL Chloride 115 H (96-109) mmol/L Carbon Dioxide 14.1 L (21.6-31.8) mmol/L BUN 44.6 H (9.0-27.0) mg/dL Creatinine 2.2 H (0.6-1.5) mg/dL Est GFR (CKD-EPI) 29 L (>=60) BUN/Creatinine Ratio 20.27 H (12.00-20.00) Ratio Calcium 8.2 L (8.7-10.3) mg/dL Total Protein 3.7 L (6.2-8.2) g/dL Albumin 2.2 L (3.8-4.9) g/dL Globulin 1.5 L (1.6-3.3) g/dL Albumin/Globulin Ratio 1.47 L (1.60-3.17) Ratio Assessment and Plan (1) Colitis Current Visit: Yes Status: Acute Priority: High Code(s): K52.9 - NONINFECTIVE GASTROENTERITIS AND COLITIS, UNSPECIFIED SNOMED Code(s): 86098699 (2) Dehydration Current Visit: Yes Status: Acute Priority: High Code(s): E86.0 - DEHYDRA TION SNOMED Code(s): 28122282 (3) Iliopsoas muscle hematoma Current Visit: Yes Status: Acute Priority: Medium Code(s): S70.10XA - CONTUSION OF UNSPECIFIED THIGH, INITIAL ENCOUNTER SNOMED Code(s): 879388687 (4) Renal cell carcinoma Current Visit: Yes Status: Acute Priority: High Code(s): C64.9 - MALIGNANT NEOPLASM OF UNSP KIDNEY, EXCEPT RENAL PELVIS SNOMED Code(s): 651415260 Plan: Diarrhea/colitis -CT abdomen and pelvis showed fluid-filled small bowel loops throughout along with liquid stool in the cecum. Moderate circumferential wall thickening at the hepatic flexure of the colon. Gallstones measuring up to 1.3 cm. -Diarrhea resolved since admission. I do not see where any stool studies were done so, no need now that diarrhea has resolved. -Diarrhea likely related to Lenvima. IO induced colitis less likely as diarrhea resolved just holding Lenvima -Repeat CT AP showing similar moderate circumferential wall thickening at the hepatic flexure of the colon -After admit pt reported constipation. Abdominal x-ray obtained reported nonobstructive bowel gas pattern with moderate to large colonic stool present. Lactulose and Dulcolax suppository were made available as well. Pt has had several documented BMs in the last 24 hours. Cont colace and miralax. Iliopsoas hematoma -Presented with significant left groin pain. CT AP showed asymmetric enlargement of the left iliopsoas musculature with surrounding stranding and edema. Suspected intramuscular hemorrhage/hematoma. -Eliquis has been held. General surgery following Macrocytic Anemia -Hgb 11.7 on admit. Today Hgb stable at 9 -Left iliopsoas hematoma, no documented trauma. Denies blood in stool/melena. Eliquis held -Anemia labs consistent with anemia of inflammation -Continue to monitor CBC Hypothyroidism -Possible IO induced thyroiditis -Thyroid studies checked in clinic on 01/27. TSH 75.6, T4 0.88, T3 1.7. Synthroid increased to 50mcg daily Metastatic RCC -Oncological history as dictated in consult -Currently on treatment with Lenvima and Keytruda, completing cycle 3 of keytruda on 01/27/24. Last dose of Lenvima was 1 day prior to admit -Plan is for rehab, as pt has debilitated rather quickly. -Chemo/IO is going to be held until after scans are done and pt has met with Oncologist -Treatment response scans scheduled. Scan appt date and time and f/u with Dr. Rasmussen appt date and time in pt discharge plan Decreased oral intake -pt reported loss of appetite and early satiety. He was started on marinol, reported improvement in appetite. Now today pt reports poor appetite due to lack of taste. Mucus membranes are dry,tongue is coated. Ordered kools without lidocaine, encouraged salt and soda oral rinse multiple times a day. Pt will also try hard candy. Encouraged soup vs hamburger and kosovan fries.
[2024-02-14] MEDS: polyethylene glycoL 3350 17 GM POWD.PACK PO SCH (16:06)
[2024-02-14] MEDS: MAG HYDROX/AL HYDROX/SIMETH 30 ML, diphenhydrAMINE ELIXIR 75 MG, NYSTATIN 100,000 UNIT/... PO SCH (16:56)
--- NOTE | 2024-02-14 17:44 | P.PN ---
Subjective Progress Note Date: 02/14/24 Isidoro Prado, is an 83-year-old male who presented to [facility] emergency room with a chief complaint of diarrhea and severe weakness, patient stated that he started having diarrhea 2 weeks ago, he started having worsening weakness and fatigue, he was complaining of left lower quadrant abdominal pain, he decided to come to emergency room. He was evaluated in the emergency room vital examination on presentation revealed a temperature of 98.2 pulse 87 respiration 18 blood pressure 87/56 pulse ox 97% on room air Laboratory data reveals a white blood count of 5.9 hemoglobin 11.7 platelet count 67 sodium 140 potassium 3.2 chloride 116 CO2 10 BUN 63 creatinine 2.73 amylase 125 lipase 310 Testing in the emergency room revealed CT scan of the abdomen and pelvis revealed hydropic gallbladder measuring 5.0 cm with dependent gallstones, duodenal diverticulum, right-sided renal cortical cyst measuring 6 cm, fluid- filled small bowel loops throughout the abdomen, liquid stools within the cecum, moderate circumferential wall thickening in the hepatic flexure of the colon, left-sided diverticulosis. Patient was admitted to medical floor for further evaluation and treatment Past medical history is significant for history of renal cell carcinoma, previous history of diverticulosis with acute diverticulitis and history of gastrointestinal bleeding, history of hypertension, history of hyperlipidemia, history of chronic atrial fibrillation maintained on Eliquis. On 02/03/2024 patient was seen and examined on the medical floor he is alert and oriented x 3 in no apparent distress he is still complaining of severe weakness otherwise he denies any complaints at this time there is no fever or chills no headache or dizziness no chest pain no shortness of breath no cough no nausea or vomiting no abdominal pain he is still having episodes of diarrhea and no urinary symptoms. Input from general surgery reviewed patient is scheduled for repeat CT scan of the abdomen today we will continue to follow closely. On 02/04/2024 patient is alert and oriented x 3. Patient still complaining of some abdominal pain no bowel movement. Patient still having some nausea. Repeat CT scan was ordered for surgical services awaiting further input. Patient denies chest pain or shortness of breath. Current vital signs temp 98.5, heart 72, respiratory rate 16, blood pressure 120/71 with a pulse ox of 96% on room air On 02/05/2024 patient was seen and examined on the medical floor he is alert and oriented x 3 in no apparent distress he is complaining of abdominal discomfort, nausea, poor oral intake, and constipation otherwise he denies any complaints at this time there is no fever or chills no headache or dizziness no chest pain no shortness of breath no cough no vomiting no burning with urination no frequency or urgency and no hematuria. On 02/06/2024 patient is alert and oriented x 3. Patient is still complaining of abdominal pain and poor oral intake. Surgical services following. Current vital signs temp 97.6, pulse rate 67, respiratory rate 17, blood pressure 137/75 with a pulse ox of 99% on room air. Awaiting further recommendations from surgical and oncology services On 02/07/2024 patient was seen and examined on the medical floor he is alert and oriented x 3 in no apparent distress he is still complaining of abdominal discomfort poor oral intake and nausea otherwise he denies any complaints there is no fever or chills no headache or dizziness no chest pain no shortness of breath no cough no vomiting no diarrhea no blood in the stools. Patient has di scomfort with urination. At this time there is evidence of urinary tract infection and IV ceftriaxone was added, infectious disease consultation was requested in regard to colitis we will continue to follow closely On 02/08/2024 patient is alert and oriented x 3. Antibiotic adjusted to Zosyn per infectious disease urine and stool cultures pending. Current vital signs temp 97.9, heart rate 72, respiratory rate 14, blood pressure 108/62 with a pulse ox of 98% on room air patient is still complaining some abdominal discomfort and poor oral intake. Patient denies chest pain. Patient denies any urinary burning or frequency On 02/09/2024 patient is alert and oriented x 3. Per surgical services no surgical intervention planned lactulose added for constipation. Patient remains on IV Zosyn for UTI. PT OT and social work services consulted for discharge planning likely [facility] On 02/10/2024 patient was seen and examined on the medical floor he is alert and oriented x 3 in no apparent distress he is still complaining of some abdominal discomfort and generalized weakness otherwise he denies any complaints there is no fever or chills no headache or dizziness no chest pain no shortness of breath no cough no nausea or vomiting no diarrhea no blood in the stools and no urinary symptoms On 02/11/2024 patient is alert and oriented x 3. Patient remains on IV Zosyn. Patient still reporting poor appetite. [facility]charge planning to [facility]. Current vital signs temp 98.0, heart 67, respiratory rate 17, blood pressure 105/63 with a pulse ox of 98% on room air. On 02/12/2024 patient was seen and examined on the medical floor he is alert and oriented x 3 in no apparent distress he is complaining of abdominal discomfort, nausea, poor oral intake, he started having bowel movement, otherwise he denies any complaints at this time there is no fever or chills no headache or dizziness no chest pain no shortness of breath no cough no vomiting no burning with urination no frequency or urgency and no hematuria. On 02/13/2024 patient is alert and oriented x 3. Patient reports still some poor oral intake and poor appetite. Patient does report he is having a bowel movement. Hemoglobin 8.2, creatinine 2.3 bun 47.5. Discharge planning to [facility], [place], operated by [facility]. Patient denies chest pain or shortness of breath. Patient denies any urinary burning or frequency. On 02/14/2024 patient was seen and examined on the medical floor he is alert and oriented x 3 in no apparent distress there is no fever or chills no headache or dizziness no chest pain no shortness of breath no cough no nausea or vomiting no abdominal pain no diarrhea and no urinary symptoms he was encouraged to have more oral intake we will give 1 more dose of IV iron possible transfer to residential for rehab in the next 1 to 2 days Objective - Vital Signs Vital signs: Vital Signs Temp 97.7 F 02/14/24 12:57 Pulse 57 L 02/14/24 12:57 Resp 16 02/14/24 12:57 BP 120/72 02/14/24 12:57 Pulse Ox 97 02/14/24 12:57 FiO2 Intake & Output 02/13/24 02/14/24 02/14/24 18:59 06:59 18:59 Output Total 200 560 400 Balance -200 -560 -400 Output: Urine 200 560 400 Other: Voiding Method Urinal - Exam In general patient is alert and oriented x 3 in no distress HEENT head normocephalic and atraumatic Neck is supple no JVD no goiter no lymphadenopathy no carotid bruit Chest examination is clear to auscultation no crackles no wheezing Cardiac exam reveals regular heart sounds S1 and S2 no gallops no murmurs Abdomen is soft nontender no organomegaly with normal bowel sounds Extremity exam reveals no edema no cyanosis or clubbing Neurological examination reveals no gross focal deficits - Labs CBC & Chem 7: 02/14/24 03:14 02/14/24 03:14 Labs: Abnormal Lab Results - Last 24 Hours (Table) 02/14/24 02/14/24 Range/Units 03:14 03:14 WBC 2.78 L (4.50-10.00) X 10*3/uL RBC 2.81 L (4.40-5.60) X 10*6/uL Hgb 9.0 L (13.0-17.0) g/dL Hct 28.6 L (39.6-50.0) % MCV 101.8 H (80.0-97.0) FL MCHC 31.5 L (32.0-37.0) g/dL RDW 18.6 H (11.5-14.5) % Lymphocytes # 0.24 L (0.90-5.00) X 10*3/uL Chloride 115 H (96-109) mmol/L Carbon Dioxide 14.1 L (21.6-31.8) mmol/L BUN 44.6 H (9.0-27.0) mg/dL Creatinine 2.2 H (0.6-1.5) mg/dL Est GFR (CKD-EPI) 29 L (>=60) BUN/Creatinine Ratio 20.27 H (12.00-20.00) Ratio Calcium 8.2 L (8.7-10.3) mg/dL Total Protein 3.7 L (6.2-8.2) g/dL Albumin 2.2 L (3.8-4.9) g/dL Globulin 1.5 L (1.6-3.3) g/dL Albumin/Globulin Ratio 1.47 L (1.60-3.17) Ratio Assessment and Plan Plan: Abdominal pain with diarrhea. Patient started on IV Zosyn Hydropic gallbladder with gallstones Recent surgery for incarcerated left inguinal hernia and small bowel obstruction in October 2023 History of metastatic renal cell carcinoma Underlying history of hypertension Underlying history of hyperlipidemia Underlying history of chronic atrial fibrillation maintained on Eliquis At this time patient was seen and examined Home medications reviewed and reordered General surgery and oncology consultation requested Infectious disease services following DC planning to [facility] bed For DVT prophylaxis patient is maintained on SCDs and anticoagulation on hold per surgery
[2024-02-14] MEDS: SODIUM FERRIC GLUCONAT-SUCROSE 125 MG in SODIUM CHLORIDE 0.9% 100 ML IVPB ONE (18:34)
[2024-02-15 07:49] VITALS: BP 108/66; PULSE 71; TEMP 97.9
[2024-02-15 09:21] LABS: Anisocytosis Slight; Basophils % (A) 1 %; Eosinophils # (A) 0.1 k/uL (0-0.7); Eosinophils % (A) 4 %; HGB 10.3 gm/dL (13.0-17.5); Hypochromasia Moderate; Lymphocytes # (A) 0.3 k/uL (1.0-4.8); Lymphocytes % (A) 13 %; MCH 34.3 pg (25.0-35.0); MCHC 32.3 g/dL (31.0-37.0); MCV 106.1 fL (80.0-100.0); Macrocytosis Marked; Mean Platelet Volume 8.6; Monocytes # (A) 0.2 k/uL (0-1.0); Monocytes % (A) 7 %; Neutrophils # (A) 1.8 k/uL (1.3-7.7); Neutrophils % (A) 72 %; RBC 3.02 m/uL (4.30-5.90); RDW 18.6 % (11.5-15.5); WBC 2.5 k/uL (3.8-10.6)
--- NOTE | 2024-02-15 09:34 | P.DS ---
Providers Date of admission: 02/01/24 19:17 Expected date of discharge: 02/15/24 Attending physician: Ruperto Reese Consults: 02/01/24 19:02 Consult Physician Urgent Consulting Provider: Tank Rasmussen Consult Reason/Comments: oncological care Do you want consulting provider notified?: Yes 02/02/24 10:46 Consult Physician Routine Consulting Provider: Paul Aguilar Consult Reason/Comments: Iliopsoas hematoma Do you want consulting provider notified?: Already Contacted 02/06/24 09:46 Consult Physician Routine Consulting Provider: Nirali Arteaga Consult Reason/Comments: colits, abdominal pain, abdnormal CT Do you want consulting provider notified?: Yes 02/07/24 10:11 Consult Physician Routine Consulting Provider: Jacki Lopez Consult Reason/Comments: colitis Do you want consulting provider notified?: Yes Primary care physician: Ritu Kramer Hospital Course: Discharge diagnosis Colitis. Per ID patient to be discharged on Augmentin ilioposas hematoma. Patient was evaluated by surgical services per surgical services continue to hold anticoagulation Recent surgery for incarcerated left inguinal hernia and small bowel obstruction in October 2023 History of metastatic renal cell carcinoma. Per oncology services continue to hold chemo agents until after scans Underlying history of hypertension Underlying history of hyperlipidemia Underlying history of chronic atrial fibrillation. Eliquis on hold per surgical recommendation Hospital course Isidoro Prado, is an 83-year-old male who presented to [facility] emergency room with a chief complaint of diarrhea and severe weakness, patient stated that he started having diarrhea 2 weeks ago, he started having worsening weakness and fatigue, he was complaining of left lower quadrant abdominal pain, he decided to come to emergency room. He was evaluated in the emergency room vital examination on presentation revealed a temperature of 98.2 pulse 87 respiration 18 blood pressure 87/56 pulse ox 97% on room air Laboratory data reveals a white blood count of 5.9 hemoglobin 11.7 platelet count 67 sodium 140 potassium 3.2 chloride 116 CO2 10 BUN 63 creatinine 2.73 amylase 125 lipase 310 Testing in the emergency room revealed CT scan of the abdomen and pelvis revealed hydropic gallbladder measuring 5.0 cm with dependent gallstones, du odenal diverticulum, right-sided renal cortical cyst measuring 6 cm, fluid- filled small bowel loops throughout the abdomen, liquid stools within the cecum, moderate circumferential wall thickening in the hepatic flexure of the colon, left-sided diverticulosis. Patient was admitted to medical floor for further evaluation and treatment Past medical history is significant for history of renal cell carcinoma, previous history of diverticulosis with acute diverticulitis and history of gastrointestinal bleeding, history of hypertension, history of hyperlipidemia, history of chronic atrial fibrillation maintained on Eliquis. On 02/03/2024 patient was seen and examined on the medical floor he is alert and oriented x 3 in no apparent distress he is still complaining of severe weakness otherwise he denies any complaints at this time there is no fever or chills no headache or dizziness no chest pain no shortness of breath no cough no nausea or vomiting no abdominal pain he is still having episodes of diarrhea and no urinary symptoms. Input from general surgery reviewed patient is scheduled for repeat CT scan of the abdomen today we will continue to follow closely. On 02/04/2024 patient is alert and oriented x 3. Patient still complaining of some abdominal pain no bowel movement. Patient still having some nausea. Repeat CT scan was ordered for surgical services awaiting further input. Patient denies chest pain or shortness of breath. Current vital signs temp 98.5, heart 72, respiratory rate 16, blood pressure 120/71 with a pulse ox of 96% on room air On 02/05/2024 patient was seen and examined on the medical floor he is alert and oriented x 3 in no apparent distress he is complaining of abdominal discomfort, nausea, poor oral intake, and constipation otherwise he denies any complaints at this time there is no fever or chills no headache or dizziness no chest pain no shortness of breath no cough no vomiting no burning with urination no frequency or urgency and no hematuria. On 02/06/2024 patient is alert and oriented x 3. Patient is still complaining of abdominal pain and poor oral intake. Surgical services following. Current vital signs temp 97.6, pulse rate 67, respiratory rate 17, blood pressure 137/75 with a pulse ox of 99% on room air. Awaiting further recommendations from surgical and oncology services On 02/07/2024 patient was seen and examined on the medical floor he is alert and oriented x 3 in no apparent distress he is still complaining of abdominal discomfort poor oral intake and nausea otherwise he denies any complaints there is no fever or chills no headache or dizziness no chest pain no shortness of breath no cough no vomiting no diarrhea no blood in the stools. Patient has discomfort with urination. At this time there is evidence of urinary tract infection and IV ceftriaxone was added, infectious disease consultation was requested in regard to colitis we will continue to follow closely On 02/08/2024 patient is alert and oriented x 3. Antibiotic adjusted to Zosyn per infectious disease urine and stool cultures pending. Current vital signs temp 97.9, heart rate 72, respiratory rate 14, blood pressure 108/62 with a pulse ox of 98% on room air patient is still complaining some abdominal discomfort and poor oral intake. Patient denies chest pain. Patient denies any urinary burning or frequency On 02/09/2024 patient is alert and oriented x 3. Per surgical services no surgical intervention planned lactulose added for constipation. Patient remains on IV Zosyn for UTI. PT OT and social work services consulted for discharge planning likely [facility] On 02/10/2024 patient was seen and examined on the medical floor he is alert and oriented x 3 in no apparent distress he is still complaining of some abdominal discomfort and generalized weakness otherwise he denies any complaints there is no fever or chills no headache or dizziness no chest pain no shortness of breath no cough no nausea or vomiting no diarrhea no blood in the stools and no urinary symptoms On 02/11/2024 patient is alert and oriented x 3. Patient remains on IV Zosyn. Patient still reporting poor appetite. Discharge planning to [facility]. Current vital signs temp 98.0, heart 67, respiratory rate 17, blood pressure 105/63 with a pulse ox of 98% on room air. On 02/12/2024 patient was seen and examined on the medical floor he is alert and oriented x 3 in no apparent distress he is complaining of abdominal discomfort, nausea, poor oral intake, he started having bowel movement, otherwise he denies any complaints at this time there is no fever or chills no headache or dizziness no chest pain no shortness of breath no cough no vomiting no burning with urination no frequency or urgency and no hematuria. On 02/13/2024 patient is alert and oriented x 3. Patient reports still some poor oral intake and poor appetite. Patient does report he is having a bowel movement. Hemoglobin 8.2, creatinine 2.3 bun 47.5. Discharge planning to [facility]. Patient denies chest pain or shortness of breath. Patient denies any urinary burning or frequency. On 02/14/2024 patient was seen and examined on the medical floor he is alert and oriented x 3 in no apparent distress there is no fever or chills no headache or dizziness no chest pain no shortness of breath no cough no nausea or vomiting no abdominal pain no diarrhea and no urinary symptoms he was encouraged to have more oral intake we will give 1 more dose of IV iron possible transfer to intermediate for rehab in the next 1 to 2 days On 02/15/2024 patient is alert and oriented x 3. Patient will be DC'd to [facility]. Patient will be DC'd on Augmentin per ID recommendation. Per oncology continue to hold chemo agents until after outpatient scans. Also recommendations to continue to hold Eliquis secondary to anemia and iliopsoas hematoma. At this time patient denies chest pain or shortness of breath. Patient denies nausea vomiting or diarrhea. Patient denies any urinary burning or frequency Patient Condition at Discharge: Stable Plan - Discharge Summary Discharge Rx Participant: Yes New Discharge Prescriptions: New Amoxic-Pot Clav 500-125 mg [Augmentin 500-125 mg] 1 tab PO Q12HR 10 Days #20 tab Enoxaparin [Lovenox] 30 mg SQ DAILY each droNABinol [Marinol] 2.5 mg PO AC-BID cap polyethylene glycoL 3350 [Miralax] 17 gm PO TID packet traMADol HCl [Ultram] 50 mg PO TID PRN tab PRN Reason: Pain Docusate [Colace] 100 mg PO DAILY cap Mag Hydrox/Al Hydrox/Simeth [Maalox] 30 ml PO TID ml Nystatin 100,000 Unit/gm Powd [Mycostatin Powder] 1 applic TOPICAL TID each Continue Omeprazole 20 mg PO BID allopurinoL [Allopurinol] 100 mg PO DAILY Fexofenadine HCl [[place] Allergy] 180 mg PO DAILY PRN PRN Reason: Allergy Symptoms Tamsulosin HCl [Flomax] 0.8 mg PO HS Acetaminophen [Tylenol Arthritis] 650 mg PO Q8H PRN PRN Reason: Pain Acetaminophen [Tylenol Extra Strength] 500 mg PO Q6H PRN PRN Reason: Fever And/ Or Pain Cholecalciferol (Vitamin D3) [Vitamin D3 (50 Mcg = 2000 Iu)] 50 mcg PO DAILY Triamcinolone Acetonide [Nasacort] 1 spray EA NOSTRIL HS PRN PRN Reason: Allergy Symptoms Levothyroxine Sodium 50 mcg PO WE Prochlorperazine [Compazine] 10 mg PO BID PRN PRN Reason: Nausea Loperamide [Imodium] 2 mg PO QID PRN PRN Reason: Diarrhea Ipratropium [place] 0.06%Nasal [Atrovent Nasal 0.06%] 1 - 2 spray EA NOSTRIL DAILY PRN PRN Reason: Allergy Symptoms Folic Acid 0.4 mg PO DAILY Atorvastatin [Lipitor] 20 mg PO HS Furosemide [Lasix] 20 mg PO DAILY Levothyroxine Sodium 25 mcg PO SUMOTUTHFRSA Diclofenac Sodium [Voltaren Arthritis Pain 1% Gel] 1 applic TOPICAL DAILY PRN PRN Reason: Pain Oxybutynin Chloride [oxyBUTYnin chloride ER] 15 mg PO DAILY Lidocaine 5% Patch [Lidoderm 5% Patch] 1 patch TOPICAL DAILY PRN PRN Reason: Pain Aspirin EC [Ecotrin Low Dose] 81 mg PO DAILY Discontinued Pembrolizumab [Keytruda] 1 dose IV Q21D Diphenoxylate HCl/Atropine [Lomotil 2.5-0.025 mg Tablet] 1 tab PO QID PRN PRN Reason: Diarrhea Apixaban [Eliquis] 2.5 mg PO BID Xgeva Injection 1 dose SQ Q56D Lenvatinib Mesylate [Lenvima 20mg (Dosepack = 2 x 10mg capsules)] 20 mg PO DAILY Discharge Medication List Omeprazole 20 mg PO BID 02/19/14 [History] allopurinoL [Allopurinol] 100 mg PO DAILY 02/19/14 [History] Acetaminophen [Tylenol Arthritis] 650 mg PO Q8H PRN 04/17/21 [History] Acetaminophen [Tylenol Extra Strength] 500 mg PO Q6H PRN 04/17/21 [History] Atorvastatin [Lipitor] 20 mg PO HS 04/17/21 [History] Fexofenadine HCl [[place] Allergy] 180 mg PO DAILY PRN 04/17/21 [History] Folic Acid 0.4 mg PO DAILY 04/17/21 [History] Furosemide [Lasix] 20 mg PO DAILY 04/17/21 [History] Ipratropium [place] 0.06%Nasal [Atrovent Nasal 0.06%] 1 - 2 spray EA NOSTRIL DAILY PRN 04/17/21 [History] Levothyroxine Sodium 25 mcg PO SUMOTUTHFRSA 04/17/21 [History] Loperamide [Imodium] 2 mg PO QID PRN 04/17/21 [History] Tamsulosin HCl [Flomax] 0.8 mg PO HS 04/17/21 [History] Aspirin EC [Ecotrin Low Dose] 81 mg PO DAILY 10/26/23 [History] Cholecalciferol (Vitamin D3) [Vitamin D3 (50 Mcg = 2000 Iu)] 50 mcg PO DAILY 10/26/23 [History] Diclofenac Sodium [Voltaren Arthritis Pain 1% Gel] 1 applic TOPICAL DAILY PRN 10/26/23 [History] Levothyroxine Sodium 50 mcg PO WE 10/26/23 [History] Lidocaine 5% Patch [Lidoderm 5% Patch] 1 patch TOPICAL DAILY PRN 10/26/23 [History] Oxybutynin Chloride [oxyBUTYnin chloride ER] 15 mg PO DAILY 10/26/23 [History] Triamcinolone Acetonide [Nasacort] 1 spray EA NOSTRIL HS PRN 10/26/23 [History] Prochlorperazine [Compazine] 10 mg PO BID PRN 02/01/24 [History] Amoxic-Pot Clav 500-125 mg [Augmentin 500-125 mg] 1 tab PO Q12HR 10 Days #20 tab 02/15/24 [Rx] Docusate [Colace] 100 mg PO DAILY cap 02/15/24 [Rx] Enoxaparin [Lovenox] 30 mg SQ DAILY each 02/15/24 [Rx] Mag Hydrox/Al Hydrox/Simeth [Maalox] 30 ml PO TID ml 02/15/24 [Rx] Nystatin 100,000 Unit/gm Powd [Mycostatin Powder] 1 applic TOPICAL TID each 02/15/24 [Rx] droNABinol [Marinol] 2.5 mg PO AC-BID cap 02/15/24 [Rx] polyethylene glycoL 3350 [Miralax] 17 gm PO TID packet 02/15/24 [Rx] traMADol HCl [Ultram] 50 mg PO TID PRN tab 02/15/24 [Rx] Follow up Appointment(s)/Referral(s): Grady,Tank [Family Provider] - 02/29/24 11:15 am (HOLD CHEMO) Ritu Kramer MD [Primary Care Provider] - 1-2 days Activity/Diet/Wound Care/Special Instructions: 02/24/24 at 10AM treatment follow up scans at [facility] Discharge Disposition: TRANSFER TO SNF/ECF
[2024-02-15 09:35] LABS: Platelet Count 154 k/uL (150-450)
[2024-02-15 09:45] LABS: ALT 23 U/L (4-49); AST 30 U/L (17-59); African American GFR (CKD) 32 (>60 ml/min/1.73 sqM); Albumin 2.1 g/dL (3.5-5.0); Alkaline Phosphatase 83 U/L (38-126); Anion Gap 5 mmol/L; Blood Urea Nitrogen 43 mg/dL (9-20); Calcium 8.6 mg/dL (8.4-10.2); Carbon Dioxide 17 mmol/L (22-30); Chloride 116 mmol/L (98-107); Globulin 2.1 g/dL; Glucose 106 mg/dL (74-99); Non-African American GFR(CKD) 27 (>60 ml/min/1.73 sqM); Potassium 3.9 mmol/L (3.5-5.1); Sodium 138 mmol/L (137-145); Total Bilirubin 0.5 mg/dL (0.2-1.3); Total Protein 4.2 g/dL (6.3-8.2)
[2024-02-15 10:18] VITALS: RESP 17
--- NOTE | 2024-02-15 13:24 | P.PN ---
Subjective Progress Note Date: 02/15/24 CHIEF COMPLAINT: Abdominal pain HISTORY OF PRESENT ILLNESS: Patient is sitting up in bed. Reports lower back pain. Patient reports a smear of a bowel movement earlier this morning. Denies any nausea or vomiting. Afebrile. WBC 2.5 Hgb 10.3 platelets 154 PHYSICAL EXAM: VITAL SIGNS: Reviewed. GENERAL: no acute distress. ABDOMEN: Soft. Mildly distended. Nontender NEUROLOGIC: Alert and oriented. Cranial nerves II through XII grossly intact. ASSESSMENT: 1. Iliopsoas hematoma. Patient on blood thinners at home. The hematoma may be contributing to patient's left groin pain. 2. Moderate circumferential wall thickening at the hepatic flexure of the colon with possible colitis. Resolved on repeat CAT scan 3. Diarrhea resolved 4. History of DVT 5. Status post open repair of incarcerated left inguinal hernia with left orchiectomy and laparotomy with lysis of adhesions and small bowel resection on November 02, 2023 6. History of renal cancer status post nephrectomy 7. Constipation PLAN: -MiraLAX increased to 3 times a day yesterday. -Recommend continuing patient on a good bowel regimen for his constipation -Continue to hold Eliquis -No surgical intervention planned -Agree with discharge to rehab Physician [employer] note has been reviewed by physician. Signing provider agrees with the documented findings, assessment, and plan of care. Objective - Vital Signs Vital signs: Vital Signs Temp 97.9 F 02/15/24 07:48 Pulse 71 02/15/24 07:48 Resp 17 02/15/24 08:00 BP 108/66 02/15/24 07:48 Pulse Ox 97 02/15/24 07:48 FiO2 Intake & Output 02/14/24 02/15/24 02/15/24 18:59 06:59 18:59 Output Total 400 1100 Balance -400 -1100 Weight 57.5 kg Output: Urine 400 1100 - Labs CBC & Chem 7: 02/15/24 08:49 02/15/24 08:49 Labs: Abnormal Lab Results - Last 24 Hours (Table) 02/15/24 02/15/24 Range/Units 08:49 08:49 WBC 2.5 L (3.8-10.6) k/uL RBC 3.02 L (4.30-5.90) m/uL Hgb 10.3 L (13.0-17.5) gm/dL Hct 32.0 L (39.0-53.0) % MCV 106.1 H (80.0-100.0) fL RDW 18.6 H (11.5-15.5) % Lymphocytes # 0.3 L (1.0-4.8) k/uL Macrocytosis Marked A Chloride 116 H (98-107) mmol/L Carbon Dioxide 17 L (22-30) mmol/L BUN 43 H (9-20) mg/dL Creatinine 2.19 H (0.66-1.25) mg/dL Glucose 106 H (74-99) mg/dL Total Protein 4.2 L (6.3-8.2) g/dL Albumin 2.1 L (3.5-5.0) g/dL
--- NOTE | 2024-02-15 15:10 | P.PN ---
Subjective Progress Note Date: 02/15/24 Principal diagnosis: Colitis, dehydration. RCC. In f/u today pt reports he is ready to go to rehab today. He feels that the salt and soda, nystatin oral rinse did help with his dry mouth and maybe a little with his taste. Objective - Vital Signs Vital signs: Vital Signs Temp 97.9 F 02/15/24 07:48 Pulse 71 02/15/24 07:48 Resp 17 02/15/24 08:00 BP 108/66 02/15/24 07:48 Pulse Ox 97 02/15/24 07:48 FiO2 Intake & Output 02/14/24 02/15/24 02/15/24 18:59 06:59 18:59 Output Total 400 1100 Balance -400 -1100 Weight 57.5 kg Output: Urine 400 1100 - Constitutional General appearance: Present: average body habitus, cooperative, no acute distress - EENT Eyes: Present: anicteric sclerae, EOMI ENT: Present: hearing grossly normal - Respiratory Details: resp unlabored at rest - Peripheral edema leg Peripheral Edema: bilateral: 2+ - Integumentary Integumentary: Present: pale - Neurologic Neurologic: Present: CNII-XII intact - Musculoskeletal Musculoskeletal: Present: generalized weakness - Psychiatric Psychiatric: Present: A&O x's 3, appropriate affect, intact judgment & insight - Labs CBC & Chem 7: 02/15/24 08:49 02/15/24 08:49 Labs: Abnormal Lab Results - Last 24 Hours (Table) 02/15/24 02/15/24 Range/Units 08:49 08:49 WBC 2.5 L (3.8-10.6) k/uL RBC 3.02 L (4.30-5.90) m/uL Hgb 10.3 L (13.0-17.5) gm/dL Hct 32.0 L (39.0-53.0) % MCV 106.1 H (80.0-100.0) fL RDW 18.6 H (11.5-15.5) % Lymphocytes # 0.3 L (1.0-4.8) k/uL Macrocytosis Marked A Chloride 116 H (98-107) mmol/L Carbon Dioxide 17 L (22-30) mmol/L BUN 43 H (9-20) mg/dL Creatinine 2.19 H (0.66-1.25) mg/dL Glucose 106 H (74-99) mg/dL Total Protein 4.2 L (6.3-8.2) g/dL Albumin 2.1 L (3.5-5.0) g/dL Assessment and Plan (1) Colitis Status: Acute Priority: High Code(s): K52.9 - NONINFECTIVE GASTROENTERITIS AND COLITIS, UNSPECIFIED SNOMED Code(s): 49650856 (2) Dehydration Status: Acute Priority: High Code(s): E86.0 - DEHYDRATION SNOMED Code(s): 30174784 (3) Iliopsoas muscle hematoma Status: Acute Priority: Medium Code(s): S70.10XA - CONTUSION OF UNSPECIFIED THIGH, INITIAL ENCOUNTER SNOMED Code(s): 714588987 (4) Renal cell carcinoma Status: Acute Priority: High Code(s): C64.9 - MALIGNANT NEOPLASM OF UNSP KIDNEY, EXCEPT RENAL PELVIS SNOMED Code(s): 142667833 Plan: Diarrhea/colitis -CT abdomen and pelvis showed fluid-filled small bowel loops throughout along with liquid stool in the cecum. Moderate circumferential wall thickening at the hepatic flexure of the colon. Gallstones measuring up to 1.3 cm. -Diarrhea resolved since admission. -Diarrhea likely related to Lenvima. IO induced colitis less likely as diarrhea resolved just holding Lenvima -Repeat CT AP showing similar moderate circumferential wall thickening at the hepatic flexure of the colon -After admit pt reported constipation. Abdominal x-ray obtained reported nonobstructive bowel gas pattern with moderate to large colonic stool present. Lactulose and Dulcolax suppository were made available as well. Pt has had several documented BMs. Cont colace and miralax. Iliopsoas hematoma -Presented with significant left groin pain. CT AP showed asymmetric enlargement of the left iliopsoas musculature with surrounding stranding and edema. S uspected intramuscular hemorrhage/hematoma. -Eliquis has been held. General surgery following Macrocytic Anemia -Hgb 11.7 on admit. Today Hgb stable at 10.3 -Left iliopsoas hematoma, no documented trauma. Denies blood in stool/melena. Eliquis held -Anemia labs consistent with anemia of inflammation -Continue to monitor CBC Hypothyroidism -Possible IO induced thyroiditis -Thyroid studies checked in clinic on 01/27. TSH 75.6, T4 0.88, T3 1.7. Synthroid increased to 50mcg daily. Recheck labs in 4-6 weeks Metastatic RCC -Oncological history as dictated in consult -Currently on treatment with Lenvima and Keytruda, completing cycle 3 of keytruda on 01/27/24. Last dose of Lenvima was 1 day prior to admit -Plan is for rehab, as pt has debilitated rather quickly. -Chemo/IO is going to be held until after scans are done and pt has met with Oncologist-appts in DC plan Decreased oral intake -pt reported loss of appetite and early satiety. He was started on marinol, reported improvement in appetite. Now today pt reports poor appetite due to lack of taste. Mucus membranes are dry,tongue is coated. Ordered kools without lidocaine, encouraged salt and soda oral rinse multiple times a day. Pt will also try hard candy. Encouraged soup vs hamburger and anguillan fries. He reported today maybe his mouth felt a little better, will cont to work on appetite in rehab
== END 2024-02-15 10:49 | DRG 391 ==
LOC: EC 14:06 → 5NMEDONC 19:17 → 4SSUR 20:35
PROVIDERS: ADMIT Internal Medicine; ATTEND Internal Medicine
DX: K52.9 Noninfective gastroenteritis and colitis, unspecified (principal); K68.3 Retroperitoneal hematoma; N39.0 Urinary tract infection, site not specified; I48.20 Chronic atrial fibrillation, unspecified; D62 Acute posthemorrhagic anemia; K82.1 Hydrops of gallbladder; E86.0 Dehydration; E78.5 Hyperlipidemia, unspecified; K80.20 Calculus of gallbladder without cholecystitis without obstruction; I10 Essential (primary) hypertension; N28.1 Cyst of kidney, acquired; K57.50 Diverticulosis of both small and large intestine without perforation or abscess without bleeding; M54.10 Radiculopathy, site unspecified; K59.09 Other constipation; Z79.01 Long term (current) use of anticoagulants; Z79.82 Long term (current) use of aspirin; Z79.899 Other long term (current) drug therapy; Z86.718 Personal history of other venous thrombosis and embolism; Z90.5 Acquired absence of kidney; Z85.528 Personal history of other malignant neoplasm of kidney
CPT/HCPCS: 36415; 74019; 74176; 80053; 81001; 82150; 82607; 82728; 82746; 82747; 83540; 83550; 83690; 83735; 84100; 84550; 85025; 85027; 85610; 85730; 87077; 87086; 87186; 96361; 96374; 99285

== ENCOUNTER → 2024-03-17 | Outpatient (CLI) | payer MEDICARE, BC ==
[2024-03-17 20:14] LABS: Basophils # (A) 0.03 X 10*3/uL (0.00-0.10); Basophils % (A) 1.1 %; Eosinophils # (A) 0.14 X 10*3/uL (0.04-0.35); HCT 29.7 % (39.6-50.0); HGB 9.2 g/dL (13.0-17.0); Lymphocytes # (A) 0.57 X 10*3/uL (0.90-5.00); Lymphocytes % (A) 20.3 %; MCH 31.8 pg (27.0-32.0); MCV 102.8 FL (80.0-97.0); Mean Platelet Volume 9.5 FL (9.5-12.2); Monocytes # (A) 0.38 X 10*3/uL (0.20-1.00); Monocytes % (A) 13.5 %; NRBC Per 100 WBC 0 X 10*3/uL (0.00-0.01); Neutrophils # (A) 1.68 X 10*3/uL (1.80-7.70); Neutrophils % (A) 59.7 %; Platelet Count 176 X 10*3/uL (140-440); RBC 2.89 X 10*6/uL (4.40-5.60); RDW 15.7 % (11.5-14.5); WBC 2.81 X 10*3/uL (4.50-10.00)
[2024-03-17 20:40] LABS: % Iron Saturation 13.12 (15.00-50.00); Albumin 2.8 g/dL (3.8-4.9); BUN/Creat Ratio 26.67 Ratio (12.00-20.00); Carbon Dioxide 23.8 mmol/L (21.6-31.8); Chloride 109 mmol/L (96-109); Glucose 91 mg/dL (70-110); Iron 29 UG/DL (65-175); Magnesium 1.7 mg/dL (1.5-2.4); Phosphorus 3.6 mg/dL (2.4-5.1); Potassium 4.4 mmol/L (3.5-5.5); Sodium 142 mmol/L (135-145); Total Iron Binding Capacity 221 UG/DL (228-460); Uric Acid 4.2 mg/dL (3.7-8.7)
== END | disposition home or self-care (01) ==
LOC: LABWHC1 12:33
PROVIDERS: ATTEND Nurse Practitioner Family
DX: N18.32 Chronic kidney disease, stage 3b (principal); D64.9 Anemia, unspecified; E55.9 Vitamin D deficiency, unspecified; N25.81 Secondary hyperparathyroidism of renal origin; M10.9 Gout, unspecified
CPT/HCPCS: 36415; 80048; 82040; 82306; 82728; 83540; 83550; 83735; 83970; 84100; 84550; 85025

== ENCOUNTER → 2024-04-20 | Outpatient (CLI) | payer MEDICARE, BC ==
--- NOTE | 2024-04-20 11:54 | CT ---
EXAMINATION TYPE: CT chest wo con DATE OF EXAM: 04/20/2024 COMPARISON: CT chest abdomen and pelvis dated 09/30/2023 CLINICAL INDICATION: Male, 83 years old with history of Z03.89 obs for suspected mets; PHH, Suspected mets, history of Kidney Ca TECHNIQUE: CT scan of the thorax is performed without IV contrast. CT DLP: [address] CTDI: mGy Automated exposure control for dose reduction was used. FINDINGS: There are 2 stable sub-3 mm nodules in the right right middle and lower lobe. There is no new or susp icious lung mass or nodule. There is no abnormal airspace consolidation or abnormal interstitial density There is no pleural effusion or pneumothorax. There is mild cardiomegaly. The great vessels and chest are normal. There is no mediastinal, hilar or axillary adenopathy.. Limited evaluation of the upper abdomen again reveals stable adrenal nodules. There are stable diffuse mixed sclerotic and lytic metastasis involving T10 with mild pathologic comp ression fracture. There is a similar smaller appearing lesion involving the proximal right rib. It is stable mixed sclerotic lytic lesion involving the sternum. IMPRESSION: 1. No definite metastatic disease to the pulmonary parenchyma. 2. No mediastinal, hilar or axillary adenopathy. 3. Stable metastatic bone lesions involving the T10 vertebral segment, sternum and proximal right 10t h rib. 4. Stable adrenal masses. [facility], , 04/20/2024 11:52 AM
--- NOTE | 2024-04-20 15:15 | NM ---
INDICATION: Patient age:Male; 83 years old; Reason for study: Z03.89 suspected mets; PHH. COMPARISON: CT chest 04/20/2024, CT abdomen and pelvis 02/08/2024, nuclear medicine bone scan 021, 08/26/2020. TECHNIQUE: Intravenous administration of 19.8 mCi of Technetium 99m-hydroxydiphosphonate followed by multiple scintigraphic images of the appendicular and axial skeleton. FINDINGS: New focal radiotracer uptake identified within the T10 vertebral body. There is increased uptake within the bilateral shoulder, sternoclavicular, and sacroiliac joints con sistent with degenerative changes. Mild increased radiotracer uptake around the right hip from prior arthroplasty. No other photopenic areas or areas of increased activity are identified. Physiologic radiotracer activity is demonstrated in the kidneys and bladder. IMPRESSION: Focal radiotracer uptake identified within the T10 vertebral body most consistent with metastatic dis ease. [facility], , 04/20/2024 3:13 PM
== END | disposition home or self-care (01) ==
LOC: RADNMMAIN 10:23
PROVIDERS: ATTEND Internal Medicine Hematology & Oncology
DX: C64.2 Malignant neoplasm of left kidney, except renal pelvis (principal); G89.3 Neoplasm related pain (acute) (chronic); D50.9 Iron deficiency anemia, unspecified; K12.39 Other oral mucositis (ulcerative); C79.51 Secondary malignant neoplasm of bone
CPT/HCPCS: 71250; 78306; A9503

== ENCOUNTER → 2024-05-04 | Outpatient (CLI) | payer MEDICARE, BC ==
--- NOTE | 2024-05-04 15:47 | MR ---
EXAMINATION TYPE: MR brain wo/w con DATE OF EXAM: 05/04/2024 COMPARISON: NONE HISTORY: Left Trigeminal neuralgia ear pain, Carcinoma renal cell left. TECHNIQUE: Multiplanar, multisequence images of the brain and brainstem is performed without and with IV contras t, utilizing 7.5 mL intravenous Gadobutrol . Acoustic nerve disorder protocol. FINDINGS: Diffusion weighted images demonstrate no evidence of a recent infarct or other diffusion ab normality. There is moderate ventricular and sulcal prominence. There are small scattered foci of T2 hyperintensity seen throughout the white matter bilaterally. Approximately 10-15 scattered lesions a re seen. Lesions are nonspecific in appearance and distribution. Midline structures demonstrate normal morphology. The craniocervical junction appears within normal limits. Post contrast images demonstrate no abnormal enhancing masses. The dural venous sinuses appe ar patent. Bilateral aphakia is seen. There is [id number] mucosal thickening involving ethmoid sinuses bilaterally. There is rim-enhancing lesion occupying the entire right maxillary and dominant right sphenoid sinus. Consider large mucous polyp or cyst. Patchy fluid signal in the mastoid air cells is present bilaterally. The vestibulocochlear complexes are symmetric and within normal limits. IMPRESSION: 1. Increased fluid signal bilateral mastoid air cells could reflect product of mastoiditis, correlate clinically. No suspicious enhancing cerebellopontine angle masses are present bilaterally. 2. There is moderate diffuse cerebral atrophy and mild chronic small vessel ischemic change. 3. There is paranasal sinus disease noted as detailed above. [facility], , 05/04/2024 3:45 PM
== END | disposition home or self-care (01) ==
LOC: RADMRIMAIN 14:43
PROVIDERS: ATTEND Internal Medicine Hematology & Oncology
DX: C64.2 Malignant neoplasm of left kidney, except renal pelvis (principal); G89.3 Neoplasm related pain (acute) (chronic); D50.9 Iron deficiency anemia, unspecified; K12.39 Other oral mucositis (ulcerative); I67.82 Cerebral ischemia; G50.0 Trigeminal neuralgia
CPT/HCPCS: 70553; A9585

== ENCOUNTER → 2024-08-24 | Outpatient (CLI) | payer MEDICARE, BC ==
[2024-08-24 20:27] LABS: % Iron Saturation 23.63 (15.00-50.00); Albumin 3.4 g/dL (3.8-4.9); BUN/Creat Ratio 28.37 Ratio (12.00-20.00); Blood Urea Nitrogen 53.9 mg/dL (9.0-27.0); Calcium 8.9 mg/dL (8.7-10.3); Carbon Dioxide 21.9 mmol/L (21.6-31.8); Chloride 104 mmol/L (96-109); Glucose 92 mg/dL (70-110); Iron 56 UG/DL (65-175); Magnesium 1.4 mg/dL (1.5-2.4); Phosphorus 3.8 mg/dL (2.4-5.1); Potassium 4.1 mmol/L (3.5-5.5); Sodium 140 mmol/L (135-145); Total Iron Binding Capacity 237 UG/DL (228-460); Uric Acid 5.3 mg/dL (3.7-8.7)
[2024-08-24 20:40] LABS: Basophils # (A) 0.04 X 10*3/uL (0.00-0.10); Basophils % (A) 0.6 %; Eosinophils # (A) 0.95 X 10*3/uL (0.04-0.35); Eosinophils % (A) 14.8 %; HCT 39.1 % (39.6-50.0); HGB 12.6 g/dL (13.0-17.0); Lymphocytes # (A) 0.67 X 10*3/uL (0.90-5.00); Lymphocytes % (A) 10.5 %; MCH 32.9 pg (27.0-32.0); MCHC 32.2 g/dL (32.0-37.0); MCV 102.1 FL (80.0-97.0); Monocytes # (A) 0.44 X 10*3/uL (0.20-1.00); Monocytes % (A) 6.9 %; NRBC Per 100 WBC 0 X 10*3/uL (0.00-0.01); Neutrophils # (A) 4.29 X 10*3/uL (1.80-7.70); Neutrophils % (A) 66.9 %; Platelet Count 123 X 10*3/uL (140-440); RBC 3.83 X 10*6/uL (4.40-5.60); RDW 17.3 % (11.5-14.5); WBC 6.41 X 10*3/uL (4.50-10.00)
== END | disposition home or self-care (01) ==
LOC: LABWHC1 13:11
PROVIDERS: ATTEND Nurse Practitioner Family
DX: E55.9 Vitamin D deficiency, unspecified (principal); N17.9 Acute kidney failure, unspecified; N25.81 Secondary hyperparathyroidism of renal origin; M10.9 Gout, unspecified; N39.0 Urinary tract infection, site not specified; D64.9 Anemia, unspecified; R63.4 Abnormal weight loss
CPT/HCPCS: 36415; 80048; 82040; 82306; 82728; 83540; 83550; 83735; 83970; 84100; 84439; 84443; 84550; 85025

== ENCOUNTER → 2024-08-30 | Outpatient (CLI) | payer MEDICARE, BC ==
--- NOTE | 2024-08-30 14:16 | CT ---
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 CT DLP: 425.[address] CTDI: mGy Automated exposure control for dose reduction was used. FINDINGS: CT chest: There is no suspicious lung mass or nodule. There is no abnormal airspace/consolidative density or abnormal interstitial density. There is no pleural effusion, pleural thickening or pneumothorax. The great vessels and chest are normal there is no mediastinal, hilar or axillary adenopathy. There i s mild cardiomegaly. Mildly progressive moderate pathologic compression fracture of T10. There is scattered focal lytic le sions in the sternum and in the left fourth rib posterolaterally. CT abdomen and pelvis: There is marked cholelithiasis. There is no biliary ductal dilatation. There is persistent hepatomegaly. There is no gross enlargement of the pancreas, spleen or right adre nal gland. 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 There is a stable large septated cyst with thin calcification in the upper pole of the right kidney. There is no right renal calcification or hydronephrosis. There is no retroperitoneal adenopathy or hemorrhage in the caliber of the abdominal aorta is normal. The bowel loops are normal in caliber and there is no dilatation or obstruction. No inflammatory al ges identified in the bowel wall and mesentery. There is no free intracranial air or fluid. There is no pelvic mass or adenopathy. There is no free fluid within the pelvis. There are multiple destructive lytic lesions involving the right iliac bone and left sacrum. There is a small lytic lesion in L2 without compression fracture. There is a right hip prosthesis. IMPRESSION: 1. No evidence of metastatic disease to the lung parenchyma and no mediastinal, hilar or axillary andre nopathy. 2. No evidence of metastatic disease within the abdomen or pelvis. 3. Multiple scattered lytic metastasis as described above. There is a severe lytic metastatic lesion in T10 with mildly progressive and moderate compression fracture compared to the prior study [facility], , 08/30/2024 2:13 PM
--- NOTE | 2024-08-30 15:35 | NM ---
EXAMINATION TYPE: NM bone scan whole body DATE OF EXAM: 08/30/2024 COMPARISON: Prior bone scan April 20, 2024. Prior CT earlier today. 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 Images acqui red 3 hours post injection. FINDINGS: Persistent increased radiotracer uptake at roughly the level of the T10 vertebra. No new areas of abn ormal radiotracer uptake identified. Left kidney remains surgically absent. Lucency from prosthesis i n the right hip is redemonstrated. IMPRESSION: Persistent metastatic lesion involving T10 vertebra. No new osseous metastatic disease ar e seen. [facility], , 08/30/2024 3:33 PM
== END | disposition home or self-care (01) ==
LOC: RADNMMAIN 10:48
PROVIDERS: ATTEND Internal Medicine Hematology & Oncology
DX: C64.2 Malignant neoplasm of left kidney, except renal pelvis (principal); G89.3 Neoplasm related pain (acute) (chronic); D50.9 Iron deficiency anemia, unspecified; K12.39 Other oral mucositis (ulcerative); C79.51 Secondary malignant neoplasm of bone
CPT/HCPCS: 71250; 74176; 78306; A9503

== ENCOUNTER → 2024-11-16 | Outpatient (CLI) | payer MEDICARE, BC ==
[2024-11-16 15:32] LABS: HCT 30.3 % (39.6-50.0); HGB 9.3 g/dL (13.0-17.0); MCH 33.5 pg (27.0-32.0); MCHC 30.7 g/dL (32.0-37.0); MCV 109.0 FL (80.0-97.0); NRBC Per 100 WBC 0 X 10*3/uL (0.00-0.01); Platelet Count 177 X 10*3/uL (140-440); RBC 2.78 X 10*6/uL (4.40-5.60); RDW 14.1 % (11.5-14.5); WBC 3.95 X 10*3/uL (4.50-10.00)
[2024-11-16 16:50] LABS: Basophils # (A) 0.02 X 10*3/uL (0.00-0.10); Basophils % (A) 0.5 %; Eosinophils # (A) 0.01 X 10*3/uL (0.04-0.35); Eosinophils % (A) 0.3 %; Immature Grans, Automated 0.30 %; Lymphocytes # (A) 0.50 X 10*3/uL (0.90-5.00); Lymphocytes % (A) 12.7 %; Macrocytosis (M) 2+ (None Seen); Monocytes # (A) 0.47 X 10*3/uL (0.20-1.00); Monocytes % (A) 11.9 %; Neutrophils # (A) 2.94 X 10*3/uL (1.80-7.70); Neutrophils % (A) 74.3 %
[2024-11-16 21:14] LABS: Albumin 3.0 g/dL (3.8-4.9); Anion Gap 11.30 mmol/L (4.00-12.00); BUN/Creat Ratio 38.94 Ratio (12.00-20.00); Blood Urea Nitrogen 62.3 mg/dL (9.0-27.0); Calcium 9.1 mg/dL (8.7-10.3); Carbon Dioxide 22.7 mmol/L (21.6-31.8); Chloride 108 mmol/L (96-109); Ferritin 806.0 ng/mL (22.0-322.0); Glucose 81 mg/dL (70-110); Iron 31 UG/DL (65-175); Magnesium 2.3 mg/dL (1.5-2.4); Potassium 4.6 mmol/L (3.5-5.5); Sodium 142 mmol/L (135-145); Total Iron Binding Capacity 223 UG/DL (228-460); Uric Acid 5.9 mg/dL (3.7-8.7)
[2024-11-16 23:11] LABS: Bilirubin,Urine Negative (Negative); Blood,Urine Negative (Negative); Color,Urine Yellow (Yellow); Ketones,Urine Negative (Negative); Nitrite,Urine Negative (Negative); PH, Urine 5.5; Specific Gravity,Urine 1.022 (1.001-1.030); Urobilinogen,Urine 1.0 E.U./DL
[2024-11-16 23:29] LABS: Bacteria,Urine None Seen (None Seen)
== END | disposition home or self-care (01) ==
LOC: LABWHC1 12:22
PROVIDERS: ATTEND Nurse Practitioner Family
DX: E55.9 Vitamin D deficiency, unspecified (principal); N25.81 Secondary hyperparathyroidism of renal origin; M10.9 Gout, unspecified; N39.0 Urinary tract infection, site not specified; D64.9 Anemia, unspecified; N17.9 Acute kidney failure, unspecified
CPT/HCPCS: 36415; 80048; 81001; 82040; 82043; 82570; 82728; 83540; 83550; 83735; 83970; 84100; 84550; 85025